=== PATIENT | female | born 1955 | race Caucasian/White ===

== ENCOUNTER 2023-09-17 08:32 | Outpatient (OUT) | payer MEDICARE, SELFPAY ==
--- NOTE | 2023-09-17 08:34 | XR_ITS ---
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 TECHNIQUE: Dual-energy X-ray absorptiometry (DEXA) bone density study performed for the axial skeleton. 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 T score -1.3. WHO classification: Osteopenia Lowest bone mineral density left femoral trochanter measures 0.577 g/sq cm for T score -2.4. WHO classification: osteopenia bordering on osteoporosis XR/XR DEXA axial skeleton IMPRESSION: Osteopenia bordering on osteoporosis. Moderate to high fracture risk Electronically authenticated by: KELTON GRANT Date: 09/17/2023 09:19
--- NOTE | 2023-09-17 08:34 | MM_ITS ---
Patient Name: FRANTZ MCFARLANE MR#: [id number] : 1955 Exam Date: 09/17/2023 Ordering Doctor: DR Josue Tate D.O. RADIOLOGY REPORT PROCEDURE: MM TOMOSYNTHESIS SCREENING BI COMPARISON: MG MAMM SCREEN 3D GOLIDE CAD, 06/14/2021. MG MAMM SCREEN 3D GOLDIE CAD, 07/12/2022. INDICATIONS: Screening Calculator Name NCI Breast Cancer Risk Assessment Tool 5 Year Breast Cancer Risk 2.40% Lifetime Breast Cancer Risk 8.60% Personal Breast Cancer No Personal Ovarian Cancer No Treatments None Family Cancers Grandmother-maternal with kidney,liver cancer at age ~58; Father with prostate cancer at age 75. LOCATION: [facility] BREAST COMPOSITION: Heterogeneously dense,which may obscure small masses. FINDINGS: DIAGNOSTIC CATEGORY 1--NEGATIVE. NO CHANGE FROM COMPARISON ASSESSMENT. Scattered benign-appearing calcifications are present. Scattered benign-appearing lymph nodes are present. RIGHT BREAST: No significant suspicious finding. LEFT BREAST: No significant suspicious finding. Stable micro clip marker upper outer quadrant, mid breast RECOMMENDATIONS: ROUTINE MAMMOGRAM AND CLINICAL EVALUATION IN 12 MONTHS. PLEASE NOTE: A NORMAL MAMMOGRAM DOES NOT EXCLUDE THE POSSIBILITY OF BREAST CANCER. A CLINICALLY SUSPICIOUS PALPABLE LUMP SHOULD BE BIOPSIED. Dictated by: Skinny Jesus MD on 09/17/2023 at 10:11 Approved by: Skinny Jesus MD on 09/17/2023 at 10:13
== END 2023-09-17 08:33 | disposition home or self-care (01) ==
LOC: MAMMO 08:32
PROVIDERS: PCP Internal Medicine; Visit Provider Internal Medicine
DX: Z12.31 Encounter for screening mammogram for malignant neoplasm of breast (principal); M85.88 Other specified disorders of bone density and structure, other site; Z80.42 Family history of malignant neoplasm of prostate; Z80.8 Family history of malignant neoplasm of other organs or systems; M81.0 Age-related osteoporosis without current pathological fracture
CPT/HCPCS: 77063; 77067; 77080

== ENCOUNTER 2024-09-27 08:39 | Outpatient (OUT) | payer MEDICARE, SELFPAY ==
--- NOTE | 2024-09-27 08:43 | MM_ITS ---
Patient Name: FRANTZ MCFARLANE MR#: [id number] : 1955 Exam Date: 09/27/2024 Ordering Doctor: DR Josue Tate D.O. RADIOLOGY REPORT PROCEDURE: MM TOMOSYNTHESIS SCREENING BI COMPARISON: MM TOMOSYNTHESIS SCREENING BI, 09/17/2023. MG MAMM SCREEN 3D GOLDIE CAD, 07/12/2022. MG MAMM SCREEN 3D GOLDIE CAD, 06/14/2021. MG MAMM GOLDIE SCRN W CAD DIG, 07/07/2013. INDICATIONS: Screening Calculator Name NCI Breast Cancer Risk Assessment Tool 5 Year Breast Cancer Risk 2.40% Lifetime Breast Cancer Risk 8.30% Personal Breast Cancer No Personal Ovarian Cancer No Treatments None Family Cancers Grandmother-maternal with kidney,liver cancer at age ~58; Father with prostate cancer at age 75. LOCATION: [facility] BREAST COMPOSITION: The breasts are heterogeneously dense,which may obscure small masses. FINDINGS: DIAGNOSTIC CATEGORY 0--INCOMPLETE: NEED ADDITIONAL IMAGING EVALUATION. RIGHT BREAST: No significant suspicious finding. No significant change has occurred. LEFT BREAST: Posterior upper-outer quadrant 10 x 8 x 8 mm mass with irregular margins. Ultrasound evaluation is recommended. RECOMMENDATIONS: ULTRASOUND: LEFT BREAST PLEASE NOTE: A NORMAL MAMMOGRAM DOES NOT EXCLUDE THE POSSIBILITY OF BREAST CANCER. A CLINICALLY SUSPICIOUS PALPABLE LUMP SHOULD BE BIOPSIED. Dictated by: Pedro Smith M.D. on 09/28/2024 at 15:39 Approved by: Pedro Smith M.D. on 09/28/2024 at 15:44
--- NOTE | 2024-09-27 08:46 | XR_ITS ---
The [address] [address] Patient Name: FRANTZ MCFARLANE MRN: [id number] date: 1955 Sex: F Assigned Patient Location: [facility] Current Patient Location: [facility] Accession/Order Number: [id number] Exam Date: 09/27/2024 09:00 Report Date: 09/29/2024 15:45 At the request of: BRAYAN GRACE Procedure: XR lumbar spine 6V w bending EXAMINATION: XR lumbar spine 6V w bending HISTORY: Low Back Pain, Scoliosis COMPARISON: No relevant comparison available. FINDINGS: BONES: Marked scoliotic curvature of spine. Distal ends of Owens rods can be seen extending cephalad above the level of imaging. No fracture, spondylolisthesis, or change in alignment during flexion and extension.. Multilevel mild to moderate degenerative facet arthropathy. DISC SPACES: Multilevel moderate disc space narrowing. PARASPINOUS: Negative. No paraspinous abnormality is seen. OTHER: Negative. XR/XR lumbar spine 6V w bending IMPRESSION: 1. Scoliotic curvature and multilevel mild-moderate degenerative changes. 2. No appreciable change in alignment. 3. No appreciable acute abnormality. Electronically authenticated by: ANTON BABIN Date: 09/29/2024 15:45
--- OUTSIDE RECORDS SUMMARY | 2024-09-27 08:58 | XMS_ITS | CCD ---
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 Name Role Phone Josue Tate Unavailable Unavailable Unavailable BEBETO, DR SCHMIDT Primary Care Unavailable BEBETO, DR SCHMIDT Consulting Unavailable BEBETO, DR SCHMIDT Attending Unavailable BALL, DR SCHMIDT Admitting Unavailable WEST, DR KELTON Lo Consulting Unavailable BEBETO, DR SCHMIDT Primary Care Unavailable BEBETO, DR SCHMIDT Consulting Unavailable BEBETO, DR SCHMIDT Attending Unavailable BEBETO, DR SCHMIDT Admitting Unavailable BEBETO, DR SCHMIDT Admitting Unavailable BEBETO, DR SCHMIDT Primary Care Unavailable BEBETO, DR SCHMIDT Consulting Unavailable BEBETO, DR SCHMIDT Attending Unavailable BEBETO, DR SCHMIDT Primary Care Unavailable YOANDY, DR STELLA Webb Attending Unavailabl e YOANDY, DR STELLA Webb Admitting Unavailabl e OLAF, DR PEDRO Kapadia Consulting Unavailable YOANDY, DR STELLA Webb Consulting Unavailabl e MOUKARBJIL, DR PICKERING Consulting Unavailable MOUKARBEL, DR PICKERING Attending Unavailable MOUKARBEL, DR PICKERIGN Admitting Unavailable BALL, DR SCHMIDT Primary Care Unavailable MOUKARBEL, DR PICKERING Consulting Unavailable MOUKARBEL, DR PICKERING Attending Unavailable MOUKARBEL, DR PICKERING Admitting Unavailable BEBETO, DR SCHMIDT Primary Care Unavailable BEBETO, DR SCHMIDT Admitting Unavailable BEBETO, DR SCHMIDT Primary Care Unavailable BEBETO, DR SCHMIDT Consulting Unavailable BEBETO, DR SCHMIDT Attending Unavailable ZIEBJESUS, DR PEDRO Kapadia Consulting Unavailable Unavailable Unavailable Yoandy, Dr. Stella Hooper Referring Lindsayva venkata Tate, Dr. Josue Jackson Primary Care Aime Pitt, Dr. Stella Hooper Attending Lindsayva venkata Pitt, Dr. Stella Hooper Attending Jailyn Pitt, Dr. Stella Hopoer Referring Lindsayva venkata Tate, Dr. Josue Jackson Primary Care Aime Pitt, Dr. Stella Hooper Referring Lindsayva venkata Tate, Dr. Josue Jackson Primary Care Aime Pitt, Dr. Stella Hooper Attending Jailyn Pitt, Dr. Stella Hooper Referring Jailyn Pitt, Dr. Stella Hooper Attending Jailyn Tate, Dr. Josue Jackson Primary Care Aime Gao, Ms. Bee Emeryyeni Clifton Attending Aime Gao, Ms. Bee Nicolasa Clifton Referring Aime Tate, Dr. Josue Jackson Primary Care Aime Tate, Josue Unavailable Yoandy, Dr. Stella Hooper Attending Jailyn Tate, Dr. Josue Jackson Primary Care Aime Pitt, Dr. Stella Hooper Attending Jailyn Tate, Dr. Josue Jackson Primary [facility] [place] Aime gonzalez REFERRAL, SELF Attending Unavailable BEBETO, JOSUE Consulting Unavailable BEBETO, DO JOSUE Consulting Unavailable Allergies Allergy Classification Reported Allergen(s) Allergy Type Date of Onset Reaction(s) Facility (4 sources) Acetaminophen / oxyCODONE Drug Allergy [facility] Other (1 source) Acetaminophen Drug Allergy 4 [facility] (1 source) oxyCODONE Drug Allergy [address] [place] [address] Medications Current Medications Medication Drug Class(es) Dates Sig (Normalized) Sig (Original) benzonatate 100 mg oral capsule (4 sources) Non-narcotic Antitussive Start: 04-24-2016 take 1 capsule by mouth three times daily as needed for cough Tessalon Perles 100 MG 1 capsule Orally Three times a day as needed for cough; swallow whole for 7 days Mar, Active cetirizine hydrochloride 10 mg oral tablet (4 sources) Histamine-1 Receptor Antagonist Start: 08-12-2019 take 1 capsule by mouth once daily as needed ZyrTEC Allergy 10MG ZyrTEC Allergy 10MG, 1 (one) Capsule Capsule daily # 30, 08/12/2019, Ref. x2. Active Oral daily for 0 pt takes PRN *Pick strength-form from [facility] for eRX* Jul, Active methylPREDNISolone 4 mg oral tablet (4 sources) Corticosteroid Start: 04-24-2016 Medrol (Parish) 4 MG as directed Orally for daily dose take half with breakfast half with dinner for 6 days Mar, Active Multi For Her (4 sources) Multi For Her Orally daily Active Multivitamin (Daily Multi-Vitamin) tablet (1 source) Start: 05-13-2024 take 1 tablet by mouth once daily Multivitamin (Daily Multi-Vitamin) tablet Active 1 TAB PO Daily May 13, 2024 12:00am Completed/Discontinued Medications Medication Drug Class(es) Dates Sig (Normalized) Sig (Original) azithromycin 250 mg oral tablet (2 sources) Macrolide Antimicrobial Start: 05-09-2021 Azithromycin 250 MG Oral Tablet TAKE 2 TABLETS BY MOUTH TODAY, THEN TAKE 1 TABLET DAILY FOR 4 DAYS Quantity: 6 Refills: 0 Ordered: 12-May-2021 DO Start : 09-May-2021 Complete cephalexin 500 mg oral capsule (2 sources) Cephalosporin Antibacterial Start: 09-17-2021 take 1 capsule by mouth twice daily Cephalexin 500 MG Oral Capsule TAKE 1 CAPSULE BY MOUTH TWICE A DAY FOR 10 DAYS Quantity: 30 Refills: 0 Ordered: 17-Sep-2021 DO Start : 17-Sep-2021 Complete cholecalciferol 0.025 mg oral capsule (2 sources) Vitamin D Vitamin D-3 25 MCG (1000 UT) Oral Capsule TAKE DIRECTED. Quantity: 0 Refills: 0 Ordered: 18-Oct-2022 DO Active dexamethasone 1 mg/ml / neomycin 3.5 mg/ml / polymyxin b [id number] unt/ml ophthalmic suspension (2 sources) Aminoglycoside Antibacterial, Polymyxin-class Antibacterial, Corticosteroid Start: 09-17-2021 take 1 drop(s) into the eye(s) three times daily Neomycin-Polymyxi n-Dexameth [id number] 1 DROP INTO LEFT EYE THREE TIMES A DAY FOR 10 DAYS Quantity: 5 Refills: 0 Ordered: 17-Sep-2021 DO Start : 17-Sep-2021 Complete Eye Multivitamin/Lutein CAPS (2 sources) Eye Multivitamin/Lute in CAPS TAKE DIRECTED. Quantity: 0 Refills: 0 Ordered: 18-Oct-2022 DO Active Multi Vitamin Daily Oral Tablet (1 source) take 1 tablet by mouth once daily Multi Vitamin Daily Oral Tablet TAKE 1 TABLET DAILY. Quantity: 0 Refills: 0 Ordered: 18-Oct-2022 DO Active Multi Vitamin Daily TABS (1 source) Multi Vitamin Daily TABS TAKE 1 TABLET DAILY. Quantity: 0 Refills: 0 Ordered: 18-Oct-2022 DO Active No Reported Medications (6 sources) No Reported Medications Quantity: 0 Refills: 0 Ordered: 29-Nov-2021 DO Active No Reported Medi cations Quantity: 0 Refills: 0 Ordered: 05-Nov-2021 DO Active Problems Active Problems Problem Classification Problem Date Documented Da te Episodic/Chronic Acute bronchitis (4 sources) Acute bronchitis; Translations: [Acute bronchitis due to other specified organisms] Episodic Anxiety disorders (7 sources) Generalized anxiety disorder; Translations: [Generalized anxiety disorder] Chronic Asthma (7 sources) Mild intermittent asthma; Translations: [Mild intermittent asthma, uncomplicated] Chronic Cardiac dysrhythmias (12 sources) Ventricular premature beats; Translations: [Other premature beats] Onset: 11-01-2021 Chronic Essential hypertension (12 sources) Benign essential hypertension; Translations: [Benign essential hypertension] Onset: 03-20-2023 05-11-2024 Chronic Genitourinary symptoms and ill-defined conditions (4 sources) Dysuria; Translations: [Dysuria] Episodic Heart valve disorders (20 sources) Mitral valve regurgitation; Translations: [Mitral valve disorders] Onset: 10-04-2021 Chronic Immunizations and screening for infectious disease (13 sources) Patient encounter status; Translations: [Other specified vaccination] Resolved: 11-29-2021 05-11-2024 Episodic Nonspecific chest pain (9 sources) Chest pain; Translations: [Chest pain, unspecified] Onset: 11-21-2021 Episodic Other acquired deformities (5 sources) Scoliosis deformity of spine; Translations: [Scoliosis, unspecified] 05-11-2024 Chronic Other acquired deformities (1 source) Scoliosis, unspecified; Translations: [Scoliosis [and kyphoscoliosis], idiopathic] 05-13-2024 Chronic Other bone disease and musculoskeletal deformities (4 sources) Idiopathic scoliosis AND/OR kyphoscoliosis; Translations: [Adolescent idiopathic scoliosis, thoracolumbar region] Chronic Other bone disease and musculoskeletal deformities (2 sources) Other specified disorders of bone density and structure, other site; Translations: [OTH D/O BONE DEN STRUCT OTH SITE] Onset: 08-15-2021 Episodic Other bone disease and musculoskeletal deformities (4 sources) Disorder of bone; Translations: [Other specified disorders of bone density and structure, other site] Episodic Other circulatory disease (4 sources) Elevated blood-pressure reading without diagnosis of hypertension; Translations: [Elevated blood-pressure reading, without diagnosis of hypertension] Episodic Other circulatory disease (1 source) Elevated blood-pressure reading, without diagnosis of hypertension Episodic Other injuries and conditions due to external causes (1 source) Choking due to food in larynx; Translations: [Food in larynx causing asphyxiation, initial encounter] 05-13-2024 Episodic Other lower respiratory disease (2 sources) Dyspnea; Translations: [Shortness of breath] Episodic Other screening for suspected conditions (not mental disorders or infectious disease) (20 sources) Echocardiogram abnormal; Translations: [Nonspecific (abnormal) findings on radiological and other examination of other intrathoracic organs] Onset: 06-06-2022 Episodic Other upper respiratory disease (4 sources) Allergic rhinitis; Translations: [Other allergic rhinitis] Chronic Hilda-; endo-; and myocarditis; cardiomyopathy (except that caused by tuberculosis or sexually transmitted disease) (20 sources) Cardiomyopathy; Translations: [Other primary cardiomyopathies] Onset: 07-21-2018 Resolved: 10-12-2020 Chronic Residual codes; unclassified (8 sources) Body mass index 20-24 - normal; Translations: [Body Mass Index between 19-24, adult] Episodic Residual codes; unclassified (1 source) Family history of malignant neoplasm of kidney; Translations: [FAM HX MALIGNANT NEOPLASM KIDNEY] Onset: 07-27-2022 Episodic Residual codes; unclassified (1 source) Family history of malignant neoplasm of prostate; Translations: [FAMILY HX MALIG NEOPLASM PROSTATE] Onset: 07-27-2022 Episodic Residual codes; unclassified (1 source) Family history of malignant neoplasm of other organs or systems; Translations: [FAM HX MALIG NEOPLASM OTH ORGN/SYS] Onset: 07-27-2022 Episodic Residual codes; unclassified (4 sources) Postmenopausal state; Translations: [Asymptomatic menopausal state] Episodic Sprains and strains (4 sources) Other sprain of right hip, subsequent encounter; Translations: [Other sprain of right hip, subsequent encounter] Episodic Thyroid disorders (5 sources) Other specified hypothyroidism; Translations: [Hypothyroidism] Onset: 06-08-2022 Chronic Past or Other Problems Problem Classification Problem Date Documented Da te Episodic/Chronic Residual codes; unclassified (4 sources) Asymptomatic menopausal state; Translations: [ASYMPTOMATIC MENOPAUSAL STATE] Onset: 08-09-2021 Episodic Unclassified (8 sources) Never smoked tobacco; Translations: [Never a smoker] Results Test Name Value Interpretation Reference Range [facility] 07-13-2024 ALT No additional P-5'-P [Catalytic activity/Vol] 13 Int._Unit/L Normal 6-46 [facility] Comment on above: Performed By: #### 2 [id number] #### [facility] [address] [place] [address] Kirt 07-13-2024 AST [Catalytic activity/Vol] 14 Int._Unit/L Normal 5-43 [facility] Comment on above: Performed By: #### 2 [id number] #### [facility] [address] [place] [address] BMPon 07-13-2024 Anion gap [Moles/Vol] 10 mmol/L Normal 6-16 [facility] Comment on above: Performed By: #### 2 [id number] #### [facility] [address] [place] [address] Calcium [Mass/Vol] 9.3 mg/dL Normal 8.9-11.1 [facility] Comment on above: Performed By: #### 2 [id number] #### [facility] [address] [place] [address] Chloride [Moles/Vol] 105 mmol/L Normal 101-111 [facility] Comment on above: Performed By: #### 2 [id number] #### [facility] [address] [place] [address] CO2 [Moles/Vol] 31 mmol/L Normal 21-31 [facility] Comment on above: Performed By: #### 2 [id number] #### [facility] [address] [place] [address] Creatinine [Mass/Vol] 0.6 mg/dL Normal 0.5-1.3 [facility] Comment on above: Performed By: #### 2 [id number] #### [facility] [address] [place] [address] Glucose [Mass/Vol] 79 mg/dL Normal 55-199 [facility] Comment on above: Performed By: #### 2 [id number] #### [facility] [address] [place] [address] Potassium [Moles/Vol] 4.3 mmol/L Normal 3.5-5.3 [facility] Comment on above: Performed By: #### 2 [id number] #### [facility] [address] [place] [address] Sodium [Moles/Vol] 142 mmol/L Normal 135-145 [facility] Comment on above: Performed By: #### 2 [id number] #### [facility] [address] [place] [address] Urea nitrogen [Mass/Vol] 15 mg/dL Normal 5-21 [facility] Comment on above: Performed By: #### 2 [id number] #### [facility] [address] [place] [address] Urea nitrogen/Creatinine [Mass ratio] 25 No Units High 10-20 [facility] Comment on above: Performed By: #### 2 [id number] #### [facility] [address] [place] [address] CBC w/Indiceson 07-13-2024 Erythrocyte distribution width (RBC) [Ratio] 13.9 % Normal 10.9-14.2 [facility] Comment on above: Performed By: #### 2 [id number] #### [facility] [address] [place] [address] Hematocrit (Bld) [Volume fraction] 40.7 % Normal 34.0-46.0 [facility] Comment on above: Performed By: #### 2 [id number] #### [facility] [address] [place] [address] Hemoglobin (Bld) [Mass/Vol] 13.6 g/dL Normal 12.0-16.0 [facility] Comment on above: Performed By: #### 2 [id number] #### [facility] [address] [place] [address] MCH (RBC) [Entitic mass] 29.5 pg Normal 27.0-34.0 [facility] Comment on above: Performed By: #### 2 [id number] #### [facility] [address] [place] [address] MCHC (RBC) [Mass/Vol] 33.4 g/dL Normal 31.4-36.0 [facility] Comment on above: Performed By: #### 2 [id number] #### [facility] [address] [place] [address] MCV (RBC) [Entitic vol] 88.3 fL Normal 80.0-100.0 [facility] Comment on above: Performed By: #### 2 [id number] #### [facility] [address] [place] [address] Platelet 270.0 E9/L Normal 150.0-500.0 [facility] Comment on above: Performed By: #### 2 [id number] #### [facility] [address] [place] [address] Platelet mean volume (Bld) [Entitic vol] 10.0 fL Normal 6.4-10.8 [facility] Comment on above: Performed By: #### 2 [id number] #### [facility] [address] [place] [address] RBC (Bld) [#/Vol] 4.6 E12/L Normal 4.3-5.9 [facility] Comment on above: Performed By: #### 2 [id number] #### [facility] [address] [place] [address] RBC size Nom (Bld) NORMAL Invalid Interpretation Code [facility] Comment on above: Performed By: #### 2 [id number] #### [facility] [address] [place] [address] WBC corrected for nucl RBC Auto (Bld) [#/Vol] 5.4 E9/L Normal 4.0-11.0 [facility] Comment on above: Performed By: #### 2 [id number] #### [facility] [address] [place] [address] Lipid Panelon 07-13-2024 Cholesterol [Mass/Vol] 161 mg/dL Normal 120-200 [facility] Comment on above: Performed By: #### 2 [id number] #### [facility] [address] [place] [address] Cholesterol in HDL [Mass/Vol] 58 mg/dL Invalid Interpretation Code [facility] Comment on above: Result Comment: '>= 60 LOW RISK' '<= 40 HIGH RISK' Performed By: #### 2 [id number] #### [facility] [address] [place] [address] Cholesterol in LDL [Mass/Vol] 77 mg/dL Normal <=129 [facility] Comment on above: Performed By: #### 2 [id number] #### [facility] [address] [place] [address] Cholesterol in VLDL [Mass/Vol] 24 mg/dL Normal 7-40 [facility] Comment on above: Performed By: #### 2 [id number] #### [facility] [address] [place] [address] Triglyceride [Mass/Vol] 119 mg/dL Normal <=149 [facility] Comment on above: Performed By: #### 2 [id number] #### [facility] [address] [place] [address] eGFRon 07-13-2024 eGFR 98 mL/min/1.73 m2 Normal >=59 [facility] Comment on above: Performed By: #### 1 [id number] #### [facility] [address] [place] [address] [facility] MUGA SCAN INJECTIONon [facility] MUGA SCAN INJECTION Patient Name: CANDIDO BOCANEGRA STUDY: MUGA Performing facility: [facility], [address] [place] [address], [address], [place] [address] [facility] Provider: Zelalem Pitt DO, [facility] PCP: Dr. Vishnu TATE Supervising provider: Stew Paz MD, [facility] INDICATION: I42.9: Cardiomyopathy I42.8: Non-ischemic cardiomyopathy I10: Hypertension HISTORY: Gender: F; Age: 67 y/o ; Height: 0 cm; Weight: 0 kg. NICM, HTN Arrhythmias; PVCs COMPARISON: Previous echo testing completed 08/2022 at [place]. EF 40-45% Previous nuclear testing completed 10/2021 at [place]. EF 63% ACCESSION NUMBER(S): [id number]; [id number] ORDERING CLINICIAN: STELLA PITT TECHNIQUE: The patient received an IV injection of 3 ml of stannous pyrophosphate (PYP) using the in-vivo method of labeling red blood cells. After 15 minutes the patient received another IV injection of 24.8 mCi of Technetium 99m pertechnetate. Planar images of the left ventricle were obtained in the TAJIK 45, Lt Lateral and anterior projections. FINDINGS: The right ventricle was normal. The left ventricle was normal in size. Regional wall motion was normal. Global resting LVEF was normal- at 55%. IMPRESSION: Normal resting right ventricular function. Normalresting left ventricular function. Left ventricular ejection fraction is 55%. No previous studies are available for comparison Electronically signed by: STEW PAZ MD Normal [facility] No Panel Informationon 03-20 Normal -[facility] 250 DO Work Phone: Office Visit (Cardiology)on 10-18-2022 Follow-up visit Diagnoses/Problems Assessed Non-ischemic cardiomyopathy (425.4) (I42.8) Hypertension (401.9) (I10) Never a smoker Body mass index (BMI) of 21.0 to 21.9 in adult (V85.1) (Z68.21) Cardiomyopathy (425.4) (I42.9) Shortness of breath (786.05) (R06.02) Orders Cardiomyopathy, Hypertension, Non-ischemic cardiomyopathy NM Muga (Gated Cardiac Blood Pool); Status:Hold For - Scheduling,Retrospec tive Authorization; Requested for:[id number]; Radiologist to Determine Optimal Study : Y What are the patient's signs and symptoms? : HTN, weakness SocHx: Never a smoker Tobacco Use Screening; Status:Complete; Done: 18Oct2022 Patient Instructions Please bring all medicines, vitamins, and herbal supplements with you when you come to the office. Prescriptions will not be filled unless you are compliant with your follow up appointments or have a follow up appointment scheduled as per instruction of your physician. Refills should be requested at the time of your visit. Fall prevention education given Follow up in 6 months Follow up after testing completed muga scan 6 months Chief Complaint CANDIDO BOCANEGRA is being seen for a 8 month follow-up of. 67-year-old female who returns for follow-up and is overall doing well other than episodic shortness of breath. She has had no heart failure admissions denies any edema, blood pressure slightly elevated today likely this is situational due to job stress as well as mild home stress. She was initially seen 1 year ago for abnormal echo and mild left ventricular dysfunction, she underwent stress perfusion imaging in November 13 that was completely normal with normal left ventricular function. We arranged follow-up and echocardiogram for this year, the echo from August 2022 is reviewed as well as September 2021 echo both confirm mild left ventricular dysfunction with ejection fraction of 40 to 45% with left ventricular end-diastolic measurement of 49 mm, and systolic dimension of 43 mm, with no significant valvular pathology, RVSP of 33 mmHg. When comparing current echo to last years echo done in a different institution read by a different story analyst, her left ventricular end-systolic diameter was 3.8 cm and diastolic diameter was same at 4.9 cm. Again representing mild to moderate global hypokinesis We discussed all the above with her and offered initiation of guideline directed medical therapies including carvedilol, losartan, spironolactone and explained in detail the nature of these pharmacologic interventions for what would be considered class I stage B congestive heart failure. Patient is very reticent to start any medications at this juncture as she is so asymptomatic, and is about to retire in the next 90 days with hopeful improvement in her lifestyle. She already exercises on a regular basis and is looking forward to further exercise and aerobic lifestyle. After detailed informed decision-making process, we will hold off on pharmacologic intervention, schedule her to come back for a MUGA scan in 6 months with repeat clinical visit and readdress pharmacologic intervention if necessary. Surgical History Problems History of Complete colonoscopy 1997 History of Spinal surgery Past Medical History Problems History of Encounter for immunization (V03.89) (Z23) Resolved Date: 29 Nov 2021 Current Meds Medication NameInstruction Eye Multivitamin/Lutein [place] DIRECTED. Multi Vitamin Daily Oral TabletTAKE 1 TABLET DAILY. Vitamin D-3 25 MCG (1000 UT) Oral CapsuleTAKE DIRECTED. Allergies Medication No Known Drug Allergies Recorded By: Abbi Lebron; 11/05/2021 2:33:31 PM Social History Problems Consumes 1 to 2 servings of caffeine per day (V49.89) (Z78.9) Never a smoker No illicit drug use Occasional alcohol use Review of Systems Constitutional: not feeling tired. Cardiovascular: no intermittent leg claudication and as noted in HPI. Respiratory: shortness of breath during exertion, but no cough and no shortness of breath. Gastrointestinal: no change in bowel habits and no blood in stools. Integumentary: no skin rashes. Neurological: no seizures and no frequent falls. All other systems have been reviewed and are negative for complaint. Vitals Vital Signs Recorded: [id number] 03:41PM Heart Rate60, L Radial [id number], LUE, Sitting Sogwwbypn81, LUE, Sitting Height5 ft 2 in Vxkhjt224 lb BMI Affscpqtzf67.95 kg/m2 BSA Calculated1.54 Tobacco Useb) No PHQ-2 #1. Over the last 2 weeks have you felt down, depressed or hopeless? (If yes, answer PHQ-9 below)No PHQ-2 #2. Over the last 2 weeks have you felt little interest or pleasure in doing things? (If yes, answer PHQ-9 below)No Falls Screening (Age 18+)b) One or more falls in the last year Physical Exam Constitutional: alert and in no acute distress. Neck: neck is supple, symmetric, trachea midline, no masses and no thyromegaly . Pulmonary: no increased work of breathing or signs of respiratory dis (more content not included)... Normal [facility] Tobacco Screening.on 023 Adult depression screening assessment No [facility] Erly 250 DO Work Phone: Fall risk assessment b) One or more fall s in the last year [facility] Erly 250 DO Work Phone: Tobacco use status CPHS b) No [facility] Erly 250 DO Work Phone: Echocardiogramon 08-29-2022 Echocardiography [facility] [employer] [address] [place] [address], Suite [facility], [place] [address] TRANSTHORACIC ECHOCARDIOGRAM REPORT Patient Name: CANDIDO Pathak Physician: [id number] Stew Paz MD, [facility] Study Date: 08/29/2022 Referring Physician: STELLA PITT MRN/PID: [id number] PCP: Josue Tate Accession/Order#: [id number] Department [facility] Nguyen Barlow Date of : 1955 Fellow: Gender: F Nurse: Admit Date: Motorcycle Mechanic: Jillian Goldman RDCS, RVT Height: 157.48 cm CC Report to: Weight: 53.52 kg Study Type: Echocardiogram BSA: 1.53 m2 Diagnosis/ICD: I34.0-Nonrheumatic mitral (valve) insufficiency Indication: HTN Procedure/CPT: Echo Complete w Full [id number] Study Detail: The following Echo studies were performed: 2D, M-Mode, Doppler and color flow. PHYSICIAN INTERPRETATION: Left Ventricle: Left ventricular systolic function is mildly to moderately decreased, with an estimated ejection fraction of 40-45%. The left ventricular cavity size is normal. Spectral Doppler shows a normal pattern of left ventricular diastolic filling. Severe inferolateral wall hypokinesis. Left Atrium: The left atrium is normal in size. Right Ventricle: The right ventricle is normal in size. There is normal right ventricular global systolic function. Right Atrium: The right atrium is normal in size. Aortic Valve: The aortic valve is trileaflet. There is no evidence of aortic valve regurgitation. The peak instantaneous gradient of the aortic valve is 3.1 mmHg. The mean gradient of the aortic valve is 2.0 mmHg. Mitral Valve: The mitral valve is mildly thickened. There is mild mitral valve regurgitation. Tricuspid Valve: The tricuspid valve is structurally normal. There is trace tricuspid regurgitation. Pulmonic Valve: The pulmonic valve is structurally normal. There is no indication of pulmonic valve regurgitation. Pericardium: There is no pericardial effusion noted. Aorta: The aortic root is normal. Systemic Veins: The inferior vena cava appears to be of normal size. In comparison to the previous echocardiogram(s): When compared to a study from 10/04/2021, there has been no significant interval changes. CONCLUSIONS: 1. Left ventricular systolic function is mildly to moderately decreased with a 40-45% estimated ejection fraction. 2. Severe inferolateral wall hypokinesis. 3. When compared to a study from 10/04/2021, there has been no significant interval changes. QUANTITATIVE DATA SUMMARY: 2D MEASUREMENTS: Normal Ranges: Ao Root d: 2.60 cm (2.0-3.7cm) LAs: 3.80 cm (2.7-4.0cm) RVIDd: 3.00 cm (0.9-3.6cm) IVSd: 0.80 cm (0.6-1.1cm) LVPWd: 0.80 cm (0.6-1.1cm) LVIDd: 4.90 cm (3.9-5.9cm) LVIDs: 4.30 cm LV Mass Index: 85.9 g/m2 LV % FS 12.2 % LV SYSTOLIC FUNCTION BY 2D PLANIMETRY (MOD): Normal Ranges: EF-A4C View: 38.1 % (>=55%) LV DIASTOLIC FUNCTION: Normal Ranges: MV Peak E: 0.57 m/s (0.7-1.2 m/s) MV Peak A: 0.39 m/s (0.42-0.7 m/s) E/A Ratio: 1.48 (1.0-2.2) MV lateral e' 0.07 m/s MV medial e' 0.06 m/s E/e' Ratio: 7.90 (<8.0) MITRAL VALVE: Normal Ranges: MV Vmax: 0.57 m/s (<=1.3m/s) MV peak P.3 mmHg (<5mmHg) MV mean P.0 mmHg (<48mmHg) MITRAL INSUFFICIENCY: Normal Ranges: MR Vmax: 436.00 cm/s dP/dt: 826 mmHg/s (>1200mmHg/sec) AORTIC VALVE: Normal Ranges: AoV Vmax: 0.89 m/s (<=1.7m/s) AoV Peak P.1 mmHg (<20mmHg) AoV Mean P.0 mmHg (1.7-11.5mmHg) LVOT Max Yo: 0.70 m/s (<=1.1m/s) AoV VTI: 19.60 cm (18-25cm) LVOT VTI: 16.00 cm LVOT Diameter: 1.80 cm (1.8-2.4cm) AoV Area, VTI: 2.08 cm2 (2.5-5.5cm2) AoV Area,Vmax: 2.01 cm2 (2.5-4.5cm2) AoV Dimensionless Index: 0.82 TRICUSPID VALVE/RVSP: Normal Ranges: Peak TR Velocity: 2.63 m/s RV Syst Pressure: 30.7 mmHg (< 30mmHg) PULMONIC VALVE: Normal Ranges: PV Max Yo: 0.5 m/s (0.6-0.9m/s) PV Max P.2 mmHg PIEDV: 1.71 m/s PADP: 14.7 mmHg [id number] Stew Paz MD, [facility] Electronically signed on 09/02/2022 at 6:28:57 PM Final Normal [facility] Echocardiography Please click on the link to view the study images Normal [facility] [employer] Work Phone: Falls Screening (Age 18+)on 08-29-2022 Fall risk assessment b) One or more fall s in the last year [facility] [employer] Work Phone: MG MAMM SCREEN 3D GOLDIE CADon 07-12-2022 MG MAMM SCREEN 3D GOLDIE CAD Patient: MELISSA BOCANEGRA Exam Date: 07/12/2022 : 1955 Gender:F Ordering : DR JOSUE TATE D.O. Admission #: [id number] Family : Order #: [id number] CLICK HERE TO VIEW EXAM RADIOLOGY REPORT PROCEDURE: MAMMOGRAM SCREENING 3D BILATERAL CAD COMPARISON: MG MAMM SCREEN 3D GOLDIE CAD, 06/14/2021. MG MAMM SCREEN GOLDIE W CAD, 05/02/2020. INDICATIONS: Screening mammography Calculator Name NCI Breast Cancer Risk Assessment Tool 5 Year Breast Cancer Risk 2.40% Lifetime Breast Cancer Risk 8.90% Personal Breast Cancer No Personal Ovarian Cancer No Treatments None Family Cancers Grandmother-maternal with kidney,liver cancer at age 58; Father with prostate cancer at age 75. LOCATION: [facility] BREAST COMPOSITION: Heterogeneously dense,which may obscure small masses. FINDINGS: DIAGNOSTIC CATEGORY 1--NEGATIVE. NO CHANGE FROM COMPARISON ASSESSMENT. Scattered benign-appearing calcifications are present. Scattered benign-appearing lymph nodes are present. RIGHT BREAST: No significant suspicious finding. LEFT BREAST: No significant suspicious finding. Stable micro clip marker upper quadrant. RECOMMENDATIONS: ROUTINE MAMMOGRAM AND CLINICAL EVALUATION IN 12 MONTHS. PLEASE NOTE: A NORMAL MAMMOGRAM DOES NOT EXCLUDE THE POSSIBILITY OF BREAST CANCER. A CLINICALLY SUSPICIOUS PALPABLE LUMP SHOULD BE BIOPSIED. Dictated by: Kelton Jesus MD on 07/12/2022 at 10:29 Approved by: Kelton Jesus MD on 07/12/2022 at 10:30 Normal [facility] T3, TOTAL (TRIIODOTHYRONINE) on 06-08-2022 T3, TOTAL 97 ng/dL Normal 71-180 [facility] Comment on above: Performed By: #### T 3TOTAL #### [facility] [place] [facility] [address] [place] [address] Dr. Davie Vanessa FREE T4on 06-06-2022 Free T4 [Mass/Vol] 0.93 ng/dL Normal 0.76-1.46 [facility] Comment on above: Performed By: #### F T4 #### [facility] [place] [facility] [address] [place] [address] Dr. Davie Vanessa TSHon 06-06-2022 TSH 3.021 uIU/mL Normal 0.358-3.740 [facility] Comment on above: Performed By: #### T SH ####[facility] [place] [id number] [place] [id number]. Davie Vanessa CBC AUTO DIFFon 05-09-2022 BASO # 0.1 103/ul Normal 0.0-0.1 [facility] Comment on above: Performed By: #### C BC #### [facility] [place] [facility] [address] [place] [address] Dr. Davie Vanessa Basophils/100 WBC (Bld) 0.9 % Normal 0.2-2.0 [facility] Comment on above: Performed By: #### C BC #### [facility] [place] [facility] [address] [place] [address] Dr. Davie Vanessa EO # 0.2 103/ul Normal 0.0-0.7 [facility] Comment on above: Performed By: #### C BC #### [facility] [address] [place] [address] Dr. Davie Vanessa Eosinophils/100 WBC (Bld) 3.1 % Normal 0.9-7.0 [facility] Comment on above: Performed By: #### C BC #### [facility] [place] [facility] [address] [place] [address] Dr. Davie Vanessa Erythrocyte distribution width (RBC) [Ratio] 13.5 % Normal 11.0-15.0 [facility] Comment on above: Performed By: #### C BC #### [facility] [address] [place] [address] Dr. Davie Vanessa Hematocrit (Bld) [Volume fraction] 43.2 % Normal 36.0-48.0 [facility] Comment on above: Performed By: #### C BC #### [facility] [address] [place] [address] Dr. Davie Vanessa Hemoglobin (Bld) [Mass/Vol] 13.7 g/dL Normal 12.0-16.0 [facility] Comment on above: Performed By: #### C BC #### [facility] [place] [facility] [address] [place] [address] Dr. Davie Vanessa IG # 0.01 10e3/ul Normal 0.00-0.03 [facility] Comment on above: Performed By: #### C BC #### [facility] [place] [facility] [address] [place] [address] Dr. Davie Vanessa IG % 0.2 % Normal 0.0-0.5 [facility] Comment on above: Performed By: #### C BC #### [facility] [address] [place] [address] Dr. Davie Vanessa LYMPH # 2.2 103/ul Normal 1.2-3.8 [facility] Comment on above: Performed By: #### C BC #### [facility] [address] [place] [address] Dr. Davie Vanessa Lymphocytes/100 WBC (Bld) 36.9 % Normal 20.5-60.0 [facility] Comment on above: Performed By: #### C BC #### [facility] [address] [place] [address] Dr. Davie Vanessa MANUAL DIFF REQ NO Normal [facility] Comment on above: Performed By: #### C BC #### [facility] [address] [place] [address] Dr. Davie Vanessa MCH (RBC) [Entitic mass] 29.0 pg Normal 26.7-34.0 [facility] Comment on above: Performed By: #### C BC #### [facility] [place] [facility] [address] [place] [address] Dr. Davie Vanessa MCHC (RBC) [Mass/Vol] 31.7 g/dL Normal 29.9-35.2 [facility] Comment on above: Performed By: #### C BC #### [facility] [address] [place] [address] Dr. Davie Vanessa MCV (RBC) [Entitic vol] 91.5 fL Normal 81.0-99.0 [facility] Comment on above: Performed By: #### C BC #### [facility] [address] [place] [address] Dr. Davie Vanessa MONO # 0.7 103/ul Normal 0.3-0.8 [facility] Comment on above: Performed By: #### C BC #### [facility] [address] [place] [address] Dr. Davie Vanessa Monocytes/100 WBC (Bld) 11.1 % Normal 1.7-12.0 [facility] Comment on above: Performed By: #### C BC #### [facility] [address] [place] [address] Dr. Davie Vanessa NEUT # 2.8 103/ul Normal 1.4-6.5 [facility] Comment on above: Performed By: #### C BC #### [facility] [place] [facility] [address] [place] [address] Dr. Davie Vanessa Neutrophils/100 WBC (Bld) 47.8 % Normal 43.0-75.0 [facility] Comment on above: Performed By: #### C BC #### [facility] [place] [facility] [address] [place] [address] Dr. Davie Vanessa Platelet mean volume (Bld) [Entitic vol] 12.2 fL Normal 9.5-13.5 [facility] Comment on above: Performed By: #### C BC #### [facility] [address] [place] [address] Dr. Davie Vanessa PLT 240 103/ul Normal 150-450 [facility] Comment on above: Performed By: #### C BC #### [facility] [address] [place] [address] Dr. Davie Vanessa RBC 4.72 106/ul Normal 4.20-5.40 [facility] Comment on above: Performed By: #### C BC #### [facility] [address] [place] [address] Dr. Davie Vanessa WBC 5.9 103/ul Normal 4.0-11.0 [facility] Comment on above: Performed By: #### C BC #### [facility] [address] [place] [address] Dr. Davie Vanessa GLYCOHEMOGLOBIN A1Con 2021 ADA RECOMMENDATION SEE BELOW Normal [facility] Comment on above: Result Comment: ADA RECOMMENDED LIMIT 4.0 - 6.0 ADA THERAPEUTIC TARGET < 7.0 ACTION SUGGESTED > 7.0 Performed By: #### A 1C #### [facility] [address] [place] [address] Dr. Davie Vanessa Glucose [Mass/Vol] 111 mg/dL Normal [facility] Comment on above: Performed By: #### A 1C #### [facility] [address] [place] [address] Dr. Davie Vanessa HbA1c (Bld) [Mass fraction] 5.5 % Normal 4.5-6.2 [facility] Comment on above: Performed By: #### A 1C #### [facility] [address] [place] [address] Dr. Davie Vanessa LIPID PROFILEon 05-09-2022 CHOL-HDL RATIO NORM SEE BELOW Normal [facility] Comment on above: Result Comment: 3.3 - 4.4 LOW RISK 4.4 - 7.1 AVERAGE RISK 7.1 - 11.0 MODERATE RISK >11.0 HIGH RISK Performed By: #### C MP, LIPID, TSH ####[facility] [id number] [place] [id number]. Davie Vanessa Cholesterol [Mass/Vol] 137 mg/dL Normal <=200 [facility] Comment on above: Performed By: #### C MP, LIPID, TSH ####[facility] [id number] [place] [id number]. Davie Vanessa Cholesterol in HDL [Mass/Vol] 64 mg/dL Critically high 40-60 [facility] Comment on above: Performed By: #### C MP, LIPID, TSH ####[facility] [id number] [place] [id number]. Davie Vanessa Cholesterol in LDL [Mass/Vol] 57.4 mg/dL Normal [facility] Comment on above: Performed By: #### C MP, LIPID, TSH ####[facility] [id number] [place] [address]Dr. Davie Vanessa Cholesterol.total/Ch olesterol in HDL [Mass ratio] 2.1 {ratio} Normal [facility] Comment on above: Performed By: #### C MP, LIPID, TSH ####[facility] [id number] [place] [id number]. Rosauralan Vanessa HDL NORMAL > or = 60 mg/dl - LOW CARDIOVASCULAR RISK <40 mg/dl - HIGH CARDIOVASCULAR RISK Normal [facility] Comment on above: Performed By: #### C MP, LIPID, TSH ####[facility] [id number] [place] [id number]. Rosauralan Vanessa LDL CALC NORMAL SEE BELOW Normal [facility] Comment on above: Result Comment: <100 mg/dl OPTIMAL 100 - 129 mg/dl NEAR OR ABOVE OPTIMAL 130 - 159 mg/dl BORDERLINE HIGH 160 - 189 mg/dl HIGH >190 mg/dl VERY HIGH Performed By: #### C MP, LIPID, TSH ####[facility] [id number] [place] [id number]. Davie Vanessa Triglyceride [Mass/Vol] 78 mg/dL Normal <=150 [facility] Comment on above: Performed By: #### C MP, LIPID, TSH ####[facility] [id number] [place], [place] [address]CbDr. Davie Vanessa VLDL CALC 15.6 mg/dL Normal [facility] Comment on above: Performed By: #### C MP, LIPID, TSH ####[facility] [id number] [place] [id number]. Davie Vanessa PROF 14(COMP METB)on 022 Albumin [Mass/Vol] 3.8 g/dL Normal 3.4-5.0 [facility] Comment on above: Performed By: #### C MP, LIPID, TSH #### [facility] [place] [facility] [address] [place] [address] [address] Davie Vanessa Albumin/Globulin [Mass ratio] 1.2 {ratio} Normal [facility] Comment on above: Performed By: #### C MP, LIPID, TSH #### [facility] [place] [facility] [address] [place] [address] [address] Davie Vanessa ALP [Catalytic activity/Vol] 103 U/L Normal 46-116 [facility] Comment on above: Performed By: #### C MP, LIPID, TSH #### [facility] [place] [facility] [address] [place] [address] [address] Davie Vanessa ALT [Catalytic activity/Vol] 21 U/L Normal 14-59 [facility] Comment on above: Performed By: #### C MP, LIPID, TSH #### [facility] [place] [facility] [address] [place] [address] [address] Davie Vanessa Anion gap [Moles/Vol] 6.9 mmol/L Normal [facility] Comment on above: Performed By: #### C MP, LIPID, TSH #### [facility] [place] [facility] [address] [place] [address] [address] Davie Vanessa AST [Catalytic activity/Vol] 15 U/L Normal 15-37 [facility] Comment on above: Performed By: #### C MP, LIPID, TSH #### [facility] [place] [facility] [address] [place] [address] [address] Davie Vanessa Bilirubin [Mass/Vol] 0.8 mg/dL Normal 0.2-1.0 [facility] Comment on above: Performed By: #### C MP, LIPID, TSH #### [facility] [place] [facility] [address] [place] [address] [address] Davie Vanessa Calcium [Mass/Vol] 8.9 mg/dL Normal 8.5-10.1 [facility] Comment on above: Performed By: #### C MP, LIPID, TSH #### [facility] [address] [place] [address] [address] Davie Vanessa Chloride [Moles/Vol] 106 mmol/L Normal 98-107 [facility] Comment on above: Performed By: #### C MP, LIPID, TSH #### [facility] [place] [facility] [address] [place] [address] [address] Davie Vanessa CO2 [Moles/Vol] 31.2 mmol/L Normal 21.0-32.0 [facility] Comment on above: Performed By: #### C MP, LIPID, TSH #### [facility] [place] [facility] [address] [place] [address] [address] Davie Vanessa Creatinine [Mass/Vol] 0.74 mg/dL Normal 0.55-1.02 [facility] Comment on above: Performed By: #### C MP, LIPID, TSH #### [facility] [place] [facility] [address] [place] [address] Dr. Davie Vanessa EGFR-AF BULGARIAN >60 Normal >=60 [facility] Comment on above: Performed By: #### C MP, LIPID, TSH #### [facility] [place] [facility] [address] [place] [address] [address] Davie Vanessa EGFR-NON AF BULGARIAN >60 Normal >=60 [facility] Comment on above: Performed By: #### C MP, LIPID, TSH #### [facility] [place] [facility] [address] [place] [address] [address] Davie Vanessa Globulin (S) [Mass/Vol] 3.1 g/dL Normal [facility] Comment on above: Performed By: #### C MP, LIPID, TSH #### [facility] [address] [place] [address] Dr. Davie Vanessa Glucose [Mass/Vol] 89 mg/dL Normal 74-106 [facility] Comment on above: Performed By: #### C MP, LIPID, TSH #### [facility] [address] [place] [address] Dr. Davie Vanessa Potassium [Moles/Vol] 4.1 mmol/L Normal 3.5-5.1 [facility] Comment on above: Performed By: #### C MP, LIPID, TSH #### [facility] [address] [place] [address] Dr. Davie Vanessa Protein [Mass/Vol] 6.9 g/dL Normal 6.4-8.2 [facility] Comment on above: Performed By: #### C MP, LIPID, TSH #### [facility] [address] [place] [address] Dr. Davie Vanessa Sodium [Moles/Vol] 140 mmol/L Normal 136-145 [facility] Comment on above: Performed By: #### C MP, LIPID, TSH #### [facility] [address] [place] [address] Dr. Davie Vanessa Urea nitrogen [Mass/Vol] 16.0 mg/dL Normal 7.0-18.0 [facility] Comment on above: Performed By: #### C MP, LIPID, TSH #### [facility] [address] [place] [address] Dr. Davie Vanessa Urea nitrogen/Creatinine [Mass ratio] 21.6 mg/mg Normal [facility] Comment on above: Performed By: #### C MP, LIPID, TSH #### [facility] [address] [place] [address] Dr. Davie Vanessa TSHon 05-09-2022 TSH 5.061 uIU/mL Critically high 0.358-3.740 [facility] Comment on above: Performed By: #### C MP, LIPID, TSH #### [facility] [address] [place] [address] Dr. Davie Vanessa Office Visit (Cardiology)on 01-09-2022 Follow-up visit Diagnoses/Problems Assessed Benign essential hypertension (401.1) (I10) Body mass index (BMI) of 21.0 to 21.9 in adult (V85.1) (Z68.21) Patient Instructions Please bring all medicines, vitamins, and herbal supplements with you when you come to the office. Prescriptions will not be filled unless you are compliant with your follow up appointments or have a follow up appointment scheduled as per instruction of your physician. Refills should be requested at the time of your visit. PLAN: Through informed decision making process incorporating patients unique circumstances, the following treatment plan will be initiated: 1. Prescription drug management of cardiovascular medication for efficacy, adherence to treatment, side effect assessment and polypharmacy. Current treatment clinically warranted and to continue without modifications. 2. Return for follow-up; in the interim, contact the office if new symptoms arise. Dr. Pitt as scheduled Chief Complaint I am ok CANDIDO BOCANEGRA is being seen for a 6 week follow-up of hypertension. Patient was last evaluated in clinic Dr. Pitt November 2021. Changes to medical regimen at that time - no changes, her for BP check. BP at home: better on weekends, sometimes elevated when gets home from work Type of machine: arm Time of BP assessment: t/o the day Has machine been previously calibrated by medical staff? no History of Present Illness The patient presents for follow-up of essential hypertension. The patient states she has been doing well with her blood pressure control since the last visit. She has no comorbid illnesses. Symptoms: denies impaired vision, denies dyspnea, denies chest pain, denies intermittent leg claudication and denies lower extremity edema. Associated symptoms include no headache. Home monitoring: The patient checks her blood pressure regularly. Blood pressure control has been good. Medications: the patient is adherent with her medication regimen. She denies medication side effects. Surgical History Problems History of Complete colonoscopy 1997 History of Spinal surgery Past Medical History Problems History of Encounter for immunization (V03.89) (Z23) Resolved Date: 29 Nov 2021 Current Meds Medication NameInstruction No Reported Medications Allergies Medication No Known Drug Allergies Recorded By: Abbi Lebron; 11/05/2021 2:33:31 PM Social History Problems Consumes 1 to 2 servings of caffeine per day (V49.89) (Z78.9) Never a smoker No illicit drug use Occasional alcohol use Review of Systems Constitutional: not feeling tired. Cardiovascular: no chest pain, no palpitations and no lower extremity edema. Respiratory: no shortness of breath during exertion, no orthopnea and no PND. Vitals Vital Signs Printed in Appendix #1 below. Physical Exam Constitutional: alert and in no acute distress. Neck: neck is supple, symmetric, trachea midline, no masses . Pulmonary: no increased work of breathing or signs of respiratory distress . Cardiovascular: JVP was normal and no edema . Abdomen: abdomen non-tender, no masses . Skin: skin warm and dry, normal skin turgor . Psychiatric oriented to person, place and time and normal mood and affect . Signatures Bee Gao MSN, CYBER INTEL PLANNER-BASIC ACOUSTIC ANALYST, PMHNP-[facility] [place] Please excuse any errors in grammar or translation related to this dictation. Voice recognition software was utilized to prepare this document. Electronically signed by : CONNIE Louis; Jan 14 2022 9:31AM EST (Author) Appendix #1 Vital Signs Patient: CANDIDO BOCANEGRA; : 1955; Recorded: [id number] 04:27PMRecorded: [id number] 04:07PMRecorded: [id number] 04:05PM Meswqtmu934, Fatkllpg521, LUE, Geghmkl681, RUE, Sitting Gdfopsbxx42, Ejaaolfu71, LUE, Ulplsyo57, RUE, Sitting Heart Rate68, L Ntgzgp30, R Radial Height5 ft 2 in5 ft 2 in Cpxubx389 lb 118 lb BMI Pcyzfetkzd55.58 kg/m221.58 kg/m2 BSA Calculated1.531.53 Tobacco Useb) No PHQ-2 #1. Over the last 2 weeks have you felt down, depressed or hopeless? (If yes, answer PHQ-9 below)No PHQ-2 #2. Over the last 2 weeks have you felt little interest or pleasure in doing things? (If yes, answer PHQ-9 below)No Normal [facility] PHQ-2 VITALSon 01-09-2022 Adult depression screening assessment No [facility] 250 DO Work Phone: Tobacco use status [facility] b) No [facility] 250 DO Work Phone: Office Visit (Cardiology)on 11-29-2021 Follow-up visit Diagnoses/Problems Assessed Benign essential hypertension (401.1) (I10) Body mass index (BMI) of 21.0 to 21.9 in adult (V85.1) (Z68.21) Mitral regurgitation (424.0) (I34.0) Never a smoker Orders Mitral regurgitation Echocardiogram; Status:Hold For - Scheduling,Retrospec tive Authorization; Requested for:25Sep2022; SocHx: Never a smoker Tobacco Use Screening; Status:Complete; Done: 29Nov2021 Patient Instructions By signing my name below, I, Claudio Buckley LPN, attest that this documentation has been prepared under the direction and in the presence of Dr. Stella Pitt DO. Please bring all medicines, vitamins, and herbal supplements with you when you come to the office. Prescriptions will not be filled unless you are compliant with your follow up appointments or have a follow up appointment scheduled as per instruction of your physician. Refills should be requested at the time of your visit. Blood Pressure Follow Up In 6 weeks Follow up in [ 8 ] months Chief Complaint CANDDIO BOCANEGRA is being seen for a cardiovascular evaluation . TEST RESULTS. Patient is a 66-year-old female who returns following recent stress perfusion imaging. Details of the stress perfusion exam are reviewed revealing completely normal perfusion scan, normal ejection fraction of 63%. Patient also has several echocardiograms dating back several years with mildly reduced ejection fraction and mitral regurgitation. Most recent echocardiogram from September is also reviewed revealing ejection fraction of 45% with trivial mitral regurgitation. Patient is otherwise asymptomatic, she has variable hypertension likely due to environmental stress with holding down 2 jobs. She states her blood pressure during the weekend is completely normal. She exercises on a regular basis in the form of cardio 3 times weekly and weights/cardio 2-3 times weekly. She has no evidence of heart failure, edema, angina. Recommendations: We will continue monitoring blood pressure, follow-up with another echo in our echo lab in 8 months. We have discussed and reviewed all of her reports. She has no true evidence of mitral valve pathology. The echocardiogram and the stress perfusion exam in regards to ejection fraction are discordant, and I am tending to believe the stress perfusion exam. We will follow-up in 8 months Surgical History Problems History of Complete colonoscopy 1997 History of Spinal surgery Past Medical History Problems History of Encounter for immunization (V03.89) (Z23) Resolved Date: 29 Nov 2021 Current Meds Medication NameInstruction No Reported Medications Allergies Medication No Known Drug Allergies Recorded By: Abbi Lebron; 11/05/2021 2:33:31 PM Social History Problems Consumes 1 to 2 servings of caffeine per day (V49.89) (Z78.9) Never a smoker No illicit drug use Occasional alcohol use Review of Systems Constitutional: not feeling tired. Cardiovascular: no intermittent leg claudication and as noted in HPI. Respiratory: no cough and no shortness of breath. Gastrointestinal: no change in bowel habits and no blood in stools. Integumentary: no skin rashes. Neurological: no seizures and no frequent falls. All other systems have been reviewed and are negative for complaint. Vitals Vital Signs Recorded: [id number] 11:08AMRecorded: 93Mer9701 10:24AM Mabxeweb805, LUE, Oqytthf233, LUE, Sitting Dhodhsmlg27, LUE, Jctvovv37, LUE, Sitting Heart Rate78, L Radial Height5 ft 2 in Eloklr258 lb BMI Loabodqvas69.58 kg/m2 BSA Calculated1.53 Tobacco Useb) No PHQ-2 #1. Over the last 2 weeks have you felt down, depressed or hopeless? (If yes, answer PHQ-9 below)No PHQ-2 #2. Over the last 2 weeks have you felt little interest or pleasure in doing things? (If yes, answer PHQ-9 below)No Fall Screeninga) No falls within the last year Physical Exam Constitutional: alert and in no acute distress. Neck: neck is supple, symmetric, trachea midline, no masses and no thyromegaly . Pulmonary: no increased work of breathing or signs of respiratory distress and lungs clear to auscultation. Cardiovascular: carotid pulses 2+ bilaterally with no bruit , JVP was normal, no thrills , regular rhythm, normal S1 and S2, no murmurs , pedal pulses 2+ bilaterally and no edema . Abdomen: abdomen non-tender, no masses and no hepatomegaly . Skin: skin warm and dry, normal skin turgor . Psychiatric judgment and insight is normal and oriented to person, place and time . Signatures Electronically signed by : Stella Pitt DO; Nov 29 2021 11:37AM EST (Author) Normal [facility] Tobacco Screening.on 022 Adult depression screening assessment No [facility] 250 DO Work Phone: Fall risk assessment a) No falls within the last year -[facility] 250 DO Work Phone: Tobacco use status [facility] b) No -[facility] 250 DO Work Phone: NM STRESS/REST MULTIon 11-15 NM STRESS/REST MULTI Patient: MELISSA BOCANEGRA Exam Date: 11/15/2021 : 1955 Gender:F Ordering : DR STELLA PITT Admission #: [id number] Family : Order #: [id number] CLICK HERE TO VIEW EXAM RADIOLOGY REPORT PROCEDURE: RADIONUCLIDE IMAGING STRESS/REST MULTI COMPARISON: None. INDICATIONS: Chest pain TECHNIQUE: Exam Description: Stress/Rest one day protocol gated SPECT Rest Imagin.8 mCi Tc-99m Cardiolite IV on 11/15/2021 Stress Imaging 30.0 mCi Tc-99m Cardiolite IV on 11/15/2021 Exercise Protocol: Leno Heart Rate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 RECORDS PERTAINING TO PATIENTS WHO ARE OR HAVE BEEN ENROLLED IN A CHEMICAL DEPENDENCY/SUBSTANCEABUSE PROGRAM, SOME INFORMATION MAY BE OMITTED. This clinical summary was aggregated from multiple sources. Caution should be exercised in using it in the provision of clinical care. This summary normalizes information from multiple sources, and as a consequence, information in this document may materially change the coding, format and clinical context of patient data. In addition, data may be omitted in some cases. CLINICAL DECISIONS SHOULD BE BASED ON THE PRIMARY CLINICAL RECORDS. [employer] provides no warranty or guarantee of the accuracy or completeness of information in this document.
== END 2024-09-27 08:40 | disposition home or self-care (01) ==
LOC: MAMMO 08:39
PROVIDERS: PCP Internal Medicine; Visit Provider Internal Medicine
DX: M54.50 Low back pain, unspecified (principal); M41.9 Scoliosis, unspecified; Z80.51 Family history of malignant neoplasm of kidney; Z80.42 Family history of malignant neoplasm of prostate; Z80.8 Family history of malignant neoplasm of other organs or systems; N63.21 Unspecified lump in the left breast, upper outer quadrant; Z12.31 Encounter for screening mammogram for malignant neoplasm of breast
CPT/HCPCS: 72114; 77063; 77067

== ENCOUNTER 2024-10-07 10:02 | Outpatient (OUT) | payer MEDICARE, SELFPAY ==
--- NOTE | 2024-10-07 10:06 | US_ITS ---
Patient Name: FRANTZ MCFARLANE MR#: [id number] : 1955 Exam Date: 10/07/2024 Ordering Doctor: DR Josue Tate D.O. RADIOLOGY REPORT PROCEDURE: US BREAST LT LIMITED COMPARISON: MM TOMOSYNTHESIS SCREENING BI, 09/27/2024. INDICATIONS: Abnormal Mammogram Of Left Breast TECHNIQUE: Breast ultrasound was performed, with evaluation focusing only on specific areas of concern. FINDINGS: DIAGNOSTIC CATEGORY 4--SUSPICIOUS FOR MALIGNANCY. FINDING DOES NOT EXHIBIT CLASSIC FINDINGS OF BREAST CANCER: LEFT BREAST: Within left breast 2 o'clock position 4.1 cm from the nipple is a heterogeneous micro lobular 1.1 x 0.8 x 0.7 cm mass. Color Doppler demonstrates small amount of blood flow at the margin. Ultrasound-guided tissue sampling is recommended. RECOMMENDATIONS: ULTRASOUND-GUIDED CORE BIOPSY: LEFT BREAST PLEASE NOTE: A NORMAL ULTRASOUND EXAMINATION DOES NOT EXCLUDE THE POSSIBILITY OF BREAST CANCER. A CLINICALLY SUSPICIOUS PALPABLE LUMP SHOULD BE BIOPSIED. Dictated by: Pedro Smith M.D. on 10/08/2024 at 11:34 Approved by: Pedro Smith M.D. on 10/08/2024 at 11:36
--- OUTSIDE RECORDS SUMMARY | 2024-10-07 10:06 | XMS_ITS | CCD ---
Author Organization [facility] Care Team Providers Care Ship Captain Name Role Phone Josue Tate Unavailable Unavailable [...] Attending Unavailable MOUKARBEL, DR PICKERING Admitting Unavailable BALL, DR SCHMIDT Primary Care [...] Attending Jailyn Pitt, Dr. Stella Hooper Referring Lindsayva venkata Tate, Dr. Josue Jackson Primary Care Aime Pitt, Dr. Stella Hooper Referring Lindsayva venkata Tate, Dr. Josue Jackson Primary Care Aime Pitt, Dr. Stella Hooper Attending Jailyn Pitt, Dr. Stella Hooper Referring Jailyn Pitt, Dr. Stella Hooper Attending Jailyn Tate, Dr. Josue Jackson Primary Care Aime Gao, Ms. Bee Emeryyeni Clifton Attending Aime Gao, Ms. Bee Nicoalsa Clifton Referring Aime Tate, Dr. Josue Jackson Primary Care Aime Tate, Josue Unavailable Yoandy, Dr. Stella Hooper Attending Jailyn Tate, Dr. Josue Jackson Primary Care Aime Pitt, Dr. Stella Hooper Attending Jailyn Tate, Dr. Josue Jackson Primary [facility] Aime gonzalez REFERRAL, SELF Attending Unavailable BEBETO, JOSUE Consulting Unavailable BEBETO, DO JOSUE Consulting Unavailable Allergies Allergy Classification Reported Allergen(s) Allergy Type Date of Onset Reaction(s) Facility (4 sources) Acetaminophen / oxyCODONE Drug Allergy [facility] Other (1 source) Acetaminophen Drug Allergy 4 [facility] (1 source) oxyCODONE Drug Allergy [address] [place] [address] Medications Current Medications Medication Drug Class(es) Dates [...] 0 pt takes PRN *Pick strength-form from [facility] for eRX* Jul, Active methylPREDNISolone 4 mg [...] / neomycin 3.5 mg/ml / polymyxin b 62329 unt/ml ophthalmic suspension (2 sources) Aminoglycoside Antibacterial, Polymyxin-class Antibacterial, Corticosteroid Start: 09-17-2021 take 1 drop(s) into the eye(s) three times daily Neomycin-Polymyxi n-Dexameth 3.5-43283-3.[address] 1 DROP INTO LEFT [...] Results Test Name Value Interpretation Reference Range [facility] 07-13-2024 ALT No additional P-5'-P [Catalytic activity/Vol] 13 Int._Unit/L Normal 6-46 [facility] Comment on above: Performed By: #### 2 [id number] #### [facility] [address] [place] [address] Kirt 07-13-2024 AST [Catalytic activity/Vol] 14 Int._Unit/L Normal 5-43 [facility] Comment on above: Performed By: #### 2 [id number] #### [facility] [address] [place] [address] BMPon 07-13-2024 Anion gap [Moles/Vol] 10 mmol/L Normal 6-16 [facility] Comment on above: Performed By: #### 2 [id number] #### [facility] [address] [place] [address] Calcium [Mass/Vol] 9.3 mg/dL Normal 8.9-11.1 [facility] Comment on above: Performed By: #### 2 [id number] #### [facility] [address] [place] [address] Chloride [Moles/Vol] 105 mmol/L Normal 101-111 [facility] Comment on above: Performed By: #### 2 [id number] #### [facility] [address] [place] [address] CO2 [Moles/Vol] 31 mmol/L Normal 21-31 [facility] Comment on above: Performed By: #### 2 [id number] #### [facility] [address] [place] [address] Creatinine [Mass/Vol] 0.6 mg/dL Normal 0.5-1.3 [facility] Comment on above: Performed By: #### 2 456889 #### [facility] [address] [place] [address] Glucose [Mass/Vol] 79 mg/dL Normal 55-199 [facility] Comment on above: Performed By: #### 2 521126 #### [facility] [address] [place] [address] Potassium [Moles/Vol] 4.3 mmol/L Normal 3.5-5.3 [facility] Comment on above: Performed By: #### 2 309914 #### [facility] [address] [place] [address] Sodium [Moles/Vol] 142 mmol/L Normal 135-145 [facility] Comment on above: Performed By: #### 2 604982 #### [facility] [address] [place] [address] Urea nitrogen [Mass/Vol] 15 mg/dL Normal 5-21 [facility] Comment on above: Performed By: #### 2 063719 #### [facility] [address] [place] [address] Urea nitrogen/Creatinine [Mass ratio] 25 No Units High 10-20 [facility] Comment on above: Performed By: #### 2 710992 #### [facility] [address] [place] [address] CBC w/Indiceson 07-13-2024 Erythrocyte distribution width (RBC) [Ratio] 13.9 % Normal 10.9-14.2 [facility] Comment on above: Performed By: #### 2 936827 #### [facility] [address] [place] [address] Hematocrit (Bld) [Volume fraction] 40.7 % Normal 34.0-46.0 [facility] Comment on above: Performed By: #### 2 862382 #### [facility] [address] [place] [address] Hemoglobin (Bld) [Mass/Vol] 13.6 g/dL Normal 12.0-16.0 [facility] Comment on above: Performed By: #### 2 854210 #### [facility] [address] [place] [address] MCH (RBC) [Entitic mass] 29.5 pg Normal 27.0-34.0 [facility] Comment on above: Performed By: #### 2 608767 #### [facility] [address] [place] [address] MCHC (RBC) [Mass/Vol] 33.4 g/dL Normal 31.4-36.0 [facility] Comment on above: Performed By: #### 2 078657 #### [facility] [address] [place] [address] MCV (RBC) [Entitic vol] 88.3 fL Normal 80.0-100.0 [facility] Comment on above: Performed By: #### 2 103389 #### [facility] [address] [place] [address] Platelet 270.0 E9/L Normal 150.0-500.0 [facility] Comment on above: Performed By: #### 2 097555 #### [facility] [address] [place] [address] Platelet mean volume (Bld) [Entitic vol] 10.0 fL Normal 6.4-10.8 [facility] Comment on above: Performed By: #### 2 836022 #### [facility] [address] [place] [address] RBC (Bld) [#/Vol] 4.6 E12/L Normal 4.3-5.9 [facility] Comment on above: Performed By: #### 2 125639 #### [facility] [address] [place] [address] RBC size Nom (Bld) NORMAL Invalid Interpretation Code [facility] Comment on above: Performed By: #### 2 810495 #### [facility] [address] [place] [address] WBC corrected for nucl RBC Auto (Bld) [#/Vol] 5.4 E9/L Normal 4.0-11.0 [facility] Comment on above: Performed By: #### 2 682995 #### [facility] [address] [place] [address] Lipid Panelon 07-13-2024 Cholesterol [Mass/Vol] 161 mg/dL Normal 120-200 [facility] Comment on above: Performed By: #### 2 951041 #### [facility] [address] [place] [address] Cholesterol in HDL [Mass/Vol] 58 mg/dL Invalid Interpretation Code [facility] Comment on above: Result Comment: '>= 60 LOW RISK' '<= 40 HIGH RISK' Performed By: #### 2 465873 #### [facility] [address] [place] [address] Cholesterol in LDL [Mass/Vol] 77 mg/dL Normal <=129 [facility] Comment on above: Performed By: #### 2 392759 #### [facility] [address] [place] [address] Cholesterol in VLDL [Mass/Vol] 24 mg/dL Normal 7-40 [facility] Comment on above: Performed By: #### 2 259166 #### [facility] [address] [place] [address] Triglyceride [Mass/Vol] 119 mg/dL Normal <=149 [facility] Comment on above: Performed By: #### 2 151751 #### [facility] [address] [place] [address] eGFRon 07-13-2024 eGFR 98 mL/min/1.73 m2 Normal >=59 [facility] Comment on above: Performed By: #### 1 [id number] #### [facility] [address] [place] [address] [facility] MUGA SCAN INJECTIONon [facility] MUGA SCAN INJECTION Patient Name: CANDIDO BOCANEGRA STUDY: MUGA Performing facility: [facility], [address] [place] [address], [address], [place] [address] [facility] Provider: Zelalem Pitt DO, [facility] PCP: Dr. Vishnu TATE Supervising provider: Stew Paz MD, [facility] INDICATION: I42.9: Cardiomyopathy I42.8: Non-ischemic cardiomyopathy I10: Hypertension HISTORY: Gender: F; Age: 67 y/o ; Height: 0 cm; Weight: 0 kg. NICM, HTN Arrhythmias; PVCs COMPARISON: Previous echo testing completed 08/2022 at [place]. EF 40-45% Previous nuclear testing completed 10/2021 at [place]. EF 63% ACCESSION NUMBER(S): [id number]; [id number] ORDERING CLINICIAN: STELLA PITT TECHNIQUE: The patient received an IV injection of 3 ml of stannous pyrophosphate (PYP) using the in-vivo method of labeling red blood cells. After 15 minutes the patient received another IV injection of 24.8 mCi of Technetium 99m pertechnetate. Planar images of the left ventricle were obtained in the PEDRO 45, Lt Lateral and anterior projections. FINDINGS: The right ventricle was normal. The left ventricle was normal in size. Regional wall motion was normal. Global resting LVEF was normal- at 55%. IMPRESSION: Normal resting right ventricular function. Normalresting left ventricular function. Left ventricular ejection fraction is 55%. No previous studies are available for comparison Electronically signed by: STEW PAZ MD Normal [place] No Panel Informationon 03-20 Normal -[facility] 250 DO Work Phone: Office Visit (Cardiology)on 10-18-2022 Follow-up visit Diagnoses/Problems Assessed Non-ischemic cardiomyopathy (425.4) (I42.8) Hypertension (401.9) (I10) Never a smoker Body mass index (BMI) of 21.0 to 21.9 in adult (V85.1) (Z68.21) Cardiomyopathy (425.4) (I42.9) Shortness of breath (786.05) (R06.02) Orders Cardiomyopathy, Hypertension, Non-ischemic cardiomyopathy NM Muga (Gated Cardiac Blood Pool); Status:Hold For - Scheduling,Retrospec tive Authorization; Requested for:[id number]; Radiologist to Determine Optimal Study : Y [...] a different institution read by a different sales mgr, her left ventricular end-systolic diameter was 3.8 [...] negative for complaint. Vitals Vital Signs Recorded: [id number] 03:41PM Heart Rate60, L Radial Rnmyghjx852, LUE, Sitting Kdmxxmhgp58, LUE, Sitting Height5 ft 2 in Macqrh419 lb BMI Hafvdtnbki35.95 kg/m2 BSA Calculated1.54 Tobacco Useb) No PHQ-2 [...] respiratory dis (more content not included)... Normal to-BBB Tobacco Screening.on 023 Adult depression screening assessment No [facility] [employer] 250 DO Work Phone: Fall risk assessment b) One or more fall s in the last year [facility] [employer] 250 DO Work Phone: Tobacco use status CPHS b) No [facility] [employer] 250 DO Work Phone: Echocardiogramon 08-29-2022 Echocardiography [facility] [address] [place] [address], Suite [facility], [place] [address] TRANSTHORACIC ECHOCARDIOGRAM REPORT Patient Name: CANDIDO Pathak Physician: [id number] Stew Paz MD, [facility] Study Date: 08/29/2022 Referring Physician: STELLA PITT MRN/PID: [id number] PCP: Josue Tate Accession/Order#: [id number] Department Location: [facility] Nguyen Barlow Date of : 1955 Fellow: Gender: F Nurse: Admit Date: Specialty Sales Representative: Jillian Goldman RDCS, RVT Height: 157.48 cm CC Report to: Weight: 53.52 kg Study Type: Echocardiogram BSA: 1.53 m2 Diagnosis/ICD: I34.0-Nonrheumatic mitral (valve) insufficiency Indication: HTN Procedure/CPT: Echo Complete w Full Doppler-[id number] Study Detail: The following Echo studies were [...] mmHg PIEDV: 1.71 m/s PADP: 14.7 mmHg [id number] Stew Paz MD, [facility] Electronically signed on 09/02/2022 at 6:28:57 PM Final Normal [place] Echocardiography Please click on the link to view the study images Normal [facility] [employer] Work Phone: Falls Screening (Age 18+)on 08-29-2022 Fall risk assessment b) One or more fall s in the last year [facility] [employer] Work Phone: MG MAMM SCREEN 3D GOLDIE CADon 07-12-2022 MG MAMM SCREEN 3D GOLDIE CAD Patient: MELISSA BOCANEGRA Exam Date: 07/12/2022 : 1955 Gender:F Ordering : DR JOSUE TATE D.O. Admission #: [id number] Family : Order #: [id number] CLICK HERE TO VIEW EXAM RADIOLOGY REPORT [...] prostate cancer at age 77. LOCATION: [facility] BREAST COMPOSITION: Heterogeneously dense,which may obscure small [...] Jesus MD on 07/12/2022 at 10:30 Normal [facility] T3, TOTAL (TRIIODOTHYRONINE) on 06-08-2022 T3, TOTAL 97 ng/dL Normal 71-180 [facility] Comment on above: Performed By: #### T 3TOTAL #### [facility] [address] [place] [address] Dr. Davie Vanessa FREE T4on 06-06-2022 Free T4 [Mass/Vol] 0.93 ng/dL Normal 0.76-1.46 [facility] Comment on above: Performed By: #### F T4 #### [facility] [address] [place] [address] Dr. Davie Vanessa TSHon 06-06-2022 TSH 3.021 uIU/mL Normal 0.358-3.740 [facility] Comment on above: Performed By: #### T SH ####[facility] [address] [place] [address]Dr. Davie Vanessa CBC AUTO DIFFon 05-09-2022 BASO # 0.1 103/ul Normal 0.0-0.1 [facility] Comment on above: Performed By: #### C BC #### [facility] [address] [place] [address] Dr. Davie Vanessa Basophils/100 WBC (Bld) 0.9 % Normal 0.2-2.0 [facility] Comment on above: Performed By: #### C BC #### [facility] [address] [place] [address] Dr. Davie Vanessa EO # 0.2 103/ul Normal 0.0-0.7 [facility] Comment on above: Performed By: #### C BC #### [facility] [address] [place] [address] Dr. Davie Vanessa Eosinophils/100 WBC (Bld) 3.1 % Normal 0.9-7.0 [facility] Comment on above: Performed By: #### C BC #### [facility] [address] [place] [address] Dr. Davie Vanessa Erythrocyte distribution width (RBC) [Ratio] 13.5 % Normal 11.0-15.0 [facility] Comment on above: Performed By: #### C BC #### [facility] [address] [place] [address] Dr. Davie Vanessa Hematocrit (Bld) [Volume fraction] 43.2 % Normal 36.0-48.0 [facility] Comment on above: Performed By: #### C BC #### [facility] [address] [place] [address] Dr. Davie Vanessa Hemoglobin (Bld) [Mass/Vol] 13.7 g/dL Normal 12.0-16.0 [facility] Comment on above: Performed By: #### C BC #### [facility] [address] [place] [address] Dr. Davie Vanessa IG # 0.01 10e3/ul Normal 0.00-0.03 [facility] Comment on above: Performed By: #### C BC #### [facility] [address] [place] [address] Dr. Davie Vanessa IG % 0.2 % Normal 0.0-0.5 [facility] Comment on above: Performed By: #### C BC #### [facility] [address] [place] [address] Dr. Davie Vanessa LYMPH # 2.2 103/ul Normal 1.2-3.8 [facility] Comment on above: Performed By: #### C BC #### [facility] [address] [place] [address] Dr. Davie Vanessa Lymphocytes/100 WBC (Bld) 36.9 % Normal 20.5-60.0 [facility] Comment on above: Performed By: #### C BC #### [facility] [address] [place] [address] Dr. Davie Vanessa MANUAL DIFF REQ NO Normal [facility] Comment on above: Performed By: #### C BC #### [facility] [address] [place] [address] Dr. Davie Vanessa MCH (RBC) [Entitic mass] 29.0 pg Normal 26.7-34.0 [facility] Comment on above: Performed By: #### C BC #### [facility] [address] [place] [address] Dr. Davie Vansesa MCHC (RBC) [Mass/Vol] 31.7 g/dL Normal 29.9-35.2 [facility] Comment on above: Performed By: #### C BC #### [facility] [address] [place] [address] Dr. Davie Vanessa MCV (RBC) [Entitic vol] 91.5 fL Normal 81.0-99.0 [facility] Comment on above: Performed By: #### C BC #### [facility] [address] [place] [address] Dr. Davie Vanessa MONO # 0.7 103/ul Normal 0.3-0.8 [facility] Comment on above: Performed By: #### C BC #### [facility] [address] [place] [address] Dr. Davie Vanessa Monocytes/100 WBC (Bld) 11.1 % Normal 1.7-12.0 [facility] Comment on above: Performed By: #### C BC #### [facility] [address] [place] [address] Dr. Davie Vanessa NEUT # 2.8 103/ul Normal 1.4-6.5 [facility] Comment on above: Performed By: #### C BC #### [facility] [address] [place] [address] Dr. Davie Vanessa Neutrophils/100 WBC (Bld) 47.8 % Normal 43.0-75.0 [facility] Comment on above: Performed By: #### C BC #### [facility] [address] [place] [address] Dr. Davie Vanessa Platelet mean volume (Bld) [Entitic vol] 12.2 fL Normal 9.5-13.5 [facility] Comment on above: Performed By: #### C BC #### [facility] [address] [place] [address] Dr. Davie Vanessa PLT 240 103/ul Normal 150-450 [facility] Comment on above: Performed By: #### C BC #### [facility] [address] [place] [address] Dr. Davie Vanessa RBC 4.72 106/ul Normal 4.20-5.40 [facility] Comment on above: Performed By: #### C BC #### [facility] [address] [place] [address] Dr. Davie Vanessa WBC 5.9 103/ul Normal 4.0-11.0 [facility] Comment on above: Performed By: #### C BC #### [facility] [address] [place] [address] Dr. Davie Vanessa GLYCOHEMOGLOBIN A1Con 2021 ADA RECOMMENDATION SEE BELOW Normal [facility] Comment on above: Result Comment: ADA RECOMMENDED LIMIT 4.0 - 6.0 ADA THERAPEUTIC TARGET < 7.0 ACTION SUGGESTED > 7.0 Performed By: #### A 1C #### [facility] [address] [place] [address] Dr. Davie Vanessa Glucose [Mass/Vol] 111 mg/dL Normal [facility] Comment on above: Performed By: #### A 1C #### [facility] [address] [place] [address] Dr. Davie Vanessa HbA1c (Bld) [Mass fraction] 5.5 % Normal 4.5-6.2 [facility] Comment on above: Performed By: #### A 1C #### [facility] [address] [place] [address] Dr. Davie Vanessa LIPID PROFILEon 05-09-2022 CHOL-HDL RATIO NORM SEE BELOW Normal [facility] Comment on above: Result Comment: 3.3 - 4.4 LOW RISK 4.4 - 7.1 AVERAGE RISK 7.1 - 11.0 MODERATE RISK >11.0 HIGH RISK Performed By: #### C MP, LIPID, TSH ####[facility] [address] [place] [id number]. Davie Vanessa Cholesterol [Mass/Vol] 137 mg/dL Normal <=200 [facility] Comment on above: Performed By: #### C MP, LIPID, TSH ####[facility] [address] [place] [id number]. Davie Vanessa Cholesterol in HDL [Mass/Vol] 64 mg/dL Critically high 40-60 [facility] Comment on above: Performed By: #### C MP, LIPID, TSH ####[facility] [address] [place] [address]Dr. Davie Vanessa Cholesterol in LDL [Mass/Vol] 57.4 mg/dL Normal [facility] Comment on above: Performed By: #### C MP, LIPID, TSH ####[facility] [address] [place] [address]Dr. Davie Vanessa Cholesterol.total/Ch olesterol in HDL [Mass ratio] 2.1 {ratio} Normal [facility] Comment on above: Performed By: #### C MP, LIPID, TSH ####[facility] [address] [place] [id number]. Rosauralan Vanessa HDL NORMAL > or = 60 mg/dl - LOW CARDIOVASCULAR RISK <40 mg/dl - HIGH CARDIOVASCULAR RISK Normal [facility] Comment on above: Performed By: #### C MP, LIPID, TSH ####[facility] [address] [place] [id number]. Rosauralan Vanessa LDL CALC NORMAL SEE BELOW Normal [facility] Comment on above: Result Comment: <100 mg/dl OPTIMAL 100 - 129 mg/dl NEAR OR ABOVE OPTIMAL 130 - 159 mg/dl BORDERLINE HIGH 160 - 189 mg/dl HIGH >190 mg/dl VERY HIGH Performed By: #### C MP, LIPID, TSH ####[facility] [address] [place] [id number]. Davie Vanessa Triglyceride [Mass/Vol] 78 mg/dL Normal <=150 [facility] Comment on above: Performed By: #### C MP, LIPID, TSH ####[facility] [address] [place], [place] [address]ApDr. Davie Vanessa VLDL CALC 15.6 mg/dL Normal [facility] Comment on above: Performed By: #### C MP, LIPID, TSH ####[facility] [address] [place] [id number]. Davie Vanessa PROF 14(COMP METB)on 022 Albumin [Mass/Vol] 3.8 g/dL Normal 3.4-5.0 [facility] Comment on above: Performed By: #### C MP, LIPID, TSH #### [facility] [address] [place] [address] [address] Davie Vanessa Albumin/Globulin [Mass ratio] 1.2 {ratio} Normal [facility] Comment on above: Performed By: #### C MP, LIPID, TSH #### [facility] [address] [place] [address] [address] Davie Vanessa ALP [Catalytic activity/Vol] 103 U/L Normal 46-116 [facility] Comment on above: Performed By: #### C MP, LIPID, TSH #### [facility] [address] [place] [address] [address] Davie Vanessa ALT [Catalytic activity/Vol] 21 U/L Normal 14-59 [facility] Comment on above: Performed By: #### C MP, LIPID, TSH #### [facility] [address] [place] [address] [address] Davie Vanessa Anion gap [Moles/Vol] 6.9 mmol/L Normal [facility] Comment on above: Performed By: #### C MP, LIPID, TSH #### [facility] [address] [place] [address] [address] Davie aVnessa AST [Catalytic activity/Vol] 15 U/L Normal 15-37 [facility] Comment on above: Performed By: #### C MP, LIPID, TSH #### [facility] [address] [address] [address] Davie Vanessa Bilirubin [Mass/Vol] 0.8 mg/dL Normal 0.2-1.0 [facility] Comment on above: Performed By: #### C MP, LIPID, TSH #### [facility] [address] [address] [address] Davie Vanessa Calcium [Mass/Vol] 8.9 mg/dL Normal 8.5-10.1 [facility] Comment on above: Performed By: #### C MP, LIPID, TSH #### [facility] [address] [address] [address] Davie Vanessa Chloride [Moles/Vol] 106 mmol/L Normal 98-107 [facility] Comment on above: Performed By: #### C MP, LIPID, TSH #### [facility] [address] [address] [address] Davie Vanessa CO2 [Moles/Vol] 31.2 mmol/L Normal 21.0-32.0 [facility] Comment on above: Performed By: #### C MP, LIPID, TSH #### [facility] [address] [address] [address] Davie Vanessa Creatinine [Mass/Vol] 0.74 mg/dL Normal 0.55-1.02 [facility] Comment on above: Performed By: #### C MP, LIPID, TSH #### [facility] [address] [place] [address] Dr. Davie Vanessa EGFR-AF TAIWANESE >60 Normal >=60 [facility] Comment on above: Performed By: #### C MP, LIPID, TSH #### [facility] [address] [address] [address] Davie Vanessa EGFR-NON AF TAIWANESE >60 Normal >=60 [facility] Comment on above: Performed By: #### C MP, LIPID, TSH #### [facility] [address] [address] [address] Davie Vansesa Globulin (S) [Mass/Vol] 3.1 g/dL Normal [facility] Comment on above: Performed By: #### C MP, LIPID, TSH #### [facility] [address] [place] [address] Dr. Davie Vanessa Glucose [Mass/Vol] 89 mg/dL Normal 74-106 [facility] Comment on above: Performed By: #### C MP, LIPID, TSH #### [facility] [address] [place] [address] Dr. Davie Vanessa Potassium [Moles/Vol] 4.1 mmol/L Normal 3.5-5.1 [facility] Comment on above: Performed By: #### C MP, LIPID, TSH #### [facility] [address] [place] [address] Dr. Davie Vanessa Protein [Mass/Vol] 6.9 g/dL Normal 6.4-8.2 [facility] Comment on above: Performed By: #### C MP, LIPID, TSH #### [facility] [address] [place] [address] Dr. Davie Vanessa Sodium [Moles/Vol] 140 mmol/L Normal 136-145 [facility] Comment on above: Performed By: #### C MP, LIPID, TSH #### [facility] [address] [place] [address] Dr. Davie Vanessa Urea nitrogen [Mass/Vol] 16.0 mg/dL Normal 7.0-18.0 [facility] Comment on above: Performed By: #### C MP, LIPID, TSH #### [facility] [address] [place] [address] Dr. Davie Vanessa Urea nitrogen/Creatinine [Mass ratio] 21.6 mg/mg Normal [facility] Comment on above: Performed By: #### C MP, LIPID, TSH #### [facility] [address] [place] [address] Dr. Davie Vanessa TSHon 05-09-2022 TSH 5.061 uIU/mL Critically high 0.358-3.740 [facility] Comment on above: Performed By: #### C MP, LIPID, TSH #### [facility] [address] [place] [address] Dr. Davie Vanessa Office Visit (Cardiology)on 01-09-2022 [...] and affect . Signatures Bee Gao MSN, ELECTRIC DRILL OPERATOR-PERSONAL SECRETARY, PMHNP-[facility] [place] Please excuse any errors in grammar or translation related to this dictation. Voice recognition software was utilized to prepare this document. Electronically signed by : CONNIE Louis; Jan 14 2022 9:31AM EST (Author) Appendix #1 Vital Signs Patient: CANDIDO BOCANEGRA; : 1955; Recorded: [id number] 04:27PMRecorded: [id number] 04:07PMRecorded: [id number] 04:05PM Agirbhhs513, Eygaoyab428, LUE, Ieoqacs354, RUE, Sitting Rqponylgi27, Mtwshqnq39, LUE, Tebfimq36, RUE, Sitting Heart Rate68, L Klfhix60, R Radial Height5 ft 2 in5 ft 2 in Pcbbuw733 lb 118 lb BMI Txfycizywd55.58 kg/m221.58 kg/m2 BSA Calculated1.531.53 Tobacco Useb) No PHQ-2 #1. Over the last 2 weeks have you felt down, depressed or hopeless? (If yes, answer PHQ-9 below)No PHQ-2 #2. Over the last 2 weeks have you felt little interest or pleasure in doing things? (If yes, answer PHQ-9 below)No Normal [facility] PHQ-2 VITALSon 01-09-2022 Adult depression screening assessment No [facility] 250 DO Work Phone: Tobacco use status CPH[facility] b) No [facility] 250 DO Work Phone: Office Visit (Cardiology)on [...] in [ 8 ] months Chief Complaint CANDIDO BOCANEGRA is being [...] negative for complaint. Vitals Vital Signs Recorded: [id number] 11:08AMRecorded: [id number] 10:24AM Kgurajoi930, LUE, Lswqxpa169, LUE, Sitting Jdmnjzfdi50, LUE, Pjxvxhm89, LUE, Sitting Heart Rate78, L Radial Height5 ft 2 in Wzaqcs876 lb BMI Zwifgczszz81.58 kg/m2 BSA Calculated1.53 Tobacco Useb) No PHQ-2 [...] Nov 29 2021 11:37AM EST (Author) Normal to-BBB Tobacco Screening.on 022 Adult depression screening assessment No [facility] 250 DO Work Phone: Fall risk assessment a) No falls within the last year -[facility] 250 DO Work Phone: Tobacco use status [facility] b) No -[facility] 250 DO Work Phone: NM STRESS/REST MULTIon 11-15 NM STRESS/REST MULTI Patient: MELISSA BOCANEGRA Exam Date: 11/15/2021 : 1955 Gender:F Ordering : DR STELLA PITT Admission #: [id number] Family : Order #: [id number] CLICK HERE TO VIEW EXAM RADIOLOGY REPORT [...] M.D. on 11/15/2021 at 15:09 Normal [facility] Office Visit (Cardiology)on 11-05-2021 Follow-up visit Diagnoses/Problems [...] abnormal echocardiogram. She is previously followed by [employer] sales mgr Dr. Kaplan since 2011 with a diagnosis [...] details of which are unknown Her primary sales mgr (who is now moved territory) referred her [...] Allergies Recorded (more content not included)... Normal to-BBB Tobacco Screening.on 022 Adult depression screening assessment No [facility] DO Work Phone: Fall risk assessment c) Not medically indicated -[facility] 250 DO Work Phone: Tobacco use status CP b) No -[facility] 250 DO Work Phone: ECHOCARDIO M/2D COMPLETEon 0 10-04-2021 ECHOCARDIO M/2D COMPLETE Patient: MELISSA BOCANEGRA Exam Date: 10/04/2021 : 1955 Gender:F Ordering : DR LADAN BARRY M.D. Admission #: [id number] Family : DR JOSUE TATE DNia Order #: [id number] CLICK HERE TO VIEW EXAM ECHOCARDIOGRAM REPORT [...] Area(A4C): 19.40 cm2 Left Atrium Systolic Volume(A4C): 67240 mm3 Mitral Valve MV E to A [...] Barry M.D. 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 Physical Exam: PE reveals a female with [...] Tear o (more content not included)... Normal [facility] Vital Signs Date Time Vital Sign Value Performing Clinician Facility 05-13-2024 09:40-0400 Body height 154.31 cm [facility] 05-13-2024 09:40-0400 Body mass index (BMI) [Ratio] 22.1 kg/m2 [facility] 05-13-2024 09:40-0400 Body weight 52.73 kg [facility] 05-13-2024 09:40-0400 Diastolic blood pressure 84 mm[Hg] [facility] 05-13-2024 09:40-0400 Heart rate 74 /min [facility] 05-13-2024 09:40-0400 Respiratory rate 12 /min [facility] 05-13-2024 09:40-0400 Systolic blood pressure 138 mm[Hg] [facility] 03-28-2023 09:30-0400 Body height 157.48 cm [employer] Other [employer] [facility] [employer] Other 03-28-2023 09:30-0400 Body mass index (BMI) [Ratio] 21.36 kg/m2 Josue Ball Other [employer] Other 03-28-2023 09:30-0400 Body weight 52.98 kg Josue Ball Other [employer] Other 03-28-2023 09:30-0400 Diastolic blood pressure 72 mm[Hg] Josue Ball Other [facility] [employer] Other 03-28-2023 09:30-0400 Respiratory rate 12 /min Josue Ball Other [facility] [employer] Other 03-28-2023 09:30-0400 Systolic blood pressure 124 mm[Hg] Josue Ball Other [facility] [employer] Other 10-18-2022 15:41-0500 Body height 157.48 cm Josue E Ball Work Phone: [facility] [employer] 250 DO Work Phone: 10-18-2022 15:41-0500 Body mass index (BMI) [Ratio] 21.95 kg/m2 Josue E Ball Work Phone: [facility] [employer] 250 DO Work Phone: 10-18-2022 15:41-0500 Body surface area Derived from formula 1.54 m2 Josue E Ball Work Phone: [facility] [employer] 250 DO Work Phone: 10-18-2022 15:41-0500 Body weight 54.43 kg Josue E Ball Work Phone: [facility] [employer] 250 DO Work Phone: 10-18-2022 15:41-0500 Diastolic blood pressure 90 mm[Hg] Josue E Ball Work Phone: [facility] [employer] 250 DO Work Phone: 10-18-2022 15:41-0500 Heart rate 60 /min Josue E Ball Work Phone: [facility] [employer] 250 DO Work Phone: 10-18-2022 15:41-0500 Systolic blood pressure 140 mm[Hg] Josue E Ball Work Phone: [facility] 250 DO Work Phone: 08-29-2022 07:45-0500 45 1 Josue Mckenzie Ball Work Phone: [facility] 250 DO Work Phone: Comment on above: [id number] 01-09-2022 16:27-0400 Diastolic blood pressure 62 mm[Hg] Josue Mckenzie Ball Work Phone: [facility] 250 DO Work Phone: 01-09-2022 16:27-0400 Systolic blood pressure 132 mm[Hg] Josue Mckenzie Ball Work Phone: [facility] 250 DO Work Phone: 01-09-2022 16:07-0400 Body height 157.48 cm oJsue Mckenzie Ball Work Phone: [facility] 250 DO Work Phone: 01-09-2022 16:07-0400 Body mass index (BMI) [Ratio] 21.58 kg/m2 Josue Mckenzie Ball Work Phone: [facility] 250 DO Work Phone: 01-09-2022 16:07-0400 Body surface area Derived from formula 1.53 m2 Josue Mckenzie Ball Work Phone: [facility] 250 DO Work Phone: 01-09-2022 16:07-0400 Body weight 53.52 kg Josue Mckenzie Ball Work Phone: [facility] 250 DO Work Phone: 01-09-2022 16:07-0400 Diastolic blood pressure 82 mm[Hg] Josue Mckenzie Ball Work Phone: [facility] 250 DO Work Phone: 01-09-2022 16:07-0400 Heart rate 68 /min Josue Mckenzie Ball Work Phone: [facility] 250 DO Work Phone: 01-09-2022 16:07-0400 Systolic blood pressure 142 mm[Hg] Josue E Ball Work Phone: [facility] 250 DO Work Phone: 01-09-2022 16:05-0400 Body height 157.48 cm Josue Mckenzie Ball Work Phone: [facility] 250 DO Work Phone: 01-09-2022 16:05-0400 Body mass index (BMI) [Ratio] 21.58 kg/m2 Josue Mckenzie Ball Work Phone: [facility] 250 DO Work Phone: 01-09-2022 16:05-0400 Body surface area Derived from formula 1.53 m2 Josue Mckenzie Ball Work Phone: [facility] 250 DO Work Phone: 01-09-2022 16:05-0400 Body weight 53.52 kg Josue Mckenzie Ball Work Phone: [facility] 250 DO Work Phone: 01-09-2022 16:05-0400 Diastolic blood pressure 93 mm[Hg] Josue Mckenzie Ball Work Phone: [facility] 250 DO Work Phone: 01-09-2022 16:05-0400 Heart rate 68 /min Josue Mckenzie Ball Work Phone: [facility] 250 DO Work Phone: 01-09-2022 16:05-0400 Systolic blood pressure 152 mm[Hg] Josue Mckenzie Ball Work Phone: [facility] 250 DO Work Phone: 11-29-2021 11:08-0400 Diastolic blood pressure 88 mm[Hg] Josue Mckenzie Ball Work Phone: [facility] 250 DO Work Phone: 11-29-2021 11:08-0400 Systolic blood pressure 150 mm[Hg] Josue E Ball Work Phone: [facility] 250 DO Work Phone: 11-29-2021 10:24-0400 Body height 157.48 cm Josue Mckenzie Ball Work Phone: [facility] 250 DO Work Phone: 11-29-2021 10:24-0400 Body mass index (BMI) [Ratio] 21.58 kg/m2 Josue Mckenzie Ball Work Phone: [facility] 250 DO Work Phone: 11-29-2021 10:24-0400 Body surface area Derived from formula 1.53 m2 Josue Mckenzie Ball Work Phone: [facility] 250 DO Work Phone: 11-29-2021 10:24-0400 Body weight 53.52 kg Josue Mckenzie Ball Work Phone: [facility] 250 DO Work Phone: 11-29-2021 10:24-0400 Diastolic blood pressure 98 mm[Hg] Josue Mckenzie Ball Work Phone: [facility] 250 DO Work Phone: 11-29-2021 10:24-0400 Heart rate 78 /min Josue Mckenzie Ball Work Phone: [facility] 250 DO Work Phone: 11-29-2021 10:24-0400 Systolic blood pressure 158 mm[Hg] Josue Mckenzie Ball Work Phone: [facility] 250 DO Work Phone: 11-15-2021 15:45-0400 63 1 Josue E Ball Work Phone: [facility] 250 DO Work Phone: Comment on above: [id number] 11-05-2021 14:42-0400 Diastolic blood pressure 80 mm[Hg] Josue E Ball Work Phone: [facility] 250 DO Work Phone: 11-05-2021 14:42-0400 Systolic blood pressure 140 mm[Hg] Josue E Ball Work Phone: [facility] 250 DO Work Phone: 11-05-2021 14:36-0400 Body height 157.48 cm Josue E Ball Work Phone: [facility] 250 DO Work Phone: 11-05-2021 14:36-0400 Body mass index (BMI) [Ratio] 21.58 kg/m2 Josue E Ball Work Phone: [facility] 250 DO Work Phone: 11-05-2021 14:36-0400 Body surface area Derived from formula 1.53 m2 Josue E Ball Work Phone: [facility] 250 DO Work Phone: 11-05-2021 14:36-0400 Body weight 53.52 kg Josue E Ball Work Phone: [facility] 250 DO Work Phone: 11-05-2021 14:36-0400 Diastolic blood pressure 80 mm[Hg] Josue E Ball Work Phone: [facility] 250 DO Work Phone: 11-05-2021 14:36-0400 Heart rate 73 /min Josue E Ball Work Phone: [facility] 250 DO Work Phone: 11-05-2021 [id number] Systolic blood pressure 145 mm[Hg] [facility] Tate [facility] DO Work Phone: Encounters Encounter Date Encounter Type Care Provider Facility Start: 07-13-2024 End: 07-13-2024 ambulatory SELF REFERRAL Facility:[facility] Start: 05-13-2024 End: 05-13-2024 ambulatory [facility] Work Phone: Start: 05-13-2024 End: 05-13-2024 Patient encounter procedure [facility] Work Phone: Start: 09-22-2023 End: 09-22-2023 ambulatory Josue Tate Other [employer] Other Start: 09-22-2023 Telephone encounter Josue RAMSAY G [facility] Start: 09-03-2023 End: 09-03-2023 ambulatory Josue Tate Other [employer] Other Start: 09-03-2023 Telephone encounter Josue RAMSAY G [facility] Start: 07-26-2023 End: 07-26-2023 ambulatory Josue Tate Other [employer] Other Start: 07-26-2023 Telephone encounter Josue Tate FP G [facility] Start: 04-03-2023 Chart Update Josue lim Work Phone: [facility] 250 DO Work Phone: Start: 03-28-2023 End: 03-28-2023 ambulatory Josue Tate Other [employer] Other Start: 03-28-2023 Patient encounter procedure Josue Tate [facility] Start: 03-20-[address] Stella russ [place] Facility:[id number] Start: 10-18-2022 Office outpatient vi sit 25 minutes Josue Tate Work Phone: [facility] 250 DO Work Phone: Start: 10-18-[address] Stella Pitt Facility: Start: 09-03-2022 Chart Update Josue Hilliard raphael Work Phone: [facility] 250 DO Work Phone: Start: 08-29-2022 Patient encounter procedure Josue Tate Work Phone: [facility] [address] [place] Work Phone: Start: 08-29-[address] Stella Pitt Facility:[id number] Start: 07-12-2022 End: 07-13-[address] JOSUE TATE Facility:[facility]1 Start: 06-06-2022 End: 06-07-[address] JOSUE TATE Facility:[facility]1 Start: 05-17-2022 Adult health examination Jabari courtney Tate Other [employer] Other Start: 05-17-2022 Gynecological examination normal Josue Tate Other [employer] Other Start: 05-12-2022 Encounter for genera l adult medical examination without abnormal findings DR JOSUE TATE [facility] Start: 05-09-2022 End: 05-10-[address] JOSUE TATE Facility:[facility]1 Start: 05-09-2022 End: 05-10-2022 Encounter for general adult medical examination without abnormal findings DR JOSUE TATE Facility:[facility]1 Start: 01-09-2022 Office outpatient vi sit 10 minutes Josue Tate Work Phone: [facility] 250 DO Work Phone: Start: 01-09-2022 Patient encounter procedure Josue Tate Work Phone: [facility] 250 DO Work Phone: Start: 01-09-2022 ambulatory Ms. Bee Gao Facility: Start: 11-29-2021 Office outpatient vi sit 25 minutes Josue Tate Work Phone: [facility] 250 DO Work Phone: Start: 11-29-[address] Stella Pitt Facility: Start: 11-15-2021 End: 11-16-[address] JOSUE TATE Facility:[facility]1 Start: 11-05-[address] Stella Pitt Facility: Start: 11-05-2021 Office outpatient ne w 60 minutes Josue Tate Work Phone: [facility] 250 DO Work Phone: Start: 11-01-2021 End: 11-02-[address] LADAN BARRY Facility:[facility]1 Start: 10-30-[address] Stella Pitt Facility: Start: 10-04-2021 End: 10-05-[address] LADAN BARRY Facility:[facility]1 Start: 08-09-2021 End: 08-10-[address] JOSUE TATE Facility:[facility]1 Procedures Date Procedure Procedure Detail [...] Stella Pitt, Status: Pen, Time: 11:30 AM [facility] 250 DO Work Phone: Start: 04-03-2023 FUV, Provider: Stella Pitt, Status: Pen, Time: 11:00 AM FUV, Provider: Stella Pitt, Status: Pen, Time: 11:00 AM [facility] 250 DO Work Phone: Start: 03-20-2023 MUGA, Provider: YEN HHVI NUCLEAR 01,[id number], Status: Pen, Time: 2:00 PM MUGA, Provider: YEN [facility]VI NUCLEAR 01,[id number], Status: Pen, Time: 2:00 PM [facility] 250 DO Work Phone: Start: 10-17-2022 FUV, Provider: Stella Pitt, Status: Pen, Time: 10:40 AM FUV, Provider: Stella Pitt, Status: Pen, Time: 10:40 AM [facility] [place] Work Phone: Start: 10-17-2022 FUV, Provider: Stella Pitt, Status: Pen, Time: 9:10 AM FUV, Provider: Stella Pitt, Status: Pen, Time: 9:10 AM [facility] 250 DO Work Phone: Start: 10-03-2022 ECHO, Provider: YEN HHVI ULTRASOUND 01,[id number], Status: Pen, Time: 7:45 AM ECHO, Provider: YEN [facility]VI ULTRASOUND 01,[id number], Status: Pen, Time: 7:45 AM [facility] 250 DO Work Phone: Start: 08-08-2022 FUV, Provider: Stella Pitt, Status: Pen, Time: 9:10 AM FUV, Provider: Stella Pitt, Status: Pen, Time: 9:10 AM [facility] 250 DO Work Phone: Start: 07-25-2022 ECHO, Provider: YEN HHVI ULTRASOUND 01,[id number], Status: Pen, Time: 7:45 AM ECHO, Provider: YEN HHVI ULTRASOUND 01,[id number], Status: Pen, Time: 7:45 AM [facility] 250 DO Work Phone: Start: 01-09-2022 FUV, Provider: Bee Arellano, Status: Pen, Time: 8:00 AM FUV, Provider: Bee Arellano, Status: Pen, Time: 8:00 AM [facility] 250 DO Work Phone: Start: 11-29-2021 FUV, Provider: Stella Pitt, Status: Pen, Time: 10:10 AM FUV, Provider: Stella Pitt, Status: Tyree, Time: 10:10 AM [facility] 250 DO Work Phone: Barium swallow [facility] Immunizations Immunization Date Immunization Notes Care Provider Fa cility 07-29-2021 Moderna COVID-19 Vac cine 100 MCG/0.5ML Intramuscular Suspension Josue Vincenzo Bebeto Work Phone: [facility] Comment on above: Series: 06-25-2021 influenza, seasonal, injectable Josue E Bebeto Work Phone: [facility] 250 DO Work Phone: Comment on above: Series: 11-03-2020 Rhianna COVID-19 Vac cine 0.5 ML Intramuscular Suspension Josue E Bebeto Work Phone: [facility] 250 DO Work Phone: Comment on above: Series: Payers Date Payer Category Payer Unknown [id number] 1955 Unknown [id number] 1955 Unknown [id number] 1955 Unknown [id number] 1955 Unknown [id number] 1955 Unknown [id number] 1955 Unknown [id number] [id number] 1955 Unknown [id number] [id number] 1955 Unknown [id number] [id number] 1955 Unknown [id number] [id number] 1955 Unknown [id number] [id number] 1955 Unknown [id number] 1955 Unknown [id number] [id number] 1955 Unknown [id number] [id number] 1955 Unknown [id number] Private Health Insurance [id number] Private Health Insurance [id number] Unknown Unknown [employer] [id number] Unknown [place] BC/BS [id number] Social History Date Type Detail Facility Occasional alcohol use Occasional alcohol use -[facility] 250 DO Work Phone: Sex Assigned At Sex Assigned At Bir th [facility] [employer] Other Start: 04-27-2024 [facility] Start: 1955 Sex Assigned At Female F [facility] Evaluation note 07-26-2023 Note Date & Type Note Facility 07-26-2023 Evaluation note Encounter Date Diagnosis Assessment Notes Jul, Colon cancer screening (ICD-10 - Z12.11) [employer] Other Evaluation note 03-28-2023 Note Date & [...] reviewed and amended by provider signed below. [employer] Other Progress note 10-19-2020 Note Date & Type Note Facility 10-19-2020 Note HNO ID: [id number] Author: Chantal Villavicencio Service: ? Author Type: [...] device Pain medications: Ibuprofen and Tylenol Employment: [employer] Additional pertinent history includes: 1) Patient was [...] Known Allergies Medications Current Outpatient Medications: - [id number] ORAL - CALCIUM CARBONATE/VITAMIN D3 (CALCIUM 600 + D ORAL) - [place]-3 Fatty Acids-Vitamin E (FISH OIL) 1,000 mg cap - LUTEIN EXTRACT/ZEAXANTHIN EXT (LUTEIN-ZEAXANTHIN ORAL) - MULTIVITAMIN TAB Review of Systems: Reviewed and charted into [facility]. Physical Exam: PE reveals a female [...] with the following: (more content not included)... [facility] Chief complaint Narrative - Reported Note Date & Type Note Facility Chief complaint Narrative - Reported CANDIDO BOCANEGRA is being seen for a cardiovascular evaluation of an abnormal ECG, chest pain and heart failure.Patient is a 66-year-old female seen in cardiology consultation for second opinion regarding cardiovascular follow-up and abnormal echocardiogram. She is previously followed by [employer] sales mgr Dr. Kaplan since 2011 with a diagnosis [...] repair details of which are unknownHer primary sales mgr (who is now moved territory) referred her [...] otherwise follow-up after imaging with appropriate recommendations -[facility] [employer] DO Work Phone: Chief complaint Narrative - [...] perfusion exam.We will follow-up in 8 months [facility] [employer] DO Work Phone: Evaluation note Note Date & Type Note Facility Evaluation note No Information [facility] [employer] Other Evaluation note Note Date & Type Note Facility Evaluation note Diagnosis Onset Date Asthma acute KILEY (generalized anxiety disorder) acute Hypertension acute Mitral regurgitation acute Scoliosis acute Screening mammogram for breast cancer acute Medicare annual wellness visit, initial noneactive [facility] Work Phone: History general Narrative - [...] TONCILLECTOMY AGE 9 Hospitalization History SEE [employer] Other History of Present illness Narrative Note [...] medication regimen. She denies medication side effects. [employer] DO Work Phone: History of Present illness [...] medication regimen. She denies medication side effects. [employer] DO Work Phone: Summary Purpose Family History [...] a different institution read by a different sales mgr, her left ventricular end- systolic diameter was [...] section and content) DATE CREATED AUTHOR 09/20/2021 [facility] DATE CREATED AUTHOR AUTHOR'S ORGANIZ ATION 07/27/2022 [facility] DATE CREATED AUTHOR AUTHOR'S ORGANIZ ATION 10/19/2022 [employer] DATE CREATED AUTHOR AUTHOR'S ORGANIZ ATION 10/21/2022 [facility] DATE CREATED AUTHOR AUTHOR'S ORGANIZ ATION 03/31/2023 [facility] DATE CREATED AUTHOR AUTHOR'S ORGANIZ ATION 07/15/2024 [facility] DATE CREATED AUTHOR AUTHOR'S ORGANIZ ATION 07/16/2024 [facility] REASON FOR VISIT (unrecogniz ed section [...] BE BASED ON THE PRIMARY CLINICAL RECORDS. [employer] provides no warranty or guarantee of the accuracy or completeness of information in this document.
== END 2024-10-07 10:03 | disposition home or self-care (01) ==
LOC: US 10:02
PROVIDERS: PCP Internal Medicine; Visit Provider Internal Medicine
DX: R92.8 Other abnormal and inconclusive findings on diagnostic imaging of breast (principal)
CPT/HCPCS: 76642

== ENCOUNTER 2025-05-11 14:56 | Outpatient (OUT) | payer MEDICARE, SELFPAY ==
--- NOTE | 2025-05-11 15:06 | XR_ITS ---
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 Mildly prominent cardiomediastinal silhouette. No focal airspace opacity effusion or pneumothorax. XR/XR chest 2V IMPRESSION: NO ACUTE CARDIOPULMONARY ABNORMALITY. Impression dictated by: Teto Smith M.D. 05/11/2025 5:02 PM Dictation Location: [place] [id number] Electronically authenticated by: [id number] Y Date: 05/11/2025 17:02
--- OUTSIDE RECORDS SUMMARY | 2025-05-11 16:18 | XMS_ITS | CCD ---
Author Organization [facility] Care Team Providers Care Corporate Travel Consultant Name Role Phone Lesly Josue Mckenzie Unavailable Unavailable Unavailable LESLY, DR SCHMIDT Primary Care Unavailable LESLY, DR SCHMIDT Consulting Unavailable LESLY, DR SCHMIDT Attending Unavailable BALL, DR SCHMIDT Admitting Unavailable WEST, DR KELTON Lo Consulting Unavailable LESLY, DR SCHMIDT Primary Care Unavailable LESLY, DR SCHMIDT Consulting Unavailable LESLY, DR SCHMIDT Attending Unavailable LESLY, DR SCHMIDT Admitting Unavailable LESLY, DR SCHMIDT Admitting Unavailable LESLY, DR SCHMIDT Primary Care Unavailable LESLY, DR SCHMIDT Consulting Unavailable LESLY, DR SCHMIDT Attending Unavailable BALL, DR SCHMIDT Primary Care Unavailable FERNANDO, DR BALDO Webb Attending Unavailabl e FERNANDO, DR BALOD Webb Admitting Unavailabl e OLAF, DR ANTON Kapadia Consulting Unavailable FERNANDO, DR BALDO Webb Consulting Unavailabl e MOUKARBEL, DR PICKERING Consulting Unavailable MOUKARBEL, DR PICKERING Attending Unavailable MOUKARBEL, DR PICKERING Admitting Unavailable BALL, DR SCHMIDT Primary Care Unavailable MOUKARBEL, DR PICKERING Consulting Unavailable MOUKARBEL, DR PICKERING Attending Unavailable MOUKARBEL, DR PICKERING Admitting Unavailable LESLY, DR SCHMIDT Primary Care Unavailable LESLY, DR SCHMIDT Admitting Unavailable BALL, DR SCHMIDT Primary Care Unavailable BALL, DR SCHMIDT Consulting Unavailable LESLY, DR SCHMIDT Attending Unavailable ZIEBJESUS, DR ANTON Kapadia Consulting Unavailable Unavailable Unavailable Fernando, Dr. Baldo Hooper Referring Lindsayva venkata Chatterjee, Dr. Josue Jackson Primary Care Aime King, Dr. Baldo Hooper Attending Lindsayva venkata King, Dr. Baldo Hooper Attending Lindsayva venkata King, Dr. Baldo Hooper Referring Lindsayva venkata Chatterjee, Dr. Josue Jackson Primary Care Aime King, Dr. Baldo Hooper Referring Lindsayva venkata Chatterjee, Dr. Josue Jackson Primary Care Aime King, Dr. Baldo Hooper Attending Jailyn King, Dr. Baldo Hooper Referring Jailyn King, Dr. Baldo Hooper Attending Jailyn Chatterjee, Dr. Josue Jackson Primary Care Aime Gao, MsCharmaine Clifton Attending Aime Gao, MsCharmaine Clifton Referring Aime Chatterjee, Dr. Josue Jackson Primary Care Josue Pereira Unavailable Fernando, Dr. Baldo Hooper Attending Jailyn Chatterjee, Dr. Josue Jackson Primary Care Aime King, Dr. Baldo Hooper Attending Jailyn Chatterjee, Dr. Josue Jackson [facility] Aime gonzalez REFERRAL, SELF Attending Unavailable JOSUE CHATTERJEE Consulting Unavailable LESLY, DO JOSUE Consulting Unavailable Josue Chatterjee DO Primary Care Provider [phone] Josue Chatterjee DO Attending Provider Kelton Thompson Primary Care Provider Arcadio Acevedo Unavailable [phone] Josue Chatterjee DO Primary Care Provider BALDO KING Attending Unavailable JOSUE CHATTERJEE Primary Care Unavailable ALEXANDER, CARMELLA A Attending Unavailable JOSUE CHATTERJEE Referring Unavailable KELTON THOMPSON Primary Care Unavailable ALEXANDER, CARMELLA A Referring Unavailable KELTON THOMPSON Primary Care Unavailable ANTON BEARD Attending Unavailable ALEXANDER, CARMELLA A Referring Unavailable KELTON THOMPSON Primary Care Unavailable CHAYITO LOUIS Attending Unavailable ALEXANDER, CARMELLA A Referring Unavailable KELTON THOMPSON Primary Care Unavailable SURENDRA HELM Attending Unavailable LOGAN, AVE A Attending Unavailable KELTON THOMPSON Primary Care Unavailable ALEXANDER, CARMELLA A Referring Unavailable KELTON THOMPSON Primary Care Unavailable LOGAN, AVE A Attending Unavailable ALEXANDER, CARMELLA A Referring Unavailable KELTON THOMPSON Primary Care Unavailable ALEXANDER, CARMELLA A Attending Unavailable ALEXANDER, CARMELLA A Admitting Unavailable KELTON THOMPSON Primary Care Unavailable ALEXANDER, CARMELLA A Referring Unavailable KELTON THOMPSON Primary Care Unavailable KELTON THOMPSON Primary Care Unavailable SURENDRA HELM Referring Unavailable SURENDRA HELM Attending Unavailable KELTON THOMPSON Primary Care Unavailable KELTON THOMPSON Primary Care Unavailable ALEXANDER, CARMELLA A Attending Unavailable KELTON THOMPSON Primary Care Unavailable YOVANA HELMCY Referring Unavailable KELTON THOMPSON Primary Care Unavailable KELTON THOMPSON Primary Care Unavailable Josue Chatterjee DO Primary Care Provider Irma Mittal MD Attending Provider Ave Ford MD Referring Provider [phone] Kelton Thompson MD. Attending Provider Josue Chatterjee DO Primary Care Provider Irma Mittal MD Attending Provider [phone] MD Referring Provider Josue Chatterjee Attending Unavailable Lesly, Josue Primary Care Unavailable Lesly, Josue Admitting Unavailable Kyrie, Irma Attending Unavailable Kyrie, Irma Admitting Unavailable Logan, Ave Referring Unavailable Lesly, Josue Primary Care Unavailable Lesly ELDER, Josue Primary Care Provider Josue Chatterjee DO Attending Provider Maciel Rivers DO Primary Care Provider [phone] Allergies Allergy Classification Reported Allergen(s) Allergy Type Date of Onset Reaction(s) Facility (20 sources) Acetaminophen / oxyCODONE Drug Allergy 5 Other: See Comments, Other [facility] (8 sources) Acetaminophen; Translations: [acetaminophen] Drug Allergy 4 [facility] (8 sources) oxyCODONE; Translations: [oxycodone] Drug Allergy 4 [facility] (3 sources) Acetaminophen / oxyCODONE; Translations: [OXYCODONE-ACETAM INOPHEN] Drug Allergy 5 [facility] 3 Repository (7 sources) Chlorhexidine; Translations: [CHLORHEXIDINE] Drug Allergy 5 [facility] Work Phone: Medications Current Medications Medication Drug Class(es) Dates Sig (Normalized) Sig (Original) acetaminophen 325 mg / HYDROcodone bitartrate 5 mg oral tablet (1 source) Opioid Agonist Start: 12-13-2024 End: 12-15-2024 HYDROcodone-acetam inophen (NORCO) 5-325 mg per tablet Indications: Invasive ductal carcinoma of breast, female, left (HCC) Take 1 tablet by mouth every 8 hours as needed for pain for up to 5 doses. 5 tablet 12/13/2024 10:10 AM EDT 12/13/2024 12/15/2024 Active anastrozole 1 mg oral tablet (4 sources) Aromatase Inhibitor Start: 02-17-2025 take 1 tablet by mouth once daily Anastrozole 1 mg tablet Active 0 .ROUTE .COMPLEX 90 February 17, 2025 1:25pm TAKE 1 TABLET BY MOUTH EVERY DAY Complies with drug therapy Start: 01-26-2025 End: 02-17-2025 take 1 tablet by mouth once daily Anastrozole 1 mg tablet Discontinued 1 MG PO Daily January 26, 2025 12:00am February 17, 2025 1:25pm azithromycin 250 mg oral tablet (9 sources) Macrolide Antimicrobial Start: 04-26-2025 Azithromycin 250 mg tablet Active 250 MG PO .COMPLEX 6 April 26, 2025 12:00am 2 tabs on first day followed by 1 tab on days 2-5 Complies with drug therapy Start: 05-14-2024 End: 08-16-2024 Azithromycin 250 mg tablet D iscontinued 250 MG PO As Directed 6 May 14, 2024 12:00am August 16, 2024 3:50pm Start: 05-09-2021 Azithromycin 2 50 MG Oral Tablet TAKE 2 TABLETS BY MOUTH TODAY, THEN TAKE 1 TABLET DAILY FOR 4 DAYS Quantity: 6 Refills: 0 Ordered: 12-May-2021 DO Start : 09-May-2021 Complete B complex-vitamin C-folic acid (Nephro-[facility]) 1-60-300 mg-mg-mcg tablet (1 source) take 1 tablet by mouth once daily at breakfast B complex-vitamin C-folic acid (Nephro-[facility] Rx) 1-60-300 mg-mg-mcg tablet Take 1 tablet by mouth once daily with breakfast. Active benzonatate 100 mg oral capsule (4 sources) Non-narcotic Antitussive Start: 2015 take 1 capsule by mouth three times daily as needed for cough Tessalon Perles 100 MG 1 capsule Orally Three times a day as needed for cough; swallow whole for 7 days Mar, Active Biotin (1 source) BIOTIN ORAL Take by mouth. Active Calcium Carbonate / vitamin D3 (20 sources) take 1 tablet by mouth once daily CALCIUM CARBONATE/VITAMIN D3 (CALCIUM 600 + D ORAL) Take 1 tablet by mouth once daily. Active calcium citrate 250 mg / ergocalciferol 100 mg oral tablet (1 source) Provitamin D2 Compound take 1 tablet by mouth twice daily calcium citrate-vitamin D2 250 mg-2.5 mcg (100 unit) tablet Take 1 tablet by mouth 2 times a day. Active cetirizine hydrochloride 10 mg oral tablet (4 sources) Histamine-1 Receptor Antagonist Start: 2018 take 1 capsule by mouth once daily as needed ZyrTEC Allergy 10MG ZyrTEC Allergy 10MG, 1 (one) Capsule Capsule daily # 30, 08/12/2019, Ref. x2. Active Oral daily for 0 pt takes PRN *Pick strength-form from [employer] for eRX* Jul, Active LUTEIN EXTRACT/ZEAXANTHIN EXT (LUTEIN-ZEAXANTHIN ORAL) (20 sources) take 1 tablet by mouth once daily LUTEIN EXTRACT/ZEAXANTHIN EXT (LUTEIN-ZEAXANTHIN ORAL) Take 1 tablet by mouth once daily. Active magnesium oxide 500 mg oral tablet (1 source) magnesium oxide 500 mg magnesium tablet Take by mouth. Active methylPREDNISolone 4 mg oral tablet (4 sources) Corticosteroid Start: 2015 Medrol (Parish) 4 MG as directed Orally for daily dose take half with breakfast half with dinner for 6 days Mar, Active Multi For Her (4 sources) Multi For Her Or ally daily Active Multivitamin (Daily Multi-Vitamin) tablet (7 sources) Start: 2023 take 1 tablet by mouth once daily Multivitamin (Daily Multi-Vitamin) tablet Active 1 TAB PO Daily May 13, 2024 12:00am Complies with drug therapy Start: 05-13-2024 take 1 tablet by audra th once daily Start: 05-13-2024 take 1 tablet by audra th once daily Multivitamin (Daily Multi-Vitamin) tablet Active 1 TAB PO Daily May 13, 2024 12:00am MULTIVITAMIN TAB (20 sources) Start: 01-29-2010 MULTIVITAMIN T AB Take one(1) tablet daily. 0 01/29/2010 Active multivitamin tablet (1 source) take 1 tablet by mouth once daily multivitamin tablet Take 1 tablet by mouth once daily. Active therapeutic multivitamin-minerals (THERA-M PLUS) 9 mg iron-400 mcg tablet (10 sources) therapeutic multivitamin-minerals (THERA-M PLUS) 9 mg iron-400 mcg tablet Take 1 tablet by mouth once daily. Collagen and biotin is in multivitamin Active Completed/Discontinued Medications Medication Drug Class(es) Dates Sig (Normalized) Sig (Original) cephalexin 500 mg oral capsule (2 sources) [...] / neomycin 3.5 mg/ml / polymyxin b [id number] unt/ml ophthalmic suspension (2 sources) Aminoglycoside Antibacterial, Polymyxin-class Antibacterial, Corticosteroid Start: 09-17-2021 take 1 drop(s) into the eye(s) three times daily Neomycin-Polymyxi n-Dexameth 3.5-83547-[address] 1 DROP INTO LEFT EYE THREE TIMES A DAY FOR 10 DAYS Quantity: 5 Refills: 0 Ordered: 17-Sep-2021 DO Start : 17-Sep-2021 Complete Eye Multivitamin/Lutein CAPS (2 sources) Eye Multivitamin/Lute in CAPS TAKE DIRECTED. Quantity: 0 Refills: 0 Ordered: 18-Oct-2022 DO Active GLUCOSAMINE-CONDROITI [id number] ORAL (13 sources) End: 12-06-2024 GLUCOSAMINE-CONDR OITIN-[id number] ORAL Take 500 mg by mouth. 12/06/2024 Discontinued GLUCOSAMINE-COND ROITIN-[id number] ORAL Take 500 mg by mouth. Active Lidocaine (1 source) Antiarrhythmic, Amide Local Anesthetic Start: 12-07-2024 End: 12-07-2024 X (OR/PROCEDURE) PRN, Starting on Fri12/07/24 at 1041, Until Fri12/07/24 at 1041, Intraprocedure Multi Vitamin Daily Oral Tablet (1 source) take 1 tablet by mouth once daily Multi Vitamin Daily Oral Tablet TAKE 1 TABLET DAILY. Quantity: 0 Refills: 0 Ordered: 18-Oct-2022 DO Active Multi Vitamin Daily TABS (1 source) Multi Vitamin Da italo TABS TAKE 1 TABLET DAILY. Quantity: 0 Refills: 0 Ordered: 18-Oct-2022 DO Active No Reported Medications (6 sources) No Reported Medications Quantity: 0 Refills: 0 Ordered: 29-Nov-2021 DO Active No Reported Medi cations Quantity: 0 Refills: 0 Ordered: 05-Nov-2021 DO Active [place]ii-3 Fatty Acids-Vitamin E (FISH OIL) 1,000 mg cap (13 sources) End: 12-06-2024 take 1 capsule by mouth once daily Pompeii-3 Fatty Acids-Vitamin E (FISH OIL) 1,000 mg cap Take 1 capsule by mouth once daily. 12/06/2024 Discontinued take 1 capsule by mouth once mo ly Pompeii-3 Fatty Acids-Vitamin E (FISH OIL) 1,000 mg cap Take 1 capsule by mouth once daily. Active Problems Active Problems Problem Classification Problem Date Documented Da te Episodic/Chronic Acute bronchitis (4 sources) Acute bronchitis; Translations: [Acute bronchitis due to other specified organisms] Episodic Administrative/social admission (4 sources) Further opinion sought 01-26-2025 Episodic Anxiety disorders (9 sources) Generalized anxiety disorder; Translations: [Generalized anxiety disorder] Chronic Asthma (9 sources) Mild intermittent asthma; Translations: [Mild intermittent asthma, uncomplicated] Chronic Cancer of breast (20 sources) Malignant neoplasm of unspecified site of left female breast; Translations: [Invasive ductal carcinoma of left breast in female] Onset: 11-23-2024 11-03-2024 Chronic Comment on above: FNA: UIQ ERP/PRN/HER 2 - 11/01/2024 FNA: UOQ ERP/PRN/HER 2 - 11/01/2024 Core Needle Bx: left UOQ ERP/PRN/HER2 negative - 11/01/2024,Left breast lumpectomy and sentinal LN - 12/13/24, Cardiac dysrhythmias (12 sources) Ventricular premature beats; Translations: [Other premature beats] Onset: 11-01-2021 Chronic Congestive heart failure; nonhypertensive (14 sources) Chronic systolic heart failure; Translations: [Chronic systolic (congestive) heart failure] Onset: 12-07-2024 12-07-2024 Chronic Essential hypertension (20 sources) Benign essential hypertension; Translations: [Benign essential hypertension] Onset: 03-20-2023 05-11-2024 Chronic Genitourinary symptoms and ill-defined conditions (4 sources) Dysuria; Translations: [Dysuria] Episodic Heart valve disorders (20 sources) Mitral valve regurgitation; Translations: [Mitral valve disorders] Onset: 10-04-2021 Chronic Immunizations and screening for infectious disease (19 sources) Patient encounter status; Translations: [Other specified vaccination] Resolved: 11-29-2021 05-11-2024 Episodic Nonspecific chest pain (9 sources) Chest pain; Translations: [Chest pain, unspecified] Onset: 11-21-2021 Episodic Other acquired deformities (15 sources) Scoliosis deformity of spine; Translations: [Scoliosis, unspecified] 05-11-2024 Chronic Other acquired deformities (6 sources) Scoliosis, unspecified; Translations: [Scoliosis [and kyphoscoliosis], idiopathic] 05-13-2024 Chronic Other aftercare (2 sources) Prevention status; Translations: [rat exterminator (current) use of aromatase inhibitors] 11-26-2024 Episodic Other aftercare (1 source) rat exterminator (current) use of aromatase inhibitors; Translations: [Use of anastrozole] Onset: 12-31-2024 Episodic Other aftercare (6 sources) Long-term current use of drug therapy; Translations: [Encounter for therapeutic drug level monitoring] 01-26-2025 Episodic Other bone disease and musculoskeletal deformities [...] density and structure, other site] Episodic Other bone disease and musculoskeletal deformities (8 sources) Osteopenia; Translations: [Other specified disorders of bone density and structure, unspecified site] 11-26-2024 Episodic Other bone disease and musculoskeletal deformities (1 source) Other specified disorders of bone density and structure, unspecified site; Translations: [Osteopenia, unspecified location] Onset: 12-31-2024 Episodic Other circulatory disease (4 sources) Elevated blood-pressure reading without diagnosis of hypertension; Translations: [Elevated blood-pressure reading, without diagnosis of hypertension] Episodic Other circulatory disease (1 source) Elevated blood-pressure reading, without diagnosis of hypertension Episodic Other ear and sense organ disorders (2 sources) Asymmetrical sensorineural hearing loss; Translations: [Sensorineural hearing loss, bilateral] 05-11-2025 Chronic Other inflammatory condition of skin (20 sources) Rosacea; Translations: [Rosacea, unspecified] Onset: 07-01-2011 07-01-2011 Chronic Other injuries and conditions due to external causes (3 sources) Choking due to food in larynx; Translations: [...] 07-21-2018 Resolved: 10-12-2020 Chronic Residual codes; unclassified (10 sources) Body mass index 20-24 - normal; Translations: [Body Mass Index between 19-24, adult] Onset: 12-09-2024 12-09-2024 Episodic Residual codes; unclassified (1 source) Family [...] ORGN/SYS] Onset: 07-27-2022 Episodic Residual codes; unclassified (5 sources) Asymptomatic menopausal state; Translations: [ASYMPTOMATIC MENOPAUSAL STATE] Onset: 08-09-2021 Episodic Residual codes; unclassified (6 sources) Postmenopausal state; Translations: [Asymptomatic menopausal state] 11-26-2024 Episodic Residual codes; unclassified (1 source) Preoperative state 12-09-2024 Episodic Residual codes; unclassified (2 sources) Never smoked tobacco; Translations: [Other specified health status] Onset: 12-09-2024 12-09-2024 Episodic Residual codes; unclassified (2 sources) Body mass index (BMI) 20.0-20.9, adult; Translations: [Body mass index (BMI) 20.0-20.9, adult] Onset: 12-09-2024 Episodic Residual codes; unclassified (2 sources) Other specified health status; Translations: [Other specified health status] Onset: 12-09-2024 Episodic Residual codes; unclassified (2 sources) Other specified postprocedural states; Translations: [Other postprocedural status] Onset: 12-31-2024 12-31-2024 Episodic Residual codes; unclassified (4 sources) Estrogen receptor positive status [ER+]; Translations: [Malignant neoplasm of left breast in female, estrogen receptor positive, unspecified site of breast (HCC)] Onset: 11-26-2024 Episodic Spondylosis; intervertebral disc disorders; other back problems (9 sources) Low back pain; Translations: [Low back pain] 08-16-2024 Episodic Sprains and strains (4 sources) Other sprain of right hip, subsequent encounter; Translations: [Other sprain of right hip, subsequent encounter] Episodic Thyroid disorders (5 sources) Other specified hypothyroidism; Translations: [Hypothyroidism] Onset: 06-08-2022 Chronic Unclassified (1 source) Invasive ductal carcinoma of breast, female, left (HCC) 11-26-2024 Unclassified (1 source) Er+ CO- carcinoma of breast, left (HCC); Translations: [Er+ CO- carcinoma of breast, left (HCC)] Onset: 12-31-2024 Unclassified (1 source) 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); Translations: [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 The right ear exhibited a severe, rising to moderate sensorineural hearing loss 250-8000 Hz. These results are consistent with patient history. [facility] 01-27-2025 [facility] MELISSA MCFARLANE ([id number]) 1955 F Date Time Provider Department 01/27/[address] [facility] [place] During your visit today, we recorded the following information about you: Clara Epps 01/27/2025 9:03 AM Signed Patient forgot to ask an important question at her office visit; that is, when can she golf? Please advise. Tatiana Keating LPN 01/27/2025 12:26 PM Signed Returned pt call, per PA pt may start slow with golfing as long as she has no pain and feels fell. Pt verbalized understanding and thanked for calling. Tatiana Keating LPN Allergies As of Date: 01/27/2025 Noted Allergy Reaction PERCOCET (OXYCODONE-ACETAMINOPHE N)11/26/2024 14 - Other: See Comments Comments: Patient states that it makes her shakey CHLORHEXIDINE 12/21/2024 2 - Rash Comments: Topical Date Reviewed: 01/25/2025 Reviewed by: Katty Torres MA - Fully Assessed Reason for Visit: Patient Question [6106] Prescriptions as of 01/27/2025 - therapeutic multivitamin-minerals (THERA-M PLUS) 9 mg iron-400 mcg tablet Take 1 tablet by mouth once daily. Collagen and biotin is in multivitamin - CALCIUM CARBONATE/VITAMIN D3 (CALCIUM 600 + D ORAL) Take 1 tablet by mouth once daily. - LUTEIN EXTRACT/ZEAXANTHIN EXT (LUTEIN-ZEAXANTHIN ORAL) Take 1 tablet by mouth once daily. - MULTIVITAMIN TAB Take one(1) tablet daily. Problem List As Of Date 01/27/2025 Noted Resolved Rosacea [L71.9] 07/01/2011 Malignant neoplasm of upper-outer quadrant of l*12/01/2024 Primary hypertension [I10] 12/07/2024 Chronic systolic CHF (congestive heart failure)*12/07/2024 Valvular heart disease [I38] 12/07/2024 Nonischemic cardiomyopathy (HCC) [I42.8] 12/07/2024 Encounter Status:Closed by TATIANA KEATING on 01/27/25 [facility] CNOVon 01-25-2025 CNOV Office Visit ([facility] ) MELISSA MCFARLANE ([id number]) 1955 F Date Time Provider Department 01/25/25 8:45 AM [facility] During your visit today, we recorded the following information about you: Weight Height 52.2 kg 1.524 m Surendra Helm PA-C 01/25/2025 11:43 AM Signed REASON FOR TODAY'S VISIT: Patient presents with: Post Op HISTORY of PRESENT ILLNESS: Melissa Mcfarlane, 69 year old year old female, s/p a /p a LEFT breast zachary mail examiner localized lumpectomy, LEFT sentinel lymph node biopsy performed on 12/13/2024. Final pathology reports LEFT breast 1.0 IDC (margins clear), Grade 2, 0/1 LN, ER+, CO-, HER2- PATHOLOGICAL STAGE LEFT BREAST: p,T1b,N0 She initially presented on 11/26/2024 with a LEFT breast 1.1 cm mass @ 2:00, 4cm FN posterior. Bx (globe clip) shows IDC. LN appear normal ER+CO+HER2- [id number] Genetic testing results were reported as negative on 12/07/2024 HISTORY: Patient was last seen at her post operative appointment on 12/21/2024. At that time, she was healing well and pathology findings were discussed. Patient cancelled her appointment with (Rad Onc) and decided to omit adjuvant radiation follow up consult/treatment. Does not want radiation d/t multiple back xrays as child did followed-up with Dr. Ave Ford (Medical Oncologist) for review of the Oncotype DX RS which was 16. There was no apparent chemotherapy benefit. Discussion was held regarding Endocrine therapy, but patient was reluctant to take the medication d/t her dx of osteopenia, bilateral hip pain and intolerance of heat (hot flashes), but did agreed to think about her options. She has decided to meet with Dr. Anita Mittal (Med Onc) at to discuss adjuvant Endocrine therapy Last bilateral mammogram was in 09/27/2024. She returns today for a one month post op follow up wound check. EXAMINATION: GEN alert and orientated, well nourished, calm Regional Lymph Nodes There is no concerning supraclavicular, infraclavicular or cervical lymphadenopathy. BREASTS: The patient was examined in the upright and supine position. LEFT breast soft, incision in the UOQ is healiong well. No masses, nipple everted, no discharge, no skin changes LEFT axilla no palpable axillary lymphadenopathy ABD soft, non-distended, non-tender, no organomegaly EXT ambulated independently, good ROM of upper extremities, no evidence of lymphedema IMPRESSION: Melissa Mcfarlane, 69 year old year old female, s/p a /p a LEFT breast zachary mail examiner localized lumpectomy, LEFT sentinel lymph node biopsy performed on 12/13/2024. Final pathology reports LEFT breast 1.0 IDC (margins clear), Grade 2, 0/1 LN, ER+, CO-, HER2- PATHOLOGICAL STAGE LEFT BREAST: p,T1b,N0 Genetic testing results were reported as negative on 12/07/2024 One month post op, healing well PLAN: Patient is scheduled for a second opinion with Dr. Anita Mittal (Med Onc) at to discuss adjuvant Endocrine therapy Ms. Mcfarlane will follow-up with Dr. Ave Ford (Medical Oncologist) as scheduled, 04/07/2025. She will call if she decides to follow up with a Radiation Oncologist for discussion of local adjuvant treatment. Ms. Mcfarlane will follow-up with us, as scheduled in 06/24/2025. She has our names and numbers to stay in touch if she has any questions, concerns or problems in the interim. Surendra Helm PA-C cc: Carmella Munoz DO Breast Surgeon Kelton Thompson MD ([facility]) [address] [place] [phone] Referring Provider: SURENDRA HELM [[id number]] Allergies As of Date: 01/25/2025 Noted Allergy Reaction PERCOCET (OXYCODONE-ACETAMINOPHE N)11/26/2024 14 - Other: See Comments Comments: Patient states that it makes her shakey CHLORHEXIDINE 12/21/2024 2 - Rash Comments: Topical Date Reviewed: 01/25/2025 Reviewed by: Katty Torres MA - Fully Assessed Reason for Visit: Post Op [174] Primary Visit Diagnosis:Malignant neoplasm of upper-outer quadrant of left breast in female, estrogen receptor positive (HCC) [C50.412, Z17.0] Prescriptions as of 01/25/2025 - therapeutic multivitamin-minerals (THERA-M PLUS) 9 mg iron-400 mcg tablet Take 1 tablet by mouth once daily. Collagen and biotin is in multivitamin - CALCIUM CARBONATE/VITAMIN D3 (CALCIUM 600 + D ORAL) Take 1 tablet by mouth once daily. - LUTEIN EXTRACT/ZEAXANTHIN EXT (LUTEIN-ZEAXANTHIN ORAL) Take 1 tablet by mouth once daily. - MULTIVITAMIN TAB Take one(1) tablet daily. Problem List As Of Date 01/25/2025 Noted Resolved Rosacea [L71.9] 07/01/2011 Malignant neoplasm of upper-outer quadrant of l*12/01/2024 Primary hypertension [I10] 12/07/2024 Chronic systolic CHF (congestive heart failure)*12/07/2024 Valvular heart disease [I38] 12/07/2024 Nonischemic cardiomyopathy (HCC) [I42.8] 12[facility] (more content not included)... [facility] CNOVSPon 12-31-2024 CNOVSP Visit (SP) Office (HEMML) MELISSA MCFARLANE ([id number]) 1955 F Date Time Provider Department 12/31/24 8:[address] [facility] HEMMAR[facility] During your visit today, we recorded the following information about you: Temperature Pulse Blood pressure Weight 97.8 degrees 71/minute 146/[address] MD 12/31/2024 9:28 AM Signed Date of Service: December 31, 2024 Mrs. Mcfarlane is seen in follow up for stage I left breast cancer. History of Present Illness: Mrs. Mcfarlane underwent sentinel lymph node biopsy () and left lumpectomy on December 13, 2024. 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 She has recovered from her breast surgery. She has decided to omit radiation therapy. Her Oncotype recurrence score is 16. Distant recurrence risk at 5 years with hormone therapy alone is 4%. Group average absolute chemotherapy benefit: No apparent chemotherapy benefit (less than 1%). She brought her bone density test results that were done in [place]. She had it done in August 2023 and it showed osteopenia. Patient takes calcium and vitamin D. She has baseline bilateral hip pain. She has baseline hot flashes. She says that she is intolerant of heat. All other systems were reviewed but otherwise negative. Mrs. Mcfarlane's past medical history, past surgical history, allergies, medications, and family medical history have been reviewed. INTERVAL HISTORY: Mrs. Mcfarlane is a 69 year old postmenopausal female diagnosed with clinical stage I grade 2 invasive ductal carcinoma of the left breast diagnosed via left breast biopsy performed on November 01, 2024 in [place], [place]. Her left breast cancer is estrogen receptor positive (80%), progesterone receptor negative (0 to 1%), and HER2/fausto negative (score 1+). On left breast ultrasound performed November 23, 2024, her left breast cancer measured 1.1 x 0.8 x 0.9 cm. Social History: Mrs. Mcfarlane continues to do her activities of daily living. ECOG Performance Status: 0 - Fully active, able to carry on all pre-disease performance without restriction PHYSICAL EXAM: VS: BP 146/86 Pulse 71 Temp 36.6 ?C (97.8 ?F) (Oral) Wt 52.2 kg (115 lb 1.3 oz) SpO2 99% BMI 21.98 kg/m? General: No acute distress. Eyes: Pupils equal, round, and reactive to light. Extraocular movements intact. No scleral icterus or conjunctival pallor. Mouth: Moist mucous membranes. No erythema or exudate. Neck: Supple. Heart: Regular rate and rhythm. Normal S1, S2. Lungs: Clear to auscultation bilaterally. No wheezes, rhonchi, or crackles. Abdomen: Positive bowel sounds. Soft, nontender, nondistended. Extremities: Warm and dry. No edema. Neurologic: Alert and oriented x 3. No focal deficits. LABORATORY: None. IMAGING: None. SURGICAL PATHOLOGY: Performed on December 13, 2024. SURGICAL PATHOLOGY: [id number] Order: [id number] Collected 12/13/2024 8:18 AM Status: Final result Dx: Invasive ductal carcinoma of breast, ... Test Result Released: Yes (seen) 0 Result Notes Component Resulting Agency FINAL DIAGNOSIS A. Left breast, lumpectomy: - Invasive ductal carcinoma, see synoptic report. - Biopsy clip identified. B. Left breast, superior margin, excision: - The final inked margin is negative for carcinoma. C. Left breast, inferior margin, excision: - The final inked margin is negative for carcinoma. D. Left breast, lateral margin, excision: - The final inked margin is negative for carcinoma. E. Left breast, medial margin, excision: - The final inked margin is negative for carcinoma. F. Left breast, posterior margin, excision: - The final inked margin is negative for carcinoma. G. Left breast, anterior margin, excision: - The final inked margin is negative for carcinoma. H. Left sentinel lymph node, excision: - 1 lymph node, negative for metastatic carcinoma (0/1). JR 12/16/2024 at 1140 EDT Block for additional Biomarkers/Molecular studies CCM A2 Synoptic Report INVASIVE CARCINOMA OF THE BREAST: Resection 8th Edition - Protocol posted: 02/11/2024INVASIVE CARCINOMA OF THE BREAST: RESECTION - All Specimens SPECIMEN Procedure Excision (less than total mastectomy) Specimen Laterality Left TUMOR Histologic Type Invasive carcinoma of no special type (ductal) Histologic Grade (Boby Histologic Score) Glandular (Acinar) / Tubular Differentiation Score 3 Nuclear Pleomorphism Score 3 Mitotic Rate Score 1 Overall Grade Grade 2 (scores of 6 or 7) Tumor Size Greatest dimension of largest invasive focus (Millimeters): 10 mm Ductal Carcinoma In Situ (DCIS) Not identified Lymphatic and / or Vascular Invasion Cannot be determined Treatment Effect in the Breast No known presurgical therapy MARGINS Margin Status for Invasive Carcinoma All margins negative f (more content not included)... [facility] CNOVon 12-21-2024 CNOV Office Visit (GENSF) MCFARLANE,MELISSA Bell ([id number]) 1955 F Date Time Provider Department 12/21/24 9:00 AM SURENDRA HELM GENSF During your visit today, we recorded the following information about you: Surendra Helm PA-C 12/21/2024 10:05 AM Signed BREAST CANCER POST OPERATIVE FOLLOW-UP POSTOPERATIVE VISIT #1 SUBJECTIVE: Melissa Bell Denys is a 69 year old year old female who is s/p a LEFT breast zachary mail examiner localized lumpectomy, LEFT sentinel lymph node biopsy performed by Dr. Munoz (Breast Surgeon) on 12/13/2024. She denies any redness, bruising, swelling or discharge from the incision. She denies any fever or chills. Pain of the surgical site is reported as minimal and intermittent.. Genetic testing results were reported as negative on 12/07/2024 OBJECTIVE: PHYSICAL EXAM: No Complaints. BREAST EXAMINATION: The patient was examined in the upright position. LEFT breast soft, no dominant masses, nipple everted, no discharge, no skin changes. The radial incision in the UOQ is healing well (same incision for SN bx). LEFT axilla no palpable lymphadenopathy, no evidence of lymphedema, and good range of motion. Regional Lymph Nodes: There is no concerning supraclavicular, infraclavicular or cervical lymphadenopathy. SURGICAL PATHOLOGY: FINAL DIAGNOSIS A. Left breast, lumpectomy: - Invasive ductal carcinoma, see synoptic report. - Biopsy clip identified. B. Left breast, superior margin, excision: - The final inked margin is negative for carcinoma. C. Left breast, inferior margin, excision: - The final inked margin is negative for carcinoma. D. Left breast, lateral margin, excision: - The final inked margin is negative for carcinoma. E. Left breast, medial margin, excision: - The final inked margin is negative for carcinoma. F. Left breast, posterior margin, excision: - The final inked margin is negative for carcinoma. G. Left breast, anterior margin, excision: - The final inked margin is negative for carcinoma. H. Left sentinel lymph node, excision: - 1 lymph node, negative for metastatic carcinoma (0/1). JR 12/16/2024 at 1140 EDT Block for additional Biomarkers/Molecular studies CCM A2 Synoptic Report INVASIVE CARCINOMA OF THE BREAST: Resection 8th Edition - Protocol posted: 02/11/2024INVASIVE CARCINOMA OF THE BREAST: RESECTION - All Specimens SPECIMEN Procedure Excision (less than total mastectomy) Specimen Laterality Left TUMOR Histologic Type Invasive carcinoma of no special type (ductal) Histologic Grade (Boby Histologic Score) Glandular (Acinar) / Tubular Differentiation Score 3 Nuclear Pleomorphism Score 3 Mitotic Rate Score 1 Overall Grade Grade 2 (scores of 6 or 7) Tumor Size Greatest dimension of largest invasive focus (Millimeters): 10 mm Ductal Carcinoma In Situ (DCIS) Not identified Lymphatic and / or Vascular Invasion Cannot be determined Treatment Effect in the Breast No known presurgical therapy MARGINS Margin Status for Invasive Carcinoma All margins negative for invasive carcinoma Distance from Invasive Carcinoma to Closest Margin Greater than: 4 mm REGIONAL LYMPH NODES Regional Lymph Node Status All regional lymph nodes negative for tumor Total Number of Lymph Nodes Examined (sentinel and non-sentinel) 1 Number of [place] Nodes Examined 1 pTNM CLASSIFICATION (AJCC 8th Edition) Reporting of pT, pN, and (when applicable) pM categories is based on information available to the pathologist at the time the report is issued. As per the AJCC (Chapter 1, 8th Ed.) it is the managing physician's responsibility to establish the final pathologic stage based upon all pertinent information, including but potentially not limited to this pathology report. pT Category pT1b pN Category pN0 N Suffix (sn) SPECIAL STUDIES Estrogen Receptor (ER) Status Positive (greater than 10% of cells demonstrate nuclear positivity) Percentage of Cells with Nuclear Positivity 80 % Progesterone Receptor (PgR) Status Negative HER2 (by immunohistochemistry) Negative (Score 1+) Testing Performed on . ASSESSMENT: Melissa Mcfarlane, 69 year old year old female, s/p a /p a LEFT breast zachary mail examiner localized lumpectomy, LEFT sentinel lymph node biopsy performed on 12/13/2024. 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 Bx (globe clip) shows IDC. LN appear normal ER+CO+HER2- [id number] Genetic testing results were reported as negative on 12/07/2024 PLAN Pathology report reviewed by (Breast Surgeon) and wi (more content not included)... [facility] ANES POSTPROC EVALon 025 ANES POSTPROC EVAL HNO ID: [id number] Author: BALDO CORREIA DO Service: Anesthesiology Author Type: Anesthesiologist Type: Anesthesia Postprocedure Evaluation Filed: 12/13/2024 14:22 Note Text: POST ANESTHESIA EVALUATION NOTE : 1955 Procedure Summary Date: 12/13/24 Room / Location: [address] Anesthesia Start: 07 Anesthesia Stop: 903 Procedures: MASTECTOMY PARTIAL (Left: Breast) PLACEMENT OF BREAST LOCALIZATION DEVICE(S) PERCUTANEOUS; FIRST LESION, MAMMOGRAPHIC GUIDANCE (Left: Breast) INTRAOPERATIVE ID OF SENTINEL LYMPH NODE(S) INCL'D INJECTION OF NON-RAD DYE WHEN PERFORMED (Left: Axillary) BIOPSY NODE SENTINEL AXILLARY (Left: Axillary) INJECTION PROCEDURE RADIOACTIVE TRACER FOR IDENTIFICATION OF SENTINEL NODE (Left: Axillary) RADIOLOGICAL EXAMINATION SURGICAL SPECIMEN (Left: Breast) Diagnosis: Invasive ductal carcinoma of breast, female, left (HCC) (Invasive ductal carcinoma of breast, female, left (HCC) [C50.912]) Surgeons: Carmella Munoz DO Responsible Provider: Baldo Correia DO Anesthesia Type: general ASA Status: 3 Anesthesia Type: general Airway Type: LMA Last Vitals Vitals Value Taken Time BP 124/60 12/13/24 1020 Temp 36.7 ?C (98.1 ?F) 12/13/24 1000 HR SpO2 70 12/13/24 1020 Resp 15 12/13/24 1015 SpO2 95 % 12/13/24 1020 Vitals shown include unfiled device data. Post Anesthesia Patient Status Patient Evaluation: PACU. PACU/ICU Patient Condition: stable. Anticipated Disposition: phase 2 then home. Neurological Status: aware and responsive. Pulmonary Status: breathing comfortably on room air Airway Control: returned to baseline unsupported. Cardiovascular Status: stable. Pain Management: clinically adequate - multimodal analgesia pain management approach Postoperative Hydration: acceptable. Intraoperative Events: no significant anesthesia events Post Operative Nausea/Vomiting Status: no significant post operative nausea or vomiting Recommendation: continue current plan of care and further care per PACU/ICU/floor team. Anesthesia Observations No Documentation SIGNATURE: Balod Correia DO PATIENT NAME: Melissa Mcfarlane DATE: December 13, 2024 TIME: 2:22 PM CSN: [id number] [facility] ANES PRE-OPon 12-13-2024 ANES PRE-OP HNO ID: [id number] Author: BALDO CORREIA DO Service: Anesthesiology Author Type: Anesthesiologist Type: Anesthesia Preprocedure Evaluation Filed: 12/13/2024 07:26 Note Text: ANESTHESIOLOGY DAY OF SURGERY NOTE : 1955 Procedure Information Date/Time: 12/13/24 0730 Procedures: MASTECTOMY PARTIAL (Left: Breast) PLACEMENT OF BREAST LOCALIZATION DEVICE(S) PERCUTANEOUS; FIRST LESION, MAMMOGRAPHIC GUIDANCE (Left: Breast) INTRAOPERATIVE ID OF SENTINEL LYMPH NODE(S) INCL'D INJECTION OF NON-RAD DYE WHEN PERFORMED (Left: Axillary) BIOPSY NODE SENTINEL AXILLARY (Left: Axillary) INJECTION PROCEDURE RADIOACTIVE TRACER FOR IDENTIFICATION OF SENTINEL NODE (Left: Axillary) RADIOLOGICAL EXAMINATION SURGICAL SPECIMEN (Left: Breast) Location: [address] Surgeons: Carmella Munoz DO Estimated body mass index is 21.73 kg/m? as calculated from the following: Height as of 12/07/24: 154.1 cm (5' 0.67 ). Weight as of 12/07/24: 51.6 kg (113 lb 12.1 oz). Most recent hematocrit and potassium results: Hematocrit 43.9 12/07/2024 Potassium 4.6 12/07/2024 Relevant Problems CARDIO (+) Primary hypertension I - PHYSICAL EVALUATION AIRWAY Patient intubated: No. Tracheostomy tube not present Mallampati: II. TM distance: >3 FB. Neck ROM: full ROM without neurological symptoms. Mouth opening: adequate. Short neck: no. Thick neck: no DENTAL Dental findings: teeth intact. II - ANESTHESIA PLAN ASA Score: 3 Anesthetic Plan: general Airway type: ETT NPO Status: adequate Beta Dylan Monitoring Plan Monitoring plan: standard ASA. Post Procedure Analgesic Plan Postoperative analgesic plan: parenteral or oral opioids, multimodal analgesia and per surgical service. Informed Consent Anesthetic risks, benefits, alternatives, personnel and consent discussed: yes. Patient / Responsible Libertarian agrees to proceed: yes Patient / Surrogate agrees to blood products: Yes DNR status not reviewed with patient and/or family prior to surgery. Significant changes in the patient condition since the History and Physical, not otherwise documented in primary service progress note: no. Potential Anesthesia issues that may suggest increased risk of complications or contraindication to planned procedure: none. Discussed the possibility of lip / dental damage: yes Vitals Value Taken Time BP 183/84 12/13/24 0655 Pulse Resp 16 12/13/24 0655 Temp 36.6 ?C (97.9 ?F) 12/13/24 0655 SpO2 98 % 12/13/24 0655 Facility-Administered Medications as of 12/13/2024 Medication Dose Route Frequency lidocaine (PF) 10 mg/mL (1 %) 1-2 mg injection (XYLOCAINE) 0.1-0.2 mL INTRADERMAL PRN lactated ringers iv infusion 5-30 mL/hr INTRAVENOUS CONTINUOUS NaCl 0.9% iv flush bag 20 mL INTRAVENOUS PRN ceFAZolin 2 g in dextrose (iso-osmotic) 50 mL (ANCEF,KEFZOL) 2 g INTRAVENOUS Pre-Op Once acetaminophen 1,000 mg tab(s) (TYLENOL) 1,000 mg ORAL As Directed [COMPLETED] promethazine 12.5 mg tab(s) (PHENERGAN) 12.5 mg ORAL ONCE lactated ringers iv infusion 5-30 mL/hr INTRAVENOUS CONTINUOUS Outpatient Medications as of 12/13/2024 Medication Sig CALCIUM CARBONATE/VITAMIN D3 (CALCIUM 600 + D ORAL) Take 1 tablet by mouth once daily. LUTEIN EXTRACT/ZEAXANTHIN EXT (LUTEIN-ZEAXANTHIN ORAL) Take 1 tablet by mouth once daily. MULTIVITAMIN TAB Take one(1) tablet daily. I have interviewed and examined the patient. I have reviewed the medical record and/or the pre-anesthesia evaluation, pertinent labs, and test results. This contains updated information obtained within 48 hours of Surgery/Procedure. SIGNATURE: Baldo Correia DO PATIENT NAME: Melissa Mcfarlane DATE: December 13, 2024 TIME: 7:25 AM CSN: [id number] [facility] BRIEF OP NOTon 12-13-2024 BRIEF OP NOT HNO ID: [id number] Author: CARMELLA MUNOZ DO Service: General Surgery Author Type: Physician Type: Brief Op Note Filed: 12/13/2024 08:48 Note Text: BRIEF OPERATIVE / PROCEDURE NOTE LOG ID: [id number] SURGERY/PROCEDURE DATE: 12/13/2024 INCISION/PROCEDURE START TIME: 8:01 AM INCISION CLOSE/PROCEDURE END TIME: SURGEON(S)/PROCEDURALIS T(S) AND WATERSHED ENGINEER(S): Surgeons and Role: * Carmella Munoz DO - Primary * Deirdre Smart MD - Resident - Assisting Physician Crew Member: Surendra Helm PA-C SURGERY/PROCEDURE(S): LEFT breast MASTECTOMY PARTIAL: 10615 (CPT?) PLACEMENT OF BREAST LOCALIZATION DEVICE(S) PERCUTANEOUS; FIRST LESION, MAMMOGRAPHIC GUIDANCE: 52449 (CPT?) INTRAOPERATIVE ID OF SENTINEL LYMPH NODE(S) INCL'D INJECTION OF NON-RAD DYE WHEN PERFORMED: 48987 (CPT?) BIOPSY NODE SENTINEL AXILLARY: 30338 (CPT?) INJECTION PROCEDURE RADIOACTIVE TRACER FOR IDENTIFICATION OF SENTINEL NODE: 41364 (CPT?) RADIOLOGICAL EXAMINATION SURGICAL SPECIMEN: 82018 (CPT?) ANESTHESIA: General FINDINGS: clip and zachary in specimen LEFT SLN x1 ESTIMATED BLOOD LOSS: 5 mls SPECIMENS: ID Type Source Tests Collected by Time Destination A : Tissue Breast, Left, Lumpectomy SURGICAL PATHOLOGY Carmella Munoz, DO 12/13/2024 8:18 AM B : Superior-Ink barrow new margin Tissue Breast, Margin, Left, Excision SURGICAL PATHOLOGY Carmella Munoz A, DO 12/13/2024 8:21 AM C : Inferior-Ink barrow new margin Tissue Breast, Margin, Left, Excision SURGICAL PATHOLOGY Carmella Munoz A, DO 12/13/2024 8:21 AM D : Lateral-Ink barrow new margin Tissue Breast, Margin, Left, Excision SURGICAL PATHOLOGY Carmella Munoz A, DO 12/13/2024 8:21 AM E : Medial-Ink barrow new margin Tissue Breast, Margin, Left, Excision SURGICAL PATHOLOGY AlexanderCarmella zavala A, DO 12/13/2024 8:21 AM F : Posterior-Ink barrow new margin Tissue Breast, Margin, Left, Excision SURGICAL PATHOLOGY AlexanderCarmella zavala A, DO 12/13/2024 8:21 AM G : Anterior-Ink barrow new margin Tissue Breast, Margin, Left, Excision SURGICAL PATHOLOGY Carmella Munoz A, DO 12/13/2024 8:21 AM H : left axillary sentinel node Tissue Lymph Node, Left, [place] SURGICAL PATHOLOGY Carmella Munoz A, DO 12/13/2024 8:32 AM COMPLICATIONS: None CLOSURE TECHNIQUE: Primary PRE-OP/PRE-PROCEDURE DIAGNOSIS: LEFT breast cancer POST-OP/POST-PROCEDURE DIAGNOSIS: Same as Preop Patient was accompanied to the next level of care by a licensed practitioner from the surgical team pending completion of this brief op note (or operative note) SIGNATURE: Carmella Munoz DO PATIENT NAME: Melissa Mcfarlane DATE: December 13, 2024 TIME: 8:47 AM [facility] HEALTH ONCOTYPE DXon 12-13-2024 GENOMIC HEALTH ONCOTYPE DX RESULT [facility] Comment on above: Order Comment: Speci men Type: TISSUE SPECIMENOrdering Facility: [facility] Address: [address] [place] [address] Result Comment: View results in Scanned Documents link when available. Performed By: #### G ENHLTH ####GENOMIC HEALTHCLIA [id number] [place] [address] OPERATIVE NOon 12-13-2024 OPERATIVE NO HNO ID: [id number] Author: CARMELLA MUNOZ DO Service: General Surgery Author Type: Physician Type: Operative Report Filed: 12/22/2024 13:20 Note Text: [facility] - Operative Report [address] [place] [address] [place] DEN[place] MELISSA J : 1955 AGE: 69. SEX: F PATIENT TYPE: OP HOSP SVC: GEN SURG LOCATION: [id number] ATTENDING PHYSICIAN: CARMELLA MUNOZ CSN NUMBER: [id number] DATE OF SURGERY/PROCEDURE: 12/13/2024 INCISION/PROCEDURE START TIME: 8:01 AM INCISION CLOSE/PROCEDURE END TIME: 8:53 AM PREOPERATIVE DIAGNOSIS: Left breast cancer upper outer quadrant. POSTOPERATIVE DIAGNOSIS: Left breast cancer upper outer quadrant. SURGEON: Carmella Munoz D.O. WATERSHED ENGINEER: Deirdre Casiano MD resident SURGERY/PROCEDURE: 1. Left breast ZACHARY mail examiner localized lumpectomy. 2. Left breast specimen radiograph interpretation. 3. Left breast injection of blue dye for lymphatic mapping. 4. Left breast injection of nuclear medicine for lymphatic mapping. 5. Left sentinel lymph node biopsy. ANESTHESIA: General. INDICATIONS: The patient is a 69-year-old female who was found to have a 1.1 cm mass in the upper outer quadrant of her left breast. Clinically, her lymph nodes appeared negative. The options for surgery were discussed with her and she elected for breast conserving surgery. The risks and benefits of surgery were discussed with her and she agreed to proceed. DESCRIPTION OF PROCEDURE: In the preoperative holding area with the surgical team present, a time-out was performed. She was identified by name and date. Site and surgery were confirmed. She was brought to the operating room, placed in supine position on the operating room table. General anesthesia was induced. Her left breast, chest, axilla, and upper extremity were prepped and draped in the usual sterile fashion. Next, I performed lymphatic mapping. In a sterile manner, I injected 2 mL of isosulfan blue in the periareolar area at the 3 o'clock position and then 0.5 microcuries of [employer] nuclear medicine at the 12 o'clock dermal periareolar incision. The breast was massaged for approximately 5 minutes to allow for lymphatic mapping. Surgery began on the left breast 1st. Using the ZACHARY mail examiner localizer as a guide, the area of concern was identified in the upper outer quadrant. A radial incision was made and this was carried down. Using the ZACHARY mail examiner localizer, dissection was continued circumferentially around the ZACHARY mail examiner with care to include a normal rim of tissue around as a margin. Dissection was continued posteriorly to the muscle. The tissue was removed in its entirety and oriented with short stitch superior, long stitch lateral, and painted per pathology protocol. This was then placed in the intraoperative specimen radiograph machine which I viewed, which showed that the bar clip, the ZACHARY mail examiner and the cancer were within the specimen and appeared to be in the middle. Additional circumferential cavity shave margins were taken which included a new superior, inferior, medial, lateral, anterior, and posterior margin. The posterior being a portion of the pectoralis muscle. These were inked with ink barrow new margin and sent to Pathology as separate specimens. The wound was copiously irrigated. Hemostasis was achieved. 30 mL of 0.25% Marcaine was injected for local anesthetic. The implant and capsule was not disturbed. Attention was then turned to the left axilla. Through the same incision, the sentinel lymph node portion of surgery was able to be performed. Laterally the clavipectoral fascia was identified and incised. Using the Neoprobe, an area was identified as hot. Upon dissection there was one hot and blue lymph node identified. Any lymphatics or blood vessels going to or from the lymph nodes were clipped and ligated. The lymph node was removed in its entirety and sent to Pathology for permanent sectioning. There were no other hot, blue, or abnormally palpable lymph nodes identified. The wound was copiously irrigated. Hemostasis was achieved, 30 mL of 0.25% Marcaine was injected for local anesthetic. The clavipectoral fascia was reapproximated with interrupted 2-0 Vicryl. Localizing clips were placed in lumpectomy cavity for anticipated postop radiation. The breast fatty tissue was reapproximated with interrupted 2-0 Vicryl, the dermis was reapproximated with interrupted 3-0 Vicryl and the skin was closed with a running 4-0 Monocryl. Exofin glue was placed on the incision. The patient tolerated the procedure well, was extubated. She was wrapped with fluffs and an Myles wrap and sent to PACU in stable condition. EBL: 5 mL. FLUIDS: See Anesthesia. SPECIMENS: 1. Left breast lumpectomy at 12 o'clock, short stitch superior, long stitch lateral. 2. Left breast new superior margin, ink barrow new margin. 3. Left breast new inferior margin, i (more content not included)... Normal [facility] Pathology biopsy report Say (Tiss)on 12-13-2024 AP DISCLAIMER Normal [facility] Comment on above: Order Comment: Speci men Type: TISSUE SPECIMENOrdering Facility: [facility] Address: [address] [place] [address] Result Comment: Ayana cedillo Developed Test (LDT) Disclaimer: Performance characteristics of immunohistochemical, immunofluorescent, and chromogenic in-situ hybridization tests have been determined by the performing laboratory within [facility] Path[facility] Laboratory Medicine [facility] ([facility], [facility], [facility], [facility], [facility], [facility], or [facility]) in a manner consistent with CLIA requirements. One or more of these tests may not have been cleared or approved by the FDA. RT[facility]M is regulated under CLIA as qualified to perform high-complexity testing. These tests are used for clinical purposes. These should not be regarded as investigational or for research. Positive and negative controls stain appropriately. Performed By: #### 6 6121-5 ####[facility] LABCLIA [id number] [address] LABCLIA [id number] [address] OF [place] [facility] BLOCK FOR ADDITIONAL BIOMARKERS/MOLECULAR STUDIES A2 Normal [facility] Comment on above: Order Comment: Speci men Type: TISSUE SPECIMENOrdering Facility: [facility] Address: [address] [place] [address] Performed By: #### 6 6121-5 ####[facility] LABCLIA [id number] [address] LABIA [id number] [address] [place] CASE REPORT Normal [facility] Comment on above: Order Comment: Speci men Type: TISSUE SPECIMENOrdering Facility: [facility] Address: [address] [place] [address] Result Comment: Surg ica Pathology Report Case: [id number] Authorizing Provider: Carmella Munoz DO Collected: 12/13/2024 08:18 AM Ordering Location: Ambulatory Surgery Received: 12/13/2024 09:07 AM Pathologist: Ray Whitmore MD Specimens: A) - Breast, Left, Lumpectomy B) - Breast, Margin, Left, Excision, Superior-Ink barrow new margin C) - Breast, Margin, Left, Excision, Inferior-Ink barrow new margin D) - Breast, Margin, Left, Excision, Lateral-Ink barrow new margin E) - Breast, Margin, Left, Excision, Medial-Ink barrow new margin F) - Breast, Margin, Left, Excision, Posterior-Ink barrow new margin G) - Breast, Margin, Left, Excision, Anterior-Ink barrow new margin H) - Lymph Node, Left, [place], left axillary sentinel node Performed By: #### 6 6121-5 ####[facility] LABIA [id number] [address] LABIA [id number] [address] [place] CLINICAL HISTORY Normal [facility] Comment on above: Order Comment: Speci men Type: TISSUE SPECIMENOrdering Facility: [facility] Address: [address] [place] [address] Result Comment: Pre- op diagnosis: Invasive ductal carcinoma of breast, female, left (HCC) [C50.912] Green: Inferior Blue: Superior [place]: Medial Yellow: Anterior Black: Posterior Red: Lateral Performed By: #### 6 6121-5 ####[facility] LABCLIA [id number] [address] LABCLIA [id number] [address] FINAL DIAGNOSIS Normal [facility] Comment on above: Order Comment: Speci men Type: TISSUE SPECIMENOrdering Facility: [facility] Address: [address] [place] [address] Result Comment: A. L eft breast, lumpectomy: - Invasive ductal carcinoma, see synoptic report. - Biopsy clip identified. B. Left breast, superior margin, excision: - The final inked margin is negative for carcinoma. C. Left breast, inferior margin, excision: - The final inked margin is negative for carcinoma. D. Left breast, lateral margin, excision: - The final inked margin is negative for carcinoma. E. Left breast, medial margin, excision: - The final inked margin is negative for carcinoma. F. Left breast, posterior margin, excision: - The final inked margin is negative for carcinoma. G. Left breast, anterior margin, excision: - The final inked margin is negative for carcinoma. H. Left sentinel lymph node, excision: - 1 lymph node, negative for metastatic carcinoma (0/1). JR 12/16/2024 at 1140 EDT Performed By: #### 6 6121-5 ####[facility] LABCLIA [id number] [address] [address] [facility] LABCLIA [id number] [address] FINAL PERFORMING LAB Normal [facility] Comment on above: Order Comment: Speci men Type: TISSUE SPECIMENOrdering Facility: [facility] Address: [address] [place] [address] Result Comment: Diag nostic interpretation performed at: [facility], [address] [place] [address], Desk [place] [address] CLIA# [id number] Carpet Cutter: Jordi Sloan MD Performed By: #### 6 6121-5 ####[facility] LABCLIA [id number] [facility] [address] LABCLIA [id number] [address] GROSS DESCRIPTION Normal [facility] Comment on above: Order Comment: Speci men Type: TISSUE SPECIMENOrdering Facility: [facility] Address: [address] [place] [address] Result Comment: Anita rashid, Left, Lumpectomy Received in formalin in a Leti device designated left breast lumpectomy is an oriented lumpectomy specimen that weighs 7 g and measures 3.8 (medial-lateral) x 3.3 (superior-inferior) x 0.8 (anterior posterior) cm. The specimen is oriented per the requisition as short-superior long-lateral. The specimen is imaged to reveal a vision biopsy clip and Zachary mail examiner. The specimen is inked by the surgeon as follows: superior margin-blue, inferior margin-green, medial margin-orange, lateral margin-red, anterior margin-yellow, and posterior margin-black. The specimen is sectioned from lateral to medial into 9 slices. Sectioning reveals a sorto-white firm and ill-defined mass with a vision shaped biopsy clip within the inferior anterior posterior aspect of slices 4-7 measuring 1 (superior-inferior) x 0.9 (lateral medial) x 0.6 (anterior posterior) cm. This lesion is situated 0.1 cm from the posterior margin, 0.4 cm from the inferior margin, 0.3 cm from the anterior margin, 1.9 cm from the superior margin, 1.8 cm from the lateral margin and 1 cm from the medial margin. The surrounding breast tissue is soft adipose tissue with fibrous tissue (5%). The specimen was removed from the patient on December 13 at 814 and placed in formalin at 9:00. Lab Support Tech sections are submitted as follows: A1. Mass with anterior posterior superior inferior margin slice 4. A2. Mass with anterior posterior superior inferior margin slice 5. A3. Mass with anterior posterior superior inferior margin slice 6. A4. Remaining mass with anterior posterior superior inferior margin slice 7. A5. Lateral flanking section with anterior posterior superior inferior margin slice 3. A6. Medial flanking section with anterior posterior superior inferior margin slice 8. A7. Lateral margin perpendicular slice 1. A8. Medial margin perpendicular slice 9. WE December 13, 2024 3:24 PM Gross examination performed at [facility], [address] [place] [address] B. Breast, Margin, Left, Excision Received in formalin designated superior is an oriented sorto-yellow rubbery and lobulated fragment of fibrofatty tissue that weighs 1 g and measures 1.5 x 1 x 0.5 cm. There is blue ink that designates the new margin. The new margin is inked blue and the previous margin is inked black. The specimen is serially sectioned to reveal sorto-yellow rubbery and lobulated cut surfaces. The specimen is entirely submitted in 1 cassettes. WE December 13, 2024 3:31 PM Gross examination performed at [facility], [address] [place] [address] C. Breast, Margin, Left, Excision Received in formalin designated inferior is an oriented sorto-yellow rubbery and lobulated fragment of fibrofatty tissue that weighs 1 g and measures 1.5 x 1 x 0.6 cm. There is green ink that designates the new margin. The new margin is inked green and the previous margin is inked red. The specimen is serially sectioned to reveal sorto-yellow rubbery and lobulated cut surfaces. The specimen is entirely submitted in 1 cassettes. WE December 13, 2024 3:33 PM Gross examination performed at [facility], [address] [place] [address] D. Breast, Margin, Left, Excision Received in formalin designated lateral is an oriented sorto-yellow rubbery and lobulated fragment of fibrofatty tissue that weighs 1 g and measures 1.2 x 0.9 x 0.4 cm. There is red ink that designates the new margin. The new margin is inked red and the previous margin is inked blue. The specimen is serially sectioned to reveal sorto-yellow rubbery and lobulated cut surfaces. The specimen is entirely submitted in 1 cassettes. WE December 13, 2024 3:35 PM Gross examination performed at [facility], [address] [place] [address] E. Breast, Margin, Left, Excision Received in formalin designated medial is an oriented sorto-yellow rubbery and lobulated fragment of fibrofatty tissue that weighs 1 g and measures 1 x 0.6 x 0.4 cm. There is orange ink that designates the new margin. The new margin is inked orange and the previous margin is inked blue. The specimen is serially sectioned to reveal sorto-yellow rubbery and lobulated cut surfaces. The specimen is entirely submitted in 1 cassettes. WE December 13, 2024 3:37 PM Gross examination performed at [facility], [address] [place] [address]., [place] [address] F. Breast, Margin, Left, Excision Received in formalin designated posterior is an oriented sorto-yellow rubbery and lobulated fragment of fibrofatty tissue that weighs less than 1 g and measures 0.9 x 0.3 x 0.2 cm. There is black ink that designates the new margin. The new margin is inked black and the previous margin is inked blue. The specimen is serially sectioned to reveal sorto-yellow rubbery and lobulated cut surfaces. The specimen is entirely submitted in 1 cassettes. WE December 13, 2024 3:40 PM Gross examination performed at [facility], [address] [place] [address] G. Breast, Margin, Left, Excision Received in formalin de (more content not included)... Performed By: #### 6 6121-5 ####[facility] LABCLIA [id number] [address] LABCLIA [id number] [address] SYNOPTIC REPORT Normal [facility] Comment on above: Order Comment: Speci men Type: TISSUE SPECIMENOrdering Facility: [facility] Address: [address] [place] [address] Result Comment: INVA SIVE CARCINOMA OF THE BREAST: Resection INVASIVE CARCINOMA OF THE BREAST: RESECTION - All Specimens 8th Edition - Protocol posted: 02/11/2024 SPECIMEN Procedure: Excision (less than total mastectomy) Specimen Laterality: Left TUMOR Histologic Type: Invasive carcinoma of no special type (ductal) Histologic Grade (Boby Histologic Score): Glandular (Acinar) / Tubular Differentiation: Score 3 Nuclear Pleomorphism: Score 3 Mitotic Rate: Score 1 Overall Grade: Grade 2 (scores of 6 or 7) Tumor Size: Greatest dimension of largest invasive focus (Millimeters): 10 mm Ductal Carcinoma In Situ (DCIS): Not identified Lymphatic and / or Vascular Invasion: Cannot be determined Treatment Effect in the Breast: No known presurgical therapy MARGINS Margin Status for Invasive Carcinoma: All margins negative for invasive carcinoma Distance from Invasive Carcinoma to Closest Margin: Greater than: 4 mm REGIONAL LYMPH NODES Regional Lymph Node Status: : All regional lymph nodes negative for tumor Total Number of Lymph Nodes Examined (sentinel and non-sentinel): 1 Number of [place] Nodes Examined: 1 pTNM CLASSIFICATION (AJCC 8th Edition) Reporting of pT, pN, and (when applicable) pM categories is based on information available to the pathologist at the time the report is issued. As per the AJCC (Chapter 1, 8th Ed.) it is the managing physician's responsibility to establish the final pathologic stage based upon all pertinent information, including but potentially not limited to this pathology report. pT Category: pT1b pN Category: pN0 N Suffix: (sn) SPECIAL STUDIES Estrogen Receptor (ER) Status: Positive (greater than 10% of cells demonstrate nuclear positivity) Percentage of Cells with Nuclear Positivity: 80 % Progesterone Receptor (PgR) Status: Negative HER2 (by immunohistochemistry): Negative (Score 1+) Testing Performed on Performed By: #### 6 6121-5 ####[facility] LABCLIA [id number] [address] LABCLIA [id number] [place] [id number] [place] CNPEvelyn 12-10-2024 CNPN Telephone (WMHLST) DENYSKHALIDAXochitl Bell ([id number]) 1955 F Date Time Provider Department 12/10/24 [facility] During your visit today, we recorded the following information about you: Ayesha Lynn 12/10/2024 9:18 AM Signed Patient called and stated since having the zachary mail examiner placed she has a rash on her breasts and thinks it may be from the solution that was used, patient asked what she can use to get rid of the rash and if will delay her surgery. Please advice Tatiana Keating LPN 12/10/2024 10:56 AM Signed Returned pt call, informed pt per to take over the counter Benadryl and shower. Pt verbalized understanding and thanked me for calling. Tatiana Keating LPN Allergies As of Date: 12/10/2024 Noted Allergy Reaction PERCOCET (OXYCODONE-ACETAMINOPHE N)11/26/2024 14 - Other: See Comments Comments: Patient states that it makes her shakey Date Reviewed: 12/07/2024 Reviewed by: Barbie Francis PA-C - Fully Assessed Reason for Visit: Breast Problem [16] Prescriptions as of 12/10/2024 - therapeutic multivitamin-minerals (THERA-M PLUS) 9 mg iron-400 mcg tablet Take 1 tablet by mouth once daily. Collagen and biotin is in multivitamin - CALCIUM CARBONATE/VITAMIN D3 (CALCIUM 600 + D ORAL) Take 1 tablet by mouth once daily. - LUTEIN EXTRACT/ZEAXANTHIN EXT (LUTEIN-ZEAXANTHIN ORAL) Take 1 tablet by mouth once daily. - MULTIVITAMIN TAB Take one(1) tablet daily. Problem List As Of Date 12/10/2024 Noted Resolved Rosacea [L71.9] 07/01/2011 Malignant neoplasm of upper-outer quadrant of l*12/01/2024 Primary hypertension [I10] 12/07/2024 Chronic systolic CHF (congestive heart failure)*12/07/2024 Valvular heart disease [I38] 12/07/2024 Nonischemic cardiomyopathy (HCC) [I42.8] 12/07/2024 Encounter Status:Closed by TATIANA KEATING on 12/10/24 [facility] Telephone (RAMOS) MELISSA MCFARLANE ([id number]) 1955 F Date Time Provider Department 12/10/24 DIANA AGUILAR During your visit today, we recorded the following information about you: Diana Aguialr LPN 12/10/2024 10:24 AM Signed Left detailed message advising that my provider sent letter requesting Medical clearance and last office visit note from Dr. King. Surgery is Friday. Gave my phone and fax number.Diana Aguilar LPN Allergies As of Date: 12/10/2024 Noted Allergy Reaction PERCOCET (OXYCODONE-ACETAMINOPHE N)11/26/2024 14 - Other: See Comments Comments: Patient states that it makes her shakey Date Reviewed: 12/07/2024 Reviewed by: Barbie Francis PA-C - Fully Assessed Reason for Visit: Medical Clearance [1982] Prescriptions as of 12/10/2024 - therapeutic multivitamin-minerals (THERA-M PLUS) 9 mg iron-400 mcg tablet Take 1 tablet by mouth once daily. Collagen and biotin is in multivitamin - CALCIUM CARBONATE/VITAMIN D3 (CALCIUM 600 + D ORAL) Take 1 tablet by mouth once daily. - LUTEIN EXTRACT/ZEAXANTHIN EXT (LUTEIN-ZEAXANTHIN ORAL) Take 1 tablet by mouth once daily. - MULTIVITAMIN TAB Take one(1) tablet daily. Problem List As Of Date 12/10/2024 Noted Resolved Rosacea [L71.9] 07/01/2011 Malignant neoplasm of upper-outer quadrant of l*12/01/2024 Primary hypertension [I10] 12/07/2024 Chronic systolic CHF (congestive heart failure)*12/07/2024 Valvular heart disease [I38] 12/07/2024 Nonischemic cardiomyopathy (HCC) [I42.8] 12/07/2024 Encounter Status:Closed by DIANA AGUILAR on 12/10/24 Normal [facility] ECG 12 [place] 12-09-2024 Normal sinus rhythm, PAC, nonspecific ST abnormality, borderline ECG [facility] Work Phone: Basophils Auto (Bld) [#/Vol] on 12-07-2024 Basophils (Bld) [#/Vol] Automated basophil count <0.11 Basophils (Bld) [#/Vol] 0.05 10*3/uL <0.11 Basophils/100 WBC Auto (Bld) on 12-07-2024 Basophils/100 WBC (Bld) Automated basophil % Basophils/100 WBC (Bld) 0.7 % Blood manual differential co mment interpretation narrativeon 12-07-2024 Manual differential comment Say (Bld) [Interp] Blood manual differential comment interpretation narrative Manual differential comment Say (Bld) [Interp] Auto CBC W Auto Differential pane l (Bld)on 12-07-2024 Basophils (Bld) [#/Vol] 0.05 10*3/uL [facility] Basophils/100 WBC (Bld) 0.7 % [facility] Differential cell count method Nom (Bld) Auto [facility] Eosinophils (Bld) [#/Vol] 0.07 10*3/uL [facility] Eosinophils/100 WBC (Bld) 1 % [facility] Erythrocyte distribution width (RBC) [Ratio] 13.6 % 11.5 - 15.0 % [facility] Hematocrit (Bld) [Volume fraction] 43.9 % 36.0 - 46.0 % [facility] Hemoglobin (Bld) [Mass/Vol] 13.8 g/dL 11.5 - 15.5 g/dL [facility] Immature granulocytes (Bld) [#/Vol] [facility] Immature granulocytes/100 WBC (Bld) 0.1 % [facility] Lymphocytes (Bld) [#/Vol] 2.06 10*3/uL [facility] Lymphocytes/100 WBC (Bld) 30.1 % [facility] MCH (RBC) [Entitic mass] 28.8 pg 26.0 - 34.0 pg [facility] MCHC (RBC) [Mass/Vol] 31.4 g/dL 30.5 - 36.0 g/dL [facility] MCV (RBC) [Entitic vol] 91.6 fL 80.0 - 100.0 fL [facility] Monocytes (Bld) [#/Vol] 0.5 10*3/uL NINF [facility] Monocytes/100 WBC (Bld) 7.3 % [facility] Neutrophils (Bld) [#/Vol] 4.15 10*3/uL [facility] Neutrophils/100 WBC (Bld) 60.8 % [facility] Nucleated RBC (Bld) [#/Vol] NINF [facility] Nucleated RBC/100 WBC (Bld) [Ratio] 0 % /100 WBC [facility] Platelet mean volume (Bld) [Entitic vol] 12.3 fL 9.0 - 12.7 fL [facility] Platelets (Bld) [#/Vol] 314 10*3/uL [facility] RBC (Bld) [#/Vol] 4.79 10*6/uL 3.90 - 5.2 0 m/uL [facility] WBC (Bld) [#/Vol] 6.84 10*3/uL [facility] Basophils (Bld) [#/Vol] 0.05 10*3/uL Normal <0.11 [facility] Comment on above: Order Comment: Speci men Type: BLOOD SPECIMENOrdering Facility: [facility] Address: [address] [place] [address] Performed By: #### 5 7021-8 ###[facility] LABCLIA [id number] [place] [id number] [place] [facility] Basophils/100 WBC (Bld) 0.7 % Normal [facility] Comment on above: Order Comment: Speci men Type: BLOOD SPECIMENOrdering Facility: [facility] Address: [address] [place] [address] Performed By: #### 5 7021-8 ####[facility] LABCLIA [id number] [place] [address] [place] Differential cell count method Nom (Bld) Auto Normal [facility] Comment on above: Order Comment: Speci men Type: BLOOD SPECIMENOrdering Facility: [facility] Address: [address] [place] [address] Performed By: #### 5 7021-8 ####[facility] LABCLIA [id number] [place] [address] [place] Eosinophils (Bld) [#/Vol] 0.07 10*3/uL Normal <0.46 [facility] Comment on above: Order Comment: Speci men Type: BLOOD SPECIMENOrdering Facility: [facility] Address: [address] [place] [address] Performed By: #### 5 7021-8 ####[facility] LABCLIA [id number] [address] [place] Eosinophils/100 WBC (Bld) 1.0 % Normal [facility] Comment on above: Order Comment: Speci men Type: BLOOD SPECIMENOrdering Facility: [facility] Address: [address] [place] [address] Performed By: #### 5 7021-8 ####[facility] LABCLIA [id number] [address] [place] Erythrocyte distribution width (RBC) [Ratio] 13.6 % Normal 11.5-15.0 [facility] Comment on above: Order Comment: Speci men Type: BLOOD SPECIMENOrdering Facility: [facility] Address: [address] [place] [address] Performed By: #### 5 7021-8 ####[facility] LABCLIA [id number] [address] [place] Hematocrit (Bld) [Volume fraction] 43.9 % Normal 36.0-46.0 [facility] Comment on above: Order Comment: Speci men Type: BLOOD SPECIMENOrdering Facility: [facility] Address: [address] [place] [address] Performed By: #### 5 7021-8 ####[facility] LABCLIA [id number] [place] [id number] [place] Hemoglobin (Bld) [Mass/Vol] 13.8 g/dL Normal 11.5-15.5 [facility] Comment on above: Order Comment: Speci men Type: BLOOD SPECIMENOrdering Facility: [facility] Address: [address] [place] [address] Performed By: #### 5 7021-8 ####[facility] LABCLIA [id number] [place] [address] [place] Immature granulocytes (Bld) [#/Vol] 10*3/uL Normal <0.10 [facility] Comment on above: Order Comment: Speci men Type: BLOOD SPECIMENOrdering Facility: [facility] Address: [address] [place] [address] Performed By: #### 5 7021-8 ####[facility] LABCLIA [id number] [place] [address] [place] Immature granulocytes/100 WBC (Bld) 0.1 % Normal [facility] Comment on above: Order Comment: Speci men Type: BLOOD SPECIMENOrdering Facility: [facility] Address: [address] [place] [address] Performed By: #### 5 7021-8 ####[facility] LABCLIA [id number] [place] [address] [place] Lymphocytes (Bld) [#/Vol] 2.06 10*3/uL Normal 1.00-4.00 [facility] Comment on above: Order Comment: Speci men Type: BLOOD SPECIMENOrdering Facility: [facility] Address: [address] [place] [address] Performed By: #### 5 7021-8 ####[facility] LABCLIA [id number] [address] [place] Lymphocytes/100 WBC (Bld) 30.1 % Normal [facility] Comment on above: Order Comment: Speci men Type: BLOOD SPECIMENOrdering Facility: [facility] Address: [address] [place] [address] Performed By: #### 5 7021-8 ####PARISUDARSHAN [facility] LABCLIA [id number] [address] STATES [facility] MCH (RBC) [Entitic mass] 28.8 pg Normal 26.0-34.0 [facility] Comment on above: Order Comment: Speci men Type: BLOOD SPECIMENOrdering Facility: [facility] Address: [address] [place] [address] Performed By: #### 5 7021-8 ####[facility] LABCLIA [id number] [address] OF [place] MCHC (RBC) [Mass/Vol] 31.4 g/dL Normal 30.5-36.0 [facility] Comment on above: Order Comment: Speci men Type: BLOOD SPECIMENOrdering Facility: [facility] Address: [address] [place] [address] Performed By: #### 5 7021-8 ####SCOOTERROSIBEL [facility] LABCLIA [id number] [address] [place] MCV (RBC) [Entitic vol] 91.6 fL Normal 80.0-100.0 [facility] Comment on above: Order Comment: Speci men Type: BLOOD SPECIMENOrdering Facility: [facility] Address: [address] [place] [address] Performed By: #### 5 7021-8 ####SCOOTERROSIBEL [facility] LABCLIA [id number] [address] [place] Monocytes (Bld) [#/Vol] 0.50 10*3/uL Normal <0.87 [facility] Comment on above: Order Comment: Speci men Type: BLOOD SPECIMENOrdering Facility: [facility] Address: [address] [place] [address] Performed By: #### 5 7021-8 ####ROXY [facility] LABCLIA [id number] [place] [address] [place] Monocytes/100 WBC (Bld) 7.3 % Normal [facility] Comment on above: Order Comment: Speci men Type: BLOOD SPECIMENOrdering Facility: [facility] Address: [address] [place] [address] Performed By: #### 5 7021-8 ####ROXY [facility] LABCLIA [id number] [place] [address] [place] Neutrophils (Bld) [#/Vol] 4.15 10*3/uL Normal 1.45-7.50 [facility] Comment on above: Order Comment: Speci men Type: BLOOD SPECIMENOrdering Facility: [facility] Address: [address] [place] [address] Performed By: #### 5 7021-8 ####ROXY [facility] LABCLIA [id number] [place] [address] [place] Neutrophils/100 WBC (Bld) 60.8 % Normal [facility] Comment on above: Order Comment: Speci men Type: BLOOD SPECIMENOrdering Facility: [facility] Address: [address] [place] [address] Performed By: #### 5 7021-8 ####PARISUDARSHAN [facility] LABCLIA [id number] [place] [address] [place] Nucleated RBC (Bld) [#/Vol] 10*3/uL Normal <0.01 [facility] Comment on above: Order Comment: Speci men Type: BLOOD SPECIMENOrdering Facility: [facility] Address: [address] [place] [address] Performed By: #### 5 7021-8 ####PARISUDARSHAN [facility] LABCLIA [id number] [place] [address] [place] Nucleated RBC/100 WBC (Bld) [Ratio] 0.0 /100 WBC Normal [facility] Comment on above: Order Comment: Speci men Type: BLOOD SPECIMENOrdering Facility: [facility] Address: [address] [place] [address] Performed By: #### 5 7021-8 ####ROXY [facility] LABCLIA [id number] [place] [address] [place] Platelet mean volume (Bld) [Entitic vol] 12.3 fL Normal 9.0-12.7 [facility] Comment on above: Order Comment: Speci men Type: BLOOD SPECIMENOrdering Facility: [facility] Address: [address] [place] [address] Performed By: #### 5 7021-8 ####ROXY [facility] LABCLIA [id number] [place] [address] [place] Platelets (Bld) [#/Vol] 314 10*3/uL Normal 150-400 [facility] Comment on above: Order Comment: Speci men Type: BLOOD SPECIMENOrdering Facility: [facility] Address: [address] [place] [address] Performed By: #### 5 7021-8 ####SCOOTERROSIBEL [facility] LABCLIA [id number] [place] [address] [place] RBC (Bld) [#/Vol] 4.79 10*6/uL Normal 3.90-5.20 [facility] Comment on above: Order Comment: Speci men Type: BLOOD SPECIMENOrdering Facility: [facility] Address: [address] [place] [address] Performed By: #### 5 7021-8 ####PARISUDARSHAN [facility] LABCLIA [id number] [place] [address] [place] WBC (Bld) [#/Vol] 6.84 10*3/uL Normal 3.70-11.00 [facility] Comment on above: Order Comment: Speci men Type: BLOOD SPECIMENOrdering Facility: [facility] Address: [address] [place] [address] Performed By: #### 5 7021-8 ####ROXY [facility] LABCLIA [id number] [place] [id number] [place] CNCOon 12-07-2024 CNCO Letter Text Normal [facility] metabolic 2000 panelon 12-07-2024 Albumin [Mass/Vol] 4.4 g/dL Normal 3.9-4.9 [facility] Comment on above: Order Comment: Speci men Type: BLOOD SPECIMENOrdering Facility: [facility] Address: [address] [place], [place] [address] Performed By: #### 2 4323-8 ####[facility] LABCLIA [id number] [place] [id number] [place] ALP [Catalytic activity/Vol] 95 U/L Normal 34-123 [facility] Comment on above: Order Comment: Speci men Type: BLOOD SPECIMENOrdering Facility: [facility] Address: [address] [place], [place] [address] Performed By: #### 2 4323-8 ####[facility] LABCLIA [id number] [place] [address] [place] ALT [Catalytic activity/Vol] 13 U/L Normal 7-38 [facility] Comment on above: Order Comment: Speci men Type: BLOOD SPECIMENOrdering Facility: [facility] Address: [address] [place], [place] [address] Performed By: #### 2 4323-8 ####[facility] LABCLIA [id number] [address] [address] [place] Anion gap [Moles/Vol] 10 mmol/L Normal 8-15 [facility] Comment on above: Order Comment: Speci men Type: BLOOD SPECIMENOrdering Facility: [facility] Address: [address] [place] [address] Performed By: #### 2 4323-8 ####[facility] LABCLIA [id number] [place] [id number] [place] AST [Catalytic activity/Vol] 19 U/L Normal 13-35 [facility] Comment on above: Order Comment: Speci men Type: BLOOD SPECIMENOrdering Facility: [facility] Address: [address] [place] [address] Performed By: #### 2 4323-8 ####[facility] LABCLIA [id number] [place] [address] [place] Bilirubin [Mass/Vol] 0.5 mg/dL Normal 0.2-1.3 [facility] Comment on above: Order Comment: Speci men Type: BLOOD SPECIMENOrdering Facility: [facility] Address: [address] [place] [address] Performed By: #### 2 4323-8 ####[facility] LABCLIA [id number] [place] [address] [place] Calcium [Mass/Vol] 9.4 mg/dL Normal 8.5-10.2 [facility] Comment on above: Order Comment: Speci men Type: BLOOD SPECIMENOrdering Facility: [facility] Address: [address] [place] [address] Performed By: #### 2 4323-8 ####[facility] LABCLIA [id number] [place] [address] [place] Chloride [Moles/Vol] 106 mmol/L Normal 98-107 [facility] Comment on above: Order Comment: Speci men Type: BLOOD SPECIMENOrdering Facility: [facility] Address: [address] [place] [address] Performed By: #### 2 4323-8 ####[facility] LABCLIA [id number] [place] [id number] [place] CO2 [Moles/Vol] 27 mmol/L Normal 22-30 [facility] Comment on above: Order Comment: Speci men Type: BLOOD SPECIMENOrdering Facility: [facility] Address: [address] [place] [address] Performed By: #### 2 4323-8 ####[facility] [id number] [place] [address] [place] Creatinine [Mass/Vol] 0.59 mg/dL Normal 0.58-0.96 [facility] Comment on above: Order Comment: Speci men Type: BLOOD SPECIMENOrdering Facility: [facility] Address: [address] [place] [address] Performed By: #### 2 4323-8 ####[facility] [id number] [place] [address] [place] Creatinine and Glomerular filtration rate.predicted panel (S/P/Bld) 99 mL/min/1.73m??? Normal >=60 [facility] Comment on above: Order Comment: Speci men Type: BLOOD SPECIMENOrdering Facility: [facility] Address: [address] [place] [address] Result Comment: Calli mated Glomerular Filtration Rate (eGFR) is calculated using the 2020 CKD-EPI creatinine equation. This equation utilizes serum creatinine, sex, and age as parameters. The creatinine assay has traceable calibration to isotope dilution-mass spectrometry. Refer to KDIGO guidelines for clinical interpretation. In patients with unstable renal function, e.g. those with acute kidney injury, the eGFR may not accurately reflect actual GFR. Performed By: #### 2 4323-8 ####[facility] LABIA [id number] [place] [address] [place] Glucose [Mass/Vol] 86 mg/dL Normal 74-99 [facility] Comment on above: Order Comment: Speci men Type: BLOOD SPECIMENOrdering Facility: [facility] Address: [address] [place] [address] Result Comment: The [place] Diabetes Association (ADA) provides guidance for cutoff values for fasting glucose and random glucose. The ADA defines fasting as no caloric intake for at least 8 hours. Fasting plasma glucose results between 100 to 125 mg/dL indicate increased risk for diabetes (prediabetes). Fasting plasma glucose results greater than or equal to 126 mg/dL meet the criteria for diagnosis of diabetes. In the absence of unequivocal hyperglycemia, results should be confirmed by repeat testing. In a patient with classic symptoms of hyperglycemia or hyperglycemic crisis, random plasma glucose results greater than or equal to 200 mg/dL meet the criteria for diagnosis of diabetes. Reference: Standards of Medical Care in Diabetes 2016, [place] [employer] Association. Diabetes Care. 2016.39(Suppl 1). Performed By: #### 2 4323-8 ####[facility] LABCLIA [id number] [place] [address] [place] Potassium [Moles/Vol] 4.6 mmol/L Normal 3.7-5.1 [facility] Comment on above: Order Comment: Speci men Type: BLOOD SPECIMENOrdering Facility: [facility] Address: [address] [place] [address] Performed By: #### 2 4323-8 ####[facility] LABIA [id number] [place] [id number] [place] Protein [Mass/Vol] 7.1 g/dL Normal 6.3-8.0 [facility] Comment on above: Order Comment: Speci men Type: BLOOD SPECIMENOrdering Facility: [facility] Address: [address] [place] [address] Performed By: #### 2 4323-8 ####[facility] LABCLIA [id number] [place] [id number] [place] Sodium [Moles/Vol] 143 mmol/L Normal 136-144 [facility] Comment on above: Order Comment: Speci men Type: BLOOD SPECIMENOrdering Facility: [facility] Address: [address] [place] [address] Performed By: #### 2 4323-8 ####[facility] LABCLIA [id number] [facility] [place] [id number] [place] Urea nitrogen [Mass/Vol] 19 mg/dL Normal 7-21 [facility] Comment on above: Order Comment: Speci men Type: BLOOD SPECIMENOrdering Facility: [facility] Address: [address] [place] [address] Performed By: #### 2 4323-8 ####[facility] LABCLIA [id number] [facility] [place] [address] [place] [facility] ECG COMPLETEon 12-07-2024 Atrial Rate 62 BPM [facility] Calculated P Edson 66 degrees [facility] Calculated R Edson 78 degrees [facility] Calculated T Edson 61 degrees [facility] P-R Interval 120 ms [facility] QRS Duration 98 ms [facility] QT Interval 440 ms [facility] QTC Calculation (Bazett) 446 ms [facility] Ventricular Rate 62 BPM [facility] NORMAL SINUS RHYTHM NORMAL ECG Confirmed by JEREMY HYDE MD ([id number]) on 12/07/2024 6:11:04 [facility] NAME : CHARISSE MCFARLANE PID : [id number] : 1955 Gender : Female Race : ORD : [id number] Procedure Date : Dec 07 2024 11:09:49 Edit Date : Dec 07 2024 18:11:06 Diagnosis: NORMAL SINUS RHYTHM NORMAL ECG Confirmed by JEREMY HYDE MD ([id number]) on 12/07/2024 6:11:04 PM Test Reason : Z01.818 Preoperative examination Location : 135 : [facility] Overread By : JEREMY HYDE MD Edited By : JEREMY HYDE MD Referred By : CANDIDO FRANCIS, Acquired by : [facility] ECG COMPLETE Ventricular Rate : 6 2 BPM Atrial Rate : 62 BPM P-R Interval : 120 ms QRS Duration : 98 ms Q-T Interval : 440 ms QTC Calculation(Bazett) : 446 ms Calculated P Edson : 66 degrees Calculated R Edson : 78 degrees Calculated T Edson : 61 degrees NORMAL SINUS RHYTHM NORMAL ECG Confirmed by JEREMY HYDE MD ([id number]) on 12/07/2024 6:11:04 PM NAME : KHALIDA MCFARLANEH PID : [id number] : 1955 Gender : Female Race : ORD : [id number] Procedure Date : Dec 07 2024 11:09:49 Edit Date : Dec 07 2024 18:11:06 Diagnosis: NORMAL SINUS RHYTHM NORMAL ECG Confirmed by JEREMY HYDE MD ([id number]) on 12/07/2024 6:11:04 PM Test Reason : Z01.818 Preoperative examination Location : 135 : [facility] Overread By : JEREMY HYDE MD Edited By : JEREMY HYDE MD Referred By : CANDIDO FRANCIS, Acquired by : [facility], Normal [facility] Eosinophils/100 WBC Auto (Bl d)on 12-07-2024 Eosinophils/100 WBC (Bld) Automated eosinophil % Eosinophils/100 WBC (Bld) 1.0 % Erythrocyte distribution wid th Auto (RBC) [Ratio]on 12-07-2024 Erythrocyte distribution width (RBC) [Ratio] Erythrocyte distribution width [Ratio] by Automated count 11.5-15.0 Erythrocyte distribution width (RBC) [Ratio] 13.6 % 11.5-15.0 HISTORY PHYSICALon HISTORY PHYSICAL HNO ID: [id number] Author: BARBIE FRANCIS PA-C Service: ? Author Type: Physician Crew Member Type: H&P Filed: 12/07/2024 12:31 Note Text: [facility] HISTORY AND PHYSICAL EXAMINATION SERVICE DATE: 12/07/2024 SERVICE TIME: 11:32 AM PRIMARY CARE PHYSICIAN: Kelton Thompson MD REASON FOR VISIT: Melissa Mcfarlane is a 69 year old female who is scheduled for Left - MASTECTOMY PARTIAL Left - PLACEMENT OF BREAST LOCALIZATION DEVICE(S) PERCUTANEOUS; FIRST LESION, MAMMOGRAPHIC GUIDANCE Left - INTRAOPERATIVE ID OF SENTINEL LYMPH NODE(S) INCL'D INJECTION OF NON-RAD DYE WHEN PERFORMED Left - BIOPSY NODE SENTINEL AXILLARY Left - INJECTION PROCEDURE RADIOACTIVE TRACER FOR IDENTIFICATION OF SENTINEL NODE Left - RADIOLOGICAL EXAMINATION SURGICAL SPECIMEN at the request of for consultation. My final recommendation will be communicated back to the requesting physician by way of shared medical record or letter. Assessment Patient has the following medical conditions which may affect hilda-operative course: Valvular heart disease Assessment: mild MR and TR Primary hypertension Assessment: not currently on medication. BP in office today 158/90 Last 14 BP Last 14 Encounter BP Readings: Date: BP: 12/07/2024 158/90 11/26/2024 156/79 11/02/2013 123/75 Chronic systolic CHF (congestive heart failure) ([facility]) Assessment: 08/29/22 Echo: CONCLUSIONS: 1. Left ventricular systolic function is mildly to moderately decreased with a 40-45% estimated ejection fraction. 2. Severe inferolateral wall hypokinesis. 3. When compared to a study from 10/04/2021, there has been no significant interval changes. 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 Last seen in 2022 I - PHYSICAL EVALUATION AIRWAY Patient intubated: No. Tracheostomy tube not present Mallampati: IV. TM distance: >3 FB. Neck ROM: full ROM without neurological symptoms. Mouth opening: non-adequate. Short neck: no. Additional comments: Small mouth opening. Thick neck: no Microretrognathia/Micro nagthia/Recessed Chin: No DENTAL Dental findings: teeth intact. Additional comments: crowns. II - ANESTHESIA PLAN Anesthetic plan additional comments: *PACC/TCI - anesthesia choice. Beta Dylan Monitoring Plan Post Procedure Analgesic Plan ANESTHESIA FINDINGS: Intubation History: No history of difficult intubation Significant Anesthesia Considerations: none Airway History: No history of difficult airway Altman Activity Status Index: METS: Walk indoors, such as around the house (1.75 METs) Do light work around the house, such as dusting or washing dishes (2.70 METs) Take care of self; that is eating, dressing, bathing, using the toilet (2.75 METs) Walk a block or two on level ground (2.75 METs) Do moderate work around the house, such as vacuuming, sweeping floors, or carrying in groceries (3.50 METs) Do yardwork, such as raking leaves, weeding, or pushing a power mower (4.50 METs) Climb a flight of stairs or walk up a hill (5.50 METs) Do heavy work around the house, such as scrubbing floors, lifting or moving heavy furniture (8.00 METs) DASI Score: 31.45 Patient denies any chest pain or undue shortness of breath with the above physical activity. STOP-Bang Score: Snores loudly Has or is being treated for high blood pressure Patient over 50 years old Denies feeling tired, fatigued, or sleepy during the daytime Has not been observed to stop breathing or choking/gasping during sleep BMI less than or equal to 35 kg/m2 Does not have a large neck Non-male patient STOP-Bang Score: 3 [id number] Score: Age: 65-74 Sex: female CHF history: Yes Hypertension history: Yes Stroke/TIA/thromboembol ism history: No Vascular disease history: No Diabetes history: No [id number] Score: 4 Prepared for surgery: This patient is optimally prepared for surgery pending LABS, EKG, and cardiac optimization. CONSULTS: Scheduled to see Dr. King on 12/[address] King: [phone] The Following Tests/Procedures Have Been Initiated: Orders Placed This Encounter Complete Blood Count and Differential Standing Status: Future Expected Date: 12/07/2024 Expiration Date: 03/08/2025 CMP Standing Status: Future Expected Date: 12/07/2024 Expiration Date: 03/08/2025 therapeutic multivitamin-minerals (THERA-M PLUS) 9 mg iron-400 mcg tablet Sig: Take 1 tablet by mouth once daily. Collagen and biotin is in multivitamin ECG (IN OFFICE) Planned Anesthetic: Per anesthesia choice Subjective CHIEF COMPLAINT: breast cancer HPI: Melissa is a 69 y/o female who was recently diagnosed with invasive ductal carcinoma of the left breast, after undergoing workup for an abnormal mammogram. She denies breast pain, skin changes, nipple retraction or discharge. She is scheduled for surgery on (more content not included)... Normal [facility] Hematocrit Auto (Bld) [Volum e fraction]on 12-07-2024 Hematocrit (Bld) [Volume fraction] Hematocrit [Volume Fraction] of Blood by Automated count 36.0-46.0 Hematocrit (Bld) [Volume fraction] 43.9 % 36.0-46.0 Hemoglobin [Mass/volume] in Bloodon 12-07-2024 Hemoglobin (Bld) [Mass/Vol] Hemoglobin [Mass/volume] in Blood 11.5-15.5 Hemoglobin (Bld) [Mass/Vol] 13.8 g/dL 11.5-15.5 Laboratory - Chemistry and C hemistry - challengeon 12-07-2024 Albumin [Mass/Vol] 4.4 g/dL 3.9-4.9 [facility] ALP [Catalytic activity/Vol] 95 U/L 34-123 ALT [Catalytic activity/Vol] 13 U/L 7-38 AST [Catalytic activity/Vol] 19 U/L 13-35 Bilirubin [Mass/Vol] 0.5 mg/dL 0.2-1.3 [facility] Calcium [Mass/Vol] 9.4 mg/dL 8.5-10.2 [facility] Chloride [Moles/Vol] 106 mmol/L 98-107 [facility] CO2 [Moles/Vol] 27 mmol/L 22-30 Creatinine [Mass/Vol] 0.59 mg/dL 0.58-0.96 [facility] Glucose [Mass/Vol] 86 mg/dL 74-99 [facility] Comment on above: The [place] Diabete s Association (ADA) provides guidance for cutoff values for fasting glucose and random glucose. The ADA defines fasting as no caloric intake for at least 8 hours. Fasting plasma glucose results between 100 to 125 mg/dL indicate increased risk for diabetes (prediabetes).Fasting plasma glucose results greater than or equal to 126 mg/dL meet the criteria for diagnosis of diabetes. In the absence of unequivocal hyperglycemia, results should be confirmed by repeat testing. In a patient with classic symptoms of hyperglycemia or hyperglycemic crisis, random plasma glucose results greater than or equal to 200 mg/dL meet the criteria for diagnosis of diabetes.Reference: Standards of Medical Care in Diabetes 2016, [place] Diabetes [employer]. Diabetes Care. 2016.39(Suppl 1). Potassium [Moles/Vol] 4.6 mmol/L 3.7-5.1 [facility] Sodium [Moles/Vol] 143 mmol/L 136-144 [facility] Urea nitrogen [Mass/Vol] 19 mg/dL 7-21 Laboratory - Hematology and Cell countson 12-07-2024 Eosinophils (Bld) [#/Vol] 0.07 10*3/uL <0.46 Immature granulocytes/100 WBC (Bld) 0.1 % Leukocytes [#/volume] correc dorota for nucleated erythrocytes in Blood by Automated counon 12-07-2024 WBC corrected for nucl RBC Auto (Bld) [#/Vol] Leukocytes [#/volume] corrected for nucleated erythrocytes in Blood by Automated coun 3.70-11.00 WBC corrected for nucl RBC Auto (Bld) [#/Vol] 6.84 k/uL 3.70-11.00 Lymphocytes Auto (Bld) [#/Vo l]on 12-07-2024 Lymphocytes (Bld) [#/Vol] Lymphocytes [#/volume] in Blood by Automated count 1.00-4.00 Lymphocytes (Bld) [#/Vol] 2.06 10*3/uL 1.00-4.00 Lymphocytes/100 WBC Auto (Bl d)on 12-07-2024 Lymphocytes/100 WBC (Bld) Lymphocytes/100 leukocytes in Blood by Automated count Lymphocytes/100 WBC (Bld) 30.1 % [facility] DIAGNOSTIC LTon 12-08-19 25 [facility] DIAGNOSTIC LT * * *Final Report* * * DATE OF EXAM: Dec 07 2024 10:50AM [facility] 0621 - [facility] DIAGNOSTIC LT / PROCEDURE REASON: Invasive ductal carcinoma of breast, female, left (HCC) * * * * Physician Interpretation * * * * RESULT: [facility] [address] [place] [address] #[id number] - [facility] US LOC BREAST LT #[id number] - [facility] DIAGNOSTIC LT HISTORY: 69 year old patient presents for localization of the following: Site 1: Mass and vision biopsy marker located in the left breast in the upper outer quadrant PATIENT CONSENT: A time out was performed immediately prior to procedure start with the radiology team, correctly identifying the patient name, date of , procedure, anatomy (including marking of site and side), patient position, relevant diagnostic and radiology test results, safety precautions, and procedure-specific equipment needs. The procedure, along with the risks (including, but not limited to, infection and bleeding), benefits, and alternatives, was explained to the patient by the performing physician. The patient agreed to undergo the procedure. Medications and allergies were also reviewed. The radiologist and technologist were present throughout the entire procedure. Correlation is made to exams dated: 09/27/2024, 10/07/2024 (ultrasound), 11/23/2024 (mammogram) and 11/23/2024 (ultrasound). Site 1: Mass with associated vision biopsy marker in the left breast in the upper outer quadrant Audible Time Out: 1039 Procedure Start: 1041 Procedure End: 1043 Zachary Freight Dispatcher localization of the mass with associated vision biopsy marker located in the left breast in the upper outer quadrant was performed. This mass with associated vision biopsy marker was described on prior imaging reports. The skin was prepped in the usual manner. Local anesthetic was administered. The localization was approached from the lateral aspect. A localization device was inserted into the targeted area under ultrasound guidance. A sterile dressing was applied to the access site. Reflector placement/activation was verified with Freight Dispatcher Check following the procedure. There were no complications observed. Post-procedure mammogram: Zachary Freight Dispatcher reflector is in appropriate position at the mass and vision biopsy marker. Post-procedure mammogram density: There are scattered areas of fibroglandular density. IMPRESSION: Site 1: Zachary Freight Dispatcher localization of the mass and the vision biopsy marker located in the left breast in the upper outer quadrant was successful. A specimen radiograph is recommended. The specimen radiograph should include the Zachary Freight Dispatcher reflector and the vision biopsy marker. Zachary Freight Dispatcher reflector is in appropriate position at the mass and vision biopsy marker. Reflector placement/activation was verified with Freight Dispatcher Check following the procedure. Interpreting Radiologist: Som Nino M.D. Electronically signed on: 12/07/2024 Bar Tacker Sewing Machine: RICK Transcribe Date/Time: Dec 07 2024 10:24A Dictated by: SOM NINO MD This examination was interpreted and the report reviewed and electronically signed by: SOM NINO MD on Dec 07 2024 11:12AM EST [id number] Normal [facility] US LOC BREAST LTon 12-07 [facility] LOC BREAST LT * * *Final Report* * * DATE OF EXAM: Dec 07 2024 10:53AM W 0599 - [facility] LOC BREAST LT / PROCEDURE REASON: Invasive ductal carcinoma of breast, female, left (HCC) * * * * Physician Interpretation * * * * RESULT: [facility] [address] [place] [address] #[id number] - [facility] US LOC BREAST LT #[id number] - [facility] DIAGNOSTIC LT HISTORY: 69 year old patient presents for localization of the following: Site 1: Mass and vision biopsy marker located in the left breast in the upper outer quadrant PATIENT CONSENT: A time out was performed immediately prior to procedure start with the radiology team, correctly identifying the patient name, date of , procedure, anatomy (including marking of site and side), patient position, relevant diagnostic and radiology test results, safety precautions, and procedure-specific equipment needs. The procedure, along with the risks (including, but not limited to, infection and bleeding), benefits, and alternatives, was explained to the patient by the performing physician. The patient agreed to undergo the procedure. Medications and allergies were also reviewed. The radiologist and technologist were present throughout the entire procedure. Correlation is made to exams dated: 09/27/2024, 10/07/2024 (ultrasound), 11/23/2024 (mammogram) and 11/23/2024 (ultrasound). Site 1: Mass with associated vision biopsy marker in the left breast in the upper outer quadrant Audible Time Out: 1039 Procedure Start: 1041 Procedure End: 1043 Zachary Freight Dispatcher localization of the mass with associated vision biopsy marker located in the left breast in the upper outer quadrant was performed. This mass with associated vision biopsy marker was described on prior imaging reports. The skin was prepped in the usual manner. Local anesthetic was administered. The localization was approached from the lateral aspect. A localization device was inserted into the targeted area under ultrasound guidance. A sterile dressing was applied to the access site. Reflector placement/activation was verified with Freight Dispatcher Check following the procedure. There were no complications observed. Post-procedure mammogram: Zachary Freight Dispatcher reflector is in appropriate position at the mass and vision biopsy marker. Post-procedure mammogram density: There are scattered areas of fibroglandular density. IMPRESSION: Site 1: Zachary Freight Dispatcher localization of the mass and the vision biopsy marker located in the left breast in the upper outer quadrant was successful. A specimen radiograph is recommended. The specimen radiograph should include the Zachary Freight Dispatcher reflector and the vision biopsy marker. Zachary Freight Dispatcher reflector is in appropriate position at the mass and vision biopsy marker. Reflector placement/activation was verified with Freight Dispatcher Check following the procedure. Interpreting Radiologist: Som Nino M.D. Electronically signed on: 12/07/2024 Bar Tacker Sewing Machine: RICK Transcribe Date/Time: Dec 07 2024 10:24A Dictated by: SOM NINO MD This examination was interpreted and the report reviewed and electronically signed by: SOM NINO MD on Dec 07 2024 11:12AM EST [id number] Normal [facility] MCH Auto (RBC) [Entitic mass ]on 12-07-2024 MCH (RBC) [Entitic mass] MCH [Entitic mass] by Automated count 26.0-34.0 MCH (RBC) [Entitic mass] 28.8 pg 26.0-34.0 MCHC Auto (RBC) [Mass/Vol]on 12-07-2024 MCHC (RBC) [Mass/Vol] MCHC [Mass/volume] by Automated count 30.5-36.0 MCHC (RBC) [Mass/Vol] 31.4 g/dL 30.5-36.0 [facility] MCV Auto (RBC) [Entitic vol] on 12-07-2024 MCV (RBC) [Entitic vol] MCV [Entitic volume] by Automated count 80.0-100.0 MCV (RBC) [Entitic vol] 91.6 fL 80.0-100.0 MG Breast - left Diagnostic for implanton 12-07-2024 * * *Final Report* * * DATE OF EXAM: Dec 07 2024 10:50AM [facility] 0621 - [facility] DIAGNOSTIC LT / PROCEDURE REASON: Invasive ductal carcinoma of breast, female, left (HCC) * * * * Physician Interpretation * * * * RESULT: [facility] [address] [place] [address] #[id number] - [facility] US LOC BREAST LT #[id number] - [facility] DIAGNOSTIC LT HISTORY: 69 year old patient presents for localization of the following: Site 1: Mass and vision biopsy marker located in the left breast in the upper outer quadrant PATIENT CONSENT: A time out was performed immediately prior to procedure start with the radiology team, correctly identifying the patient name, date of , procedure, anatomy (including marking of site and side), patient position, relevant diagnostic and radiology test results, safety precautions, and procedure-specific equipment needs. The procedure, along with the risks (including, but not limited to, infection and bleeding), benefits, and alternatives, was explained to the patient by the performing physician. The patient agreed to undergo the procedure. Medications and allergies were also reviewed. The radiologist and technologist were present throughout the entire procedure. Correlation is made to exams dated: 09/27/2024, 10/07/2024 (ultrasound), 11/23/2024 (mammogram) and 11/23/2024 (ultrasound). Site 1: Mass with associated vision biopsy marker in the left breast in the upper outer quadrant Audible Time Out: 1039 Procedure Start: 1041 Procedure End: 1043 Zachary Freight Dispatcher localization of the mass with associated vision biopsy marker located in the left breast in the upper outer quadrant was performed. This mass with associated vision biopsy marker was described on prior imaging reports. The skin was prepped in the usual manner. Local anesthetic was administered. The localization was approached from the lateral aspect. A localization device was inserted into the targeted area under ultrasound guidance. A sterile dressing was applied to the access site. Reflector placement/activation was verified with Freight Dispatcher Check following the procedure. There were no complications observed. Post-procedure mammogram: Zachary Freight Dispatcher reflector is in appropriate position at the mass and vision biopsy marker. Post-procedure mammogram density: There are scattered areas of fibroglandular density. DIVISION OF RADIOLOGY Provider, f [facility] - 12/07/2024 * * *Final Report* * * DATE OF EXAM: Dec 07 2024 10:50AM [facility] 0621 - [facility] DIAGNOSTIC LT / PROCEDURE REASON: Invasive ductal carcinoma of breast, female, left (HCC) * * * * Physician Interpretation * * * * RESULT: [facility] [address] [place] [address] #[id number] - [facility] LOC BREAST LT #[id number] - [facility] DIAGNOSTIC LT HISTORY: 69 year old patient presents for localization of the following: Site 1: Mass and vision biopsy marker located in the left breast in the upper outer quadrant PATIENT CONSENT: A time out was performed immediately prior to procedure start with the radiology team, correctly identifying the patient name, date of , procedure, anatomy (including marking of site and side), patient position, relevant diagnostic and radiology test results, safety precautions, and procedure-specific equipment needs. The procedure, along with the risks (including, but not limited to, infection and bleeding), benefits, and alternatives, was explained to the patient by the performing physician. The patient agreed to undergo the procedure. Medications and allergies were also reviewed. The radiologist and technologist were present throughout the entire procedure. Correlation is made to exams dated: 09/27/2024, 10/07/2024 (ultrasound), 11/23/2024 (mammogram) and 11/23/2024 (ultrasound). Site 1: Mass with associated vision biopsy marker in the left breast in the upper outer quadrant Audible Time Out: 1039 Procedure Start: 1041 Procedure End: 1043 Zachary Freight Dispatcher localization of the mass with associated vision biopsy marker located in the left breast in the upper outer quadrant was performed. This mass with associated vision biopsy marker was described on prior imaging reports. The skin was prepped in the usual manner. Local anesthetic was administered. The localization was approached from the lateral aspect. A localization device was inserted into the targeted area under ultrasound guidance. A sterile dressing was applied to the access site. Reflector placement/activation was verified with Freight Dispatcher Check following the procedure. There were no complications observed. Post-procedure mammogram: Zachary Freight Dispatcher reflector is in appropriate position at the mass and vision biopsy marker. Post-procedure mammogram density: There are scattered areas of fibroglandular density. IMPRESSION IMPRESSION: Site 1: Zachary Freight Dispatcher localization of the mass and the vision biopsy marker located in the left breast in the upper outer quadrant was successful. A specimen radiograph is recommended. The specimen radiograph should include the Zachary Freight Dispatcher reflector and the vision biopsy marker. Zachary Freight Dispatcher reflector is in appropriate position at the mass and vision biopsy marker. Reflector placement/activation was verified with Freight Dispatcher Check following the procedure. Interpreting Radiologist: Som Nino M.D. Electronically signed on: 12/07/2024 Bar Tacker Sewing Machine: RICK Transcribe Date/Time: Dec 07 2024 10:24A Dictated by: SOM NINO MD This examination was interpreted and the report reviewed and electronically signed by: SOM NINO MD on Dec 07 2024 11:12AM EST [facility] Radiology Study observation (narrative) [facility] Monocytes Auto (Bld) [#/Vol] on 12-07-2024 Monocytes (Bld) [#/Vol] Automated blood monocyte count <0.87 Monocytes (Bld) [#/Vol] 0.50 10*3/uL <0.87 Monocytes/100 WBC Auto (Bld) on 12-07-2024 Monocytes/100 WBC (Bld) Automated monocyte % Monocytes/100 WBC (Bld) 7.3 % Neutrophils Auto (Bld) [#/Vo l]on 12-07-2024 Neutrophils (Bld) [#/Vol] Neutrophils [#/volume] in Blood by Automated count 1.45-7.50 Neutrophils (Bld) [#/Vol] 4.15 10*3/uL 1.45-7.50 Neutrophils/100 WBC Auto (Bl d)on 12-07-2024 Neutrophils/100 WBC (Bld) Automated neutrophil % Neutrophils/100 WBC (Bld) 60.8 % No Panel Informationon 12-07 Estimated GFR (CKD-EPI) 99 mL/min/1.73m??? >=60 Comment on above: Estimated Glomerular Filtration Rate (eGFR) is calculated using the 2020 CKD-EPI creatinine equation. This equation utilizes serum creatinine, sex, and age as parameters. The creatinine assay has traceable calibration to isotope dilution-mass spectrometry. Refer to KDIGO guidelines for clinical interpretation. In patients with unstable renal function, e.g. those with acute kidney injury, the eGFR may not accurately reflect actual GFR. Immature Granulocyte # (Auto) <0.03 k/uL <0.10 IMPRESSION: Site 1: Zachary Freight Dispatcher localization of the mass and the vision biopsy marker located in the left breast in the upper outer quadrant was successful. A specimen radiograph is recommended. The specimen radiograph should include the Zachary Freight Dispatcher reflector and the vision biopsy marker. Zachary Freight Dispatcher reflector is in appropriate position at the mass and vision biopsy marker. Reflector placement/activation was verified with Freight Dispatcher Check following the procedure. Interpreting Radiologist: Som Nino M.D. Electronically signed on: 12/07/2024 Bar Tacker Sewing Machine: RICK Transcribe Date/Time: Dec 07 2024 10:24A Dictated by: SOM NINO MD This examination was interpreted and the report reviewed and electronically signed by: SOM NINO MD on Dec 07 2024 11:12AM [facility] DIVISION OF RADIOLOGY No Panel InformationOrdered By: [facility] Provider on 12-07-2024 [facility] Nucleated RBC Auto (Bld) [#/ Vol]on 12-07-2024 Nucleated RBC (Bld) [#/Vol] Nucleated erythrocytes [#/volume] in Blood by Automated count <0.01 Nucleated RBC (Bld) [#/Vol] 10*3/uL <0.01 Nucleated erythrocytes [Pres ence] in Blood by Automated counton 12-07-2024 Nucleated RBC Auto Ql (Bld) Nucleated erythrocytes [Presence] in Blood by Automated count Nucleated RBC Auto Ql (Bld) 0.0 /100{WBC} Platelet mean volume Auto (B ld) [Entitic vol]on 12-07-2024 Platelet mean volume (Bld) [Entitic vol] Platelet mean volume [Entitic volume] in Blood by Automated count 9.0-12.7 Platelet mean volume (Bld) [Entitic vol] 12.3 fL 9.0-12.7 Platelets Auto (Bld) [#/Vol] on 12-07-2024 Platelets (Bld) [#/Vol] Platelets [#/volume] in Blood by Automated count 150-400 Platelets (Bld) [#/Vol] 314 10*3/uL 150-400 Protein [Mass/volume] in Ser um or Plasmaon 12-07-2024 Protein [Mass/Vol] Protein [Mass/volume ] in Serum or Plasma 6.3-8.0 Protein [Mass/Vol] 7.1 g/dL 6.3-8.0 [facility] RBC Auto (Bld) [#/Vol]on RBC (Bld) [#/Vol] Erythrocytes [#/volu me] in Blood by Automated count 3.90-5.20 RBC (Bld) [#/Vol] 4.79 10*6/uL 3.90-5.20 [facility] Serum or plasma anion gap de terminationon 12-07-2024 Anion gap [Moles/Vol] Serum or plasma an ion gap determination 04-08 Anion gap [Moles/Vol] 10 mmol/L 04-08 [facility] US Guidance for localization of Breast - lefton 12-07-2024 * * *Final Report* * * DATE OF EXAM: Dec 07 2024 10:53AM [facility] 0599 - [facility] US LOC BREAST LT / PROCEDURE REASON: Invasive ductal carcinoma of breast, female, left (HCC) * * * * Physician Interpretation * * * * RESULT: [facility] [address] [place] [address] #[id number] - [facility] US LOC BREAST LT #[id number] - [facility] DIAGNOSTIC LT HISTORY: 69 year old patient presents for localization of the following: Site 1: Mass and vision biopsy marker located in the left breast in the upper outer quadrant PATIENT CONSENT: A time out was performed immediately prior to procedure start with the radiology team, correctly identifying the patient name, date of , procedure, anatomy (including marking of site and side), patient position, relevant diagnostic and radiology test results, safety precautions, and procedure-specific equipment needs. The procedure, along with the risks (including, but not limited to, infection and bleeding), benefits, and alternatives, was explained to the patient by the performing physician. The patient agreed to undergo the procedure. Medications and allergies were also reviewed. The radiologist and technologist were present throughout the entire procedure. Correlation is made to exams dated: 09/27/2024, 10/07/2024 (ultrasound), 11/23/2024 (mammogram) and 11/23/2024 (ultrasound). Site 1: Mass with associated vision biopsy marker in the left breast in the upper outer quadrant Audible Time Out: 1039 Procedure Start: 1041 Procedure End: 1043 Zachary Freight Dispatcher localization of the mass with associated vision biopsy marker located in the left breast in the upper outer quadrant was performed. This mass with associated vision biopsy marker was described on prior imaging reports. The skin was prepped in the usual manner. Local anesthetic was administered. The localization was approached from the lateral aspect. A localization device was inserted into the targeted area under ultrasound guidance. A sterile dressing was applied to the access site. Reflector placement/activation was verified with Freight Dispatcher Check following the procedure. There were no complications observed. Post-procedure mammogram: Zachary Freight Dispatcher reflector is in appropriate position at the mass and vision biopsy marker. Post-procedure mammogram density: There are scattered areas of fibroglandular density. DIVISION OF RADIOLOGY Provider, [facility] - 12/07/2024 * * *Final Report* * * DATE OF EXAM: Dec 07 2024 10:53AM [facility] 0599 - [facility] LOC BREAST LT / PROCEDURE REASON: Invasive ductal carcinoma of breast, female, left (HCC) * * * * Physician Interpretation * * * * RESULT: [facility] [address] [place] [address] #[id number] - [facility] US LOC BREAST LT #[id number] - [facility] DIAGNOSTIC LT HISTORY: 69 year old patient presents for localization of the following: Site 1: Mass and vision biopsy marker located in the left breast in the upper outer quadrant PATIENT CONSENT: A time out was performed immediately prior to procedure start with the radiology team, correctly identifying the patient name, date of , procedure, anatomy (including marking of site and side), patient position, relevant diagnostic and radiology test results, safety precautions, and procedure-specific equipment needs. The procedure, along with the risks (including, but not limited to, infection and bleeding), benefits, and alternatives, was explained to the patient by the performing physician. The patient agreed to undergo the procedure. Medications and allergies were also reviewed. The radiologist and technologist were present throughout the entire procedure. Correlation is made to exams dated: 09/27/2024, 10/07/2024 (ultrasound), 11/23/2024 (mammogram) and 11/23/2024 (ultrasound). Site 1: Mass with associated vision biopsy marker in the left breast in the upper outer quadrant Audible Time Out: 1039 Procedure Start: 1041 Procedure End: 1043 Zachary Freight Dispatcher localization of the mass with associated vision biopsy marker located in the left breast in the upper outer quadrant was performed. This mass with associated vision biopsy marker was described on prior imaging reports. The skin was prepped in the usual manner. Local anesthetic was administered. The localization was approached from the lateral aspect. A localization device was inserted into the targeted area under ultrasound guidance. A sterile dressing was applied to the access site. Reflector placement/activation was verified with Freight Dispatcher Check following the procedure. There were no complications observed. Post-procedure mammogram: Zachary Freight Dispatcher reflector is in appropriate position at the mass and vision biopsy marker. Post-procedure mammogram density: There are scattered areas of fibroglandular density. IMPRESSION IMPRESSION: Site 1: Zachary Freight Dispatcher localization of the mass and the vision biopsy marker located in the left breast in the upper outer quadrant was successful. A specimen radiograph is recommended. The specimen radiograph should include the Zachary Freight Dispatcher reflector and the vision biopsy marker. Zachary Freight Dispatcher reflector is in appropriate position at the mass and vision biopsy marker. Reflector placement/activation was verified with Freight Dispatcher Check following the procedure. Interpreting Radiologist: Som Nino M.D. Electronically signed on: 12/07/2024 Bar Tacker Sewing Machine: RICK Transcribe Date/Time: Dec 07 2024 10:24A Dictated by: SOM NINO MD This examination was interpreted and the report reviewed and electronically signed by: SOM NINO MD on Dec 07 2024 11:12AM EST [facility] Radiology Study observation (narrative) [facility] CNOVon 12-06-2024 CNOV Office Visit ([facility] ) MELISSA MCFARLANE ([id number]) 1955 F Date Time Provider Department 12/06/24 12:00 PM [facility] During your visit today, we recorded the following information about you: Carmella Munoz DO 12/06/2024 12:49 PM Signed Breast Surgery Telephone Follow up Note I have communicated my name and active licensure. The patient's identity and physical location were verified at the time of this visit. The patient has been informed of the risks and benefits of -- and alternatives to -- treatment through a remote evaluation and consents to proceed with the discussion remotely. CHUY Mcfarlane is a 69 year old female with a LEFT breast 1.1 cm mass @ 2:00, 4cm FN posterior. Bx (globe clip) shows IDC. LN appear normal ER+CO+HER2- [id number] The phone conversation today is to discuss genetic testing The patient viewed a genetic testing educational video which describes rationale for germline genetic testing, potential results, and possible personal and familial implications. PLAN The patient chose to pursue and provided informed consent for germline testing. Test results will be disclosed by a genetic counselor. Discussed surgery details Total telephone conversation time was 10 minutes with time spent on counseling the patient and coordinating her care. This includes prep time to review her case and imaging as well as discussion with other physicians for this appointment today. Carmella Munoz DO, FACS Breast Surgeon [facility] Allergies As of Date: 12/06/2024 Noted Allergy Reaction PERCOCET (OXYCODONE-ACETAMINOPHE N)11/26/2024 14 - Other: See Comments Comments: Patient states that it makes her shakey Date Reviewed: 11/29/2024 Reviewed by: Tatiana Keating LPN - Fully Assessed Primary Visit Diagnosis:Malignant neoplasm of upper-outer quadrant of left breast in female, estrogen receptor positive (HCC) [C50.412, Z17.0] Order(s):[facility] HEREDITARY DIAGNOSTIC CANCER PANEL [[id number]] Order #: [id number] FUTURE Prescriptions as of 12/06/2024 - CALCIUM CARBONATE/VITAMIN D3 (CALCIUM 600 + D ORAL) Take 1 tablet by mouth once daily. - LUTEIN EXTRACT/ZEAXANTHIN EXT (LUTEIN-ZEAXANTHIN ORAL) Take 1 tablet by mouth once daily. - MULTIVITAMIN TAB Take one(1) tablet daily. Problem List As Of Date 12/06/2024 Noted Resolved Rosacea [L71.9] 07/01/2011 Malignant neoplasm of upper-outer quadrant of l*12/01/2024 Medications Discontinued During This Encounter Prescriptions - GLUCOSAMINE-CONDROITIN- [id number] ORAL (Discontinued) Take 500 mg by mouth. - [place]-3 Fatty Acids-Vitamin E (FISH OIL) 1,000 mg cap (Discontinued) Take 1 capsule by mouth once daily. Encounter Status:Closed by [facility] MELISSA MCFARLANE ([id number]) 1955 F Date Time Provider Department 11/29/[address] [facility] [place] During your visit today, we recorded the following information about you: Tatiana Keating LPN 11/29/2024 8:06 AM Signed LOCALIZATION IMAGE REVIEW (Please do NOT submit until entire workup complete) (if > 3 reflectors to be placed in one breast, please review with radiologist) Melissa Mcfarlane [id number] 1955 WORK- UP COMPLETE? Yes Order Placed Yes Left - Site 1 Location 2:00 4cm fn Clip Shape clip From outside facility Clip Migration No Pathology IDC Preferred Localization zachary * If clip migrated, please review with radiologist This Form Has Been Completed By Tatiana Keating LPN On Behalf Of Lina Rebolledo MD 11/30/2024 12:22 PM Signed I have reviewed and approved the localization plan. Images dated 11/01/2024 and 11/23/2024 are annotated. (Vision clip) Radiologist: Lina Smith MD Allergies As of Date: 11/29/2024 Noted Allergy Reaction PERCOCET (OXYCODONE-ACETAMINOPHE N)11/26/2024 14 - Other: See Comments Comments: Patient states that it makes her shakey Date Reviewed: 11/29/2024 Reviewed by: Tatiana Keating LPN - Fully Assessed Reason for Visit: Breast localization request [Other] Prescriptions as of 11/30/2024 - GLUCOSAMINE-CONDROITIN- [id number] ORAL Take 500 mg by mouth. - CALCIUM CARBONATE/VITAMIN D3 (CALCIUM 600 + D ORAL) Take 1 tablet by mouth once daily. - Pompeii-3 Fatty Acids-Vitamin E (FISH OIL) 1,000 mg cap Take 1 capsule by mouth once daily. - LUTEIN EXTRACT/ZEAXANTHIN EXT (LUTEIN-ZEAXANTHIN ORAL) Take 1 tablet by mouth once daily. - MULTIVITAMIN TAB Take one(1) tablet daily. Problem List As Of Date 11/29/2024 Noted Resolved Rosacea [L71.9] 07/01/2011 Encounter Status:Closed by TATIANA KEATING on 11/30/24 Normal [facility] CNOVon 11-26-2024 CNOV Office Visit (RADTFV ) MELISSA MCFARLANE ([id number]) 1955 F Date Time Provider Department 11/26/24 1:30 PM [facility] RADTFV During your visit today, we recorded the following information about you: Chayito Louis MD 11/26/2024 1:42 PM Signed Radiation Oncology - New Patient/Consult Note PATIENT NAME: Melissa Mcfarlane PATIENT REQUESTING PROVIDER: Carmella Munoz DIAGNOSIS: 69 year old female with invasive ductal carcinoma of the Left breast, UOQ, clinical stage IA, ER-positive, CO-negative, and Her2/fausto not amplified, s/p biopsy. HPI: 69 year old female who presents with above diagnosis, for an opinion regarding the role of radiation therapy in the management of the patient's disease. Final recommendations will be communicated back to the requesting physician by way of the shared medical record, or letter to requesting physician via US mail. The patient reports on screening mammogram she was found to have abnormality located in the Left breast. Mammogram/ultrasound demonstrated: ULTRASOUND FINDINGS: Targeted ultrasound of the left breast was performed. The known malignancy at 2:00 4 cm from the nipple does not appear changed compared to 10/07/2024, and measures 1.1 x 0.8 x 0.9 cm. Benign-appearing lymph nodes are demonstrated in the left axilla. 11/22/24 Left breast mass core biopsy FINAL DIAGNOSIS , [place], [place], [id number], Left breast mass, 2:00, 4 cmfn, needle core biopsy: -Invasive ductal carcinoma, provisional histologic grade 2. - Estrogen receptor is positive, 80%, outside slide reviewed. - Progesterone receptor is negative, outside slide reviewed. - HER2 is negative 1+ per outside report. The patient has been referred to us for consideration of radiotherapy options in the management of her disease. Prior radiation therapy or collagen vascular disease: No Any implanted or external electric devices? No status: Naturally post-menopausal. 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 No acute distress. HEENT: NCAT. Sclera anicteric. Neck: Normal ROM. Chest: No respiratory distress. Breast: bilateral breasts are symmetric, without nipple inversion, skin changes, or dominant masses in either breast Participation of a fellow, resident, medical student, or advanced practice provider student in performing the sensitive examination was discussed with the patient or authorized phlebotomy services representative. The patient or authorized phlebotomy services representative has agreed to proceed with the sensitive examination. ASSESSMENT AND PLAN: 69 year old female with invasive ductal carcinoma of the Left breast, UOQ, clinical stage IA, ER-positive, CO-negative, and Her2/fausto not amplified, s/p biopsy. She is tentatively scheduled for left breast lumpectomy 12/13/24. 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 Also discussed potential participation in BR007 clinical trial. She may be interested in this trial. She understands that oncotype recurrence score need to be less than or equal to 18 to qualify for the trial. Return for f/u around 4 weeks post surgery to review pathology and finalize radiation plans. Signed by: Chayito Louis MD [facility] [place] Radiation Oncology, [facility] [address] [place] [address] Cc: Ave Munoz DO Referring Provider: CARMELLA MUNOZ [[id number]] Allergies As of Date: 11/26/2024 Noted Allergy Reaction PERCOCET (OXYCODONE-ACETAMINOPHE N)11/26/2024 14 - Other: See Comments Comments: Patient states that it makes her shakey Date Reviewed: 11/26/2024 Reviewed by: Tatiana Keating, (more content not included)... Normal [facility] CNOV Office Visit (GENSF) MELISSA MCFARLANE ([id number]) 1955 F Date Time Provider Department 11/26/24 11:30 AM CARMELLA MUNOZ During your visit today, we recorded the following information about you: Weight Height 51.9 kg 1.575 m Carmella Munoz DO 12/01/2024 7:38 PM Signed NEW BREAST CANCER - INITIAL SURGICAL VISIT SERVICE DATE: 11/19/2024 REFERRING PROVIDER: MD Josue Foy ([facility]) [address] [address] Consult requested for an opinion regarding the evaluation and treatment of a new breast issue. My final impression and recommendations will be communicated back to the requesting physician by way of the shared medical record or letter via US mail. SUBJECTIVE: REASON FOR TODAY'S VISIT: Breast Cancer Evaluation HISTORY of PRESENT ILLNESS: Melissa Mcfarlane is a 69 year old White female who presents for an evaluation of a diagnosis of a new LEFT breast cancer. Patient has a prior medical history of HTN, MVR and PVCs. She Prior imaging: The patient underwent a bilateral mammogram on 09/27/2024, A mass was also identified in the upper outer posterior left breast. A left breast ultrasound was performed on 10/07/2024, revealing an ill-defined hypoechoic irregular mass at the 2:00 position, 4.1 cm from the nipple, measuring 1.1 x 0.7 x 0.8 cm. The patient subsequently underwent an ultrasound-guided core needle biopsy on 11/01/2024. Static images from the biopsy demonstrated the placement of a clip at the targeted mass. A postprocedural left mammogram performed on 11/01/2024 confirmed the placement of the biopsy marking clip in the expected location. Diagnosis was made at [facility] () by means of ultrasound-guided core biopsy of Left breast. 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 Outside imaging was reviewed by our Radiologist and additional imaging was performed bilaterally. US of the LEFT breast showed the know cancer, at 2:00, 4 cm FN and benign appearing lymph nodes In the right breast an oval mass was noted in the 6:00 position, 2 cm FN (posterior depth), seen on CC and MLO Tomosynthesis images. US was performed revealing a benign cyst. 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 Social History Tobacco Use Smoking status: Never Smokeless tobacco: Never Substance Use Topics Alcohol use: Yes Comment: social Drug use: No ACTIVE PROBLEM LIST Malignant Neoplasm of Upper-Outer Quadrant of Left Breast in Female, Estrogen Receptor Positive (Hcc) - 12/01/2024 Rosacea - 07/01/2011 FAMILY HISTORY: FAMILY HISTORY Problem Relation Age of Onset Heart Father Hypertension Father Prostate Cancer Father Hodgkin Lymphoma Paternal Uncle Breast cancer: Negative Ovarian cancer:Negative Colon cancer:Negative Thyroid cancer:Negative Pancreatic cancer: Negative 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 LMP: Postmenopausal Age at Menarche: 13 Age at First : Age at Menopause: 55 Credit Counselor History Comments: Sexual Activity: Not Asked; No partner data on record Contraception: No contraception data on record OB History Gravida4 Para2 Term0 Preterm0 AB0 Living2 SAB0 IAB0 Ectopic0 Multiple0 Live Births0 PAST MEDICAL HISTORY: PAST MEDICAL HISTORY Diagnosis Date Breast cancer (HCC) 10/2024 left breast HTN (hypertension) Mitral valve regurgitation PVC (premature ventricular contraction) PAST SURGICAL HISTORY: PAST SURGICAL HISTORY Procedure Laterality Date PAST SURGICAL HISTORY OF 08/25/1970 spinal fusion PAST SURGICAL HISTORY OF as child tANDa BREAST NEEDLE CORE BIOPSY LT Left 10/2024 ALLERGIES Allergen Reactions Percocet [Oxycodone* Other: See Comments Patient states that it makes her shakey CURRENT MEDICATIONS: GLUCOSAMINE-CONDROITIN- [id number] ORAL Take 500 mg by mouth. CALCIUM CARBONATE/VITAMIN D3 (CALCIUM 600 + D ORAL) Take 1 tablet by mouth once daily. Pompeii-3 Fatty Acids-Vitamin E (FISH OIL) 1,000 mg cap Take 1 capsule by mouth once daily. LUTEIN EXTRACT/ZEAXANTHIN EXT (LUTEIN-ZEAXANTHIN ORAL) Take 1 tablet by mouth once daily. MULTIVITAMIN TAB Take one(1) tablet daily. REVIEW OF SYSTEMS: GENERAL: No weight loss, malaise or fevers HEENT: Negative for frequent or significant headaches, No changes in hearing or vision RESPIRATORY: Negative for cough, wheezing, or shortness of breath CARDIOVASCULAR: reports a leaky valve (no intervention or medication indicated). White coat HTN hs. Negative for chest pain, leg swelling, or heart palpitations MUSCULOSKELETAL: Negative for joint pa (more content not included)... Normal [facility] CNOVSPon 11-26-2024 CNOVSP Visit (SP) Office (HEMML) MELISSA MCFARLANE ([id number]) 1955 F Date Time Provider Department 11/26/24 10:[address] [facility] During your visit today, we recorded the following information about you: Temperature Pulse Blood pressure Weight 98 degrees 65/minute 156/[address] MD 11/26/2024 12:11 PM Signed Date of Service: November 26, 2024. Mrs. Mcfarlane was referred to me at the request of Dr. Carmella Munoz for my opinion regarding her breast cancer. My recommendations will be conveyed to Dr. Carmella Munoz by shared medical record or letter via US mail. History of Present Illness: Mrs. Mcfarlane is a 69 year old postmenopausal female diagnosed with clinical stage I grade 2 invasive ductal carcinoma of the left breast diagnosed via left breast biopsy performed on November 01, 2024 in [place], [place]. Her left breast cancer is estrogen receptor positive (80%), progesterone receptor negative (0 to 1%), and HER2/fausto negative (score 1+). On left breast ultrasound performed November 23, 2024, her left breast cancer measured 1.1 x 0.8 x 0.9 cm. Her left breast cancer was discovered via routine annual screening mammogram. She denies any prior history of breast cancer or radiation. She did have a left breast biopsy in the past that was benign. There is no family medical history of breast or ovarian cancer. She began menstrual at age 13. She became menopausal at age 55. She has 2 children. She was 30 when she had her first child. She denies any hormone replacement therapy. She took oral contraceptive pills for less than 5 years in her 30s for heavy menstrual cycles. She drinks approximately 2 alcoholic drinks per month. Her appetite and energy level are very good. She denies any nausea, vomiting, or weight loss. She denies any fevers or night sweats. She denies any headaches, dizziness, or vision changes. She denies any bleeding or bruising problems. She denies any difficulty swallowing or breathing. She denies any GI or symptoms. She denies any arthritis. She does not take any prescription medications. She had a bone density test in 2022 that showed osteopenia. She takes vitamin D and calcium. All other systems were reviewed but otherwise negative. HISTORIES: FAMILY HISTORY Problem Relation Age of Onset Heart Father Hypertension Father Prostate Cancer Father There is no family medical history of breast or ovarian cancer. Her mother is 90 years old. Her father at age 84. He had Alzheimer's dementia. Also had a history of prostate cancer. PAST MEDICAL HISTORY Diagnosis Date HTN (hypertension) Mitral valve regurgitation PVC (premature ventricular contraction) Osteopenia Scoliosis PAST SURGICAL HISTORY Procedure Laterality Date PAST SURGICAL HISTORY OF 1971 spinal fusion PAST SURGICAL HISTORY OF as child tANDa Spinal fusion at age 15 [place] teeth Tonsillectomy Colonoscopy Social History Tobacco Use Smoking status: Never Smokeless tobacco: Never Substance Use Topics Alcohol use: Yes Comment: social Drug use: No Mrs. Mcfarlane is . She lives in [place], [place], [place] of [place]. She has 2 children. She just recently retired. 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 She drinks approximately 2 alcoholic drinks per month. She is able do all her activities of daily living. She can manage stairs. She drives. She works out regularly. She walks daily. ECOG Performance Status: 0 - Fully active, able to carry on all pre-disease performance without restriction Allergies: ALLERGIES No Known Allergies Medications: Current Outpatient Medications Medication Sig GLUCOSAMINE-CONDROITIN- [id number] ORAL Take 500 mg by mouth. CALCIUM CARBONATE/VITAMIN D3 (CALCIUM 600 + D ORAL) Take 1 tablet by mouth once daily. Pompeii-3 Fatty Acids-Vitamin E (FISH OIL) 1,000 mg cap Take 1 capsule by mouth once daily. LUTEIN EXTRACT/ZEAXANTHIN EXT (LUTEIN-ZEAXANTHIN ORAL) Take 1 tablet by mouth once daily. MULTIVITAMIN TAB Take one(1) tablet daily. No current facility-administered medications for this visit. PHYSICAL EXAM: VS: BP 156/79 Pulse 65 Temp 36.7 ?C (98 ?F) (Oral) Wt 52.4 kg (115 lb 8.3 oz) SpO2 100% BMI 21.13 kg/m? General: No acute distress. Eyes: Pupils equal, round, and reactive to light. Extraocular movements intact. No scleral icterus or conjunctival pallor. Mouth: Moist mucous membranes. No erythema or exudate. Neck: Supple. No cervical or supraclavicular lymphadenopathy. Heart: Regular rate and rhythm. Normal S1, S2. Lungs: Clear to auscultation bilaterally. No wheezes, rhonchi, or crackles. Back: Positive scoliosis. Breast exam: Right breast: No palpable masses, nipple drainage, or axillar lymphadenopathy. Left breast: Status post biopsy. Positive palpable mass at (more content not included)... [facility] DBT Breast - right diagnosti c for implanton 11-23-2024 IMPRESSION: There is no mammographic or sonographic evidence of malignancy in the RIGHT breast. Continued surgical/oncologic management is recommended for known malignancy in the opposite breast. BI-RADS Category 2: Benign RISK: Due to the reported patient's history, the patient's estimated lifetime risk of developing breast cancer cannot be assessed at this time. We encourage all patients to talk with their providers about their risk assessment, further recommendations for managing breast health, and appropriate supplemental screening options if the patient has dense breast tissue. Interpreting Radiologist: Salima Mckeon M.D. Electronically signed on: 11/23/2024 Bar Tacker Sewing Machine: RICK Transcribe Date/Time: Nov 23 2024 10:11A Dictated by: SALIMA MCKEON MD This examination was interpreted and the report reviewed and electronically signed by: SALIMA MCKEON MD on Nov 23 2024 2:40PM [facility] RADIOLOG[facility] * * *Final Report* * * DATE OF EXAM: Nov 23 2024 10:52AM [facility] 0629 - [facility] ARJUN Trujillo VICK RT / PROCEDURE REASON: multiple diagnoses * * * * Physician Interpretation * * * * RESULT: [facility] BREAST [facility] [address] [place] [address] #[id number] - [facility] ARJUN Trujillo VICK RT #[id number] - [facility] BREAST LTD RT HISTORY: 69 year-old patient seen for diagnostic evaluation of the right breast per outside imaging review. She has newly diagnosed malignancy in the LEFT breast. COMPARISON STUDIES: The present examination has been compared to prior imaging studies dated 07/12/2022, 09/17/2023, 09/27/2024 and 11/23/2024 (ultrasound). MAMMOGRAM TECHNIQUE: The study was acquired using full field digital technology and interpreted from soft copy. Digital Breast Tomosynthesis (DBT) images were obtained and used to assist in the interpretation of this examination. MAMMOGRAM FINDINGS: There are scattered areas of fibroglandular density. There is a focal asymmetry in the right breast at 6 o'clock. No suspicious masses, calcifications or other abnormalities are seen in the right breast. ULTRASOUND TECHNIQUE: Targeted ultrasound of the indicated area was performed. Young scale images were saved. ULTRASOUND FINDINGS: Targeted ultrasound of the right breast was performed. At 6:00 2 cm from the nipple, there is a benign oval/septated cyst which corresponds with mammography and measures 1.0 x 0.5 x 0.6 cm. There are no suspicious findings in the imaged area. [facility] Provider, [facility] - 11/23/2024 * * *Final Report* * * DATE OF EXAM: Nov 23 2024 10:52AM [facility] 0629 - [facility] ARJUN HICKMAN RT / PROCEDURE REASON: multiple diagnoses * * * * Physician Interpretation * * * * RESULT: [facility] [address] [place] [address] #[id number] - [facility] ARJUN HICKMAN RT #[id number] - [facility] BREAST [facility] RT HISTORY: 69 year-old patient seen for diagnostic evaluation of the right breast per outside imaging review. She has newly diagnosed malignancy in the LEFT breast. COMPARISON STUDIES: The present examination has been compared to prior imaging studies dated 07/12/2022, 09/17/2023, 09/27/2024 and 11/23/2024 (ultrasound). MAMMOGRAM TECHNIQUE: The study was acquired using full field digital technology and interpreted from soft copy. Digital Breast Tomosynthesis (DBT) images were obtained and used to assist in the interpretation of this examination. MAMMOGRAM FINDINGS: There are scattered areas of fibroglandular density. There is a focal asymmetry in the right breast at 6 o'clock. No suspicious masses, calcifications or other abnormalities are seen in the right breast. ULTRASOUND TECHNIQUE: Targeted ultrasound of the indicated area was performed. Young scale images were saved. ULTRASOUND FINDINGS: Targeted ultrasound of the right breast was performed. At 6:00 2 cm from the nipple, there is a benign oval/septated cyst which corresponds with mammography and measures 1.0 x 0.5 x 0.6 cm. There are no suspicious findings in the imaged area. IMPRESSION IMPRESSION: There is no mammographic or sonographic evidence of malignancy in the RIGHT breast. Continued surgical/oncologic management is recommended for known malignancy in the opposite breast. BI-RADS Category 2: Benign RISK: Due to the reported patient's history, the patient's estimated lifetime risk of developing breast cancer cannot be assessed at this time. We encourage all patients to talk with their providers about their risk assessment, further recommendations for managing breast health, and appropriate supplemental screening options if the patient has dense breast tissue. Interpreting Radiologist: Salima Mckeon M.D. Electronically signed on: 11/23/2024 Bar Tacker Sewing Machine: RICK Transcribe Date/Time: Nov 23 2024 10:11A Dictated by: SALIMA MCKEON MD This examination was interpreted and the report reviewed and electronically signed by: SALIMA MCKEON MD on Nov 23 2024 2:40PM EST [facility] Radiology Study observation (narrative) [facility] DIAG W VICK RTon 025 [facility] DIAG W VICK RT * * *Final Report* * * DATE OF EXAM: Nov 23 2024 10:52AM [facility] 0629 - [facility] DIAG W VICK RT / PROCEDURE REASON: multiple diagnoses * * * * Physician Interpretation * * * * RESULT: [facility] BREAST [facility] [address] [place] [address] #[id number] - [facility] DIAG W VICK RT #[id number] - [facility] US BREAST LTD RT HISTORY: 69 year-old patient seen for diagnostic evaluation of the right breast per outside imaging review. She has newly diagnosed malignancy in the LEFT breast. COMPARISON STUDIES: The present examination has been compared to prior imaging studies dated 07/12/2022, 09/17/2023, 09/27/2024 and 11/23/2024 (ultrasound). MAMMOGRAM TECHNIQUE: The study was acquired using full field digital technology and interpreted from soft copy. Digital Breast Tomosynthesis (DBT) images were obtained and used to assist in the interpretation of this examination. MAMMOGRAM FINDINGS: There are scattered areas of fibroglandular density. There is a focal asymmetry in the right breast at 6 o'clock. No suspicious masses, calcifications or other abnormalities are seen in the right breast. ULTRASOUND TECHNIQUE: Targeted ultrasound of the indicated area was performed. Young scale images were saved. ULTRASOUND FINDINGS: Targeted ultrasound of the right breast was performed. At 6:00 2 cm from the nipple, there is a benign oval/septated cyst which corresponds with mammography and measures 1.0 x 0.5 x 0.6 cm. There are no suspicious findings in the imaged area. IMPRESSION: There is no mammographic or sonographic evidence of malignancy in the RIGHT breast. Continued surgical/oncologic management is recommended for known malignancy in the opposite breast. BI-RADS Category 2: Benign RISK: Due to the reported patient's history, the patient's estimated lifetime risk of developing breast cancer cannot be assessed at this time. We encourage all patients to talk with their providers about their risk assessment, further recommendations for managing breast health, and appropriate supplemental screening options if the patient has dense breast tissue. Interpreting Radiologist: Salima Mckeon M.D. Electronically signed on: 11/23/2024 Bar Tacker Sewing Machine: RICK Olivarirubin Date/Time: Nov 23 2024 10:11A Dictated by: SALIMA MCKEON MD This examination was interpreted and the report reviewed and electronically signed by: SALIMA MCKEON MD on Nov 23 2024 2:40PM EST [id number] Normal [facility] US BREAST LTD LTon 11-23 [facility] US BREAST LTD LT * * *Final Report* * * DATE OF EXAM: Nov 23 2024 11:23AM [facility] 0593 - [facility] US BREAST LTD LT / PROCEDURE REASON: Malignant neoplasm of right female breast, unspecified estrogen receptor status, * * * * Physician Interpretation * * * * [facility] [address] [place] [address] #[id number] - [facility] [employer] BREAST LTD LT HISTORY: 69 year-old patient seen for diagnostic evaluation of the finding(s) described on prior mammogram in both breasts. The patient has the following personal history of breast cancer: breast cancer in the left breast. COMPARISON STUDIES: The present examination has been compared to prior imaging studies dated 09/27/2024 and 10/07/2024 (ultrasound). ULTRASOUND TECHNIQUE: Targeted ultrasound of the indicated area was performed. Young scale images were saved. ULTRASOUND FINDINGS: Targeted ultrasound of the left breast was performed. The known malignancy at 2:00 4 cm from the nipple does not appear changed compared to 10/07/2024, and measures 1.1 x 0.8 x 0.9 cm. Benign-appearing lymph nodes are demonstrated in the left axilla. IMPRESSION: Known malignancy in the left breast at 2:00 4 cm from the nipple. Continued surgical/oncologic management is recommended. BI-RADS Category 6: Known Biopsy-Proven Malignancy RISK: Due to the reported patient's history, the patient's estimated lifetime risk of developing breast cancer cannot be assessed at this time. We encourage all patients to talk with their providers about their risk assessment, further recommendations for managing breast health, and appropriate supplemental screening options if the patient has dense breast tissue. Interpreting Radiologist: Salima Mckeon M.D. Electronically signed on: 11/23/2024 Bar Tacker Sewing Machine: RICK Olivarirubin Date/Time: Nov 23 2024 11:12A Dictated by : SALIMA MCKEON MD This examination was interpreted and the report reviewed and electronically signed by: SALIMA MCKEON MD on Nov 23 2024 3:23PM EST [id number] Normal [facility] US BREAST LTD RTon 11-23 [facility] US BREAST LTD RT * * *Final Report* * * DATE OF EXAM: Nov 23 2024 11:23AM [facility] 0594 [facility] US BREAST LTD RT / PROCEDURE REASON: Malignant neoplasm of right female breast, unspecified estrogen receptor status, * * * * Physician Interpretation * * * * [facility] [address] [place] [address] #[id number] - [facility] ARJUN W VICK RT #[id number] - [facility] BREAST LTD RT HISTORY: 69 year-old patient seen for diagnostic evaluation of the right breast per outside imaging review. She has newly diagnosed malignancy in the LEFT breast. COMPARISON STUDIES: The present examination has been compared to prior imaging studies dated 07/12/2022, 09/17/2023, 09/27/2024 and 11/23/2024 (ultrasound). MAMMOGRAM TECHNIQUE: The study was acquired using full field digital technology and interpreted from soft copy. Digital Breast Tomosynthesis (DBT) images were obtained and used to assist in the interpretation of this examination. MAMMOGRAM FINDINGS: There are scattered areas of fibroglandular density. There is a focal asymmetry in the right breast at 6 o'clock. No suspicious masses, calcifications or other abnormalities are seen in the right breast. ULTRASOUND TECHNIQUE: Targeted ultrasound of the indicated area was performed. Young scale images were saved. ULTRASOUND FINDINGS: Targeted ultrasound of the right breast was performed. At 6:00 2 cm from the nipple, there is a benign oval/septated cyst which corresponds with mammography and measures 1.0 x 0.5 x 0.6 cm. There are no suspicious findings in the imaged area. IMPRESSION: There is no mammographic or sonographic evidence of malignancy in the RIGHT breast. Continued surgical/oncologic management is recommended for known malignancy in the opposite breast. BI-RADS Category 2: Benign RISK: Due to the reported patient's history, the patient's estimated lifetime risk of developing breast cancer cannot be assessed at this time. We encourage all patients to talk with their providers about their risk assessment, further recommendations for managing breast health, and appropriate supplemental screening options if the patient has dense breast tissue. Interpreting Radiologist: Salima Mckeon M.D. Electronically signed on: 11/23/2024 Bar Tacker Sewing Machine: RICK Transcribe Date/Time: Nov 23 2024 11:12A Dictated by : SALIMA MCKEON MD This examination was interpreted and the report reviewed and electronically signed by: SALIMA MCKEON MD on Nov 23 2024 2:40PM EST [id number] Normal [facility] No Panel InformationOrdered By: [facility] Provider on 11-23-2024 [facility] No Panel Informationon 11-23 Radiology Study observation (narrative) [facility] US Breast - left limitedon 0 11-23-2024 IMPRESSION: Known malignancy in the left breast at 2:00 4 cm from the nipple. Continued surgical/oncologic management is recommended. BI-RADS Category 6: Known Biopsy-Proven Malignancy RISK: Due to the reported patient's history, the patient's estimated lifetime risk of developing breast cancer cannot be assessed at this time. We encourage all patients to talk with their providers about their risk assessment, further recommendations for managing breast health, and appropriate supplemental screening options if the patient has dense breast tissue. Interpreting Radiologist: Salima Mckeon M.D. Electronically signed on: 11/23/2024 Bar Tacker Sewing Machine: RICK Transcribe Date/Time: Nov 23 2024 11:12A Dictated by : SALIMA MCKEON MD This examination was interpreted and the report reviewed and electronically signed by: SALIMA MCKEON MD on Nov 23 2024 3:23PM EST [facility] * * *Final Report* * * DATE OF EXAM: Nov 23 2024 11:23AM [facility] 0593 - [employer] LT / PROCEDURE REASON: Malignant neoplasm of right female breast, unspecified estrogen receptor status, * * * * Physician Interpretation * * * * [facility] [address] [place] [address] #[phone] - [employer] LT HISTORY: 69 year-old patient seen for diagnostic evaluation of the finding(s) described on prior mammogram in both breasts. The patient has the following personal history of breast cancer: breast cancer in the left breast. COMPARISON STUDIES: The present examination has been compared to prior imaging studies dated 09/27/2024 and 10/07/2024 (ultrasound). ULTRASOUND TECHNIQUE: Targeted ultrasound of the indicated area was performed. Young scale images were saved. ULTRASOUND FINDINGS: Targeted ultrasound of the left breast was performed. The known malignancy at 2:00 4 cm from the nipple does not appear changed compared to 10/07/2024, and measures 1.1 x 0.8 x 0.9 cm. Benign-appearing lymph nodes are demonstrated in the left axilla. [facility], [facility]24 * * *Final Report* * * DATE OF EXAM: Nov 23 2024 11:23AM [facility] 0593 - [facility] [employer] BREAST LTD LT / PROCEDURE REASON: Malignant neoplasm of right female breast, unspecified estrogen receptor status, * * * * Physician Interpretation * * * * [facility] [address] [place] [address] #[id number] - [facility] US BREAST LTD LT HISTORY: 69 year-old patient seen for diagnostic evaluation of the finding(s) described on prior mammogram in both breasts. The patient has the following personal history of breast cancer: breast cancer in the left breast. COMPARISON STUDIES: The present examination has been compared to prior imaging studies dated 09/27/2024 and 10/07/2024 (ultrasound). ULTRASOUND TECHNIQUE: Targeted ultrasound of the indicated area was performed. Young scale images were saved. ULTRASOUND FINDINGS: Targeted ultrasound of the left breast was performed. The known malignancy at 2:00 4 cm from the nipple does not appear changed compared to 10/07/2024, and measures 1.1 x 0.8 x 0.9 cm. Benign-appearing lymph nodes are demonstrated in the left axilla. IMPRESSION IMPRESSION: Known malignancy in the left breast at 2:00 4 cm from the nipple. Continued surgical/oncologic management is recommended. BI-RADS Category 6: Known Biopsy-Proven Malignancy RISK: Due to the reported patient's history, the patient's estimated lifetime risk of developing breast cancer cannot be assessed at this time. We encourage all patients to talk with their providers about their risk assessment, further recommendations for managing breast health, and appropriate supplemental screening options if the patient has dense breast tissue. Interpreting Radiologist: Salima Mckeon M.D. Electronically signed on: 11/23/2024 Bar Tacker Sewing Machine: RICK Transcribe Date/Time: Nov 23 2024 11:12A Dictated by : SALIMA MCKEON MD This examination was interpreted and the report reviewed and electronically signed by: SALIMA MCKEON MD on Nov 23 2024 3:23PM [facility] US Breast - right limitedon 11-23-2024 IMPRESSION: There is no mammographic or sonographic evidence of malignancy in the RIGHT breast. Continued surgical/oncologic management is recommended for known malignancy in the opposite breast. BI-RADS Category 2: Benign RISK: Due to the reported patient's history, the patient's estimated lifetime risk of developing breast cancer cannot be assessed at this time. We encourage all patients to talk with their providers about their risk assessment, further recommendations for managing breast health, and appropriate supplemental screening options if the patient has dense breast tissue. Interpreting Radiologist: Salima Mckeon M.D. Electronically signed on: 11/23/2024 Bar Tacker Sewing Machine: RICK Transcribe Date/Time: Nov 23 2024 11:12A Dictated by : SALIMA MCKEON MD This examination was interpreted and the report reviewed and electronically signed by: SALIMA MCKEON MD on Nov 23 2024 2:40PM [facility] * * *Final Report* * * DATE OF EXAM: Nov 23 2024 11:23AM [facility] 0594 - [facility] [employer] BREAST [employer] RT / PROCEDURE REASON: Malignant neoplasm of right female breast, unspecified estrogen receptor status, * * * * Physician Interpretation * * * * [facility] [address] [place] [address] #[id number] - [facility] DIAG W VICK RT #[id number] - [facility] [employer] BREAST [employer] RT HISTORY: 69 year-old patient seen for diagnostic evaluation of the right breast per outside imaging review. She has newly diagnosed malignancy in the LEFT breast. COMPARISON STUDIES: The present examination has been compared to prior imaging studies dated 07/12/2022, 09/17/2023, 09/27/2024 and 11/23/2024 (ultrasound). MAMMOGRAM TECHNIQUE: The study was acquired using full field digital technology and interpreted from soft copy. Digital Breast Tomosynthesis (DBT) images were obtained and used to assist in the interpretation of this examination. MAMMOGRAM FINDINGS: There are scattered areas of fibroglandular density. There is a focal asymmetry in the right breast at 6 o'clock. No suspicious masses, calcifications or other abnormalities are seen in the right breast. ULTRASOUND TECHNIQUE: Targeted ultrasound of the indicated area was performed. Young scale images were saved. ULTRASOUND FINDINGS: Targeted ultrasound of the right breast was performed. At 6:00 2 cm from the nipple, there is a benign oval/septated cyst which corresponds with mammography and measures 1.0 x 0.5 x 0.6 cm. There are no suspicious findings in the imaged area. [facility] Provider, Analy Uribe cynthia Toledo - 11/23/2024 * * *Final Report* * * DATE OF EXAM: Nov 23 2024 11:23AM U 0594 - [facility] [employer] BREAST [employer] RT / PROCEDURE REASON: Malignant neoplasm of right female breast, unspecified estrogen receptor status, * * * * Physician Interpretation * * * * [facility] [address] [place] [address] #[id number] - [facility] ARJUN Trujillo VICK RT #[id number] - [facility] [employer] RT HISTORY: 69 year-old patient seen for diagnostic evaluation of the right breast per outside imaging review. She has newly diagnosed malignancy in the LEFT breast. COMPARISON STUDIES: The present examination has been compared to prior imaging studies dated 07/12/2022, 09/17/2023, 09/27/2024 and 11/23/2024 (ultrasound). MAMMOGRAM TECHNIQUE: The study was acquired using full field digital technology and interpreted from soft copy. Digital Breast Tomosynthesis (DBT) images were obtained and used to assist in the interpretation of this examination. MAMMOGRAM FINDINGS: There are scattered areas of fibroglandular density. There is a focal asymmetry in the right breast at 6 o'clock. No suspicious masses, calcifications or other abnormalities are seen in the right breast. ULTRASOUND TECHNIQUE: Targeted ultrasound of the indicated area was performed. Young scale images were saved. ULTRASOUND FINDINGS: Targeted ultrasound of the right breast was performed. At 6:00 2 cm from the nipple, there is a benign oval/septated cyst which corresponds with mammography and measures 1.0 x 0.5 x 0.6 cm. There are no suspicious findings in the imaged area. IMPRESSION IMPRESSION: There is no mammographic or sonographic evidence of malignancy in the RIGHT breast. Continued surgical/oncologic management is recommended for known malignancy in the opposite breast. BI-RADS Category 2: Benign RISK: Due to the reported patient's history, the patient's estimated lifetime risk of developing breast cancer cannot be assessed at this time. We encourage all patients to talk with their providers about their risk assessment, further recommendations for managing breast health, and appropriate supplemental screening options if the patient has dense breast tissue. Interpreting Radiologist: Salima Mckeon M.D. Electronically signed on: 11/23/2024 Bar Tacker Sewing Machine: RICK Transcribe Date/Time: Nov 23 2024 11:12A Dictated by : SALIMA MCKEON MD This examination was interpreted and the report reviewed and electronically signed by: SALIMA MCKEON MD on Nov 23 2024 2:40PM EST [facility] OUTSIDE SURG PATH SLIDE REVI EWon 11-22-2024 AP DISCLAIMER [facility] Comment on above: Order Comment: Speci men Type: FORMALIN-FIXED PARAFFIN-EMBEDDED TISSUE SPECIMENOrdering Facility: AP Outside Review Address: , , Result Comment: Ayana cedillo Developed Test (LDT) Disclaimer: Performance characteristics of immunohistochemical, immunofluorescent, and chromogenic in-situ hybridization tests have been determined by the performing laboratory within [facility]'s [facility] Pathology and Laboratory Medicine Department ([facility], [facility], [facility], [facility], [facility], [facility], or [facility]) in a manner consistent with CLIA requirements. One or more of these tests may not have been cleared or approved by the FDA. RT-PLM is regulated under CLIA as qualified to perform high-complexity testing. These tests are used for clinical purposes. These should not be regarded as investigational or for research. Positive and negative controls stain appropriately. Performed By: #### L [id number] ####[facility] LABCLIA [id number] [address] [place] CASE REPORT [facility] Comment on above: Order Comment: Speci men Type: FORMALIN-FIXED PARAFFIN-EMBEDDED TISSUE SPECIMENOrdering Facility: AP Outside Review Address: , , Result Comment: [facility] Pathology Report Case: [id number] Authorizing Provider: Carmella Munoz DO Collected: 11/22/2024 11:26 AM Ordering Location: [facility] Main Received: 11/22/2024 11:25 AM [facility] Laboratory Pathologist: Ray Whitmore MD Specimen: Slide(s), 10 SLIDES ([id number]) Performed By: #### L [id number] ####[facility] LABCLIA [id number] [address] FINAL DIAGNOSIS [facility] Comment on above: Order Comment: Nora de la torre Type: FORMALIN-FIXED PARAFFIN-EMBEDDED TISSUE SPECIMENOrdering Facility: AP Outside Review Address: , , Result Comment: [facility], [place], [place], [id number], Left breast mass, 2:00, 4 cmfn, needle core biopsy: -Invasive ductal carcinoma, provisional histologic grade 2. - Estrogen receptor is positive, 80%, outside slide reviewed. - Progesterone receptor is negative, outside slide reviewed. - HER2 is negative 1+ per outside report. JR 11/24/2024 at 1541 EDT Performed By: #### L [id number] ####[facility] LABCLIA [id number] [address] FINAL PERFORMING LAB Normal [facility] Comment on above: Order Comment: Nora de la torre Type: FORMALIN-FIXED PARAFFIN-EMBEDDED TISSUE SPECIMENOrdering Facility: AP Outside Review Address: , , Result Comment: Diag nostic interpretation performed at: [facility], [facility], [place] [address] CLIA# [id number] Carpet Cutter: Jordi Sloan MD Performed By: #### L [id number] ####[facility] LABCLIA [id number] [address] CNPEvelyn 11-17-2024 CNPN Telephone ([facility]) MELISSA MCFARLANE ([id number]) 1955 F Date Time Provider Department 11/17/24 TATIANA KEATING [facility] During your visit today, we recorded the following information about you: Tatiana Keating LPN 11/17/2024 9:47 AM Signed Called and spoke to pt regarding her upcoming appointment with on 11/26. Informed pt of additional appointments she may or may not need. She verbalized understanding. Pt stated she is leaning towards lumpectomy. Imaging received and what (MMG/US/MRI - radiology reviewed yet? In epic Pathology slides sent / reviewed? Have been requested. Consults: Breast psych not a this time. Med onc yes requested for 11/26 Rad onc yes requested for 11/26 Plastics yes for 11/26 Pt thanked me for calling. She has my contact number if any other questions should arise before her appointment. 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 - CALCIUM CARBONATE/VITAMIN D3 (CALCIUM 600 + D ORAL) Take 1 tablet by mouth once daily. - Pompeii-3 Fatty Acids-Vitamin E (FISH OIL) 1,000 mg cap Take 1 capsule by mouth once daily. - LUTEIN EXTRACT/ZEAXANTHIN EXT (LUTEIN-ZEAXANTHIN ORAL) Take 1 tablet by mouth once daily. - MULTIVITAMIN TAB Take one(1) tablet daily. Problem List As Of Date 11/17/2024 Noted Resolved Rosacea [L71.9] 07/01/2011 Encounter Status:Closed by TATIANA KEATING on 11/17/24 [facility] Mammography reportOrdered By : Teto Smith on 11-04-2024 Diagnostic imaging study [facility] [address] [place], [place] [id number] Mammography Report Signed with [place] Patient: Berkley Mcfarlane MR#: [id number] : 1955 Acct:[id number] Age/Sex: 69 / F Adm Date: 5 Loc: [facility] Room: Type: [facility] Attending Dr: Josue Chatterjee DO Ordering Provider: Josue Chatterjee DO Date of Service: 11/01/24 Procedure(s): MM post biopsy LT w/CAD; US biopsy LT 1st lesion guid Accession Number(s): ([id number]) US/US biopsy LT 1st lesion guid: N63.20 ([id number]) MM/MM post biopsy LT w/CAD: POST US GUIDED LT BREAST BX -MARKER PLACEMENT Copies to: Josue Chatterjee DO~ ADDENDUM 1 Pathology demonstrated invasive ductal carcinoma. This concordant with the imaging findings. Recommend surgical consultation. Impression dictated by: Teto Smith M.D.11/04/2024 8:46 AM Dictation Location: [place] [address] Addendum Dictated By: Teto Smith MD Addendum Signed By: 11/04/24845 Addendum Cosigned By: DD/ TD/TT: 11/04/24 ULTRASOUND GUIDED VACUUM-ASSISTED HOLOGIC ATEC SYSTEM CORE BIOPSIES OF THE LEFT BREAST: CLINICAL DATA: Left breast mass PROCEDURE: The risks, benefits and alternatives to an ultrasound guided vacuum-assisted Hologic ATEC system core biopsy procedure were discussed with the patient and written informed consent was obtained. Ultrasonographic survey of the 2:00 of the left breast was performed by medical technologist prn . The patient's overlying skin was anesthetized with 1% lidocaine. The deeper softtissues up to and around the mass were anesthetized with lidocaine mixed with epinephrine. Following this, multiple core biopsies of the left breast mass wereperformed using a 12-gauge burrp! vacuum-assisted core biopsy needle under ultrasound guidance. Multiple core biopsy specimens were obtained. A metallic post biopsy marker was then placed. Post procedure mammograms were performed. The patient tolerated the procedure well without immediate postprocedural complication. POSTPROCEDURE MAMMOGRAMS: Craniocaudal and true lateral views of the left breastwere performed using low dose digital technique. The postbiopsy marker is seen just anterior to the biopsy site. MM/MM post biopsy LT w/CAD IMPRESSION: STATUS POST ULTRASOUND GUIDED VACUUM-ASSISTED CORE BIOPSIES OF THE LEFT BREAST. RESULT CODE: NL Impression dictated by: Teto Smith M.D.11/01/2024 2:46 PM Dictation Location: DWS01 Dictated By: Teto Smith MD 11/01/241443 Signed By: 11/01/241445 Work Phone: Pathology study report docum entOrdered By: Jean-Pierre Vanessa on 11-03-2024 Pathology study Other Phone: Home 11-01-2024 L --- Specimen: [id number] Received: 11/01/24 Status: DAVEAtul Antonietta Num: [id number] Spec Type: Surgical Subm Dr: Teto Smith MD Tissues: A BREAST CORE NO CALCS (LEFT BREAST 2 O'CLOCK 4CM FR) Procedures: HE/Lynn, Gross/Micro L4, E CADHERIN, ER, p63, CO Age/ Patient Sex Location Account Attending Physician Berkley Mcfarlane 69/F [place] [id number] Josue Chatterjee DO SPEC NUM: [id number] RECD: 11/01/24 STATUS: DOMINIQUE MADRID NUM: [id number] OSITO: 11/01/[address] [facility] DR: Teto Smith MD ENTERED: 11/01/[address]: DO VISH Forbes TYPE: Surgical DEPT: S ORDERED: HE/6, Gross/Micro L4, E CADHERIN, ER, p63, CO ORDERED: HE/6, Gross/Micro L4, E CADHERIN, ER, p63, CO Supplemental Report Addendum 2 Entered: 11/26/24 Supplemental for findings of consultation report from [facility]: -Invasive ductal carcinoma, provisional histologic grade 2 -Estrogen receptor is positive, 80%, outside slide reviewed -Progesterone receptor is negative, outside slide reviewed -HER2 is negative per outside report Addendum Signed (signature on file) Jean-Pierre Vanessa MD 11/26/24 0801 Addendum 1 Entered: 11/08/24 Supplemental for findings of HER2 by immunohistochemistry from [facility]: -Negative -Score 1+ Specimen: [id number] Received: 11/01/24 Status: DOMINIQUE Shipleyodessa Num: [id number] Spec Type: Surgical Subm Dr: Teto Smith MD Tissues: A BREAST CORE NO CALCS (LEFT BREAST 2 O'CLOCK 4CM FR) Procedures: HE/6, Gross/Micro L4, E CADHERIN, ER, p63, CO Patient: Berkley Mcfarlane [id number] (Continued) Specimen: [id number] Received: 11/01/24 (Continued) Supplemental Report (Continued) Signed (signature on file) Jean-Pierre Vanessa MD 11/03/242000 Specimen: [id number] Received: 11/01/24 Status: DOMINIQUE [place] Num: [id number] Spec Type: Surgical Subm Dr: Teto Smith MD Tissues: A BREAST CORE NO CALCS (LEFT BREAST 2 O'CLOCK 4CM FR) Procedures: HE/6, Gross/Micro L4, E CADHERIN, ER, p63, CO Patient: DenysBerkley [id number] (Continued) Specimen: [id number] Received: 11/01/24 (Continued) Supplemental Report (Continued) Addendum Signed (signature on file) Jean-Pierre Vanessa MD 11/08/24 1653 Pathological Diagnosis Left breast mass at 2:00, 4 cm from nipple, core needle biopsies: -Invasive ductal carcinoma, at least 0.5 cm -Grade 2 tumor, with tubular differentiation (3), nuclear pleomorphism (1-2), and mitotic rate (1), total score 5-6/9 -Microcalcifications: Not Identified -Lymph?vascular invasions: Not identified -DCIS: Not identified -LCIS: Not identified -Breast biomarkers: -ER positive, 80%, 2+ -CO negative, 0-1%, 0-1+ -HER2 (pending) Note: -P63 and E-cadherin IHC are also performed, supporting the above interpretation -Immuno controls are appropriate -Minor cribriform features, and minor degeneration in central area of mass per histomorphology Clinical Information Left breast mass 2:00, 4 cm from nipple Gross Description Part A is received in formalin labeled with the patients name, date of , and L breast are 7 pale gutierrez to yellow sorto, delicate needle core biopsy segments, 1.1-2.7 cm in length with detached fragments of fibrofatty tissue admixed with hemorrhagic material, 2 x 1 x 0.3 cm in aggregate. The cores are entirely submitted in Cassette A1?A2 with the fragmented fibrofatty tissue and clot entirely submitted in Cassette A3. Fixation time: Specimen: [id number] Received: 11/01/24 Status: DOMINIQUE [place] Num: [id number] Spec Type: Surgical Subm Dr: Teto Smith MD Tissues: A BREAST CORE NO CALCS (LEFT BREAST 2 O'CLOCK 4CM FR) (more content not included)... Normal [facility] US biopsy LT 1st lesion guid on 11-01-2024 biopsy LT 1st lesion [facility] [address] [place] [address] Mammography Report Signed with [place] Patient: Berkley Mcfarlane MR#: [id number] : 1955 Acct:[id number] Age/Sex: 69 / F Adm Date: 11/01/24 Loc: [facility] Room: Type: [facility] Attending Dr: Josue Chatterjee DO Ordering Provider: Josue Chatterjee DO Date of Service: 11/01/24 Procedure(s): MM post biopsy LT w/CAD; US biopsy LT 1st lesion guid Accession Number(s): ([id number]) US/US biopsy LT 1st lesion guid: N63.20 ([id number]) MM/MM post biopsy LT w/CAD: POST US GUIDED LT BREAST BX -MARKER PLACEMENT Copies to: Josue Chatterjee DO ADDENDUM 1 Pathology demonstrated invasive ductal carcinoma. This concordant with the imaging findings. Recommend surgical consultation. Impression dictated by: Teto Smith M.D.11/04/2024 8:46 AM Dictation Location: [place] [address] Addendum Dictated By: Teto Smith MD Addendum Signed By: 11/04/24845 Addendum Cosigned By: DD/ TD/TT: 11/04/24 ULTRASOUND GUIDED VACUUM-ASSISTED HOLOGIC ATEC SYSTEM CORE BIOPSIES OF THE LEFT BREAST: CLINICAL DATA: Left breast mass PROCEDURE: The risks, benefits and alternatives to an ultrasound guided vacuum-assisted Hologic ATEC system core biopsy procedure were discussed with the patient and written informed consent was obtained. Ultrasonographic survey of the 2:00 of the left breast was performed by medical technologist prn . The patient's overlying skin was anesthetized with 1% lidocaine. The deeper soft tissues up to and around the mass were anesthetized with lidocaine mixed with epinephrine. Following this, multiple core biopsies of the left breast mass were performed using a 12-gauge [employer] vacuum-assisted core biopsy needle under ultrasound guidance. Multiple core biopsy specimens were obtained. A metallic post biopsy marker was then placed. Post procedure mammograms were performed. The patient tolerated the procedure well without immediate postprocedural complication. POSTPROCEDURE MAMMOGRAMS: Craniocaudal and true lateral views of the left breast were performed using low dose digital technique. The postbiopsy marker is seen just anterior to the biopsy site. MM/MM post biopsy LT w/CAD IMPRESSION: STATUS POST ULTRASOUND GUIDED VACUUM-ASSISTED CORE BIOPSIES OF THE LEFT BREAST. RESULT CODE: NL Impression dictated by: Teto Smith M.D.11/01/2024 2:46 PM Dictation Location: [facility] Dictated By: Teto Smith MD 11/01/24 1444 Signed By: 11/01/24 1446 Normal [facility] Laxmi 07-13-2024 ALT No additional P-5'-P [Catalytic activity/Vol] 13 Int._Unit/L Normal 6-46 [facility] Comment on above: Performed By: #### 2 [id number] #### [facility] [address] [place] [address] Kirt 07-13-2024 AST [Catalytic activity/Vol] 14 Int._Unit/L Normal 5-43 [facility] Comment on above: Performed By: #### 2 135185 #### [facility] [address] [place] [address] BMPon 07-13-2024 Anion gap [Moles/Vol] 10 mmol/L Normal 6-16 [facility] Comment on above: Performed By: #### 2 298954 #### [facility] [address] [place] [address] Calcium [Mass/Vol] 9.3 mg/dL Normal 8.9-11.1 [facility] Comment on above: Performed By: #### 2 064479 #### [facility] [address] [place] [address] Chloride [Moles/Vol] 105 mmol/L Normal 101-111 [facility] [place] [facility] Comment on above: Performed By: #### 2 968267 #### [facility] [address] [place] [address] CO2 [Moles/Vol] 31 mmol/L Normal 21-31 [facility] Comment on above: Performed By: #### 2 519515 #### [facility] [address] [place] [address] Creatinine [Mass/Vol] 0.6 mg/dL Normal 0.5-1.3 [facility] Comment on above: Performed By: #### 2 727576 #### [facility] [address] [place] [address] Glucose [Mass/Vol] 79 mg/dL Normal 55-199 [facility] Comment on above: Performed By: #### 2 150602 #### [facility] [address] [place] [address] Potassium [Moles/Vol] 4.3 mmol/L Normal 3.5-5.3 [facility] Comment on above: Performed By: #### 2 293447 #### [facility] [address] [place] [address] Sodium [Moles/Vol] 142 mmol/L Normal 135-145 [facility] Comment on above: Performed By: #### 2 697836 #### [facility] [address] [place] [address] Urea nitrogen [Mass/Vol] 15 mg/dL Normal 5-21 [facility] Comment on above: Performed By: #### 2 957916 #### [facility] [address] [place] [address] Urea nitrogen/Creatinine [Mass ratio] 25 No Units High 10-20 [facility] Comment on above: Performed By: #### 2 752961 #### [facility] [address] [place] [address] CBC w/Indiceson 07-13-2024 Erythrocyte distribution width (RBC) [Ratio] 13.9 % Normal 10.9-14.2 [facility] Comment on above: Performed By: #### 2 778814 #### [facility] [address] [place] [address] Hematocrit (Bld) [Volume fraction] 40.7 % Normal 34.0-46.0 [facility] Comment on above: Performed By: #### 2 379159 #### [facility] [address] [place] [address] Hemoglobin (Bld) [Mass/Vol] 13.6 g/dL Normal 12.0-16.0 [facility] Comment on above: Performed By: #### 2 081057 #### [facility] [address] [place] [address] MCH (RBC) [Entitic mass] 29.5 pg Normal 27.0-34.0 [facility] Comment on above: Performed By: #### 2 941727 #### [facility] [address] [place] [address] MCHC (RBC) [Mass/Vol] 33.4 g/dL Normal 31.4-36.0 [facility] Comment on above: Performed By: #### 2 970773 #### [facility] [address] [place] [address] MCV (RBC) [Entitic vol] 88.3 fL Normal 80.0-100.0 [facility] Comment on above: Performed By: #### 2 610972 #### [facility] [address] [place] [address] Platelet 270.0 E9/L Normal 150.0-500.0 [facility] Comment on above: Performed By: #### 2 671291 #### [facility] [address] [place] [address] Platelet mean volume (Bld) [Entitic vol] 10.0 fL Normal 6.4-10.8 [facility] Comment on above: Performed By: #### 2 588680 #### [facility] [address] [place] [address] RBC (Bld) [#/Vol] 4.6 E12/L Normal 4.3-5.9 [facility] Comment on above: Performed By: #### 2 350220 #### [facility] [address] [place] [address] RBC size Nom (Bld) NORMAL Invalid Interpretation Code [facility] Comment on above: Performed By: #### 2 764807 #### [facility] [address] [place] [address] WBC corrected for nucl RBC Auto (Bld) [#/Vol] 5.4 E9/L Normal 4.0-11.0 [facility] Comment on above: Performed By: #### 2 518478 #### [facility] [address] [place] [address] Lipid Panelon 07-13-2024 Cholesterol [Mass/Vol] 161 mg/dL Normal 120-200 [facility] Comment on above: Performed By: #### 2 499502 #### [facility] [address] [place] [address] Cholesterol in HDL [Mass/Vol] 58 mg/dL Invalid Interpretation Code [facility] Comment on above: Result Comment: '>= 60 LOW RISK' '<= 40 HIGH RISK' Performed By: #### 2 951227 #### [facility] [address] [place] [address] Cholesterol in LDL [Mass/Vol] 77 mg/dL Normal <=129 [facility] Comment on above: Performed By: #### 2 009941 #### [facility] [address] [place] [address] Cholesterol in VLDL [Mass/Vol] 24 mg/dL Normal 7-40 [facility] Comment on above: Performed By: #### 2 078182 #### [facility] [address] [place] [address] Triglyceride [Mass/Vol] 119 mg/dL Normal <=149 [facility] Comment on above: Performed By: #### 2 210118 #### [facility] [address] [place] [address] eGFRon 07-13-2024 eGFR 98 mL/min/1.73 m2 Normal >=59 [facility] Comment on above: Performed By: #### 1 [id number] #### [facility] [address] [place] [address] [facility] MUGA SCAN INJECTIONon [facility] MUGA SCAN INJECTION Patient Name: CANDIDO MCFARLANE STUDY: MUGA Performing facility: [facility], [address] [place] [address], [address], [place] [address] [facility] Provider: Zelalem King DO, FACC PCP: Dr. Vishnu CHATTERJEE Supervising provider: Hina Frye MD, FACC INDICATION: I42.9: Cardiomyopathy I42.8: Non-ischemic cardiomyopathy I10: Hypertension HISTORY: Gender: F; Age: 67 y/o ; Height: 0 cm; Weight: 0 kg. NICM, HTN Arrhythmias; PVCs COMPARISON: Previous echo testing completed 08/2022 at [facility]. EF 40-45% Previous nuclear testing completed 10/2021 at [facility]. EF 63% ACCESSION NUMBER(S): [id number]; [id number] ORDERING CLINICIAN: BALDO KING TECHNIQUE: The patient received an IV injection of 3 ml of stannous pyrophosphate (PYP) using the in-vivo method of labeling red blood cells. After 15 minutes the patient received another IV injection of 24.8 mCi of Technetium 99m pertechnetate. Planar images of the left ventricle were obtained in the OCCITAN 45, Lt Lateral and anterior projections. FINDINGS: The right ventricle was normal. The left ventricle was normal in size. Regional wall motion was normal. Global resting LVEF was normal- at 55%. IMPRESSION: Normal resting right ventricular function. Normalresting left ventricular function. Left ventricular ejection fraction is 55%. No previous studies are available for comparison Electronically signed by: HINA FRYE MD Normal [facility] ([place], [place]) No Panel Informationon 03-20 Normal -[facility] [place] 250 DO Work Phone: Office Visit (Cardiology)on 10-18-2022 Follow-up visit Diagnoses/Problems Assessed Non-ischemic cardiomyopathy (425.4) (I42.8) Hypertension (401.9) (I10) Never a smoker Body mass index (BMI) of 21.0 to 21.9 in adult (V85.1) (Z68.21) Cardiomyopathy (425.4) (I42.9) Shortness of breath (786.05) (R06.02) Orders Cardiomyopathy, Hypertension, Non-ischemic cardiomyopathy NM Muga (Gated Cardiac Blood Pool); Status:Hold For - Scheduling,Retrospectiv e Authorization; Requested for:[id number]; Radiologist to Determine Optimal Study : Y [...] muga scan 6 months Chief Complaint CANDIDO MCFARLANE is being seen for a 8 month [...] a different institution read by a different pharmacology associate, her left ventricular end-systolic diameter was 3.8 [...] negative for complaint. Vitals Vital Signs Recorded: [id number] 03:41PM Heart Rate60, L Radial Aolwhfwz253, LUE, Sitting Azetbcxpy25, LUE, Sitting Height5 ft 2 in Sjquiq139 lb BMI Umbwytasmq80.95 kg/m2 BSA Calculated1.54 Tobacco Useb) No PHQ-2 [...] respiratory dis (more content not included)... Normal [facility] Tobacco Screening.on 023 Adult depression screening assessment No [facility] [employer] 250 DO Work Phone: Fall risk assessment b) One or more fall s in the last year [facility] [employer] 250 DO Work Phone: Tobacco use status CPHS b) No [facility] [employer] [place] 250 DO Work Phone: Echocardiogramon 08-29-2022 Echocardiography [facility] [address] [place] [address], [address] [facility], [place] [address] TRANSTHORACIC ECHOCARDIOGRAM REPORT Patient Name: CANDIDO Pathak Physician: [id number] Hina Frye MD, [facility] Study Date: 08/29/2022 Referring Physician: BALDO KING MRN/PID: [id number] PCP: Josue Chatterjee Accession/Order#: [id number] Department Location: [facility] Stephanie Date of : 1955 Fellow: Gender: F Nurse: Admit Date: Remote [employer] Developer: Jillian Goldman RDCS, RVT Height: 157.48 cm CC Report to: Weight: 53.52 kg Study Type: Echocardiogram BSA: 1.53 m2 Diagnosis/ICD: I34.0-Nonrheumatic mitral (valve) insufficiency Indication: HTN Procedure/CPT: Echo Complete w Full Doppler-[id number] Study Detail: The following Echo studies were [...] AoV Mean P.0 mmHg (1.7-11.5mmHg) LVOT Max Bettye: 0.70 m/s (<=1.1m/s) AoV VTI: 19.60 cm (18-25cm) LVOT VTI: 16.00 cm LVOT Diameter: 1.80 cm (1.8-2.4cm) AoV Area, VTI: 2.08 cm2 (2.5-5.5cm2) AoV Area,Vmax: 2.01 cm2 (2.5-4.5cm2) AoV Dimensionless Index: 0.82 TRICUSPID VALVE/RVSP: Normal Ranges: Peak TR Velocity: 2.63 m/s RV Syst Pressure: 30.7 mmHg (< 30mmHg) PULMONIC VALVE: Normal Ranges: PV Max Bettye: 0.5 m/s (0.6-0.9m/s) PV Max P.2 mmHg PIEDV: 1.71 m/s PADP: 14.7 mmHg [id number] Hina Frye MD, [facility] Electronically signed on 09/02/2022 at 6:28:[address] [facility] ([place], [place]) Echocardiography Please click on the link to view the study images Normal [facility] [employer] [email or web address] Work Phone: Falls Screening (Age 18+)on 08-29-2022 Fall risk assessment b) One or more fall s in the last year [facility] [email or web address] Work Phone: MG MAMM SCREEN 3D GOLDIE CADon 07-12-2022 MG MAMM SCREEN 3D GOLDIE CAD Patient: MELISSA MCFARLANE Exam Date: 07/12/2022 : 1955 Gender:F Ordering : DR JOSUE CHATTREJEE D.O. Admission #: [id number] Family : Order #: [id number] CLICK HERE TO VIEW EXAM RADIOLOGY REPORT [...] prostate cancer at age 77. LOCATION: [facility] BREAST COMPOSITION: Heterogeneously dense,which may obscure [...] Jesus MD on 07/12/2022 at 10:30 Normal [facility] T3, TOTAL (TRIIODOTHYRONINE) on 06-08-2022 T3, TOTAL 97 ng/dL Normal 71-180 [facility] Comment on above: Performed By: #### T 3TOTAL #### [facility] [address] [place] [address] Dr. Davie Vanessa FREE T4on 06-06-2022 Free T4 [Mass/Vol] 0.93 ng/dL Normal 0.76-1.46 [facility] Comment on above: Performed By: #### F T4 #### [facility] [address] [place] [address] Dr. Davie Vanessa TSHon 06-06-2022 TSH 3.021 uIU/mL Normal 0.358-3.740 [facility] Comment on above: Performed By: #### T SH ####[facility] [address] [place] [address]Dr. Davie Vanessa CBC AUTO DIFFon 05-09-2022 BASO # 0.1 103/ul Normal 0.0-0.1 [facility] Comment on above: Performed By: #### C BC #### [facility] [address] [place] [address] Dr. Davie Vanessa Basophils/100 WBC (Bld) 0.9 % Normal 0.2-2.0 [facility] Comment on above: Performed By: #### C BC #### [facility] [address] [place] [address] Dr. Davie Vanessa EO # 0.2 103/ul Normal 0.0-0.7 [facility] Comment on above: Performed By: #### C BC #### [facility] [address] [place] [address] Dr. Davie Vanessa Eosinophils/100 WBC (Bld) 3.1 % Normal 0.9-7.0 [facility] Comment on above: Performed By: #### C BC #### [facility] [address] [place] [address] Dr. Davie Vanessa Erythrocyte distribution width (RBC) [Ratio] 13.5 % Normal 11.0-15.0 [facility] Comment on above: Performed By: #### C BC #### [facility] [address] [place] [address] Dr. Davie Vanessa Hematocrit (Bld) [Volume fraction] 43.2 % Normal 36.0-48.0 [facility] Comment on above: Performed By: #### C BC #### [facility] [address] [place] [address] Dr. Davie Vanessa Hemoglobin (Bld) [Mass/Vol] 13.7 g/dL Normal 12.0-16.0 [facility] Comment on above: Performed By: #### C BC #### [facility] [address] [place] [address] Dr. Davie Vanessa IG # 0.01 10e3/ul Normal 0.00-0.03 [facility] Comment on above: Performed By: #### C BC #### [facility] [address] [place] [address] Dr. Davie Vanessa IG % 0.2 % Normal 0.0-0.5 [facility] Comment on above: Performed By: #### C BC #### [facility] [address] [place] [address] Dr. Davie Vanessa LYMPH # 2.2 103/ul Normal 1.2-3.8 [facility] Comment on above: Performed By: #### C BC #### [facility] [address] [place] [address] Dr. Davie Vanessa Lymphocytes/100 WBC (Bld) 36.9 % Normal 20.5-60.0 [facility] Comment on above: Performed By: #### C BC #### [facility] [address] [place] [address] Dr. Davie Vanessa MANUAL DIFF REQ NO Normal [facility] Comment on above: Performed By: #### C BC #### [facility] [address] [place] [address] Dr. Davie Vanessa MCH (RBC) [Entitic mass] 29.0 pg Normal 26.7-34.0 [facility] Comment on above: Performed By: #### C BC #### [facility] [address] [place] [address] Dr. Davie Vanessa MCHC (RBC) [Mass/Vol] 31.7 g/dL Normal 29.9-35.2 [facility] Comment on above: Performed By: #### C BC #### [facility] [address] [place] [address] Dr. Davie Vanessa MCV (RBC) [Entitic vol] 91.5 fL Normal 81.0-99.0 [facility] Comment on above: Performed By: #### C BC #### [facility] [address] [place] [address] Dr. Davie Vanessa MONO # 0.7 103/ul Normal 0.3-0.8 [facility] Comment on above: Performed By: #### C BC #### [facility] [address] [place] [address] Dr. Davie Vanessa Monocytes/100 WBC (Bld) 11.1 % Normal 1.7-12.0 [facility] Comment on above: Performed By: #### C BC #### [facility] [address] [place] [address] Dr. Davie Vanessa NEUT # 2.8 103/ul Normal 1.4-6.5 [facility] Comment on above: Performed By: #### C BC #### [facility] [address] [place] [address] Dr. Davie Vaenssa Neutrophils/100 WBC (Bld) 47.8 % Normal 43.0-75.0 [facility] Comment on above: Performed By: #### C BC #### [facility] [address] [place] [address] Dr. Davie Vanessa Platelet mean volume (Bld) [Entitic vol] 12.2 fL Normal 9.5-13.5 [facility] Comment on above: Performed By: #### C BC #### [facility] [address] [place] [address] Dr. Davie Vanessa PLT 240 103/ul Normal 150-450 [facility] Comment on above: Performed By: #### C BC #### [facility] [address] [place] [address] Dr. Davei Vanessa RBC 4.72 106/ul Normal 4.20-5.40 [facility] Comment on above: Performed By: #### C BC #### [facility] [address] [place] [address] Dr. Davie Vanessa WBC 5.9 103/ul Normal 4.0-11.0 [facility] Comment on above: Performed By: #### C BC #### [facility] [address] [place] [address] Dr. Davie Vanessa GLYCOHEMOGLOBIN A1Con 2021 ADA RECOMMENDATION SEE BELOW Normal [facility] Comment on above: Result Comment: ADA RECOMMENDED LIMIT 4.0 - 6.0 ADA THERAPEUTIC TARGET < 7.0 ACTION SUGGESTED > 7.0 Performed By: #### A 1C #### [facility] [address] [place] [address] Dr. Davie Vanessa Glucose [Mass/Vol] 111 mg/dL Normal [facility] Comment on above: Performed By: #### A 1C #### [facility] [address] [place] [address] Dr. Davie Vanessa HbA1c (Bld) [Mass fraction] 5.5 % Normal 4.5-6.2 [facility] Comment on above: Performed By: #### A 1C #### [facility] [address] [place] [address] Dr. Davie Vanessa LIPID PROFILEon 05-09-2022 CHOL-HDL RATIO NORM SEE BELOW Normal [facility] Comment on above: Result Comment: 3.3 - 4.4 LOW RISK 4.4 - 7.1 AVERAGE RISK 7.1 - 11.0 MODERATE RISK >11.0 HIGH RISK Performed By: #### C MP, LIPID, TSH ####[facility] [address] [place] [id number]. Davie Vanessa Cholesterol [Mass/Vol] 137 mg/dL Normal <=200 [facility] Comment on above: Performed By: #### C MP, LIPID, TSH ####[facility] [address] [place] [address]Dr. Davie Vanessa Cholesterol in HDL [Mass/Vol] 64 mg/dL Critically high 40-60 [facility] Comment on above: Performed By: #### C MP, LIPID, TSH ####[facility] [address] [place] [address]Dr. Davie Vanessa Cholesterol in LDL [Mass/Vol] 57.4 mg/dL Normal [facility] Comment on above: Performed By: #### C MP, LIPID, TSH ####[facility] [address] [place] [address]Dr. Davie Vanessa Cholesterol.total/Cho lesterol in HDL [Mass ratio] 2.1 {ratio} Normal [facility] Comment on above: Performed By: #### C MP, LIPID, TSH ####[facility] [address] [place] [id number]. Davie Vanessa HDL NORMAL > or = 60 mg/dl - LO W CARDIOVASCULAR RISK <40 mg/dl - HIGH CARDIOVASCULAR RISK Normal [facility] Comment on above: Performed By: #### C MP, LIPID, TSH ####[facility] [address] [place] [id number]. Davie Vanessa LDL CALC NORMAL SEE BELOW Normal [facility] Comment on above: Result Comment: <100 mg/dl OPTIMAL 100 - 129 mg/dl NEAR OR ABOVE OPTIMAL 130 - 159 mg/dl BORDERLINE HIGH 160 - 189 mg/dl HIGH >190 mg/dl VERY HIGH Performed By: #### C MP, LIPID, TSH ####[facility] [address] [place] [id number]. Davie Vanessa Triglyceride [Mass/Vol] 78 mg/dL Normal <=150 [facility] Comment on above: Performed By: #### C MP, LIPID, TSH ####[facility] [address] [place], [place] [address]IlDr. Davie Vanessa VLDL CALC 15.6 mg/dL Normal [facility] Comment on above: Performed By: #### C MP, LIPID, TSH ####[facility] [address] [place], [place] [address]TfDr. Davie Vanessa PROF 14(COMP METB)on 022 Albumin [Mass/Vol] 3.8 g/dL Normal 3.4-5.0 [facility] Comment on above: Performed By: #### C MP, LIPID, TSH #### [facility] [address] [place] [address] [address] Davie Vanessa Albumin/Globulin [Mass ratio] 1.2 {ratio} Normal [facility] Comment on above: Performed By: #### C MP, LIPID, TSH #### [facility] [address] [place] [address] [address] Davie Vanessa ALP [Catalytic activity/Vol] 103 U/L Normal 46-116 [facility] Comment on above: Performed By: #### C MP, LIPID, TSH #### [facility] [address] [place] [address] [address] Davie Vanessa ALT [Catalytic activity/Vol] 21 U/L Normal 14-59 [facility] Comment on above: Performed By: #### C MP, LIPID, TSH #### [facility] [address] [place] [address] [address] Davie Vanessa Anion gap [Moles/Vol] 6.9 mmol/L Normal [facility] Comment on above: Performed By: #### C MP, LIPID, TSH #### [facility] [address] [place] [address] [address] Davie Vanessa AST [Catalytic activity/Vol] 15 U/L Normal 15-37 [facility] Comment on above: Performed By: #### C MP, LIPID, TSH #### [facility] [address] [place] [address] [address] Davie Vanessa Bilirubin [Mass/Vol] 0.8 mg/dL Normal 0.2-1.0 [facility] Comment on above: Performed By: #### C MP, LIPID, TSH #### [facility] [address] [address] [address] Davie Vanessa Calcium [Mass/Vol] 8.9 mg/dL Normal 8.5-10.1 [facility] Comment on above: Performed By: #### C MP, LIPID, TSH #### [facility] [address] [place] [address] Dr. Davie Vanessa Chloride [Moles/Vol] 106 mmol/L Normal 98-107 [facility] Comment on above: Performed By: #### C MP, LIPID, TSH #### [facility] [address] [place] [address] Dr. Davie Vanessa CO2 [Moles/Vol] 31.2 mmol/L Normal 21.0-32.0 [facility] Comment on above: Performed By: #### C MP, LIPID, TSH #### [facility] [address] [place] [address] Dr. Davie Vanessa Creatinine [Mass/Vol] 0.74 mg/dL Normal 0.55-1.02 [facility] Comment on above: Performed By: #### C MP, LIPID, TSH #### [facility] [address] [place] [address] Dr. Davie Vanessa EGFR-AF GREENLANDIC >60 Normal >=60 [facility] Comment on above: Performed By: #### C MP, LIPID, TSH #### [facility] [address] [place] [address] Dr. Davie Vanessa EGFR-NON AF GREENLANDIC >60 Normal >=60 [facility] Comment on above: Performed By: #### C MP, LIPID, TSH #### [facility] [address] [place] [address] Dr. Davie Vanessa Globulin (S) [Mass/Vol] 3.1 g/dL Normal [facility] Comment on above: Performed By: #### C MP, LIPID, TSH #### [facility] [address] [place] [address] Dr. Davie Vanessa Glucose [Mass/Vol] 89 mg/dL Normal 74-106 [facility] Comment on above: Performed By: #### C MP, LIPID, TSH #### [facility] [address] [place] [address] Dr. Davie Vanessa Potassium [Moles/Vol] 4.1 mmol/L Normal 3.5-5.1 [facility] Comment on above: Performed By: #### C MP, LIPID, TSH #### [facility] [address] [place] [address] Dr. Davie Vanessa Protein [Mass/Vol] 6.9 g/dL Normal 6.4-8.2 [facility] Comment on above: Performed By: #### C MP, LIPID, TSH #### [facility] [address] [place] [address] Dr. Davie Vanessa Sodium [Moles/Vol] 140 mmol/L Normal 136-145 [facility] Comment on above: Performed By: #### C MP, LIPID, TSH #### [facility] [address] [place] [address] Dr. Davie Vanessa Urea nitrogen [Mass/Vol] 16.0 mg/dL Normal 7.0-18.0 [facility] Comment on above: Performed By: #### C MP, LIPID, TSH #### [facility] [address] [place] [address] Dr. Davie Vanessa Urea nitrogen/Creatinine [Mass ratio] 21.6 mg/mg Normal [facility] Comment on above: Performed By: #### C MP, LIPID, TSH #### [facility] [address] [place] [address] Dr. Davie Vanessa TSHon 05-09-2022 TSH 5.061 uIU/mL Critically high 0.358-3.740 [facility] Comment on above: Performed By: #### C MP, LIPID, TSH #### [facility] [address] [place] [address] Dr. Davie Vanessa Office Visit (Cardiology)on 01-09-2022 [...] the office if new symptoms arise. Dr. King as scheduled Chief Complaint I am ok CANDIDO MCFARLANE is being seen for a 6 week follow-up of hypertension. Patient was last evaluated in clinic Dr. King November 2021. Changes to medical regimen at [...] and affect . Signatures Bee Gao MSN, [employer]GGLE [employer]ESS FOLDER AND FEEDER-SALES OPERATIONS SPECIALIST, PMHNP-BC [facility] Please excuse any errors in grammar or translation related to this dictation. Voice recognition software was utilized to prepare this document. Electronically signed by : CONNIE Louis; Jan 14 2022 9:31AM EST (Author) Appendix #1 Vital Signs Patient: CANDIDO MCFARLANE; : 1955; Recorded: [id number] 04:27PMRecorded: [id number] 04:07PMRecorded: [id number] 04:05PM Qrzjgorv796, Pzdnxxfs609, LUE, Zuqcpah302, RUE, Sitting Zqbhhfzlu07, Fhkyoodz99, LUE, Ubxfyfx87, RUE, Sitting Heart Rate68, L Bukqjw11, R Radial Height5 ft 2 in5 ft 2 in Ivhann475 lb 118 lb BMI Gmheysbvly49.58 kg/m221.58 kg/m2 BSA Calculated1.531.53 Tobacco Useb) No PHQ-2 #1. Over the last 2 weeks have you felt down, depressed or hopeless? (If yes, answer PHQ-9 below)No PHQ-2 #2. Over the last 2 weeks have you felt little interest or pleasure in doing things? (If yes, answer PHQ-9 below)No Normal [facility] PHQ-2 VITALSon 01-09-2022 Adult depression screening assessment No [facility] [place] [facility] Work Phone: Tobacco use status CPHS b) No [facility] [place] [facility] Work Phone: Office Visit (Cardiology)on 11-29-2021 Follow-up visit Diagnoses/Problems Assessed Benign essential hypertension (401.1) (I10) Body mass index (BMI) of 21.0 to 21.9 in adult (V85.1) (Z68.21) Mitral regurgitation (424.0) (I34.0) Never a smoker Orders Mitral regurgitation Echocardiogram; Status:Hold For - Scheduling,Retrospectiv e Authorization; Requested for:25Sep2022; SocHx: Never a smoker Tobacco Use Screening; Status:Complete; Done: 29Nov2021 Patient Instructions By signing my name below, I, Padmini Urias LPN,Marissaibe, attest that this documentation has been prepared under the direction and in the presence of Dr. Baldo King, . Please bring all medicines, vitamins, and herbal [...] [ 8 ] months Chief Complaint CANDIDO MCFARLANE is being seen for a cardiovascular evaluation [...] negative for complaint. Vitals Vital Signs Recorded: [id number] 11:08AMRecorded: [id number] 10:24AM Adkfuiln823, LUE, Jfumfbd443, LUE, Sitting Mwjqvcavm76, LUE, Yssrhch30, LUE, Sitting Heart Rate78, L Radial Height5 ft 2 in Iehprg939 lb BMI Eosbehlfqs83.58 kg/m2 BSA Calculated1.53 Tobacco Useb) No PHQ-2 [...] time . Signatures Electronically signed by : Baldo King DO; Nov 29 2021 11:37AM EST (Author) Normal NOBOT Tobacco Screening.on 022 Adult depression screening assessment No [facility] [place] [facility] DO Work Phone: Fall risk assessment a) No falls within the last year [facility] [place] DO Work Phone: Tobacco use status CP b) No -[facility] [place] [facility] DO Work Phone: NM STRESS/REST MULTIon 11-15 NM STRESS/REST MULTI Patient: MELISSA MCFARLANE Exam Date: 11/15/2021 : 1955 Gender:F Ordering : DR BALDO KING Admission #: [id number] Family : Order #: [id number] CLICK HERE TO VIEW EXAM RADIOLOGY REPORT [...] was normal per attending physician Dr. Thom Chatterjee . For more details please see separate cardiac stress test report. FINDINGS: QUALITY OF STUDY: Excellent. PERFUSION DEFECT: None. LOCATION: SIZE: N/A. SEVERITY: N/A. TYPE: N/A. WALL MOTION: Normal. LV SIZE: Normal. 65 mL. TID / TCD: None; 0.96 LVEF: Normal. Calculated EF 63%. SUMMARY: Myocardial perfusion imaging study is NORMAL. CONCLUSION: 1. Normal nuclear medicine myocardial perfusion scan. Dictated by: Anton Babin M.D. on 11/15/2021 at 15:08 Approved by: Anton Babin M.D. on 11/15/2021 at 15:09 Normal [facility] Office Visit (Cardiology)on 11-05-2021 Follow-up visit [...] Stress/Rest Nuclear Med Order; Status:Hold For - Scheduling,Retrospectiv e Authorization; Requested for:05Nov2021; Radiologist to Determine Optimal Study : Y What are the patient's signs and symptoms? : Chest Pain PVC (premature ventricular contraction) IO EKG Electrocardiogram- 12 Lead; Status:Complete; Done: 05Nov2021 SocHx: Never a smoker Tobacco Use Screening; Status:Complete; Done: 05Nov2021 Patient Instructions By signing my name below, I, Elena Jacobson LPN, Scribe, attest that this documentation has been prepared under the direction and in the presence of Dr. Baldo King DO. All medical record entries made by the Marissaibe were at my direction and personally dictated [...] Follow-up after testing completed Chief Complaint CANDIDO MCFARLANE is being seen for a cardiovascular evaluation of an abnormal ECG, chest pain and heart failure. Patient is a 66-year-old female seen in cardiology consultation for second opinion regarding cardiovascular follow-up and abnormal echocardiogram. She is previously followed by [facility] pharmacology associate Dr. Kaplan since 2011 with a diagnosis [...] details of which are unknown Her primary pharmacology associate (who is now moved territory) referred her [...] Allergies Recorded (more content not included)... Normal NOBOT Tobacco Screening.on 022 Adult depression screening assessment No -[facility] [place] [facility] DO Work Phone: Fall risk assessment c) Not medically indicated -[facility] [place] [facility] DO Work Phone: Tobacco use status CP b) No -[facility] [place] [facility] DO Work Phone: ECHOCARDIO M/2D COMPLETEon 0 10-04-2021 ECHOCARDIO M/2D COMPLETE Patient: MELISSA MCFARLANE Exam Date: 10/04/2021 : 1955 Gender:F Ordering : DR LADAN CURRAN M.D. Admission #: [id number] Family : DR JOSUE CHATTERJEE D.O. Order #: [id number] CLICK HERE TO VIEW EXAM ECHOCARDIOGRAM REPORT [...] Area(A4C): 19.40 cm2 Left Atrium Systolic Volume(A4C): 56615 mm3 Mitral Valve MV E to A Ratio: 1.40 Mitral Valve A-Wave Peak Velocity: 41.00 cm/s Mitral Valve E-Wave Peak Velocity: 56.30 cm/s Deceleration Time: 182 ms Right Ventricle Aorta AO Root Diam: 3.20 cm Aortic Valve AoV Area (Peak Bettye): 2.49 cm2 Peak Velocity(Antegrade Flow): 101.00 cm/s Peak Gradient(Antegrade Flow): 4 mm[Hg] Tricuspid Valve Peak Velocity (Regurgitant Flow): 224.00 cm/s Pulmonic Valve Peak Velocity: 68.40 cm/s Peak Gradient: 2 mm[Hg] Right Atrium Dictated by: Ladan Curran M.D. on 10/04/2021 at 12:35 Approved by: Ladan Curran M.D. on 10/04/2021 at 12:45 Normal [facility] XR DEXA BONE DENSITYon 08-09 XR DEXA [...] - Moderate Fracture Risk Electronically authenticated by: ANTON BABIN Date: 2021-08-09 08:21 Normal [facility] Vital Signs Date Time Vital Sign Value Performing Clinician Facility 04-26-2025 13:35-0400 Body height 154.94 cm Josue Ball DO Work Phone: 04-26-2025 13:35-0400 Body mass index (BMI) [Ratio] 21.4 kg/m2 Josue Ball DO Work Phone: 04-26-2025 13:35-0400 Body weight 51.31 kg Josue Ball DO Work Phone: 04-26-2025 13:35-0400 Diastolic blood pressure 83 mm[Hg] Josue Ball DO Work Phone: 04-26-2025 13:35-0400 Heart rate 84 /min Josue Ball DO Work Phone: 04-26-2025 13:35-0400 Respiratory rate 12 /min Josue Ball DO Work Phone: 04-26-2025 13:35-0400 Systolic blood pressure 150 mm[Hg] Josue Ball DO Work Phone: 02-23-2025 09:06-0400 Body height 154.94 cm Josue Ball DO Work Phone: 02-23-2025 09:06-0400 Body mass index (BMI) [Ratio] 21.5 kg/m2 Josue Ball DO Work Phone: 02-23-2025 09:06-0400 Body temperature 97.7 [degF] Josue Ball DO Work Phone: 02-23-2025 09:06-0400 Body weight 51.7 kg Josue Ball DO Work Phone: 02-23-2025 09:06-0400 Heart rate 69 /min Josue Ball DO Work Phone: 02-23-2025 09:06-0400 Respiratory rate 16 /min Josue Ball DO Work Phone: 02-23-2025 09:06-0400 SaO2% (BldA) [Mass fraction] 99 % Josue Ball DO Work Phone: 01-26-2025 08:35-0400 Body height 185.42 cm Josue Ball DO Work Phone: 01-26-2025 08:35-0400 Body mass index (BMI) [Ratio] 15 kg/m2 Josue Ball DO Work Phone: 01-26-2025 08:35-0400 Body temperature 97.5 [degF] Josue Ball DO Work Phone: 01-26-2025 08:35-0400 Body weight 51.7 kg Josue Ball DO Work Phone: 01-26-2025 08:35-0400 Diastolic blood pressure 83 mm[Hg] Josue Ball DO Work Phone: 01-26-2025 08:35-0400 Heart rate 64 /min Josue Ball DO Work Phone: 01-26-2025 08:35-0400 Respiratory rate 16 /min Josue Ball DO Work Phone: 01-26-2025 08:35-0400 SaO2% (BldA) [Mass fraction] 100 % Josue Ball DO Work Phone: 01-26-2025 08:35-0400 Systolic blood pressure 144 mm[Hg] Josue Ball DO Work Phone: 01-25-2025 08:44-0400 Body height 152.4 cm Surendra Heml PA-C Work Phone: [facility] 01-25-2025 08:44-0400 Body mass index (BMI) [Ratio] 22.46 kg/m2 Surendra CHRISTOPHER-C Work Phone: [facility] 01-25-2025 08:44-0400 Body weight 52.16 kg Surendra CHRISTOPHER-Cholo Work Phone: [facility] 12-31-2024 08:39-0400 Body mass index (BMI) [Ratio] 21.98 kg/m2 Ave Ford MD Work Phone: [facility] 12-31-2024 08:39-0400 Body temperature 97.81 [degF] Ave Ford MD Work Phone: [facility] 12-31-2024 08:39-0400 Body weight 52.[address] MD Work Phone: [facility] 12-31-2024 08:39-0400 Diastolic blood pressure 86 mm[Hg] Ave Ford MD Work Phone: [facility] 12-31-2024 08:39-0400 Heart rate 71 /min Ave Ford MD Work Phone: [facility] 12-31-2024 08:39-0400 SaO2% (BldA) [Mass fraction] 99 % Ave Ford MD Work Phone: [facility] 12-31-2024 08:39-0400 Systolic blood pressure 146 mm[Hg] Ave Ford MD Work Phone: [facility] 12-09-2024 10:32-0400 Body height 160 cm Baldo King DO Work Phone: [facility] 12-09-2024 10:32-0400 Body mass index (BMI) [Ratio] 20.37 kg/m2 Baldo King DO Work Phone: [facility] 12-09-2024 10:32-0400 Body weight 52.16 kg Baldo King DO Work Phone: [facility] 12-09-2024 10:32-0400 Diastolic blood pressure 88 mm[Hg] Baldo King DO Work Phone: [facility] 12-09-2024 10:32-0400 Heart rate 68 /min Baldo King DO Work Phone: [facility] 12-09-2024 10:32-0400 Systolic blood pressure 126 mm[Hg] Baldo King DO Work Phone: [facility] 12-07-2024 11:17-0400 Body height 154.1 cm [facility] Velva Work Phone: [facility] 12-07-2024 11:17-0400 Body mass index (BMI) [Ratio] 21.73 kg/m2 [facility] Work Phone: [facility] 12-07-2024 11:17-0400 Body weight 51.6 kg [facility] Work Phone: [facility] 12-07-2024 11:17-0400 Diastolic blood pressure 90 mm[Hg] [facility] Work Phone: [facility] 12-07-2024 11:17-0400 Heart rate 63 /min [facility] Work Phone: [facility] 12-07-2024 11:17-0400 Respiratory rate 16 /min [facility] Work Phone: [facility] 12-07-2024 11:17-0400 SaO2% (BldA) [Mass fraction] 99 % [facility] Work Phone: [facility] 12-07-2024 11:17-0400 Systolic blood pressure 158 mm[Hg] [facility] Work Phone: [facility] 11-26-2024 11:27-0400 Body height 157.5 cm Carmella Munoz DO Work Phone: [facility] 11-26-2024 11:27-0400 Body mass index (BMI) [Ratio] 20.93 kg/m2 Carmella Munoz DO Work Phone: [facility] 11-26-2024 11:27-0400 Body weight 51.9 kg Carmella Munoz DO Work Phone: [facility] 11-26-2024 10:18-0400 Body mass index (BMI) [Ratio] 21.13 kg/m2 Ave Ford MD Work Phone: [facility] 11-26-2024 10:18-0400 Body temperature 98.01 [degF] Ave Ford MD Work Phone: [facility] 11-26-2024 10:18-0400 Body weight 52.[address] Ford MD Work Phone: [facility] 11-26-2024 10:18-0400 Diastolic blood pressure 79 mm[Hg] Ave Ford MD Work Phone: [facility] 11-26-2024 10:18-0400 Heart rate 65 /min Ave Ford MD Work Phone: [facility] 11-26-2024 10:18-0400 SaO2% (BldA) [Mass fraction] 100 % Ave Ford MD Work Phone: [facility] 11-26-2024 10:18-0400 Systolic blood pressure 156 mm[Hg] Ave Ford MD Work Phone: [facility] 11-05-2024 09:05-0400 Body height 154.31 cm Josue Ball DO Work Phone: 11-05-2024 09:05-0400 Body mass index (BMI) [Ratio] 21.7 kg/m2 Josue Ball DO Work Phone: 11-05-2024 09:05-0400 Body weight 51.87 kg Josue Ball DO Work Phone: 11-05-2024 09:05-0400 Diastolic blood pressure 88 mm[Hg] Josue Ball DO Work Phone: 11-05-2024 09:05-0400 Heart rate 73 /min Josue Ball DO Work Phone: 11-05-2024 09:05-0400 Respiratory rate 12 /min Josue Ball DO Work Phone: 11-05-2024 09:05-0400 Systolic blood pressure 125 mm[Hg] Josue Ball DO Work Phone: 11-01-2024 13:05-0400 Body temperature 98.2 [degF] Josue Ball DO Work Phone: 11-01-2024 13:05-0400 Diastolic blood pressure 84 mm[Hg] Josue Ball DO Work Phone: 11-01-2024 13:05-0400 Heart rate 74 /min Josue Ball DO Work Phone: 11-01-2024 13:05-0400 Respiratory rate 18 /min Josue Ball DO Work Phone: 11-01-2024 13:05-0400 SaO2% (BldA) [Mass fraction] 98 % Josue Ball DO Work Phone: 11-01-2024 13:05-0400 Systolic blood pressure 144 mm[Hg] Josue Ball DO Work Phone: 08-16-2024 14:54-0500 Body height 154.31 cm Josue Ball DO Work Phone: 08-16-2024 14:54-0500 Body mass index (BMI) [Ratio] 22.4 kg/m2 Josue Ball DO Work Phone: 08-16-2024 14:54-0500 Body weight 53.24 kg Josue Ball DO Work Phone: 08-16-2024 14:54-0500 Diastolic blood pressure 82 mm[Hg] Josue Ball DO Work Phone: 08-16-2024 14:54-0500 Heart rate 54 /min Josue Ball DO Work Phone: 08-16-2024 14:54-0500 Respiratory rate 12 /min Josue Ball DO Work Phone: 08-16-2024 14:54-0500 Systolic blood pressure 155 mm[Hg] Josue Ball DO Work Phone: 05-13-2024 09:40-0400 Body height 154.31 cm [facility] 05-13-2024 09:40-0400 Body mass index (BMI) [Ratio] 22.1 kg/m2 05-13-2024 09:40-0400 Body weight 52.73 kg [facility] 05-13-2024 09:40-0400 Diastolic blood pressure 84 mm[Hg] 05-13-2024 09:40-0400 Heart rate 74 /min [facility] 05-13-2024 09:40-0400 Respiratory rate 12 /min [facility] 05-13-2024 09:40-0400 Systolic blood pressure 138 mm[Hg] 03-28-2023 09:30-0400 Body height 157.48 cm Josue Ball Other [facility] [employer] Other 03-28-2023 09:30-0400 Body mass index (BMI) [Ratio] 21.36 kg/m2 Josue Ball Other [employer] [facility] [employer] Other 03-28-2023 09:30-0400 Body weight 52.98 kg Josue Ball Other [facility] [employer] Other 03-28-2023 09:30-0400 Diastolic blood pressure 72 mm[Hg] Josue Ball Other [facility] [employer] Other 03-28-2023 09:30-0400 Respiratory rate 12 /min Josue Ball Other [facility] [employer] Other 03-28-2023 09:30-0400 Systolic blood pressure 124 mm[Hg] Josue Ball Other [facility] [employer] Other 10-18-2022 15:41-0500 Body height 157.48 cm Josue E Ball Work Phone: [facility] 250 DO Work Phone: 10-18-2022 15:41-0500 Body mass index (BMI) [Ratio] 21.95 kg/m2 Josue E Ball Work Phone: [facility] 250 DO Work Phone: 10-18-2022 15:41-0500 Body surface area Derived from formula 1.54 m2 Josue E Ball Work Phone: [facility] 250 DO Work Phone: 10-18-2022 15:41-0500 Body weight 54.43 kg Josue E Ball Work Phone: [facility] 250 DO Work Phone: 10-18-2022 15:41-0500 Diastolic blood pressure 90 mm[Hg] Josue E Ball Work Phone: [facility] 250 DO Work Phone: 10-18-2022 15:41-0500 Heart rate 60 /min Josue E Ball Work Phone: [facility] 250 DO Work Phone: 10-18-2022 15:41-0500 Systolic blood pressure 140 mm[Hg] Josue E Ball Work Phone: [facility] 250 DO Work Phone: 08-29-2022 07:45-0500 45 1 Josue Mckenzie Ball Work Phone: [facility] 250 DO Work Phone: Comment on above: [id number] 01-09-2022 16:27-0400 Diastolic blood pressure 62 mm[Hg] Josue E Ball Work Phone: [facility] 250 DO Work Phone: 01-09-2022 16:27-0400 Systolic blood pressure 132 mm[Hg] Josue E Ball Work Phone: [facility] 250 DO Work Phone: 01-09-2022 16:07-0400 Body height 157.48 cm Josue E Ball Work Phone: [facility] 250 DO Work Phone: 01-09-2022 16:07-0400 Body mass index (BMI) [Ratio] 21.58 kg/m2 Joseu E Ball Work Phone: [facility] 250 DO Work Phone: 01-09-2022 16:07-0400 Body surface area Derived from formula 1.53 m2 Josue E Ball Work Phone: [facility] 250 DO Work Phone: 01-09-2022 16:07-0400 Body weight 53.52 kg Josue E Ball Work Phone: [facility] 250 DO Work Phone: 01-09-2022 16:07-0400 Diastolic blood pressure 82 mm[Hg] Josue E Ball Work Phone: [facility] 250 DO Work Phone: 01-09-2022 16:07-0400 Heart rate 68 /min Josue E Ball Work Phone: [facility] 250 DO Work Phone: 01-09-2022 16:07-0400 Systolic blood pressure 142 mm[Hg] Josue E Ball Work Phone: [facility] 250 DO Work Phone: 01-09-2022 16:05-0400 Body height 157.48 cm Josue E Ball Work Phone: [facility] 250 DO Work Phone: 01-09-2022 16:05-0400 Body mass index (BMI) [Ratio] 21.58 kg/m2 Josue E Ball Work Phone: [facility] 250 DO Work Phone: 01-09-2022 16:05-0400 Body surface area Derived from formula 1.53 m2 Josue E Ball Work Phone: [facility] 250 DO Work Phone: 01-09-2022 16:05-0400 Body weight 53.52 kg Josue E Ball Work Phone: [facility] 250 DO Work Phone: 01-09-2022 16:05-0400 Diastolic blood pressure 93 mm[Hg] Josue E Ball Work Phone: [facility] 250 DO Work Phone: 01-09-2022 16:05-0400 Heart rate 68 /min Josue E Ball Work Phone: [facility] 250 DO Work Phone: 01-09-2022 16:05-0400 Systolic blood pressure 152 mm[Hg] Josue E Ball Work Phone: [facility] 250 DO Work Phone: 11-29-2021 11:08-0400 Diastolic blood pressure 88 mm[Hg] Josue E Ball Work Phone: [facility] 250 DO Work Phone: 11-29-2021 11:08-0400 Systolic blood pressure 150 mm[Hg] Josue E Ball Work Phone: [facility] 250 DO Work Phone: 11-29-2021 10:24-0400 Body height 157.48 cm Josue E Ball Work Phone: [facility] 250 DO Work Phone: 11-29-2021 10:24-0400 Body mass index (BMI) [Ratio] 21.58 kg/m2 Josue E Ball Work Phone: [facility] 250 DO Work Phone: 11-29-2021 10:24-0400 Body surface area Derived from formula 1.53 m2 Josue E Ball Work Phone: [facility] 250 DO Work Phone: 11-29-2021 10:24-0400 Body weight 53.52 kg Josue E Ball Work Phone: [facility] 250 DO Work Phone: 11-29-2021 10:24-0400 Diastolic blood pressure 98 mm[Hg] Josue E Ball Work Phone: [facility] 250 DO Work Phone: 11-29-2021 10:24-0400 Heart rate 78 /min Josue E Ball Work Phone: [facility] 250 DO Work Phone: 11-29-2021 10:24-0400 Systolic blood pressure 158 mm[Hg] Josue E Ball Work Phone: [facility] 250 DO Work Phone: 11-15-2021 15:45-0400 63 1 Josue E Ball Work Phone: [facility] 250 DO Work Phone: Comment on above: [id number] 11-05-2021 14:42-0400 Diastolic blood pressure 80 mm[Hg] Josue E Ball Work Phone: [facility] 250 DO Work Phone: 11-05-2021 14:42-0400 Systolic blood pressure 140 mm[Hg] Josue E Ball Work Phone: [facility] 250 DO Work Phone: 11-05-2021 14:36-0400 Body height 157.48 cm Josue E Ball Work Phone: [facility] 250 DO Work Phone: 11-05-2021 14:36-0400 Body mass index (BMI) [Ratio] 21.58 kg/m2 Josue E Ball Work Phone: [facility] 250 DO Work Phone: 11-05-2021 14:36-0400 Body surface area Derived from formula 1.53 m2 Josue E Ball Work Phone: [facility] 250 DO Work Phone: 11-05-2021 14:36-0400 Body weight 53.52 kg Josue E Ball Work Phone: [facility] 250 DO Work Phone: 11-05-2021 14:36-0400 Diastolic blood pressure 80 mm[Hg] Josue E Ball Work Phone: [facility] 250 DO Work Phone: 11-05-2021 14:36-0400 Heart rate 73 /min Josue E Ball Work Phone: [facility] 250 DO Work Phone: 11-05-2021 14:36-0400 Systolic blood pressure 145 mm[Hg] Josue E Ball Work Phone: [facility] DO Work Phone: Encounters Encounter Date Encounter Type Care Provider Facility Start: 05-11-2025 End: 05-11-2025 Bamboo flowsheet Radha Blount AUD Work Phone: [facility] Start: 05-11-2025 End: 05-11-2025 Bamboo flowsheet Radha Blount AUD Work Phone: [facility] Start: 05-11-2025 End: 05-11-2025 Patient encounter procedure Radha Blount AUD Work Phone: [facility] Comment on above: SNHL (sensory-neural hearing loss), asymmetrical (Primary Dx) Start: 04-26-2025 End: 04-26-2025 ambulatory Josue Chatterjee DO Work Phone: [facility] Work Phone: Start: 04-26-2025 End: 04-26-2025 Patient encounter procedure Josue Chatterjee DO -[facility] Work Phone: Start: 02-23-2025 Registered Recurring Irma Meza [facility] Acute Work Phone: Start: 02-23-2025 End: 02-23-2025 ambulatory Josue Chatterjee DO Work Phone: [facility] Work Phone: Start: 02-23-2025 End: 02-23-2025 Patient encounter procedure Irma Meza MD [facility] Ambulatory Work Phone: Start: 01-27-2025 End: 01-27-2025 Telephone encounter Surendra Helm PA-C Work Phone: [facility] Comment on above: Patient Question Start: 01-26-2025 Registered Recurring Josue Chatterjee DO Work Phone: [email or web address] Acute Work Phone: Start: 01-26-2025 End: 01-26-2025 ambulatory Josue Chatterjee DO Work Phone: [facility] Work Phone: Start: 01-26-2025 End: 01-26-2025 Patient encounter procedure Josue Chatterjee DO [facility] Phone[facility] Work Phone: Start: 01-25-2025 End: 01-25-2025 Patient encounter procedure Surendra Helm PA-C Work Phone: [facility] Comment on above: Malignant neoplasm o f upper-outer quadrant of left breast in female, estrogen receptor positive (HCC) (Primary Dx) Start: 01-25-2025 End: 01-25-2025 ambulatory SURENDRA HELM Facility:[facility] Start: 01-03-2025 End: 01-03-[address] Ford MD Work Phone: Hematology/Oncology Comment on above: Malignant neoplasm o f left breast in female, estrogen receptor positive, unspecified site of breast (HCC) (Primary Dx); Er+ CO- carcinoma of breast, left (HCC); 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) Start: 12-31-2024 End: 12-31-[address] Ford MD Work Phone: Hematology/Oncology Start: 12-31-2024 End: 12-31-[address] Ford MD Work Phone: Hematology/Oncology Comment on above: Status post left albino ast lumpectomy (Primary Dx); Malignant neoplasm of left breast in female, estrogen receptor positive, unspecified site of breast (HCC); Er+ CO- carcinoma of breast, left (HCC); 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); Postmenopausal; Osteopenia, unspecified location; Use of anastrozole Start: 12-21-2024 End: 12-21-2024 Patient encounter procedure Surendra Helm PA-C Work Phone: General Surgery Comment on above: Invasive ductal carc inoma of breast, female, left (HCC) (Primary Dx) Start: 12-21-2024 End: 12-21-2024 ambulatory CARMELLA Woodrow MUNOZ Facility:[facility] Start: 12-14-2024 End: 12-14-2024 Follow-up encounter Lina Pierre MS Work Phone: [facility] Start: 12-13-2024 End: 12-13-2024 Subsequent hospital visit by physician Leandro Mcclain [facility] Work Phone: Nuclear Medicine Comment on above: Invasive ductal carc inoma of breast, female, left (HCC) [C50.912] Start: 12-13-2024 End: 12-13-2024 ambulatory CARMELLALO MUNOZ Facility:[facility] Start: 12-10-2024 End: 12-10-2024 Telephone encounter Diana Aguilar LPN Pre Anesthesia Comment on above: Medical Clearance Breast Problem Start: 12-09-2024 Encounter for preprocedural cardiovascular examination [facility] Start: 12-09-2024 End: 12-09-2024 Office consultation new/estab patient 60 min Baldo King DO Work Phone: [facility] Comment on above: Malignant neoplasm o f female breast, unspecified estrogen receptor status, unspecified laterality, unspecified site of breast; Encounter for pre-operative cardiovascular clearance; BMI 20.0-20.9, adult; Never smoked tobacco Start: 12-09-2024 End: 12-09-2024 Preoperative state Baldo Jon Fernando DO Work Phone: [facility] Work Phone: Start: 12-09-2024 End: 12-09-2024 ambulatory [facility] Start: 12-09-2024 End: 12-09-2024 Encounter for preprocedural cardiovascular examination [facility] Start: 12-07-2024 Non-patient / Non-visit Anne-Marie in Lesly DO Work Phone: [facility] Work Phone: Start: 12-07-2024 Encounter for other preprocedural examination CARMELLA MUNOZ [facility] Start: 12-07-2024 End: 12-07-2024 Admission to establishment [facility] Work Phone: Pre Anesthesia Start: 12-07-2024 End: 12-07-2024 ambulatory CARMELLA MUNOZ Facility:[facility] Start: 12-07-2024 End: 12-07-2024 Anesthesia consultation [facility] Work Phone: Pre Anesthesia Comment on above: Preoperative examina tion (Primary Dx); Primary hypertension; Chronic systolic CHF (congestive heart failure) (HCC); Valvular heart disease; Nonischemic cardiomyopathy (HCC) Start: 12-07-2024 End: 12-07-2024 Preprocedural examination done [facility] Work Phone: [facility] Start: 12-07-2024 End: 12-07-2024 ambulatory SURENDRA HELM Facility:[facility] Start: 12-07-2024 End: 12-07-2024 Subsequent hospital visit by physician Procedure Mammo [facility] Mammography Start: 12-06-2024 End: 12-07-2024 ambulatory CARMELLA MUNOZ Facility:[facility] Start: 12-06-2024 End: 12-06-2024 Patient encounter procedure Carmella Munoz DO Work Phone: [facility] Comment on above: Malignant neoplasm o f upper-outer quadrant of left breast in female, estrogen receptor positive (HCC) (Primary Dx) Start: 11-29-2024 End: 11-29-2024 Admission to same day surgery center Tatiana Keating LPN Work Phone: [facility] Comment on above: surgery information Start: 11-29-2024 End: 11-29-2024 E-mail encounter from caregiver Tatiana Keating LPN Work Phone: [facility] Start: 11-29-2024 End: 11-30-2024 Telephone encounter Tatiana Keating LPN Work Phone: [facility] Comment on above: Breast localization request Start: 11-29-2024 End: 11-29-2024 ambulatory Tatiana Keating LPN Work Phone: [facility] Comment on above: Patient Education (L EFT breast zachary mail examiner localized lumpectomy, LEFT sentinel lymph node biopsy) Start: 11-26-2024 End: 11-26-2024 Office consultation new/estab patient 80 min Carmella Munoz DO Work Phone: General Surgery Comment on above: Malignant neoplasm o f upper-outer quadrant of left breast in female, estrogen receptor positive (HCC) (Primary Dx) Start: 11-26-2024 End: 11-26-[address] Ford MD Work Phone: Hematology/Oncology Comment on above: Malignant neoplasm o f upper-outer quadrant of left breast in female, estrogen receptor positive (HCC) (Primary Dx) Start: 11-26-2024 End: 11-26-[address] Ford MD Work Phone: Hematology/Oncology Comment on above: Malignant neoplasm o f left breast in female, estrogen receptor positive, unspecified site of breast (HCC) (Primary Dx); Er+ CO- carcinoma of breast, left (HCC); 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); Postmenopausal; Osteopenia, unspecified location; Use of anastrozole Start: 11-23-2024 ambulatory CARMELLA MUNOZ [facility] Start: 11-23-2024 End: 11-23-2024 Subsequent hospital visit by physician Diagnostic Mammo 1 [facility] Work Phone: Mammography Comment on above: Malignant neoplasm o f right female breast, unspecified estrogen receptor status, unspecified site of breast (HCC) [C50.911] Start: 11-17-2024 End: 11-17-2024 Telephone encounter Tatiana Keating LPN Work Phone: [facility] Comment on above: [employer] 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 Malignant neoplasm o f right female breast, unspecified estrogen receptor status, unspecified site of breast (HCC) (Primary Dx); Malignant neoplasm of upper-outer quadrant of right female breast, unspecified estrogen receptor status (HCC) Start: 11-15-2024 End: 11-15-2024 Orders Only Tatiana Keating CAGE SHIFT MANAGER Work Phone: [facility] Comment on above: Malignant neoplasm o f female breast, unspecified estrogen receptor status, unspecified laterality, unspecified site of breast (HCC) (Primary Dx) Start: 11-05-2024 End: 11-05-2024 ambulatory Josue Ball DO Work Phone: [facility] Work Phone: Start: 11-05-2024 End: 11-05-2024 Patient encounter procedure Josue Ball DO Work Phone: [facility] Work Phone: Start: 11-01-2024 End: 11-01-2024 Admission to same day surgery center Josue Ball DO Work Phone: [facility] Start: 11-01-2024 End: 11-01-2024 ambulatory Josue Ball DO Work Phone: [facility] Work Phone: Start: 08-16-2024 End: 08-16-2024 Patient encounter procedure Josue Ball DO Work Phone: [facility] Work Phone: Start: 08-13-2024 Non-patient / Non-visit Benjgerardo in Ball DO Work Phone: [facility] Work Phone: Start: 07-13-2024 End: 07-13-2024 ambulatory SELF REFERRAL Facility[facility] Start: 05-13-2024 End: 05-13-2024 ambulatory [facility] Work Phone: Start: 05-13-2024 End: 05-13-2024 Patient encounter procedure [facility] Work Phone: Start: 09-22-2023 End: 09-22-2023 ambulatory Josue Chatterjee Other [employer] Other Start: 09-22-2023 Telephone encounter Josue Chatterjee [facility] Start: 09-03-2023 End: 09-03-2023 ambulatory Josue Chatterjee Other [employer] Other Start: 09-03-2023 Telephone encounter Josue Chatterjee [facility] Start: 07-26-2023 End: 07-26-2023 ambulatory Josue Chatterjee Other [employer] Other Start: 07-26-2023 Telephone encounter Josue [facility] Start: 04-03-2023 Chart Update Josue lim Work Phone: [facility] 250 DO Work Phone: Start: 03-28-2023 End: 03-28-2023 ambulatory Josue Chatterjee Other [facility] [employer] Other Start: 03-28-2023 Patient encounter procedure Josue Chatterjee [facility] Start: 03-20-[address] Baldo King Facility:[id number] Start: 10-18-2022 Office outpatient vi sit 25 minutes Josue Jonah Lesly Work Phone: [facility] DO Work Phone: Start: 10-18-[address] Baldo King Facility:[id number] Start: 09-03-2022 Chart Update Josue lim Work Phone: [facility] 250 DO Work Phone: Start: 08-29-2022 Patient encounter procedure Josue Mckenzie Lesly Work Phone: [facility] [place] Work Phone: Start: 08-29-[address] Baldo King Facility:[id number] Start: 07-12-2022 End: 07-13-[address] JOSUE CHATTERJEE Facility:[facility]1 Start: 06-06-2022 End: 06-07-[address] JOSUE CAHTTERJEE Facility:[facility]1 Start: 05-17-2022 Adult health examination Jabari Chatterjee Other [facility] [employer] Other Start: 05-17-2022 Gynecological examination normal Josue Chatterjee Other [facility] [employer] Other Start: 05-12-2022 Encounter for genera l adult medical examination without abnormal findings DR JOSUE CHATTERJEE [facility] Start: 05-09-2022 End: 05-10-[address] JOSUE CHATTERJEE Facility:H1 Start: 05-09-2022 End: 05-10-2022 Encounter for general adult medical examination without abnormal findings DR JOSUE CHATTERJEE Facility:H1 Start: 01-09-2022 Office outpatient vi sit 10 minutes Josue Chatterjee Work Phone: [facility] 250 DO Work Phone: Start: 01-09-2022 Patient encounter procedure Josue Chatterjee Work Phone: [facility] DO Work Phone: Start: 01-09-2022 ambulatory Ms. Bee Gao Facility: Start: 11-29-2021 Office outpatient vi sit 25 minutes Josue Mckenzie Ball Work Phone: [facility] 250 DO Work Phone: Start: 11-29-[address] Baldo King Facility: Start: 11-15-2021 End: 11-16-[address] JOSUE CHATTERJEE Facility:H1 Start: 11-05-[address] Baldo King Facility: Start: 11-05-2021 Office outpatient ne w 60 minutes Josue E Ball Work Phone: [facility] 250 DO Work Phone: Start: 11-01-2021 End: 11-02-[address] LADAN CURRAN Facility:[facility]1 Start: 10-30-[address] Baldo King Facility: Start: 10-04-2021 End: 10-05-[address] LADAN CURRAN Facility:[facility]1 Start: 08-09-2021 End: 08-10-[address] JOSUE CHATTERJEE Facility:H1 Procedures Date Procedure Procedure Detail Performing Clinician Start: 05-11-2025 AUDITORY FUNCTION TESTS Radha Blount AUD Work Phone: Start: 12-09-2024 Ecg routine ecg w/le ast 12 lds w/i&r Baldo Webb Fernando DO Work Phone: Start: 12-07-2024 Ecg routine ecg w/le ast 12 lds i&r only Barbie Francis PA-C Work Phone: Start: 12-07-2024 Perq breast loc yahir ce placemt 1st lesio us imag Surendra CHRISTOPHER-C Work Phone: Start: 12-07-2024 End: 12-07-2024 Diagnostic mammography computer-aided detcj uni Surendra Helm PA-C Work Phone: Start: 11-23-2024 Us breast uni real t chadwick with image limited Carmella A Alexander DO Work Phone: Start: 11-23-2024 Digital breast tomos ynthesis unilateral Carmella A Alexander DO Work Phone: Start: 11-01-2024 Mammography of left breast Josue Chatterjee DO Work Phone: Start: 11-01-2024 Ultrasonography guid ed biopsy of left breast Josue Chatterjee DO Work Phone: Start: 08-29-2022 Echocardiography Lindaam néstor Chatterjee Work Phone: Start: 08-08-2018 End: 10-12-2020 Screening for malignant neoplasm of colon Josue Chatterjee Other Depression screening Jass Chatterjee Other Operative procedure on spinal structure Josue Chatterjee Work Phone: Total colonoscopy Josue Chatterjee Work Phone: Comment on above: 1997; Plan of Treatment Date Care Activity Detail Author Start: 2032 RSV Vaccine (1 - 1-dose 75+ series) RSV Vaccine (1 - 1-dose 75+ series) [facility] Start: 12-08-2027 Diabetes Screening Diabetes Screening [facility] Start: 08-20-2026 Screening for malignant neoplasm of colon [facility] Start: 12-07-2025 Screening for malignant neoplasm of breast Mammogram [facility] Start: 06-24-2025 End: 06-24-2025 Patient encounter procedure 06/24/2025 10:00 AM EDT Office Visit General Surgery [address] [place] [address] Surendra Helm PA-C [address] [place] [address] 6 mnth post op General Surgery Comment on above: 6 mnth post op Start: 05-11-2025 End: 05-11-2025 Patient encounter procedure 05/11/2025 9:00 AM EDT Office Visit [facility] [address] [place] [id number] Radha Blount, AUD [address] [place] [address] Arrived [facility] Comment on above: Arrived Start: 04-25-2025 Influenza vaccination [facility] Start: 04-07-2025 End: 04-07-2025 ambulatory 04/07/2025 11:20 AM EDT Visit (SP) Office Hematology/Oncology [address] [facility] [place] [address] [place] [address] [place] [address] 3 MO OV Hematology/Oncology Comment on above: 3 MO OV Start: 01-25-2025 End: 01-25-2025 Patient encounter procedure 01/25/2025 8:45 AM EDT Office Visit [address] [address] Surendra Helm PA-C [address] [place] [address] one month seroma/wound check. [facility] Comment on above: one month seroma/wound check. Start: 01-10-2025 End: 01-10-2025 Patient encounter procedure 01/10/2025 10:00 AM EDT Office Visit Radiation Oncology [address] [place] [address] [place] [address] [place] [address] FUP post op Radiation Oncology Comment on above: FUP post op Start: 12-31-2024 End: 12-31-2024 ambulatory 12/31/2024 8:40 AM EDT Visit (SP) Office Hematology/Oncology [address] [place] [address] [place] [address] [place] [address] POST OP VISIT Hematology/Oncology Comment on above: POST OP VISIT Start: 12-21-2024 End: 12-21-2024 Patient encounter procedure 12/21/2024 9:00 AM EDT Office Visit General Surgery [address] [place] [address] Surendra Helm PA-C [address] [place] [address] POST OP General Surgery Comment on above: POST OP Start: 12-17-2024 End: 12-17-2024 Patient encounter procedure 12/17/2024 9:00 AM EDT Office Visit General Surgery [address] [place] [address] Surendra Helm PA-C [address] [place] [address] POST OP General Surgery Comment on above: POST OP Start: 12-13-2024 End: 12-13-2024 Admission to same day surgery center Ambulatory Surgery Comment on above: MASTECTOMY PARTIAL Start: 12-13-2024 End: 12-13-2024 Anesthesia consultation 12/13/2024 7:30 AM EDT Anesthesia Event Ambulatory Surgery [address] [place] [address] [place] [address] [place] [id number] Ambulatory Surgery Start: 12-13-2024 End: 12-13-2024 Bx/exc lymph node open deep axillary node BIOPSY NODE SENTINEL AXILLARY Invasive ductal carcinoma of breast, female, left (HCC) 12/13/2024 7:30 AM EDT [facility] Start: 12-13-2024 End: 12-13-2024 Inj radioactive tracer for id of sentinel node INJECTION PROCEDURE RADIOACTIVE TRACER FOR IDENTIFICATION OF SENTINEL NODE Invasive ductal carcinoma of breast, female, left (HCC) 12/13/2024 7:30 AM EDT [facility] Start: 12-13-2024 End: 12-13-2024 Intraop sentinel lymph node id w/dye injection INTRAOPERATIVE ID OF SENTINEL LYMPH NODE(S) INCL'D INJECTION OF NON-RAD DYE WHEN PERFORMED Invasive ductal carcinoma of breast, female, left (HCC) 12/13/2024 7:30 AM EDT [facility] Start: 12-13-2024 End: 12-13-2024 Mastectomy partial MASTECTOMY PARTIAL Invasive ductal carcinoma of breast, female, left (HCC) 12/13/2024 7:30 AM EDT [facility] Start: 12-13-2024 End: 12-13-2024 Perq device placement breast loc 1st les w/gdnce PLACEMENT OF BREAST LOCALIZATION DEVICE(S) PERCUTANEOUS; FIRST LESION, MAMMOGRAPHIC GUIDANCE Invasive ductal carcinoma of breast, female, left (HCC) 12/13/2024 7:30 AM EDT [facility] Start: 12-13-2024 End: 12-13-2024 Radiological examination surgical specimen RADIOLOGICAL EXAMINATION SURGICAL SPECIMEN Invasive ductal carcinoma of breast, female, left (HCC) 12/13/2024 7:30 AM EDT [facility] Start: 12-13-2024 Subsequent hospital visit by physician 12/13/2024 7:30 AM EDT Hospital Encounter Ambulatory Surgery [address] [place] [id number] [place] [address] [place] [address] Invasive ductal carcinoma of breast, female, left (HCC) [C50.912] Ambulatory Surgery Comment on above: Invasive ductal carcinoma of breast, fem shaila, left (HCC) [C50.912] Start: 12-07-2024 End: 03-08-2025 Comprehensive metabolic 2000 panel - Serum or Plasma [facility] Work Phone: Comment on above: Expected: 12/07/2024, Expires: Start: 12-07-2024 End: 12-07-2024 Anesthesia consultation 12/07/2024 11:30 AM EDT PAT Pre Anesthesia [address] [place] [address] Velva, Pacc [address] [place] [address] IN PERSON PACC PER MD Pre Anesthesia Comment on above: IN PERSON PACC PER MD Start: 12-07-2024 End: 12-07-2024 Patient encounter procedure 12/07/2024 10:30 AM EDT Appointment Mammography [address] [place] [address] [facility] Comment on above: ZACHARY Start: 12-06-2024 End: 03-07-2025 [facility] INVITAE HEREDITARY DIAGNOSTIC CANCER PANEL [facility] HEREDITARY DIAGNOSTIC CANCER PANEL Lab Routine Malignant neoplasm of upper-outer quadrant of left breast in female, estrogen receptor positive (HCC) Expected: 12/06/2024, Expires: 03/07/2025 [facility] Work Phone: Comment on above: Expected: 12/06/2024, Expires: Start: 11-26-2024 End: 11-26-2024 Patient encounter procedure Radiation Oncology Comment on above: *MULTI* Alexander Consult Recon per Lidia zhang Start: 11-26-2024 End: 11-26-2024 Patient encounter procedure 11/26/2024 11:30 AM EDT Office Visit General Surgery [address] [place] [address] [place] [address] [place] [address] new cancer referred from pcp josue chatterjee [facility] General Surgery Comment on above: new cancer referred from pcp josue gonzalez [facility] Start: 11-26-2024 End: 11-26-2024 ambulatory 11/26/2024 10:00 AM EDT Visit (SP) Office Hematology/Oncology [address] [facility] [place] [address] [place] [address] [place] [address] NEW MULTI DISC-BREAST CA--date due to appt coord-pt confirmed Hematology/Oncology Comment on above: NEW MULTI DISC-BREAST CA--date due to appt coord-pt confirmed Start: 11-23-2024 End: 11-23-2024 Patient encounter procedure 11/23/2024 10:00 AM EDT Appointment Mammography [address] [facility] [place] [address] Mamm Diagnostic Rt Mammography Comment on above: Mamm Diagnostic Rt Start: 11-05-2024 Patient referral [facility] Work Phone: Start: 08-25-2024 Advance Directive Discussion Advance Directive Discussion [facility] Start: 04-25-2024 Covid-19 Vaccine ( season) Covid-19 Vaccine ( season) [facility] Start: 04-25-2024 COVID-19 Vaccine ( season) COVID-19 Vaccine () [facility] Start: 04-25-2024 Influenza vaccination Influenza Vaccine (#1) [facility] Start: 08-29-2023 Echocardiography Echocardiogram [facility] Start: 05-08-2023 FUV, Provider: Baldo King, Status: Pen, Time: 11:30 AM FUV, Provider: Baldo King, Status: Pen, Time: 11:30 AM -[facility] DO Work Phone: Start: 04-03-2023 FUV, Provider: Baldo King, Status: Pen, Time: 11:00 AM FUV, Provider: Baldo King, Status: Pen, Time: 11:00 AM [facility] DO Work Phone: Start: 03-20-2023 MUGA, Provider: STEPHANIE [facility] NUCLEAR 01,[id number], Status: Pen, Time: 2:00 PM MUGA, Provider: STEPHANIE [facility]VI NUCLEAR 01,[id number], Status: Pen, Time: 2:00 PM -[facility] 250 DO Work Phone: Start: 10-17-2022 FUV, Provider: Baldo King, Status: Pen, Time: 10:40 AM FUV, Provider: Baldo King, Status: Pen, Time: 10:40 AM -[facility] [place] Work Phone: Start: 10-17-2022 FUV, Provider: Baldo King, Status: Pen, Time: 9:10 AM FUV, Provider: Baldo King, Status: Pen, Time: 9:10 AM [facility] 250 DO Work Phone: Start: 10-03-2022 ECHO, Provider: STEPHANIE HHVI ULTRASOUND 01,[id number], Status: Pen, Time: 7:45 AM ECHO, Provider: STEPHANIE HHVI ULTRASOUND 01,[id number], Status: Pen, Time: 7:45 AM [facility] 250 DO Work Phone: Start: 08-08-2022 FUV, Provider: Baldo King, Status: Pen, Time: 9:10 AM FUV, Provider: Baldo King, Status: Pen, Time: 9:10 AM [facility] DO Work Phone: Start: 07-25-2022 ECHO, Provider: STEPHANIE VALENZUELAI ULTRASOUND 01,[id number], Status: Pen, Time: 7:45 AM ECHO, Provider: STEPHANIE HHVI ULTRASOUND 01,[id number], Status: Pen, Time: 7:45 AM -[facility] DO Work Phone: Start: 2022 Screening for osteoporosis Bone Density Screening [facility] Start: 01-09-2022 FUV, Provider: Bee Arellano, Status: Pen, Time: 8:00 AM FUV, Provider: Bee Arellano, Status: Pen, Time: 8:00 AM -[facility] DO Work Phone: Start: 11-29-2021 FUV, Provider: Baldo King, Status: Pen, Time: 10:10 AM FUV, Provider: Baldo King, Status: Pen, Time: 10:10 AM -[facility] DO Work Phone: Start: 05-02-2021 Screening for malignant neoplasm of breast Mammogram Screening [facility] Start: 2017 RSV High Risk: (Elderly (60+) or Population) (1 - Risk 60-74 years 1-dose series) RSV High Risk: (Elderly (60+) or Population) (1 - Risk 60-74 years 1-dose series) [facility] Start: 2017 RSV Vaccine (1 - Risk 60-74 years 1-dose series) RSV Vaccine (1 - Risk 60-74 years 1-dose series) [facility] Start: 2007 Pneumococcal Vaccine: 50+ (1 of 1 - PCV) Pneumococcal Vaccine: 50+ (1 of 1 - PCV) [facility] Start: 2007 Pneumococcal Vaccine: 65+ Years (1 of 1 - PCV) Pneumococcal Vaccine: 65+ Years (1 of 1 - PCV) [facility] Start: 2007 Shingrix Vaccine (1 of 2) Shingrix Vaccine (1 of 2) [facility] Start: 2007 Zoster Vaccines (1 of 2) Zoster Vaccines (1 of 2) [facility] Start: 2002 Diabetes Screening Diabetes Screening [facility] Start: 2002 Lipid panel Lipid Screening [facility] Start: 2002 Screening for malignant neoplasm of colon [facility] Start: 1979 DTaP/Tdap/Td Vaccines (1 - Tdap) DTaP/Tdap/Td Vaccines (1 - Tdap) [facility] Start: 1976 Pneumococcal vaccination Pneumococcal Vaccine (1 of 2 - PCV) [facility] Start: 1976 Pneumococcal Vaccine: 50+ (1 of 2 - PCV) Pneumococcal Vaccine: 50+ (1 of 2 - PCV) [facility] Start: 1976 Urine microalbumin profile DTaP,Tdap,Td Vaccine (1 - Tdap) [facility] Start: 1975 Annual PCP Team Chronic Disease Visit Annual PCP Team Chronic Disease Visit [facility] Start: 1975 Anxiety Screening Anxiety Screening [facility] Start: 1975 BP Controlled (<130/80) BP Controlled (<130/80) [facility] Start: 1975 Depression Screening Depression Screening [facility] Start: 1975 Diabetes mellitus screening Diabetes Screening [facility] Start: 1975 Hepatitis C screening Hepatitis C Screening [facility] Start: 1957 Annual wellness visit Welcome to Medicare Visit [facility] Start: 1957 Creatinine measurement Creatinine Level [facility] Start: 1957 Lipid panel Lipid Panel [facility] Start: 1957 Medicare Annual Wellness (AWV) Medicare Annual Wellness (AWV) [facility] Start: 1957 Potassium measurement Potassium Level [facility] Start: 1957 Screening for malignant neoplasm of colon [facility] Start: 1957 Screening for osteoporosis Bone Density Scan [facility] Barium swallow [facility] Bx/exc lymph node op en deep axillary node BX/REMV,LYMPH NODE,DEEP AXILL Procedures Routine Invasive ductal carcinoma of breast, female, left (HCC) Ordered: 11/26/2024 [facility] Comment on above: Ordered: 11/26/2024 DXA Skeletal system. axial Views for bone density Exc breast les preop plmt rad marker open 1 les EXCIS BREAST LES W XRAY MARKER Procedures Routine Invasive ductal carcinoma of breast, female, left (HCC) Ordered: 11/26/2024 [facility] Comment on above: Ordered: 11/26/2024 H&P for surgery H&P FOR SURGERY Procedures Routine Invasive ductal carcinoma of breast, female, left (HCC) Ordered: 11/26/2024 [facility] Comment on above: Ordered: 11/26/2024 Inj radioactive trac er for id of sentinel node IDENTIFY SENTINEL NODE Procedures Routine Invasive ductal carcinoma of breast, female, left ([facility]) Ordered: 11/26/2024 [facility] Comment on above: Ordered: 11/26/2024 Mastectomy partial MASTECTOMY, P ARTIAL Procedures Routine Invasive ductal carcinoma of breast, female, left ([facility]) Ordered: 11/26/2024 [facility] Comment on above: Ordered: 11/26/2024 End: 12-17-2025 MG Breast - right Diagnostic for implant MIRI DIAGNOSTIC RIGHT Radiology Routine Malignant neoplasm of right female breast, unspecified estrogen receptor status, unspecified site of breast ([facility]) Malignant neoplasm of upper-outer quadrant of right female breast, unspecified estrogen receptor status ([facility]) 1 Occurrences starting 11/17/2024 until 12/17/2025 [facility] [place] Work Phone: Comment on above: 1 Occurrences starting 11/17/2024 until 12/17/2025 End: 12-26-2025 MG Guidance for needle localization of Breast - left MIRI NDL LOC W MIRI GD LEFT Radiology Routine Invasive ductal carcinoma of breast, female, left ([facility]) 1 Occurrences starting 11/26/2024 until 12/26/2025 [facility] Comment on above: 1 Occurrences starting 11/26/2024 until 12/26/2025 End: 12-26-2025 NM Lymph node Views NM INJ SENTINEL NODE BREAST LEFT Radiology Routine Invasive ductal carcinoma of breast, female, left ([facility]) 1 Occurrences starting 11/26/2024 until 12/26/2025 [facility] Work Phone: Comment on above: 1 Occurrences starting 11/26/2024 until 12/26/2025 NM Lymph node Views NM INJ SENTI GLORIA NODE BREAST LEFT Radiology Routine Invasive ductal carcinoma of breast, female, left ([facility]) 12/13/2024 7:43 AM EDT [facility] Work Phone: OUTSIDE SURG PATH SL JOYCELYN REVIEW OUTSIDE SURG PATH SLIDE REVIEW Lab Routine Ordered: 11/15/2024 [facility] Work Phone: Comment on above: Ordered: 11/15/2024 Patient Education Low back pain in adults [facility] Work Phone: Patient referral [facility] Work Phone: PT education noc individ PT EDUC ATION NOC INDIVID Procedures Routine Invasive ductal carcinoma of breast, female, left (HCC) Ordered: 11/26/2024 [facility] Comment on above: Ordered: 11/26/2024 End: 12-17-2025 US Breast - left limited US BREAST LTD LEFT Radiology Routine Malignant neoplasm of right female breast, unspecified estrogen receptor status, unspecified site of breast (HCC) 1 Occurrences starting 11/17/2024 until 12/17/2025 [facility] Comment on above: 1 Occurrences starting 11/17/2024 until 12/17/2025 End: 12-17-2025 US Breast - right limited US BREAST LTD RIGHT Radiology Routine Malignant neoplasm of right female breast, unspecified estrogen receptor status, unspecified site of breast (HCC) 1 Occurrences starting 11/17/2024 until 12/17/2025 [facility] Comment on above: 1 Occurrences starting 11/17/2024 until 12/17/2025 XR Lumbar spine Views [facility] Immunizations Immunization Date Immunization Notes Care Provider Charu rocha 07-29-2021 Moderna COVID-19 Vaccine 100 MCG/0.5ML Intramuscular Suspension Josue Chatterjee Work Phone: Comment on above: Series: 06-25-2021 influenza, seasonal, injectable Josue Chatterjee Work Phone: [facility] 250 DO Work Phone: Comment on above: Series: 06-25-2021 influenza virus vaccine, unspecified formulation Baldo Knig DO Work Phone: [facility] Work Phone: 11-03-2020 Rhianna COVID-19 Vaccine 0.5 ML Intramuscular Suspension Josue E Ball Work Phone: -[facility] 250 DO Work Phone: Comment on above: Series: Payers Date Payer Category Payer Medicare MEDICARE [id number] 2024 Self-pay 2024 Medicare (Managed Care) 1.2. [id number] 2024 Private Health Insurance [id number] 2020 Private Health Insurance MMO SUP ER[employer] PPO [id number] 2019 Unknown [id number] 1957 Unknown [id number] [id number]. 593 1957 Unknown [id number] 2.16.840.1.695618.3.579.2. 593 1957 Unknown [id number] 2.16.840.1.220018.3.579.2. 593 1957 Unknown [id number] 2.16.840.1.669812.3.579.2. 593 1957 Unknown [id number] 2.16.840.1.567200.3.579.2. 593 1957 Unknown [id number] 2.16.840.1.175936.3.579.2. 593 1957 Unknown [id number] 2.16.840.1.307431.3.579.2. 593 1957 Unknown [id number] 2.16.840.1.874239.3.579.2. 356 1957 Unknown [id number] 2.16840.1.214568.3.579.2. 356 1957 Unknown [id number] 2.16840.1.135498.3.579.2. 356 1957 Unknown [id number] 2.16.840.1.050956.3.579.2. 356 1957 Unknown [id number] 2.16.840.1.965320.3.579.2. 356 1957 Unknown [id number] 2.16840.1.491276.3.579.2. 106 1957 Unknown [id number] 2.16840.1.443650.3.579.2. 1067 1957 Unknown [id number] 2.16840.1.119642.3.579.2. 1244 Private Health Insurance [id number] Unknown Unknown MMO [employer] [id number] Unknown [place] [employer]/[place] [id number] Unknown [id number] [id number]. 531 Unknown [id number] [id number]. 531 Social History Date Type Detail Facility Start: 04-10-2022 End: 11-26-2024 Occasional alcohol use Occasional alcohol use [facility] Start: 04-10-2022 End: 11-26-2024 Sex Assigned At [facility] Start: 04-27-2024 End: 01-26-2025 Tobacco smoking status NHIS Never smoked tobacco (finding) Start: 1955 Sex Assigned At Female F [facility] Start: 11-04-2024 End: 01-26-2025 Sex Female (finding) Start: 10-19-2020 End: 11-26-2024 Tobacco use and exposure Smokeless tobacco non-user [facility] Start: 04-10-2022 End: 12-13-2024 Alcoholic beverage intake Current drinker of alcohol (finding) [facility] National Score (1-10 0), lower number is lower risk Not on file [facility] Start: 11-02-2013 Alcohol Comment social [facility] Start: 1955 Sex assigned at Not on file C [facility] Start: 12-09-2024 Alcoholic beverage intake Ex-drinker (finding) [facility] Work Phone: Start: 11-29-2024 End: 12-09-2024 Exposure to SARS-CoV-2 (event) Not sure [facility] Tobacco smoking stat us NHIS Tobacco smoking consumption unknown [facility] Medical Equipment Procedure Code Equipment Code Equipment Origin al Text Equipment Identifier Dates Breast Us Loc Reflector [id number] Start: 12-07-2024 Comment on above: Description: Reflect or Functional Status Date Assessment Result Facility 11-02-2013 Are you deaf, or do you have serious difficulty hearing Yes 11/02/2013 9:09 AM Yissel Uribe LPN Yes [facility] 11-02-2013 Are you blind, or do you have serious difficulty seeing, even when wearing glasses Yes 11/02/2013 9:09 AM Yissel Uribe LPN Yes [facility] 11-02-2013 Do you have serious difficulty walking or climbing stairs No 11/02/2013 9:09 AM Yissel Uribe LPN No [facility] 11-02-2013 Do you have difficul ty dressing or bathing No 11/02/2013 9:09 AM EDYissel Rankin LPN No [facility] 11-02-2013 Because of a physica l, mental, or emotional condition, do you have difficulty doing errands alone such as visiting a physician's office or shopping No 11/02/2013 9:09 AM Yissel Uribe LPN No [facility] Mental Status Date Assessment Result Facility 11-02-2013 Because of a physica l, mental, or emotional condition, do you have serious difficulty concentrating, remembering, or making decisions No 11/02/2013 9:09 AM Yissel Uribe LPN No [facility] Clinical Notes 03-28-2023 to 05-11-2025 Radha Jon Blount, AUD - 05/11/2025 9:00 AM EDTTelephone Encounter - Tatiana Keating LPN - 01/27/2025 12:25 PM EDTTelephone Encounter - Tatiana Keating LPN - 01/27/2025 12:25 PM EDT Note Date & Type Note Facility 05-11-2025 History of Presen t illness Narrative History: Patient was referred for an audiological evaluation. She would like an updated baseline audiogram. Patient reported a history of a sudden hearing loss in the right ear in 2010. Pt saw Dr. Nassar in the past. She has a history of recreational noise exposure (concerts) and wanted to check her hearing levels. Pt denies symptoms of tinnitus, ear pain or vertigo. Otoscopic Exam: Revealed ear canals were clear from excessive cerumen, bilaterally. Pure Tone Audiometry Audio indicated normal hearing 250-4000 Hz, sloping to a mild to moderate hearing loss 6034-1914 Hz in the left ear. The right ear exhibited a severe, rising to moderate sensorineural hearing loss 250-8000 Hz. These results are consistent with patient history. Speech Audiometry Right SRT = 70 dB and word discrimination score at 100 dBHL masked= 0/10 Pt reported speech sounded squeeky Left SRT = 15 dB and word discrimination score at 50 dBHL = 100% Tympanometry Normal tympanograms, bilaterally, indicating normal middle ear function Impressions: Discussed results with the patient and reviewed audiogram. She is a candidate for BiCROS hearing aids if she is interested. Pt encouraged to continue to monitor hearing with routine hearing evaluations. documented in this encounter [facility] 01-27-2025 Telephone encount er Note Returned pt call, per PA pt may start slow with golfing as long as she has no pain and feels fell. Pt verbalized understanding and thanked for calling. Tatiana Keating LPN [facility] 01-27-2025 Miscellaneous Notes Formattin g of this note might be different from the original. Returned pt call, per PA pt may start slow with golfing as long as she has no pain and feels fell. Pt verbalized understanding and thanked for calling. Tatiana Keating LPN Patient forgot to ask an important question at her office visit; that is, when can she golf? Please advise. documented in this encounter [facility] 01-27-2025 Telephone encount er Note Patient forgot to ask an important question at her office visit; that is, when can she golf? Please advise. [facility] 01-26-2025 Evaluation note Diagnosis Onset Date Resolution Carcinoma of upper-outer quadrant of left breast in female, estrogen recept acute January 26, 2025 8 :30am Encounter for monitoring aromatase inhibitor therapy acute January 26, 2025 8:30am Osteopenia acute January 26, 2025 8:30am Scoliosis acute January 26, 2025 8:30am Patient requests second opinion noneactive January 26, 2025 8 :30am Carcinoma of upper-outer quadrant of left breast in female, estrogen recept acute February 23, 2025 9 :01am Encounter for monitoring aromatase inhibitor therapy acute February 23, 2025 9:01am Osteopenia acute February 23, 2025 9:01am Scoliosis acute February 23, 2025 9:01am Patient requests second opinion noneactive February 23, 2025 9 :01am [facility] Work Phone: 1(142) 539-762006-04-2025 Evaluation note* Diagnosis Onset Date Resolution Status Admit Date Carcinoma of upper-outer quadrant of left breast in female, estrogen recept acute January 8:30am Encounter for monitoring aromatase inhibitor therapy acute January 26, 2025 8:30am Osteopenia acute January 26, 2025 8:30am Scoliosis acute January 26, 2025 8:30am Patient requests second opinion noneactive January 26, 2025 8 :30am Carcinoma of upper-outer quadrant of left breast in female, estrogen recept acute February 9:01am Encounter for monitoring aromatase inhibitor therapy acute February 23, 2025 9:01am Osteopenia acute February 23, 2025 9:01am Scoliosis acute February 23, 2025 9:01am [facility] Work Phone: 1(608) 220-668706-03-2025 History of Present illness Narrative* Surendra Helm PA-C - 01/25/2025 8:45 AM EDT REASON FOR TODAY'S VISIT: Patient presents with: Post Op HISTORY of PRESENT ILLNESS: Melissa Mcfarlane, 69 year old year old female, s/p a /p a LEFT breast zachary mail examiner localized lumpectomy, LEFT sentinel lymph node biopsy performed on 12/13/2024. Final pathology reports LEFT breast 1.0 IDC (margins clear), Grade 2, 0/1 LN, ER+, CO-, HER2- PATHOLOGICAL STAGE LEFT BREAST: p,T1b,N0 She initially presented on 11/26/2024 with a LEFT breast 1.1 cm mass @ 2:00, 4cm FN posterior. Bx (globe clip) shows IDC. LN appear normal ER+CO+HER2- [id number] Genetic testing results were reported as negative on 12/07/2024 HISTORY: Patient was last seen at her post operative appointment on 12/21/2024. At that time, she was healing well and pathology findings were discussed. Patient cancelled her appointment with (Rad Onc) and decided to omit adjuvant radiation follow up consult/treatment. Does not want radiation d/t multiple back xrays as child did followed-up with Dr. Ave Ford (Medical Oncologist) for review of the Oncotype DXRS which was 16. There was no apparent chemotherapy benefit. Discussion was held regarding Endocrine therapy, but patient was reluctant to take the medication d/t her dx of osteopenia, bilateral hip pain and intolerance of heat (hot flashes), but did agreed to think about her options. She has decided to meet with Dr. Anita Mittal (Med Onc) at to discuss adjuvant Endocrine therapy Last bilateral mammogram was in 09/27/2024. She returns today for a one month post op follow up wound check. EXAMINATION: GEN alert and orientated, well nourished, calm Regional Lymph Nodes There is no concerning supraclavicular, infraclavicular or cervical lymphadenopathy. BREASTS: The patient was examined in the upright and supine position. LEFT breast soft, incision in the UOQ is healiong well. No masses, nipple everted, no discharge, noskin changes LEFT axilla no palpable axillary lymphadenopathy ABD soft, non-distended, non-tender, no organomegaly EXT ambulated independently, good ROM of upper extremities, no evidence of lymphedema IMPRESSION: Melissa Mcfarlane, 69 year old year old female, s/p a /p a LEFT breast zachary mail examiner localized lumpectomy, LEFT sentinel lymph node biopsy performed on 12/13/2024. Final pathology reports LEFT breast 1.0 IDC (margins clear), Grade 2, 0/1 LN, ER+, CO-, HER2- PATHOLOGICAL STAGE LEFT BREAST: p,T1b,N0 Genetic testing results were reported as negative on 12/07/2024 One month post op, healing well PLAN: Patient is scheduled for a second opinion with Dr. Anita Mittal (Med Onc) at to discuss adjuvant Endocrine therapy Ms. Mcfarlane will follow-up with Dr. Ave Ford (Medical Oncologist) as scheduled, 04/07/2025. She will call if she decides to follow up with a Radiation Oncologist for discussion of local adjuvant treatment. Ms. Mcfarlane will follow-up with us, as scheduled in 06/24/2025. She has our names and numbers to stay in touch if she has any questions, concerns or problems in the interim. Surendra Helm PA-C cc: Carmella Munoz DO Breast Surgeon Kelton Thompson MD ([facility]) [address] [place] [phone] documented in [facility]25 NoteHNO ID: [id number] Author: SURENDRA HELM PA-C Service: ? Author Type: Physician Crew Member Type: Progress Notes Filed: 01/25/2025 11:43 Note Text: REASON FOR TODAY'S VISIT: Patient presents with: Post Op HISTORY of PRESENT ILLNESS: Melissa Mcfarlane, 69 year old year old female, s/p a /p a LEFT breast zachary mail examiner localized lumpectomy, LEFT sentinel lymph node biopsy performed on 12/13/2024. Final pathology reports LEFT breast 1.0 IDC (margins clear), Grade 2, 0/1 LN, ER+, CO-, HER2- PATHOLOGICAL STAGE LEFT BREAST: p,T1b,N0 She initially presented on 11/26/2024 with a LEFT breast 1.1 cm mass @ 2:00, 4cm FN posterior. Bx (globe clip) shows IDC. LN appear normal ER+CO+HER2- [id number] Genetic testing results were reported as negative on 12/07/2024 HISTORY: Patient was last seen at her post operative appointment on 12/21/2024. At that time, she was healing well and pathology findings were discussed. Patient cancelled her appointment with (Rad Onc) and decided to omit adjuvant radiation follow up consult/treatment. Does not want radiation d/t multiple back xrays as child did followed-up with Dr. Ave Ford (Medical Oncologist) for review of the Oncotype DX RS which was 16. There was no apparent chemotherapy benefit. Discussion was held regarding Endocrine therapy, but patient was reluctant to take the medication d/t her dx of osteopenia, bilateral hip pain and intolerance of heat (hot flashes), but did agreed to think about her options. She has decided to meet with Dr. Anita Mittal (Med Onc) at to discuss adjuvant Endocrine therapy Last bilateral mammogram was in 09/27/2024. She returns today for a one month post op follow up wound check. EXAMINATION: GEN alert and orientated, well nourished, calm Regional Lymph Nodes There is no concerning supraclavicular, infraclavicular or cervical lymphadenopathy. BREASTS: The patient was examined in the upright and supine position. LEFT breast soft, incision in the UOQ is healiong well. No masses, nipple everted, no discharge, no skin changes LEFT axilla no palpable axillary lymphadenopathy ABD soft, non-distended, non-tender, no organomegaly EXT ambulated independently, good ROM of upper extremities, no evidence of lymphedema IMPRESSION: Melissa Mcfarlane, 69 year old year old female, s/p a /p a LEFT breast zachary mail examiner localized lumpectomy, LEFT sentinel lymph node biopsy performed on 12/13/2024. Final pathology reports LEFT breast 1.0 IDC (margins clear), Grade 2, 0/1 LN, ER+, CO-, HER2- PATHOLOGICAL STAGE LEFT BREAST: p,T1b,N0 Genetic testing results were reported as negative on 12/07/2024 One month post op, healing well PLAN: Patient is scheduled for a second opinion with Dr. Anita Mittal (Med Onc) at to discuss adjuvant Endocrine therapy Ms. Mcfarlane will follow-up with Dr. Ave Ford (Medical Oncologist) as scheduled, 04/07/2025. She will call if she decides to follow up with a Radiation Oncologist for discussion of local adjuvant treatment. Ms. Mcfarlane will follow-up with us, as scheduled in 06/24/2025. She has our names and numbers to stay in touch if she has any questions, concerns or problems in the interim. Surendra Helm PA-C cc: Carmella Munoz, Breast Surgeon Kelton Thompson MD (Dr) [address] [place] [phone] [facility] Inst[facility]* Patient Instructions* Margareth Sheikh RN - 12/31/2024 9:08 AM EDT Please contact us if you want to start the anastrozole. documented in this [facility]05-09-2025 NoteHNO ID: [id number] Author: AVE FORD MD Service: ? Author Type: Physician Type: Progress Notes Filed: 12/31/2024 09:28 Note Text: Date of Service: December 31, 2024 Mrs. Mcfarlane is seen in follow up for stage I left breast cancer. History of Present Illness: Mrs. Mcfarlane underwent sentinel lymph node biopsy () and left lumpectomy on December 13, 2024. 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 She has recovered from her breast surgery. She has decided to omit radiation therapy. Her Oncotype recurrence score is 16. Distant recurrence risk at 5 years with hormone therapy alone is 4%. Group average absolute chemotherapy benefit: No apparent chemotherapy benefit (less than 1%). She brought her bone density test results that were done in [place]. She had it done in August 2023 and it showed osteopenia. Patient takes calcium and vitamin D. She has baseline bilateral hip pain. She has baseline hot flashes. She says that she is intolerant of heat. All other systems were reviewed but otherwise negative. Mrs. Mcfarlane's past medical history, past surgical history, allergies, medications, and family medical history have been reviewed. INTERVAL HISTORY: Mrs. Mcfarlane is a 69 year old postmenopausal female diagnosed with clinical stage I grade 2 invasive ductal carcinoma of the left breast diagnosed via left breast biopsy performed on November 01, 2024 in [place], [place]. Her left breast cancer is estrogen receptor positive (80%), progesterone receptor negative (0 to 1%), and HER2/fausto negative (score 1+). On left breast ultrasound performed November 23, 2024, her left breast cancer measured 1.1 x 0.8 x 0.9 cm. Social History: Mrs. Mcfarlane continues to do her activities of daily living. ECOG Performance Status: 0 - Fully active, able to carry on all pre-disease performance without restriction PHYSICAL EXAM: VS: BP 146/86 Pulse 71 Temp 36.6 ?C (97.8 ?F) (Oral) Wt 52.2 kg (115 lb 1.3 oz) SpO2 99% BMI 21.98 kg/m? General: No acute distress. Eyes: Pupils equal, round, and reactive to light. Extraocular movements intact. No scleral icterus or conjunctival pallor. Mouth: Moist mucous membranes. No erythema or exudate. Neck: Supple. Heart: Regular rate and rhythm. Normal S1, S2. Lungs: Clear to auscultation bilaterally. No wheezes, rhonchi, or crackles. Abdomen: Positive bowel sounds. Soft, nontender, nondistended. Extremities: Warm and dry. No edema. Neurologic: Alert and oriented x 3. No focal deficits. LABORATORY: None. IMAGING: None. SURGICAL PATHOLOGY: Performed on December 13, 2024. SURGICAL PATHOLOGY: [id number] Order: [id number] Collected 12/13/2024 8:18 AM Status: Final result Dx: Invasive ductal carcinoma of breast, ... Test Result Released: Yes (seen) 0 Result Notes Component Resulting Agency FINAL DIAGNOSIS A. Left breast, lumpectomy: - Invasive ductal carcinoma, see synoptic report. - Biopsy clip identified. B. Left breast, superior margin, excision: - The final inked margin is negative for carcinoma. C. Left breast, inferior margin, excision: - The final inked margin is negative for carcinoma. D. Left breast, lateral margin, excision: - The final inked margin is negative for carcinoma. E. Left breast, medial margin, excision: - The final inked margin is negative for carcinoma. F. Left breast, posterior margin, excision: - The final inked margin is negative for carcinoma. G. Left breast, anterior margin, excision: - The final inked margin is negative for carcinoma. H. Left sentinel lymph node, excision: - 1 lymph node, negative for metastatic carcinoma (0/1). JR 12/16/2024 at 1140 EDT Block for additional Biomarkers/Molecular studies CCM A2 Synoptic Report INVASIVE CARCINOMA OF THE BREAST: Resection 8th Edition - Protocol posted: 02/11/2024INVASIVE CARCINOMA OF THE BREAST: RESECTION - All Specimens SPECIMEN Procedure Excision (less than total mastectomy) Specimen Laterality Left TUMOR Histologic Type Invasive carcinoma of no special type (ductal) Histologic Grade (Boby Histologic Score) Glandular (Acinar) / Tubular Differentiation Score 3 Nuclear Pleomorphism Score 3 Mitotic Rate Score 1 Overall Grade Grade 2 (scores of 6 or 7) Tumor Size Greatest dimension of largest invasive focus (Millimeters): 10 mm Ductal Carcinoma In Situ (DCIS) Not identified Lymphatic and / or Vascular Invasion Cannot be determined Treatment Effect in the Breast No known presurgical therapy MARGINS Margin Status for Invasive Carcinoma All margins negative for invasive carcinoma Distance from Invasive Carcinoma to Closest Margin Greater than: 4 mm REGIONAL LYMPH NODES Regional Lymph Node Status All regional lymph nodes negative for tumor Total Number of Lymph Nodes Examined (sentinel and non-sentinel) 1 Number of Sentine (more content not included)...[id number] History of Present illness Narrative* Ave Ford MD - 12/31/2024 8:11 AM EDT Date of Service: December 31, 2024 Mrs. Mcfarlane is seen in follow up for stage I left breast cancer. History of Present Illness: Mrs. Mcfarlane underwent sentinel lymph node biopsy (0/) and left lumpectomy on December 13, 2024. 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 She has recovered from her breast surgery. She has decided to omit radiation therapy. Her Oncotype recurrence score is 16. Distant recurrence risk at 5 years with hormone therapy alone is 4%. Group average absolute chemotherapy benefit: No apparent chemotherapy benefit (less than 1%). She brought her bone density test results that were done in [place]. She had it done in August 2023 and it showed osteopenia. Patient takes calcium and vitamin D. She has baseline bilateral hip pain. She has baseline hot flashes. She says that she is intolerant of heat. All other systems were reviewed but otherwise negative. Mrs. Mcfarlane's past medical history, past surgical history, allergies, medications, and family medical history have been reviewed. INTERVAL HISTORY: Mrs. Mcfarlane is a 69 year old postmenopausal female diagnosed with clinical stageI grade 2 invasive ductal carcinoma of the left breast diagnosed via left breast biopsy performed on November 01, 2024 in [place], [place]. Her left breast cancer is estrogen receptor positive (80%), progesterone receptor negative (0 to 1%), and HER2/fausto negative (score 1+). On left breast ultrasound performed November 23, 2024, her left breast cancer measured 1.1 x 0.8 x 0.9 cm. Social History: Mrs. Mcfarlane continues to do her activities of daily living. ECOG Performance Status: 0 - Fully active, able to carry on all pre-disease performance without restriction PHYSICAL EXAM: VS: BP 146/86 Pulse 71 Temp 36.6 C (97.8 F) (Oral) Wt 52.2 kg (115 lb 1.3 oz) SpO2 99% BMI 21.98 kg/m General: No acute distress. Eyes: Pupils equal, round, and reactive to light. Extraocular movements intact. No scleral icterus or conjunctival pallor. Mouth: Moist mucous membranes. No erythema or exudate. Neck: Supple. Heart: Regular rate and rhythm. Normal S1, S2. Lungs: Clear to auscultation bilaterally. No wheezes, rhonchi, or crackles. Abdomen: Positive bowel sounds. Soft, nontender, nondistended. Extremities: Warm and dry. No edema. Neurologic: Alert and oriented x 3. No focal deficits. LABORATORY: None. IMAGING: None. SURGICAL PATHOLOGY: Performed on December 13, 2024. SURGICAL PATHOLOGY: [id number] Order: [id number] Collected 12/13/2024 8:18 AM Status: Final result Dx: Invasive ductal carcinoma of breast, ... Test Result Released: Yes (seen) 0 Result Notes Component Resulting Agency FINAL DIAGNOSIS A. Left breast, lumpectomy: - Invasive ductal carcinoma, see synoptic report. - Biopsy clip identified. B. Left breast, superior margin, excision: - The final inked margin is negative for carcinoma. C. Left breast, inferior margin, excision: - The final inked margin is negative for carcinoma. D. Left breast, lateral margin, excision: - The final inked margin is negative for carcinoma. E. Left breast, medial margin, excision: - The final inked margin is negative for carcinoma. F. Left breast, posterior margin, excision: - The final inked margin is negative for carcinoma. G. Left breast, anterior margin, excision: - The final inked margin is negative for carcinoma. H. Left sentinel lymph node, excision: - 1 lymph node, negative for metastatic carcinoma (0/1). JR 12/16/2024 at 1140 EDT Block for additional Biomarkers/Molecular studies CCM A2 Synoptic Report INVASIVE CARCINOMA OF THE BREAST: Resection 8th Edition - Protocol posted: 02/11/2024INVASIVE CARCINOMA OF THE BREAST: RESECTION - All Specimens SPECIMEN Procedure Excision (less than total mastectomy) Specimen Laterality Left TUMOR Histologic Type Invasive carcinoma of no special type (ductal) Histologic Grade (Boby Histologic Score) Glandular (Acinar) / Tubular Differentiation Score 3 Nuclear Pleomorphism Score 3 Mitotic Rate Score 1 Overall Grade Grade 2 (scores of 6 or 7) Tumor Size Greatest dimension of largest invasive focus (Millimeters): 10 mm Ductal Carcinoma In Situ (DCIS) Not identified Lymphatic and / or Vascular Invasion Cannot be determined Treatment Effect in the Breast No known presurgical therapy MARGINS Margin Status for Invasive Carcinoma All margins negative for invasive carcinoma Distance from Invasive Carcinoma to Closest Margin Greater than: 4 mm REGIONAL LYMPH NODES Regional Lymph Node Status All regional lymph nodes negative for tumor Total Number of Lymph Nodes Examined (sentinel and non-sentinel) 1 Number of [place] Nodes Examined 1 pTNM CLASSIFICATION (AJCC 8th Edition) Reporting of pT, pN, and (when applicable) pM categories is based on information available to the pathologist at the time the report is issued. As per the AJCC (Chapter 1, 8th Ed.) it is the managingphysician's responsibility to establish the final pathologic stage based upon all pertinent information, including but potentially not limited to this pathology report. pT Category pT1b pN Category pN0 N Suffix (sn) SPECIAL STUDIES Estrogen Receptor (ER) Status Positive (greater than 10% of cells demonstrate nuclear positivity) Percentage of Cells with Nuclear Positivity 80 % Progesterone Receptor (PgR) Status Negative HER2 (by immunohistochemistry) Negative (Score 1+) Testing Performed on Assessment: Mrs. Mcfarlane is a 69 year old postmenopausal female diagnosed with clinical stage I (cT1, cN0) grade 2 invasive ductal carcinoma of the left breast diagnosed via biopsy on November 01, 2024.Her left breast cancer is estrogen receptor positive (80%), progesterone receptor negative (0 to 1%), and HER2/fausto negative (score 1+). On left breast ultrasound, her left breast cancer measured 1.1 x 0.8 x 0.9 cm. On December 13, 2024, she underwent sentinel lymph node biopsy () and left lumpectomy. 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 I had a discussion with the patient regarding her diagnosis, natural history, prognosis, and treatment options. Her Oncotype recurrence score is 16. Distant recurrence risk at 5 years with hormone therapy alone is 4%. Group average absolute chemotherapy benefit: No apparent chemotherapy benefit (less than 1%).She would not likely benefit from adjuvant chemotherapy. Patient has decided to omit adjuvant radiation therapy. -Since she is estrogen receptor positive, she is a candidate for extended adjuvant endocrine therapy with anastrozole 1 mg p.o. daily x 5 years. The risk, benefits, adverse effects, and alternatives were discussed with the patient. This would begin after completing adjuvant radiation therapy. She has osteopenia and takes calcium and vitamin D. Patient is VERY reluctant to take endocrine therapy. She does not want adjuvant radiation therapy or extended adjuvant endocrine therapy. I explained that she is at increased risk for recurrence. I suggested that she take some time and think about it and get back to us. Plan: 1. Estrogen receptor positive breast cancer. Patient will get in touch with us on Friday, January 03, 2025 to let us know if she is willing to try anastrozole therapy. -She does not want to start it before January 24, 2025. -Follow-up with me in 2 months (March 2025) to assess tolerability of anastrozole. 2. Postmenopausal. Osteopenia. Patient declined seeing rheumatology. -Continue to follow with PCP. -Recommend calcium from diet. -Recommend daily vitamin D. -Recommend weightbearing exercises and strength training. -Repeat bone density test due August 2025. 3. Status post left lumpectomy. Patient has decided to omit radiation therapy. -Patient has a follow-up appointment with Surendra Helm on January 25, 2025 and June 24, 2025. Mrs. Mcfarlane understands to call the office sooner if needed. Ave Ford MD CC: MD Dr. Carmella Foy Dr., Dr. Lito Surendra Abdelrahman Impression: (Some elements copied from my previous note have been updated where appropriate, and all reflect current medical decision making from today, 12/31/2024) documented in this encounterWilson Health04-29-2025 History of Present illness Narrative* Surendra Helm PA-C - 12/21/2024 9:00 AM EDT BREAST CANCER POST OPERATIVE FOLLOW-UP POSTOPERATIVE VISIT #1 SUBJECTIVE: Melissa Mcfarlane is a 69 year old year old female who is s/p a LEFT breast zachary mail examiner localized lumpectomy, LEFT sentinel lymph node biopsy performed by Dr. Munoz (Breast Surgeon) on 12/13/2024. She denies any redness, bruising, swelling or discharge from the incision. She denies any fever or chills. Pain of the surgical site is reported as minimal and intermittent.. Genetic testing results were reported as negative on 12/07/2024 OBJECTIVE: PHYSICAL EXAM: No Complaints. BREAST EXAMINATION: The patient was examined in the upright position. LEFT breast soft, no dominant masses, nipple everted, no discharge, no skin changes. The radial incision in the UOQ is healing well (same incision for SN bx). LEFT axilla no palpable lymphadenopathy, no evidence of lymphedema, and good range of motion. Regional Lymph Nodes: There is no concerning supraclavicular, infraclavicular or cervical lymphadenopathy. SURGICAL PATHOLOGY: FINAL DIAGNOSIS A. Left breast, lumpectomy: - Invasive ductal carcinoma, see synoptic report. - Biopsy clip identified. B. Left breast, superior margin, excision: - The final inked margin is negative for carcinoma. C. Left breast, inferior margin, excision: - The final inked margin is negative for carcinoma. D. Left breast, lateral margin, excision: - The final inked margin is negative for carcinoma. E. Left breast, medial margin, excision: - The final inked margin is negative for carcinoma. F. Left breast, posterior margin, excision: - The final inked margin is negative for carcinoma. G. Left breast, anterior margin, excision: - The final inked margin is negative for carcinoma. H. Left sentinel lymph node, excision: - 1 lymph node, negative for metastatic carcinoma (0/1). JR 12/16/2024 at 1140 EDT Block for additional Biomarkers/Molecular studies CCM A2 Synoptic Report INVASIVE CARCINOMA OF THE BREAST: Resection 8th Edition - Protocol posted: 02/11/2024INVASIVE CARCINOMA OF THE BREAST: RESECTION - All Specimens SPECIMEN Procedure Excision (less than total mastectomy) Specimen Laterality Left TUMOR Histologic Type Invasive carcinoma of no special type (ductal) Histologic Grade ([place] Histologic Score) Glandular (Acinar) / Tubular Differentiation Score 3 Nuclear Pleomorphism Score 3 Mitotic Rate Score 1 Overall Grade Grade 2 (scores of 6 or 7) Tumor Size Greatest dimension of largest invasive focus (Millimeters): 10 mm Ductal Carcinoma In Situ (DCIS) Not identified Lymphatic and / or Vascular Invasion Cannot be determined Treatment Effect in the Breast No known presurgical therapy MARGINS Margin Status for Invasive Carcinoma All margins negative for invasive carcinoma Distance from Invasive Carcinoma to Closest Margin Greater than: 4 mm REGIONAL LYMPH NODES Regional Lymph Node Status All regional lymph nodes negative for tumor Total Number of Lymph Nodes Examined (sentinel and non-sentinel) 1 Number of [place] Nodes Examined 1 pTNM CLASSIFICATION (AJCC 8th Edition) Reporting of pT, pN, and (when applicable) pM categories is based on information available to the pathologist at the time the report is issued. As per the AJCC (Chapter 1, 8th Ed.) it is the managingphysician's responsibility to establish the final pathologic stage based upon all pertinent information, including but potentially not limited to this pathology report. pT Category pT1b pN Category pN0 N Suffix (sn) SPECIAL STUDIES Estrogen Receptor (ER) Status Positive (greater than 10% of cells demonstrate nuclear positivity) Percentage of Cells with Nuclear Positivity 80 % Progesterone Receptor (PgR) Status Negative HER2 (by immunohistochemistry) Negative (Score 1+) Testing Performed on . ASSESSMENT: Melissa Mcfarlane, 69 year old year old female, s/p a /p a LEFT breast zachary mail examiner localized lumpectomy, LEFT sentinel lymph node biopsy performed on 12/13/2024. 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 Bx (globe clip) shows IDC. LN appear normal ER+CO+HER2- [id number] Genetic testing results were reported as negative on 12/07/2024 PLAN Pathology report reviewed by (Breast Surgeon) and with the patient. All questions were answered and she had no further concerns. Instructions for wound management, the signs and symptoms of infection, and seroma development werereviewed with the patient. will follow-up with Dr. Ave Ford (Medical Oncologist) for review of the Oncotype DX recurrent score and to discuss adjuvant local therapy, on 12/21/2024 She will follow-up with Dr. Louis (Radiation Oncologist) as scheduled on 01/10/2025, to discuss adjuvant local therapy. Patient is moving well and will schedule a Breast Rehab consult with an occupational therapist for lymphedema prevention strategies and education on range of motion management at the next visit, if needed. Ms Mcfarlane will follow-up with us for a one month seroma/wound check. She has our names and numbers to stay in touch if she has any questions, concerns or problems in the interim. Surendra Helm PA-C documented in this encounterWilson Health04-29-2025 NoteHNO ID: [id number] Author: SURENDRA HELM PA-C Service: ? Author Type: Physician Crew Member Type: Progress Notes Filed: 12/21/2024 10:05 Note Text: BREAST CANCER POST OPERATIVE FOLLOW-UP POSTOPERATIVE VISIT #1 SUBJECTIVE: Melissa Mcfarlane is a 69 year old year old female who is s/p a LEFT breast zachary mail examiner localized lumpectomy, LEFT sentinel lymph node biopsy performed by Dr. Munoz (Breast Surgeon) on 12/13/2024. She denies any redness, bruising, swelling or discharge from the incision. She denies any fever or chills. Pain of the surgical site is reported as minimal and intermittent.. Genetic testing results were reported as negative on 12/07/2024 OBJECTIVE: PHYSICAL EXAM: No Complaints. BREAST EXAMINATION: The patient was examined in the upright position. LEFT breast soft, no dominant masses, nipple everted, no discharge, no skin changes. The radial incision in the UOQ is healing well (same incision for SN bx). LEFT axilla no palpable lymphadenopathy, no evidence of lymphedema, and good range of motion. Regional Lymph Nodes: There is no concerning supraclavicular, infraclavicular or cervical lymphadenopathy. SURGICAL PATHOLOGY: FINAL DIAGNOSIS A. Left breast, lumpectomy: - Invasive ductal carcinoma, see synoptic report. - Biopsy clip identified. B. Left breast, superior margin, excision: - The final inked margin is negative for carcinoma. C. Left breast, inferior margin, excision: - The final inked margin is negative for carcinoma. D. Left breast, lateral margin, excision: - The final inked margin is negative for carcinoma. E. Left breast, medial margin, excision: - The final inked margin is negative for carcinoma. F. Left breast, posterior margin, excision: - The final inked margin is negative for carcinoma. G. Left breast, anterior margin, excision: - The final inked margin is negative for carcinoma. H. Left sentinel lymph node, excision: - 1 lymph node, negative for metastatic carcinoma (0/1). JR 12/16/2024 at 1140 EDT Block for additional Biomarkers/Molecular studies CCM A2 Synoptic Report INVASIVE CARCINOMA OF THE BREAST: Resection 8th Edition - Protocol posted: 02/11/2024INVASIVE CARCINOMA OF THE BREAST: RESECTION - All Specimens SPECIMEN Procedure Excision (less than total mastectomy) Specimen Laterality Left TUMOR Histologic Type Invasive carcinoma of no special type (ductal) Histologic Grade ([place] Histologic Score) Glandular (Acinar) / Tubular Differentiation Score 3 Nuclear Pleomorphism Score 3 Mitotic Rate Score 1 Overall Grade Grade 2 (scores of 6 or 7) Tumor Size Greatest dimension of largest invasive focus (Millimeters): 10 mm Ductal Carcinoma In Situ (DCIS) Not identified Lymphatic and / or Vascular Invasion Cannot be determined Treatment Effect in the Breast No known presurgical therapy MARGINS Margin Status for Invasive Carcinoma All margins negative for invasive carcinoma Distance from Invasive Carcinoma to Closest Margin Greater than: 4 mm REGIONAL LYMPH NODES Regional Lymph Node Status All regional lymph nodes negative for tumor Total Number of Lymph Nodes Examined (sentinel and non-sentinel) 1 Number of [place] Nodes Examined 1 pTNM CLASSIFICATION (AJCC 8th Edition) Reporting of pT, pN, and (when applicable) pM categories is based on information available to the pathologist at the time the report is issued. As per the AJCC (Chapter 1, 8th Ed.) it is the managing physician's responsibility to establish the final pathologic stage based upon all pertinent information, including but potentially not limited to this pathology report. pT Category pT1b pN Category pN0 N Suffix (sn) SPECIAL STUDIES Estrogen Receptor (ER) Status Positive (greater than 10% of cells demonstrate nuclear positivity) Percentage of Cells with Nuclear Positivity 80 % Progesterone Receptor (PgR) Status Negative HER2 (by immunohistochemistry) Negative (Score 1+) Testing Performed on . ASSESSMENT: Melissa Mcfarlane, 69 year old year old female, s/p a /p a LEFT breast zachary mail examiner localized lumpectomy, LEFT sentinel lymph node biopsy performed on 12/13/2024. 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 Bx (globe clip) shows IDC. LN appear normal ER+CO+HER2- [id number] Genetic testing results were reported as negative on 12/07/2024 PLAN Pathology report reviewed by (Breast Surgeon) and with the patient. All questions were answered and she had no further concerns. Instructions for wound management, the signs and symptoms of infection, and seroma development wer (more content not included)...[facility] [id number] Progress note* Result Encounter Note - Lina Pierre, MS - 12/14/2024 9:44 AM EDT Genetic test results Melissa Mcfarlane's Multi-Cancer panel through [employer] was negative for a pathogenic variant. Please see Linksy message for further discussion. Lina Pierre MS Licensed, Certified Genetic Counselor [facility] Work Phone: [phone] Miscellaneous Notes* Result Encounter Note - Lina Pierre MS - 12/14/2024 9:44 AM EDT Genetic test results Melissa Mcfarlane's Multi-Cancer panel through [employer] was negative for a pathogenic variant. Please see Linksy message for further discussion. Lina iPerre MS Licensed, Certified Genetic Counselor documented in this encounterWilson Health04-21-2025 NoteHNO ID: [id number] Author: LUPE MOLINA APRN.CONTROL INSPECTOR Service: Anesthesiology Author Type: Nurse Termite Control Technician Type: Anesthesia Procedure Notes Filed: 12/13/2024 07:51 Note Text: ANESTHESIOLOGY PROCEDURE NOTE Airway General Information Procedure Start Time/Medication Administration: 12/13/2024 7:36 AM Procedure End Time: 12/13/2024 7:36 AM Patient location during procedure: OR Patient identity confirmed: wil turner, care steam hand and patient Staffing Anesthesiologist: Baldo Correia DO CONTROL INSPECTOR: Lupe Molina APRN.CONTROL INSPECTOR Performed by: CONTROL INSPECTOR Indications and Patient Condition Indications for airway management: anesthesia Preoxygenated: yes anesthesia circuit Patient position: sniffing Method: asleep Difficult Mask: No Final Airway Details Final airway type: supraglottic airway Number of attempts at approach: 1 Final Supraglottic Airway: i-gel Size 3 Seal Adequate: yes Airway not difficult SIGNATURE: Lupe Molina APRN.CONTROL INSPECTOR PATIENT NAME: Melissa Mcfarlane DATE: December 13, 2024 TIME: 7:51 AM CSN: [id number] Hospital04-21-2025 History of Present illness Narrative* Tatiana Wick RT(R) - 12/13/2024 7:30 AM EDT Radiology Service Progress Note PATIENT NAME: Melissa Mcfarlane DATE OF SERVICE: December 13, 2024 TIME: 7:33 AM PATIENT IDENTITY VERIFICATION COMPLETED USING TWO (2) IDENTIFIERS: Name and Date of confirmedwith surgeon verbally. 540uCi 99mTcLymphoseek handed off to Dr Munoz to inject in OR RADIOLOGY DEPARTMENT: Nuclear Medicine SIGNED BY: RT Angelo(R) December 13, 2024 7:33 AM documented in this encounterWilson Health04-21-2025 NoteHNO ID: [id number] Author: TATIANA WICK RT(Steffi) Service: Nuclear Medicine Author Type: Technologist Type: Progress Notes Filed: 12/13/2024 07:34 Note Text: Radiology Service Progress Note PATIENT NAME: Melissa Mcfarlane DATE OF SERVICE: December 13, 2024 TIME: 7:33 AM PATIENT IDENTITY VERIFICATION COMPLETED USING TWO (2) IDENTIFIERS: Name and Date of confirmed with surgeon verbally. 540uCi 99mTcLymphoseek handed off to Dr Munoz to inject in OR RADIOLOGY DEPARTMENT: Nuclear Medicine SIGNED BY: RT Angelo(R) December 13, 2024 7:33 [facility]04-18-2025 Telephone encounter Note* Telephone Encounter - Tatiana Keating LPN - 12/10/2024 10:53 AM EDT Returned pt call, informed pt per to take over the counter Benadryl and shower. Pt verbalized understanding and thanked me for calling. Tatiana Keating LPN [facility]04-18-2025 Miscellaneous Notes* Telephone Encounter - Tatiana Keating LPN - 12/10/2024 10:53 AM EDT Returned pt call, informed pt per to take over the counter Benadryl and shower. Pt verbalized understanding and thanked me for calling. Tatiana Keating LPN * Telephone Encounter - Ayesha Lynn - 12/10/2024 9:16 AM EDT Patient called and stated since having the zachary mail examiner placed she has a rash on her breasts and thinks it may be from the solution that was used, patient asked what she can use to get rid of the rash and if will delay her surgery. Please advice [facility] Telephone encounter Note * Telephone Encounter - Diana Aguilar LPN - 12/10/2024 10:06 AM EDT Left detailed message advising that my provider sent letter requesting Medical clearance and last office visit note from Dr. King. Surgery is Friday. Gave my phone and fax number.Diana Aguilar LPN [facility]04-18-2025 Miscellaneous Notes* Telephone Encounter - Diana Aguilar LPN - 12/10/2024 10:06 AM EDT Left detailed message advising that my provider sent letter requesting Medical clearance and last office visit note from Dr. King. Surgery is Friday. Gave my phone and fax number.Diana Aguilar LPN documented in this encounterWilson [facility]04-18-2025 Telephone encounter Note * Telephone Encounter - Ayesah Lynn - 12/10/2024 9:16 AM EDT Patient called and stated since having the zachary mail examiner placed she has a rash on her breasts and thinks it may be from the solution that was used, patient asked what she can use to get rid of the rash and if will delay her surgery. Please advice [facility]04-17-2025 History of Present illness Narrative* Baldo King, - 12/09/2024 9:50 AM EDT Chief Complaint Patient presents with Pre-op Clearance Patient here for preoperative clearance for left mastectomy; scheduled with Dr. Carmella Munoz with [facility] on 12.13.24. Patient denies cardiac c/o at this time. Subjective Candido Mcfarlane is a 69 y.o. female returns for preoperative clearance at the request of [facility]. Patient is doing well from a cardiovascular standpoint, denies any cardiovascular events or symptomatology. She denies shortness of breath or angina or hospitalizations. She has developed low-grade estrogen receptor positive breast cancer and is about to undergo lumpectomy with Dr. Munoz. She has a history of mild left ventricular dysfunction that was historically asymptomatic, ejectionfraction by echo 40 to 45% dating back to 2022. She refused guideline directed medical therapies asshe was feeling so well and exercising on a regular basis at that time employed in a somewhat high stress job. We therefore treated her conservatively and followed up with a MUGA scan last year that was normal with ejection fraction of 55%. She is on no cardiovascular medications, there has been noheart failure events, her functional class is I. And she has no risk factors. Today's ECG is normal sinus rhythm with PACs but is otherwise normal Recommendations: She presents to anesthesia and oncologic surgery is low risk for major adverse cardiac events. Will be happy to see here in the future for any cardiovascular issues or initiation of therapy if she is to undergo chemotherapy or radiation. HPI Review of Systems All other systems reviewed and are negative. EKG done in office today Vitals: 12/09/24 1032 BP: 126/88 BP Location: Right arm Patient Position: Sitting Pulse: 68 Weight: 52.2 kg (115 lb) Height: 1.6 m (5' 3 ) Objective Physical Exam Constitutional: Appearance: Normal appearance. HENT: Nose: Nose normal. Neck: Vascular: No carotid bruit. Cardiovascular: Rate and Rhythm: Normal rate. Pulses: Normal pulses. Heart sounds: Normal heart sounds. Pulmonary: Effort: Pulmonary effort is normal. Abdominal: General: Bowel sounds are normal. Palpations: Abdomen is soft. Musculoskeletal: General: Normal range of motion. Cervical back: Normal range of motion. Right lower leg: No edema. Left lower leg: No edema. Skin: General: Skin is warm and dry. Neurological: General: No focal deficit present. Mental Status: She is alert. Psychiatric: Mood and Affect: Mood normal. Behavior: Behavior normal. Thought Content: Thought content normal. Judgment: Judgment normal. Allergies Percocet [oxycodone-acetaminophen] Current Medications Current Outpatient Medications Medication Instructions B complex-vitamin C-folic acid (Nephro-Loreto Rx) 1-60-300 mg-mg-mcg tablet 1 tablet, Daily with breakfast BIOTIN ORAL Take by mouth. calcium citrate-vitamin D2 250 mg-2.5 mcg (100 unit) tablet 1 tablet, 2 times daily magnesium oxide 500 mg magnesium tablet Take by mouth. multivitamin tablet 1 tablet, Daily Assessment/Plan 1. Malignant neoplasm of female breast, unspecified estrogen receptor status, unspecified laterality, unspecified site of breast 2. Encounter for pre-operative cardiovascular clearance 3. BMI 20.0-20.9, adult 4. Never smoked tobacco Scribe Attestation By signing my name below, I, Barbie Garrison RN , Scribe attest that this documentation has been prepared under the direction and in the presence of Roma King DO. Provider Attestation - Scribe documentation All medical record entries made by the Scribe were at my direction and personally dictated by me. Ihave reviewed the chart and agree that the record accurately reflects my personal performance of the history, physical exam, discussion and plan. [facility] Work Phone: [phone] 445-636804-17-2025 Instructions* Patient Instructions* Barbie Sauer RN - 12/09/2024 9:50 AM EDT Please bring all medicines, vitamins, and herbal supplements with you when you come to the office. Prescriptions will not be filled unless you are compliant with your follow up appointments or have a follow up appointment scheduled as per instruction of your physician. Refills should be requested at the time of your visit. Patient is cleared for surgery Follow up ordered as needed only documented in this [facility] Work Phone: [phone]) 761-712904-15-2025 Instructions* Patient Instructions* Barbie Francis PA-C - 12/07/2024 11:42 AM EDT Images from the original note were not included. [facility] PATIENT PREOPERATIVE INSTRUCTIONS [facility]: [phone] --[id number] [place] [address]. Please read below carefully for your personalized instructions. Arrival Time for Surgery: - The Surgery Center or hospital where you are having surgery will call the afternoon before surgery (or Friday for Friday surgery) with a scheduled arrival time. - If you have not heard by 4 pm, please contact the surgery center above. Please be aware that emergency situations arise, which may delay or change your surgical time. If this happens, we will notify you as soon as possible and regret any inconvenience. Dietary Restrictions: - No solid food after midnight. - You may have 12 ounces of clear liquids (water, clear juices such as apple juice or gatorade, carbonated beverages, clear tea, black coffee, jello) until 2 hours before scheduled arrival at facility. - no milk/creamer or other additives like honey - no pulp juices Medications: None If you are currently using a [id number] injectable or oral medication for diabetes or weight loss such as Dulaglutide (Trulicity), Exenatide (Byetta, Bydureon), Liraglutide (Victoza, Saxenda), Semaglutide (Ozempic, Wegovy, Rybelsus), or Tirzepatide (Mounjaro), the medicine should be stopped at least 7 days before surgery. These medicines can cause food to remain in your stomach for a very longtime and increase the risks from surgery and anesthesia. Not stopping the medication for a long enough time may result in your surgery being rescheduled. If you start any new medications after today's visit, please contact the surgeon's office. Blood Thinning Medications: - Stop NSAIDS (Ibuprofen, Advil, Aleve, Motrin, Celebrex, Mobic, etc.) 7 days before surgery, as directed by your surgeon. - Stop ALL herbal and dietary supplements 7 days before surgery. - You may take Tylenol (Acetaminophen) or any of your pain medications that do not contain aspirin or NSAIDS as needed. Important Reminders: - Candy, mints, and tobacco products are NOT permitted the morning of surgery. - Hearing aids, dentures and glasses may be worn the morning of surgery. - NO jewelry, body piercings, makeup, hairpins or contacts are to be worn the day of surgery. If you develop symptoms such as a fever, cold, or flu, or have other changes to your health within TWO DAYS of scheduled surgery or the morning of surgery, please contact the surgery center above. Personal Belongings: -Please have photo ID and insurance cards. -If you do not have a copy of advance directives on file with us, please bring a copy with you on the day of surgery. - Leave ALL valuables and money at home or with family members. For Outpatient Procedures: - YOU MUST HAVE A RESPONSIBLE LOAN REVIEWER TAKE YOU HOME. A PIPELINE INSPECTOR OR SALES ADVISOR CANNOT BE MADE A RESPONSIBLE LOAN REVIEWER. - We recommend that a responsible person stays with you overnight to take care of you. - You cannot stay in a hotel alone after outpatient surgery. You will not be permitted to have yoursurgery, if you do not have someone to take care of you. Please be aware that emergency situations arise, which may delay or change your surgical time. If this happens, we will notify you as soon as possible and regret any inconvenience. If you already have an Advance Directive, please fax a copy to [phone] or email to for it to be added to your chart. If you do not have an Advance Directive, you can find the appropriate form and more information at [email or web address]. We recommend that youcomplete the Advance Directive form found on the website and bring it with you the day of your surgery. It can be witnessed and scanned into your chart that day. Barbie Francis PA-C documented in this encounterWilson [facility]04-15-2025 History and physical note * Barbie Francis PA-C - 12/07/2024 11:32 AM EDT Images from the original note were not included. [facility] HISTORY AND PHYSICAL EXAMINATION SERVICE DATE: 12/07/2024 SERVICE TIME: 11:32 AM PRIMARY CARE PHYSICIAN: Kelton Thompson MD REASON FOR VISIT: Melissa Mcfarlane is a 69 year old female who is scheduled for Left - MASTECTOMY PARTIAL Left - PLACEMENT OF BREAST LOCALIZATION DEVICE(S) PERCUTANEOUS; FIRST LESION, MAMMOGRAPHIC GUIDANCE Left - INTRAOPERATIVE ID OF SENTINEL LYMPH NODE(S) INCL'D INJECTION OF NON-RAD DYE WHEN PERFORMED Left - BIOPSY NODE SENTINEL AXILLARY Left - INJECTION PROCEDURE RADIOACTIVE TRACER FOR IDENTIFICATION OF SENTINEL NODE Left - RADIOLOGICAL EXAMINATION SURGICAL SPECIMEN at the request of for consultation. My final recommendation will be communicated back to the requesting physician by way of shared medical recordor letter. Assessment Patient has the following medical conditions which may affect hilda-operative course: Valvular heartdisease Assessment: mild MR and TR Primary hypertension Assessment: not currently on medication. BP in office today 158/90 Last 14 BP Last 14 Encounter BP Readings: Date: BP: 12/07/2024 158/90 11/26/2024 156/79 11/02/2013 123/75 Chronic systolic CHF (congestive heart failure) (HCC) Assessment: 08/29/22 Echo: CONCLUSIONS: 1. Left ventricular systolic function is mildly to moderately decreased with a 40-45% estimated ejection fraction. 2. Severe inferolateral wall hypokinesis. 3. When compared to a study from 10/04/2021, there has been no significant interval changes. 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 Last seen in 2022 I - PHYSICAL EVALUATION AIRWAY Patient intubated: No. Tracheostomy tube not present Mallampati: IV. TM distance: >3 FB. Neck ROM: full ROM without neurological symptoms. Mouth opening: non-adequate. Short neck: no. Additional comments: Small mouth opening. Thick neck: no Microretrognathia/Micronagthia/Recessed Chin: No DENTAL Dental findings: teeth intact. Additional comments: crowns. II - ANESTHESIA PLAN Anesthetic plan additional comments: *PACC/TCI - anesthesia choice. Beta Dylan Monitoring Plan Post Procedure Analgesic Plan ANESTHESIA FINDINGS: Intubation History: No history of difficult intubation Significant Anesthesia Considerations: none Airway History: No history of difficult airway Altman Activity Status Index: METS: Walk indoors, such as around the house (1.75 METs) Do light work around the house, such as dusting or washing dishes (2.70 METs) Take care of self; that is eating, dressing, bathing, using the toilet (2.75 METs) Walk a block or two on level ground (2.75 METs) Do moderate work around the house, such as vacuuming, sweeping floors, or carrying in groceries (3.50 METs) Do yardwork, such as raking leaves, weeding, or pushing a power mower (4.50 METs) Climb a flight of stairs or walk up a hill (5.50 METs) Do heavy work around the house, such as scrubbing floors, lifting or moving heavy furniture (8.00 METs) DASI Score: 31.45 Patient denies any chest pain or undue shortness of breath with the above physical activity. STOP-Bang Score: Snores loudly Has or is being treated for high blood pressure Patient over 50 years old Denies feeling tired, fatigued, or sleepy during the daytime Has not been observed to stop breathing or choking/gasping during sleep BMI less than or equal to 35 kg/m^2 Does not have a large neck Non-male patient STOP-Bang Score: 3 [id number] Score: Age: 65-74 Sex: female CHF history: Yes Hypertension history: Yes Stroke/TIA/thromboembolism history: No Vascular disease history: No Diabetes history: No [id number] Score: 4 Prepared for surgery: This patient is optimally prepared for surgery pending LABS, EKG, and cardiac optimization. CONSULTS: Scheduled to see Dr. King on 12/[address] King: [phone] The Following Tests/Procedures Have Been Initiated: Orders Placed This Encounter Complete Blood Count and Differential Standing Status: Future Expected Date: 12/07/2024 Expiration Date: 03/08/2025 CMP Standing Status: Future Expected Date: 12/07/2024 Expiration Date: 03/08/2025 therapeutic multivitamin-minerals (THERA-M PLUS) 9 mg iron-400 mcg tablet Sig: Take 1 tablet by mouth once daily. Collagen and biotin is in multivitamin ECG (IN OFFICE) Planned Anesthetic: Per anesthesia choice Subjective CHIEF COMPLAINT: breast cancer HPI: Melissa is a 69 y/o female who was recently diagnosed with invasive ductal carcinoma of the left breast, after undergoing workup for an abnormal mammogram. She denies breast pain, skin changes, nipple retraction or discharge. She is scheduled for surgery on 12/13. REVIEW OF SYSTEMS: PAIN ASSESSMENT: General: No weight loss, malaise or fevers. Neuro: Negative for headaches, seizures, tremor or stroke Respiratory: Negative for cough, wheezing or shortness of breath. Negative for hemoptysis. Negativefor sleep apnea. Cardiovascular: Negative for chest pain, orthopnea, PND, dizziness, lightheadedness or syncope. Negative for palpitations or arrhythmia. Negative for h/o DVT/PE. Negative for LE edema +chronic systolic heart failure, NICM, mild MR and TR, HTN 03/20/23 NM cardiac MUGA Normal resting right ventricular function. Normalresting left ventricular function. Left ventricular ejection fraction is 55%. No previous studies are available for comparison 08/29/22 Echo: CONCLUSIONS: 1. Left ventricular systolic function is mildly to moderately decreased with a 40-45% estimated ejection fraction. 2. Severe inferolateral wall hypokinesis. 3. When compared to a study from 10/04/2021, there has been no significant interval changes. GI: Negative for blood in the stool, black stools or change in bowel habits +occ epigastric pain : No history of UTI in past 6 weeks. No history of renal failure. Not currently on or requiring dialysis. 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 : N/A, No LMP recorded. Patient is postmenopausal. Endocrine: Negative for polyuria, polydipsia, heat or cold intolerance. Negative for goiter Hematology: No history of bleeding or clotting disorder. Pt is not taking anti- coagulation or platelet medications. No history of hematological symptoms or problems. Oncology: see HPI Psych: Anxiety, Depression Marijuana use: No Musculoskeletal: Negative for joint pain or swelling, back pain or muscle pain. Skin: Negative for lesions, rash and itching. Implanted Devices: No The patient has the following: ACTIVE PROBLEM LIST Rosacea Malignant Neoplasm of Upper-Outer Quadrant of Left Breast in Female, Estrogen Receptor Positive (Hcc) Primary Hypertension Chronic Systolic Chf (Congestive Heart Failure) (Hcc) Valvular Heart Disease Nonischemic Cardiomyopathy (Hcc) Covid Immunization Dates Current Care Gaps Covid-19 Vaccine ( season) Never done No completion, postpone, frequency change, or communication history exists for this topic. PAST MEDICAL HISTORY Diagnosis Date Breast cancer (HCC) 10/2024 left breast HTN (hypertension) Mitral valve regurgitation PVC (premature ventricular contraction) Scoliosis PAST SURGICAL HISTORY Procedure Laterality Date PAST SURGICAL HISTORY OF 08/25/1970 spinal fusion PAST SURGICAL HISTORY OF as child t&a US BREAST NEEDLE CORE BIOPSY LT Left 10/2024 FAMILY HISTORY Problem Relation Age of Onset Heart Father Hypertension Father Prostate Cancer Father Hodgkin Lymphoma Paternal Uncle Social History Tobacco Use Smoking status: Never Smokeless tobacco: Never Vaping Use Vaping status: Never Used Substance Use Topics Alcohol use: Yes Comment: social Drug use: No Prior to Admission medications as of 12/07/24 1142 Medication Sig Last Dose Taking therapeutic multivitamin-minerals (THERA-M PLUS) 9 mg iron-400 mcg tablet Take 1 tablet by mouth once daily. Collagen and biotin is in multivitamin Yes CALCIUM CARBONATE/VITAMIN D3 (CALCIUM 600 + D ORAL) Take 1 tablet by mouth once daily. Yes LUTEIN EXTRACT/ZEAXANTHIN EXT (LUTEIN-ZEAXANTHIN ORAL) Take 1 tablet by mouth once daily. Yes MULTIVITAMIN TAB Take one(1) tablet daily. Yes No medication comments found. ALLERGIES Allergen Reactions Percocet [Oxycodone* Other: See Comments Patient states that it makes her shakey Objective PHYSICAL EXAM: VITALS: BP 158/90 Pulse 63 Resp 16 Ht 5' .669 (1.54m) Wt 113 lb 12.1 oz (51.6kg) SpO2 99% BMI 21.73 kg/(m^2). General: Alert and oriented Skin: Normal color, no rash, no lesions. HEENT: EOM, pupils equal, round and reactive. Cardiovascular: Normal S1 & S2, no rubs, murmurs or gallops. No JVD. Pulse regular. Lungs: Normal breath sounds, no wheezes or crackles. Abdomen: Soft, non-tender, no rigidity. Extremities: No deformity, no edema or tenderness, no joint swelling or clubbing. Neurological: Normal cognition and motor skills. Pulses: Carotid and radial pulses normal +2. Diagnostic tests reviewed for today's visit: Lab Value Units Date High Low HB No results within date range. HCT No results within date range. WBC No results within date range. PLT No results within date range. NA No results within date range. K No results within date range. GLUC No results within date range. BUN No results within date range. CREAT No results within date range. PTSEC No results within date range. INR No results within date range. APTT No results within date range. ALT No results within date range. AST No results within date range. TBILI No results within date range. TSH No results within date range. Lab Value Units Date High Low HCGQT No results within date range. UHCG No results within date range. HCG, BODY* No results within date range. Lab Value Units Date High Low ABORHD No results within date range. ABSCREEN No results within date range. No results found for: HBA1C PENDING Instructions Given to Patient: Instructions located in the after visit summary. Patient given verbal and written preop instructions and voices comprehension and compliance. SIGNATURE: Barbie Francis PA-C PATIENT NAME: Melissa Mcfarlane DATE: 12/07/2024 TIME: 12:08 PM [facility]04-15-2025 History and physical note* Barbie Francis PA-C - 12/07/2024 11:32 AM EDT Images from the original note were not included. [facility] HISTORY AND PHYSICAL EXAMINATION SERVICE DATE: 12/07/2024 SERVICE TIME: 11:32 AM PRIMARY CARE PHYSICIAN: Kelton Thopmson MD REASON FOR VISIT: Melissa Mcfarlane is a 69 year old female who is scheduled for Left - MASTECTOMY PARTIAL Left - PLACEMENT OF BREAST LOCALIZATION DEVICE(S) PERCUTANEOUS; FIRST LESION, MAMMOGRAPHIC GUIDANCE Left - INTRAOPERATIVE ID OF SENTINEL LYMPH NODE(S) INCL'D INJECTION OF NON-RAD DYE WHEN PERFORMED Left - BIOPSY NODE SENTINEL AXILLARY Left - INJECTION PROCEDURE RADIOACTIVE TRACER FOR IDENTIFICATION OF SENTINEL NODE Left - RADIOLOGICAL EXAMINATION SURGICAL SPECIMEN at the request of for consultation. My final recommendation will be communicated back to the requesting physician by way of shared medical recordor letter. Assessment Patient has the following medical conditions which may affect hilda-operative course: Valvular heartdisease Assessment: mild MR and TR Primary hypertension Assessment: not currently on medication. BP in office today 158/90 Last 14 BP Last 14 Encounter BP Readings: Date: BP: 12/07/2024 158/90 11/26/2024 156/79 11/02/2013 123/75 Chronic systolic CHF (congestive heart failure) (HCC) Assessment: 08/29/22 Echo: CONCLUSIONS: 1. Left ventricular systolic function is mildly to moderately decreased with a 40-45% estimated ejection fraction. 2. Severe inferolateral wall hypokinesis. 3. When compared to a study from 10/04/2021, there has been no significant interval changes. 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 Last seen in 2022 I - PHYSICAL EVALUATION AIRWAY Patient intubated: No. Tracheostomy tube not present Mallampati: IV. TM distance: >3 FB. Neck ROM: full ROM without neurological symptoms. Mouth opening: non-adequate. Short neck: no. Additional comments: Small mouth opening. Thick neck: no Microretrognathia/Micronagthia/Recessed Chin: No DENTAL Dental findings: teeth intact. Additional comments: crowns. II - ANESTHESIA PLAN Anesthetic plan additional comments: *PACC/TCI - anesthesia choice. Beta Dylan Monitoring Plan Post Procedure Analgesic Plan ANESTHESIA FINDINGS: Intubation History: No history of difficult intubation Significant Anesthesia Considerations: none Airway History: No history of difficult airway Altman Activity Status Index: METS: Walk indoors, such as around the house (1.75 METs) Do light work around the house, such as dusting or washing dishes (2.70 METs) Take care of self; that is eating, dressing, bathing, using the toilet (2.75 METs) Walk a block or two on level ground (2.75 METs) Do moderate work around the house, such as vacuuming, sweeping floors, or carrying in groceries (3.50 METs) Do yardwork, such as raking leaves, weeding, or pushing a power mower (4.50 METs) Climb a flight of stairs or walk up a hill (5.50 METs) Do heavy work around the house, such as scrubbing floors, lifting or moving heavy furniture (8.00 METs) DASI Score: 31.45 Patient denies any chest pain or undue shortness of breath with the above physical activity. STOP-Bang Score: Snores loudly Has or is being treated for high blood pressure Patient over 50 years old Denies feeling tired, fatigued, or sleepy during the daytime Has not been observed to stop breathing or choking/gasping during sleep BMI less than or equal to 35 kg/m^2 Does not have a large neck Non-male patient STOP-Bang Score: 3 [id number] Score: Age: 65-74 Sex: female CHF history: Yes Hypertension history: Yes Stroke/TIA/thromboembolism history: No Vascular disease history: No Diabetes history: No [id number] Score: 4 Prepared for surgery: This patient is optimally prepared for surgery pending LABS, EKG, and cardiac optimization. CONSULTS: Scheduled to see Dr. King on 12/[address] King: [phone] The Following Tests/Procedures Have Been Initiated: Orders Placed This Encounter Complete Blood Count and Differential Standing Status: Future Expected Date: 12/07/2024 Expiration Date: 03/08/2025 CMP Standing Status: Future Expected Date: 12/07/2024 Expiration Date: 03/08/2025 therapeutic multivitamin-minerals (THERA-M PLUS) 9 mg iron-400 mcg tablet Sig: Take 1 tablet by mouth once daily. Collagen and biotin is in multivitamin ECG (IN OFFICE) Planned Anesthetic: Per anesthesia choice Subjective CHIEF COMPLAINT: breast cancer HPI: Melissa is a 69 y/o female who was recently diagnosed with invasive ductal carcinoma of the left breast, after undergoing workup for an abnormal mammogram. She denies breast pain, skin changes, nipple retraction or discharge. She is scheduled for surgery on 12/13. REVIEW OF SYSTEMS: PAIN ASSESSMENT: General: No weight loss, malaise or fevers. Neuro: Negative for headaches, seizures, tremor or stroke Respiratory: Negative for cough, wheezing or shortness of breath. Negative for hemoptysis. Negativefor sleep apnea. Cardiovascular: Negative for chest pain, orthopnea, PND, dizziness, lightheadedness or syncope. Negative for palpitations or arrhythmia. Negative for h/o DVT/PE. Negative for LE edema +chronic systolic heart failure, NICM, mild MR and TR, HTN 03/20/23 NM cardiac MUGA Normal resting right ventricular function. Normalresting left ventricular function. Left ventricular ejection fraction is 55%. No previous studies are available for comparison 08/29/22 Echo: CONCLUSIONS: 1. Left ventricular systolic function is mildly to moderately decreased with a 40-45% estimated ejection fraction. 2. Severe inferolateral wall hypokinesis. 3. When compared to a study from 10/04/2021, there has been no significant interval changes. GI: Negative for blood in the stool, black stools or change in bowel habits +occ epigastric pain : No history of UTI in past 6 weeks. No history of renal failure. Not currently on or requiring dialysis. 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 : N/A, No LMP recorded. Patient is postmenopausal. Endocrine: Negative for polyuria, polydipsia, heat or cold intolerance. Negative for goiter Hematology: No history of bleeding or clotting disorder. Pt is not taking anti- coagulation or platelet medications. No history of hematological symptoms or problems. Oncology: see HPI Psych: Anxiety, Depression Marijuana use: No Musculoskeletal: Negative for joint pain or swelling, back pain or muscle pain. Skin: Negative for lesions, rash and itching. Implanted Devices: No The patient has the following: ACTIVE PROBLEM LIST Rosacea Malignant Neoplasm of Upper-Outer Quadrant of Left Breast in Female, Estrogen Receptor Positive (Hcc) Primary Hypertension Chronic Systolic Chf (Congestive Heart Failure) (Hcc) Valvular Heart Disease Nonischemic Cardiomyopathy (Hcc) Covid Immunization Dates Current Care Gaps Covid-19 Vaccine (2023- season) Never done No completion, postpone, frequency change, or communication history exists for this topic. PAST MEDICAL HISTORY Diagnosis Date Breast cancer (HCC) 10/2024 left breast HTN (hypertension) Mitral valve regurgitation PVC (premature ventricular contraction) Scoliosis PAST SURGICAL HISTORY Procedure Laterality Date PAST SURGICAL HISTORY OF 08/25/1970 spinal fusion PAST SURGICAL HISTORY OF as child t&a US BREAST NEEDLE CORE BIOPSY LT Left 10/2024 FAMILY HISTORY Problem Relation Age of Onset Heart Father Hypertension Father Prostate Cancer Father Hodgkin Lymphoma Paternal Uncle Social History Tobacco Use Smoking status: Never Smokeless tobacco: Never Vaping Use Vaping status: Never Used Substance Use Topics Alcohol use: Yes Comment: social Drug use: No Prior to Admission medications as of 12/07/24 1142 Medication Sig Last Dose Taking therapeutic multivitamin-minerals (THERA-M PLUS) 9 mg iron-400 mcg tablet Take 1 tablet by mouth once daily. Collagen and biotin is in multivitamin Yes CALCIUM CARBONATE/VITAMIN D3 (CALCIUM 600 + D ORAL) Take 1 tablet by mouth once daily. Yes LUTEIN EXTRACT/ZEAXANTHIN EXT (LUTEIN-ZEAXANTHIN ORAL) Take 1 tablet by mouth once daily. Yes MULTIVITAMIN TAB Take one(1) tablet daily. Yes No medication comments found. ALLERGIES Allergen Reactions Percocet [Oxycodone* Other: See Comments Patient states that it makes her shakey Objective PHYSICAL EXAM: VITALS: BP 158/90 Pulse 63 Resp 16 Ht 5' .669 (1.54m) Wt 113 lb 12.1 oz (51.6kg) SpO2 99% BMI 21.73 kg/(m^2). General: Alert and oriented Skin: Normal color, no rash, no lesions. HEENT: EOM, pupils equal, round and reactive. Cardiovascular: Normal S1 & S2, no rubs, murmurs or gallops. No JVD. Pulse regular. Lungs: Normal breath sounds, no wheezes or crackles. Abdomen: Soft, non-tender, no rigidity. Extremities: No deformity, no edema or tenderness, no joint swelling or clubbing. Neurological: Normal cognition and motor skills. Pulses: Carotid and radial pulses normal +2. Diagnostic tests reviewed for today's visit: Lab Value Units Date High Low HB No results within date range. HCT No results within date range. WBC No results within date range. PLT No results within date range. NA No results within date range. K No results within date range. GLUC No results within date range. BUN No results within date range. CREAT No results within date range. PTSEC No results within date range. INR No results within date range. APTT No results within date range. ALT No results within date range. AST No results within date range. TBILI No results within date range. TSH No results within date range. Lab Value Units Date High Low HCGQT No results within date range. UHCG No results within date range. HCG, BODY* No results within date range. Lab Value Units Date High Low ABORHD No results within date range. ABSCREEN No results within date range. No results found for: HBA1C PENDING Instructions Given to Patient: Instructions located in the after visit summary. Patient given verbal and written preop instructions and voices comprehension and compliance. SIGNATURE: Barbie Francis PA-C PATIENT NAME: Melissa Mcfarlane DATE: 12/07/2024 TIME: 12:08 PM documented in this encounterWilson Health04-15-2025 Instructions* Patient Education - Zulma Roberts RT(R) - 12/07/2024 10:57 AM EDT Post procedure verbal instructions were given to patient. [facility]04-15-2025 NoteHNO ID: [id number] Author: ZULMA ROBERTS RT (R) Service: Radiology Author Type: Concrete Technician Type: Patient Education Filed: 12/07/2024 10:57 Note Text: Post procedure verbal instructions were given to patient.[facility]04-15-2025 Miscellaneous Notes* Patient Education - Zulma Roberts RT(R) - 12/07/2024 10:57 AM EDT Post procedure verbal instructions were given to patient. documented in this encounterWilson Health04-14-2025 NoteHNO ID: [id number] Author: CARMELLA MUNOZ DO Service: ? Author Type: Physician Type: Progress Notes Filed: 12/06/2024 12:49 Note Text: Breast Surgery Telephone Follow up Note I have communicated my name and active licensure. The patient's identity and physical location were verified at the time of this visit. The patient has been informed of the risks and benefits of -- and alternatives to -- treatment through a remote evaluation and consents to proceed with the discussion remotely. HPI Melissa Mcfarlane is a 69 year old female with a LEFT breast 1.1 cm mass @ 2:00, 4cm FN posterior. Bx (globe clip) shows IDC. LN appear normal ER+CO+HER2- [id number] The phone conversation today is to discuss genetic testing The patient viewed a genetic testing educational video which describes rationale for germline genetic testing, potential results, and possible personal and familial implications. PLAN The patient chose to pursue and provided informed consent for germline testing. Test results will be disclosed by a genetic counselor. Discussed surgery details Total telephone conversation time was 10 minutes with time spent on counseling the patient and coordinating her care. This includes prep time to review her case and imaging as well as discussion with other physicians for this appointment today. Carmella Munoz DO, [facility] Breast Surgeon [facility]04-14-2025 History of Present illness Narrative* Carmella Munoz DO - 12/06/2024 12:43 PM EDT Breast Surgery Telephone Follow up Note I have communicated my name and active licensure. The patient's identity and physical location wereverified at the time of this visit. The patient has been informed of the risks and benefits of -- and alternatives to -- treatment through a remote evaluation and consents to proceed with the discussion remotely. HPI Melissa Mcfarlane is a 69 year old female with a LEFT breast 1.1 cm mass @ 2:00, 4cm FN posterior. Bx (globe clip) shows IDC. LN appear normal ER+CO+HER2- [id number] The phone conversation today is to discuss genetic testing The patient viewed a genetic testing educational video which describes rationale for germline genetic testing, potential results, and possible personal and familial implications. PLAN The patient chose to pursue and provided informed consent for germline testing. Test results will be disclosed by a genetic counselor. Discussed surgery details Total telephone conversation time was 10 minutes with time spent on counseling the patient and coordinating her care. This includes prep time to review her case and imaging as well as discussion withother physicians for this appointment today. Carmella Munoz DO, FACS Breast Surgeon [facility] documented in this encounterWilson Health04-08-2025 Telephone encounter Note * Telephone Encounter - Lina Smith MD - 11/30/2024 12:19 PM EDT I have reviewed and approved the localization plan. Images dated 11/01/2024 and US 11/23/2024 are annotated. (Vision clip) Radiologist: Lina Smith MD [facility] Work Phone: [phone] 176-251604-08-2025 Miscellaneous Notes* Telephone Encounter - Lina Smith MD - 11/30/2024 12:19 PM EDT I have reviewed and approved the localization plan. Images dated 11/01/2024 and US 11/23/2024 are annotated. (Vision clip) Radiologist: Lina Smith MD * Telephone Encounter - Tatiana Keating LPN - 11/29/2024 8:04 AM EDT LOCALIZATION IMAGE REVIEW (Please do NOT submit until entire workup complete) (if > 3 reflectors to be placed in one breast, please review with radiologist) Melissa Mcfarlane [id number] 1955 WORK- UP COMPLETE? Yes Order Placed Yes Left - Site 1 Location 2:00 4cm fn Clip Shape clip From outside facility Clip Migration No Pathology IDC Preferred Localization zachary * If clip migrated, please review with radiologist This Form Has Been Completed By Tatiana Keating LPN On Behalf Of Dr. Munoz documented in this encounterWilson Health04-07-2025 NoteHNO ID: [id number] Author: TATIANA KEATING LPN Service: ? Author Type: LICENSED NURSE Type: Progress Notes Filed: 11/29/2024 09:47 Note Text: AMBULATORY PATIENT EDUCATION NOTE TOPIC: LEFT breast zachary mail examiner localized lumpectomy, LEFT sentinel lymph node biopsy READINESS TO LEARN COGNITIVE ABILITY: Alert and oriented MOTIVATION TO LEARN: Interested FAMILY SUPPORT: Low - Inconsistent family involvement INSTRUCTION PROVIDED TO: Patient PATIENT LEARNS BEST BY: Multiple Methods FACTORS AFFECTING LEARNING: None PHYSICAL LIMITATIONS AFFECTING LEARNING: None LEARNING RESPONSE DIAGNOSIS: C50.912 METHOD OF INSTRUCTION: Individual instruction Written instruction/Handouts Verbal instruction PATIENT / FAMILY RESPONSE: Verbalizes understanding of: INFECTION MANAGEMENT-Signs and symptoms of an infection and importance of contacting the physician MEDICATION PRESCRIBED-Accurate knowledge of prescribed medication prior to discharge MEDICATION ROUTE-Correct route for administration of the prescribed medication MEDICATION SIDE EFFECTS-Side effects associated with the medication that warrant a call to the physician PAIN MANAGEMENT-Effective strategies to manage pain in addition to pain medication PHYSICAL RESTRICTIONS-Physical restrictions and recommendations after discharge from the hospital POST-OPERATIVE INSTRUCTIONS-Correct actions to take to reduce postoperative complications PRE-OPERATIVE INSTRUCTIONS-Correct action to take to follow pre-operative instructions PATIENT SAFETY PRINCIPLES SYMPTOM MANAGEMENT-Correct actions to take to manage symptoms associated with his/her disease/illness VTE prevention measures WORSENING CONDITION-Signs and symptoms of a worsening condition that warrant a call to the physician WOUND CARE-Correct procedure to perform wound care FOLLOW-UP PLAN: Patient instructed to call with any further issues SUPPLEMENTAL MATERIAL: Your Surgical Guide for [facility] REFERRAL (RECOMMENDATION): None Electronically Signed By: Tatiana Keating LPN In Department: [facility] Time spent on patient education: 20 minutes.[facility]04-07-2025 History of Present illness Narrative* Tatiana Keating LPN - 11/29/2024 9:41 AM EDT AMBULATORY PATIENT EDUCATION NOTE TOPIC: LEFT breast zachary mail examiner localized lumpectomy, LEFT sentinel lymph node biopsy READINESS TO LEARN COGNITIVE ABILITY: Alert and oriented MOTIVATION TO LEARN: Interested FAMILY SUPPORT: Low - Inconsistent family involvement INSTRUCTION PROVIDED TO: Patient PATIENT LEARNS BEST BY: Multiple Methods FACTORS AFFECTING LEARNING: None PHYSICAL LIMITATIONS AFFECTING LEARNING: None LEARNING RESPONSE DIAGNOSIS: C50.912 METHOD OF INSTRUCTION: Individual instruction Written instruction/Handouts Verbal instruction PATIENT / FAMILY RESPONSE: Verbalizes understanding of: INFECTION MANAGEMENT- Signs and symptoms of an infection and importance of contacting the physician MEDICATION PRESCRIBED-Accurate knowledge of prescribed medication prior to discharge MEDICATION ROUTE-Correct route for administration of the prescribed medication MEDICATION SIDE EFFECTS-Side effects associated with the medication that warrant a call to the physician PAIN MANAGEMENT-Effective strategies to manage pain in addition to pain medication PHYSICAL RESTRICTIONS-Physical restrictions and recommendations after discharge from the hospital POST-OPERATIVE INSTRUCTIONS-Correct actions to take to reduce postoperative complications PRE-OPERATIVE INSTRUCTIONS-Correct action to take to follow pre-operative instructions PATIENT SAFETY PRINCIPLES SYMPTOM MANAGEMENT-Correct actions to take to manage symptoms associated with his/her disease/illness VTE prevention measures WORSENING CONDITION-Signs and symptoms of a worsening condition that warrant a call to the physician WOUND CARE-Correct procedure to perform wound care FOLLOW-UP PLAN: Patient instructed to call with any further issues SUPPLEMENTAL MATERIAL: Your Surgical Guide for [facility] REFERRAL (RECOMMENDATION): None Electronically Signed By: Tatiana Keating LPN In Department: [facility] Time spent on patient education: 20 minutes. documented in this encounterWilson Health04-07-2025 Telephone encounter Note * Telephone Encounter - Tatiana Keating LPN - 11/29/2024 8:04 AM EDT LOCALIZATION IMAGE REVIEW (Please do NOT submit until entire workup complete) (if > 3 reflectors to be placed in one breast, please review with radiologist) Melissa Mcfarlane [id number] 1955 WORK- UP COMPLETE? Yes Order Placed Yes Left - Site 1 Location 2:00 4cm fn Clip Shape clip From outside facility Clip Migration No Pathology IDC Preferred Localization zachary * If clip migrated, please review with radiologist This Form Has Been Completed By Tatiana Keating LPN On Behalf Of Dr. Munoz [facility]04-07-2025 [facility]Education [facility] MELISSA MCFARLANE ([id number]) 1955 F Date Time Provider Department 11/29/24 [facility] Reason for Visit: Patient Education [91] Cmt: LEFT breast zachary mail examiner localized lumpectomy, LEFT sentinel lymph node biopsy Primary Visit Diagnosis:Invasive ductal carcinoma of breast, female, left (HCC) [C50.912] During your visit today, we recorded the following information about you: Allergies As of Date: 11/29/2024 Noted Allergy Reaction PERCOCET (OXYCODONE-ACETAMINOPHEN)11/26/2024 14 - Other: See Comments Comments: Patient states that it makes her shakey Date Reviewed: 11/29/2024 Reviewed by: Tatiana Keating LPN - Fully Assessed Prescriptions as of 11/29/2024 - [id number] ORAL Take 500 mg by mouth. - CALCIUM CARBONATE/VITAMIN D3 (CALCIUM 600 + D ORAL) Take 1 tablet by mouth once daily. - [place]-3 Fatty Acids-Vitamin E (FISH OIL) 1,000 mg cap Take 1 capsule by mouth once daily. - LUTEIN EXTRACT/ZEAXANTHIN EXT (LUTEIN-ZEAXANTHIN ORAL) Take 1 tablet by mouth once daily. - MULTIVITAMIN TAB Take one(1) tablet daily. Encounter Status:Closed by TATIANA KEATING on 11/29/24[facility]04-04-2025 History of Present illness Narrative* Chayito Luois MD - 11/26/2024 1:30 PM EDT Radiation Oncology - New Patient/Consult Note PATIENT NAME: Melissa Mcfarlane PATIENT REQUESTING PROVIDER: Carmella Munoz DIAGNOSIS: 69 year old female with invasive ductal carcinoma of the Left breast, UOQ, clinical stage IA, ER-positive, CO-negative, and Her2/fausto not amplified, s/p biopsy. HPI: 69 year old female who presents with above diagnosis, for an opinion regarding the role of radiation therapy in the management of the patient's disease. Final recommendations will be communicated back to the requesting physician by way of the shared medical record, or letter to requesting physician via [place] mail. The patient reports on screening mammogram she was found to have abnormality located in the Left breast. Mammogram/ultrasound demonstrated: ULTRASOUND FINDINGS: Targeted ultrasound of the left breast was performed. The known malignancy at 2:00 4 cm from the nipple does not appear changed compared to 10/07/2024, and measures 1.1 x 0.8 x 0.9 cm. Benign-appearing lymph nodes are demonstrated in the left axilla. 11/22/24 Left breast mass core biopsy FINAL DIAGNOSIS , [place], [place], [id number], Left breast mass, 2:00, 4 cmfn, needle core biopsy: -Invasive ductal carcinoma, provisional histologic grade 2. - Estrogen receptor is positive, 80%, outside slide reviewed. - Progesterone receptor is negative, outside slide reviewed. - HER2 is negative 1+ per outside report. The patient has been referred to us for consideration of radiotherapy options in the management of her disease. Prior radiation therapy or collagen vascular disease: No Any implanted or external electric devices? No status: Naturally post-menopausal. 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 No acute distress. HEENT: NCAT. Sclera anicteric. Neck: Normal ROM. Chest: No respiratory distress. Breast: bilateral breasts are symmetric, without nipple inversion, skin changes, or dominant massesin either breast Participation of a fellow, resident, medical student, or advanced practice provider student in performing the sensitive examination was discussed with the patient or authorized phlebotomy services representative. The patient or authorized phlebotomy services representative has agreed to proceed with the sensitive examination. ASSESSMENT AND PLAN: 69 year old female with invasive ductal carcinoma of the Left breast, UOQ, clinical stage IA, ER-positive, CO-negative, and Her2/fausto not amplified, s/p biopsy. She is tentatively scheduled for left breast lumpectomy 12/13/24. Discussed role and rationale for adjuvant radiation post surgery and reviewed potential acute and assisted side effects of radiation to the breast. Also discussed potential participation in BR007 clinical trial. She may be interested in this trial. She understands that oncotype recurrence score need to be less than or equal to 18 to qualify for the trial. Return for f/u around 4 weeks post surgery to review pathology and finalize radiation plans. Signed by: Chayito Louis MD [facility] [place] Radiation Oncology, [facility] [address] [place] [address] Cc: Ave Munoz DO documented in this encounterWilson Health04-04-2025 NoteHNO ID: [id number] Author: CHAYITO LOUIS MD Service: ? Author Type: Physician Type: Progress Notes Filed: 11/26/2024 13:42 Note Text: Radiation Oncology - New Patient/Consult Note PATIENT NAME: Melissa Mcfarlane PATIENT REQUESTING PROVIDER: Carmella Munoz DIAGNOSIS: 69 year old female with invasive ductal carcinoma of the Left breast, UOQ, clinical stage IA, ER-positive, CO-negative, and Her2/fausto not amplified, s/p biopsy. HPI: 69 year old female who presents with above diagnosis, for an opinion regarding the role of radiation therapy in the management of the patient's disease. Final recommendations will be communicated back to the requesting physician by way of the shared medical record, or letter to requesting physician via [place] mail. The patient reports on screening mammogram she was found to have abnormality located in the Left breast. Mammogram/ultrasound demonstrated: ULTRASOUND FINDINGS: Targeted ultrasound of the left breast was performed. The known malignancy at 2:00 4 cm from the nipple does not appear changed compared to 10/07/2024, and measures 1.1 x 0.8 x 0.9 cm. Benign-appearing lymph nodes are demonstrated in the left axilla. 11/22/24 Left breast mass core biopsy FINAL DIAGNOSIS , [place], [place], [id number], Left breast mass, 2:00, 4 cmfn, needle core biopsy: -Invasive ductal carcinoma, provisional histologic grade 2. - Estrogen receptor is positive, 80%, outside slide reviewed. - Progesterone receptor is negative, outside slide reviewed. - HER2 is negative 1+ per outside report. The patient has been referred to us for consideration of radiotherapy options in the management of her disease. Prior radiation therapy or collagen vascular disease: No Any implanted or external electric devices? No status: Naturally post-menopausal. 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 No acute distress. HEENT: NCAT. Sclera anicteric. Neck: Normal ROM. Chest: No respiratory distress. Breast: bilateral breasts are symmetric, without nipple inversion, skin changes, or dominant masses in either breast Participation of a fellow, resident, medical student, or advanced practice provider student in performing the sensitive examination was discussed with the patient or authorized phlebotomy services representative. The patient or authorized phlebotomy services representative has agreed to proceed with the sensitive examination. ASSESSMENT AND PLAN: 69 year old female with invasive ductal carcinoma of the Left breast, UOQ, clinical stage IA, ER-positive, CO-negative, and Her2/fausto not amplified, s/p biopsy. She is tentatively scheduled for left breast lumpectomy 12/13/24. 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 Also discussed potential participation in BR007 clinical trial. She may be interested in this trial. She understands that oncotype recurrence score need to be less than or equal to 18 to qualify for the trial. Return for f/u around 4 weeks post surgery to review pathology and finalize radiation plans. Signed by: Chayito Louis MD [facility] [place] Radiation Oncology, [facility] [address] [place] [address] Cc: Ave Ford MD [facility]04-04-2025 NoteHNO ID: [id number] Author: TATIANA KEATING LPN Service: ? Author Type: LICENSED NURSE Type: Progress Notes Filed: 12/01/2024 19:38 Note Text: Patient was referred by: Dr.Benjamin Chatterjee [facility] Did patient bring outside records to appt today? : Films: Sent in by other facility Pathology: Sent in by other facility Reports: Sent in by other facility Last mammogram on: 09/27/2024 bilateral Results: see report Patient current bra size: 32/34A Coping: It is normal to feel some distress when you have cancer. On a scale of 0-10 please indicate the number that best describes your level of distress on the average over the past week. 01/01 Referred to social work: No Is the patient active on Lettuc[employer] Yes Electronically Signed By: Tatiana Keating LPN In Department: GENERAL SURGERY REVIEW OF PATIENT HISTORY: OB History Gravida4 Para2 Term0 Preterm0 AB0 Living2 SAB0 IAB0 Ectopic0 Multiple0 Live Births0 FAMILY HISTORY Problem Relation Age of Onset Heart Father Hypertension Father Prostate Cancer Father Hodgkin Lymphoma Paternal Uncle PAST MEDICAL HISTORY Diagnosis Date Breast cancer (HCC) 10/2024 left breast HTN (hypertension) Mitral valve regurgitation PVC (premature ventricular contraction) PAST SURGICAL HISTORY Procedure Laterality Date PAST SURGICAL HISTORY OF 08/25/1970 spinal fusion PAST SURGICAL HISTORY OF as child tANDa US BREAST NEEDLE CORE BIOPSY LT Left 10/2024 Social History Tobacco Use Smoking status: Never Smokeless tobacco: Never Substance Use Topics Alcohol use: Yes Comment: social Drug use: [facility]04-04-2025 History of Present illness Narrative* Tatiana Keating LPN - 11/26/2024 11:30 AM EDT Patient was referred by: Dr.Benjamin Chatterjee [facility] Did patient bring outside records to [facility] today? : Films: Sent in by other facility Pathology: Sent in by other facility Reports: Sent in by other facility Last mammogram on: 09/27/2024 bilateral Results: see report Patient current bra size: 32/34A Coping: It is normal to feel some distress when you have cancer. On a scale of 0-10 please indicatethe number that best describes your level of distress on the average over the past week. 01/01 Referred to social work: No Is the patient active on [employer] Yes Electronically Signed By: Tatiana Keating LPN In Department: GENERAL SURGERY REVIEW OF PATIENT HISTORY: OB History Gravida4 Para2 Term0 Preterm0 AB0 Living2 SAB0 IAB0 Ectopic0 Multiple0 Live Births0 FAMILY HISTORY Problem Relation Age of Onset Heart Father Hypertension Father Prostate Cancer Father Hodgkin Lymphoma Paternal Uncle PAST MEDICAL HISTORY Diagnosis Date Breast cancer (HCC) 10/2024 left breast HTN (hypertension) Mitral valve regurgitation PVC (premature ventricular contraction) PAST SURGICAL HISTORY Procedure Laterality Date PAST SURGICAL HISTORY OF 08/25/1970 spinal fusion PAST SURGICAL HISTORY OF as child t&a US BREAST NEEDLE CORE BIOPSY LT Left 10/2024 Social History Tobacco Use Smoking status: Never Smokeless tobacco: Never Substance Use Topics Alcohol use: Yes Comment: social Drug use: No * Carmella Munoz - 11/26/2024 11:30 AM EDT NEW BREAST CANCER - INITIAL SURGICAL VISIT SERVICE DATE: 11/19/2024 REFERRING PROVIDER: MD Josue Foy ([facility]) [address] [facility] [id number] Consult requested for an opinion regarding the evaluation and treatment of a new breast issue. My final impression and recommendations will be communicated back to the requesting physician by way of the shared medical record or letter via US mail. SUBJECTIVE: REASON FOR TODAY'S VISIT: Breast Cancer Evaluation HISTORY of PRESENT ILLNESS: Melissa Mcfarlane is a 69 year old White female who presents for an evaluation of a diagnosis of a new LEFT breast cancer. Patient has a prior medical history of HTN, MVR and PVCs. She Prior imaging: The patient underwent a bilateral mammogram on 09/27/2024, A mass was also identified in the upper outer posterior left breast. A left breast ultrasound was performed on 10/07/2024, revealing an ill-defined hypoechoic irregular mass at the 2:00 position, 4.1 cm from the nipple, measuring 1.1 x 0.7 x 0.8 cm. The patient subsequently underwent an ultrasound-guided core needle biopsy on 11/01/2024. Static images from the biopsy demonstrated the placement of a clip at the targeted mass. A postprocedural left mammogram performed on 11/01/2024 confirmed the placement of the biopsy marking clip in the expected location. Diagnosis was made at [facility] () by means of ultrasound-guided core biopsy of Left breast. The pathology report showed Infiltrating Ductal Carcinoma Grade 2, ER positive,CO negative, HER2 non-amplified. Outside imaging was reviewed by our Radiologist and additional imaging was performed bilaterally. US of the LEFT breast showed the know cancer, at 2:00, 4 cm FN and benign appearing lymph nodes In the right breast an oval mass was noted in the 6:00 position, 2 cm FN (posterior depth), seen onCC and MLO Tomosynthesis images. US was performed revealing a benign cyst. 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 Social History Tobacco Use Smoking status: Never Smokeless tobacco: Never Substance Use Topics Alcohol use: Yes Comment: social Drug use: No ACTIVE PROBLEM LIST Malignant Neoplasm of Upper-Outer Quadrant of Left Breast in Female, Estrogen Receptor Positive (Hcc) - 12/01/2024 Rosacea - 07/01/2011 FAMILY HISTORY: FAMILY HISTORY Problem Relation Age of Onset Heart Father Hypertension Father Prostate Cancer Father Hodgkin Lymphoma Paternal Uncle Breast cancer: Negative Ovarian cancer:Negative Colon cancer:Negative Thyroid cancer:Negative Pancreatic cancer: Negative 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 LMP: Postmenopausal Age at Menarche: 13 Age at First : Age at Menopause: 55 Credit Counselor History Comments: Sexual Activity: Not Asked; No partner data on record Contraception: No contraception data on record OB History Gravida4 Para2 Term0 Preterm0 AB0 Living2 SAB0 IAB0 Ectopic0 Multiple0 Live Births0 PAST MEDICAL HISTORY: PAST MEDICAL HISTORY Diagnosis Date Breast cancer (HCC) 10/2024 left breast HTN (hypertension) Mitral valve regurgitation PVC (premature ventricular contraction) PAST SURGICAL HISTORY: PAST SURGICAL HISTORY Procedure Laterality Date PAST SURGICAL HISTORY OF 08/25/1970 spinal fusion PAST SURGICAL HISTORY OF as child t&a US BREAST NEEDLE CORE BIOPSY LT Left 10/2024 ALLERGIES Allergen Reactions Percocet [Oxycodone* Other: See Comments Patient states that it makes her shakey CURRENT MEDICATIONS: [id number] ORAL Take 500 mg by mouth. CALCIUM CARBONATE/VITAMIN D3 (CALCIUM 600 + D ORAL) Take 1 tablet by mouth once daily. [place]-3 Fatty Acids-Vitamin E (FISH OIL) 1,000 mg cap Take 1 capsule by mouth once daily. LUTEIN EXTRACT/ZEAXANTHIN EXT (LUTEIN-ZEAXANTHIN ORAL) Take 1 tablet by mouth once daily. MULTIVITAMIN TAB Take one(1) tablet daily. REVIEW OF SYSTEMS: GENERAL: No weight loss, malaise or fevers HEENT: Negative for frequent or significant headaches, No changes in hearing or vision RESPIRATORY: Negative for cough, wheezing, or shortness of breath CARDIOVASCULAR: reports a leaky valve (no intervention or medication indicated). White coat HTN hs. Negative for chest pain, leg swelling, or heart palpitations MUSCULOSKELETAL: Negative for joint pain or swelling, back pain or muscle pain, no upper extremity swelling or lymphedema ABD: no abdominal pain INTEGUMENTARY: Denies Scleroderma or Lupus. Denies chronic skin conditions. BREASTS:She denies new palpable breast masses, skin changes, nipple discharge, nipple retraction, breast pain or masses in her axilla. All other reviewed and negative other than HPI. Surendra Helm PA-C OBJECTIVE: PHYSICAL EXAM: 20.93 kg/m2 GENERAL:well-nourished, healthy, alert and oriented x 3, calm SKIN:warm, dry, skin color, texture, turgor normal HEAD/EYES:normocephalic, atraumatic, and anicteric NECK: supple, symmetrical, no thyromegaly RESPIRATORY: Respirations regular & non-labored ABDOMEN: soft, nondistended. No hepatomegaly., No masses MUSCULOSKELETAL: No observed limitations in range of motion of upper extremities. Patient ambulatesindependently BREASTS: The Patient was examined in the upright and supine positions. Breasts are symmetric. The patient was examined in the upright and supine position. RIGHT breast soft, no dominant masses, nipple everted, no discharge, no skin changes RIGHT axilla no palpable axillary lymphadenopathy LEFT breast soft, no dominant masses, nipple everted, no discharge, no skin changes LEFT axilla no palpable axillary lymphadenopathy Regional Lymph Nodes: There is no concerning supraclavicular, infraclavicular or cervical lymphadenopathy. IMAGING TO DATE: 11/23/24 MAMMOGRAM FINDINGS: There are scattered areas of fibroglandular density. There is a focal asymmetry in the right breast at 6 o'clock. No suspicious masses, calcifications or other abnormalities are seen in the right breast. ULTRASOUND TECHNIQUE: Targeted ultrasound of the indicated area was performed. Young scale images were saved. ULTRASOUND FINDINGS RIGHT: Targeted ultrasound of the right breast was performed. At 6:00 2 cm from the nipple, there is a benign oval/septated cyst which corresponds with mammography and measures 1.0 x 0.5 x 0.6 cm. There are no suspicious findings in the imaged area. IMPRESSION: There is no mammographic or sonographic evidence of malignancy in the RIGHT breast. Continued surgical/oncologic management is recommended for known malignancy in the opposite breast. BI-RADS Category 2: Benign ULTRASOUND FINDINGS LEFT: Targeted ultrasound of the left breast was performed. The known malignancy at 2:00 4 cm from the nipple does not appear changed compared to 10/07/2024, and measures 1.1 x 0.8 x 0.9 cm. Benign-appearing lymph nodes are demonstrated in the left axilla. Overread Date: 11/16/2024 1:55 PM BILATERAL MAMMOGRAM 09/27/2024: Parenchyma is scattered. Comparisons 09/17/2023, 07/12/2022 FINDINGS: Oval masses within the 6:00 position of the right breast, posterior depth (CC Tomosynthesis image 19, MLO Tomosynthesis image 23). There is a mass in the upper outer posterior left breast (CC Tomosynthesis image 30, MLO Tomosynthesis image 17). LEFT BREAST ULTRASOUND 10/07/2024: Sonographic images submitted for review labeled left breast 2:00, 4.1 cm the nipple demonstrate an ill-defined hypoechoic shadowing irregular mass measured as 1.1 x 0.7 x 0.8 cm. ULTRASOUND-GUIDED CORE NEEDLE BIOPSY 11/01/2024: The suspicious mass labeled left breast 2:00, 4 cm from the nipple was remeasured as 1.0 x 0.7 x 1 cm. The left axilla was imaged with no discrete left axillary lymph nodes identified on my review of static images. Static images from core needle biopsy demonstrate targeting of the suspicious mass labeled 2:00, 4 cm from nipple with reported placement of a clip. POSTPROCEDURAL LEFT MAMMOGRAM 11/01/2024: 2-D images of the left breast in the CC and MLO views demonstrate biopsy marking clip in the expected location. Per outside report, pathology from core needle biopsy left breast 2:00, 4 cm from the nipple of invasive ductal carcinoma. PATHOLOGY RESULTS: FINAL DIAGNOSIS , [place], [place], [id number], Left breast mass, 2:00, 4 cmfn, needle core biopsy: -Invasive ductal carcinoma, provisional histologic grade 2. - Estrogen receptor is positive, 80%, outside slide reviewed. - Progesterone receptor is negative, outside slide reviewed. - HER2 is negative 1+ per outside report. DATE OF EXAM: Nov 23 2024 10:52AM [facility] 0629 - MIRI ARJUN HICKMAN RT / HISTORY: 69 year-old patient seen for diagnostic evaluation of the right breast per outside imaging review. She has newly diagnosed malignancy in the LEFT breast. COMPARISON STUDIES: The present examination has been compared to prior imaging studies dated 07/12/2022, 09/17/2023, 09/27/2024 and 11/23/2024 (ultrasound). MAMMOGRAM TECHNIQUE: The study was acquired using full field digital technology and interpreted from soft copy. Digital Breast Tomosynthesis (DBT) images were obtained and used to assist in the interpretation of this examination. MAMMOGRAM FINDINGS: There are scattered areas of fibroglandular density. There is a focal asymmetry in the right breast at 6 o'clock. No suspicious masses, calcifications or other abnormalities are seen in the right breast. ULTRASOUND TECHNIQUE: Targeted ultrasound of the indicated area was performed. Young scale images were saved. ULTRASOUND FINDINGS: Targeted ultrasound of the right breast was performed. At 6:00 2 cm from the nipple, there is a benign oval/septated cyst which corresponds with mammography and measures 1.0 x 0.5 x 0.6 cm. There are no suspicious findings in the imaged area. IMPRESSION: There is no mammographic or sonographic evidence of malignancy in the RIGHT breast. Continued surgical/oncologic management is recommended for known malignancy in the opposite breast. BI-RADS Category 2: Benign RISK: Due to the reported patient's history, the patient's estimated lifetime risk of developing breast cancer cannot be assessed at this time. We encourage all patients to talk with their providers about their risk assessment, further recommendations for managing breast health, and appropriate supplemental screening options if the patient has dense breast tissue. Interpreting Radiologist: Salima Mckeon M.D. 11/26/2024 SOZO Review Extremity measured Left Arm Pacemaker/ Defibrillator/ Possible No Dominant Side Right Bilateral/ Unilateral Measurement Unilateral Patient Position Standing LDEX Result Green LDEX Score 4.3 Provider notified Yes Another SOZO Measurement needed No GENETIC TESTING: Discussed Assessment ASSESSMENT: Melissa Mcfarlane is a 69 year old female with a LEFT breast 1.1 cm mass @ 2:00, 4cm FN posterior. Bx (globe clip) shows IDC. LN appear normal ER+CO+HER2- [id number] PLAN: DIAGNOSIS: (C50.412, Z17.0) Malignant neoplasm of upper-outer quadrant of left breast in female, estrogen receptor positive (HCC) (primary encounter diagnosis) I have examined Ms. Mcfarlane and reviewed the physical findings, imaging and pathology reports with her. A discussion was held with the patient regarding the local-regional, as well as systemic treatment of her Breast Cancer. We discussed role of breast conservation surgery or mastectomy, indications and risks of sentinel lymph node biopsy, possibility of axillary lymph node dissection, breast reconstruction, and role of systemic and radiation therapy. Ms. Mcfarlane is interested in breast conservation ADDITIONAL IMAGING None at this time MULTIDISCIPLINARY CARE REFERRAL(S) for breast cancer treatment planning considerations: Medical oncology consultation and Radiation oncology consultation We discussed medical oncology and indications for neoadjuvant versus adjuvant systemic therapy. Sheis scheduled to see Dr. Ford We discussed radiation oncology and indications for radiation. She is scheduled to see Dr. Louis BREAST SURGERY Option 1: Lumpectomy/Partial mastectomy We discussed options for removing her breast cancer via a lumpectomy, which would require adjuvant radiation. We discussed placement of a zachary mail examiner clip localized placed prior to surgery in radiology to help me identify where in the breast the cancer is during surgery. We discussed surgical pathology margins, shave margins and possible need for additional surgery if the margins are not clear. We discussedmobilization of the surrounding breast tissue to close the acquired surgical defect. Option 1: Mastectomy with or without reconstruction We discussed removing the entire breast. We discussed the details of the mastectomy operation. Specifically we discussed the options for mastectomy and the difference between skin sparing and nipple sparing mastectomies and where the surgical scars are usually placed. We discussed options for reconstruction (implant/tissue livestock inspector vs. Autologous TALIB free flap procedure). We discussed loss of sensation to the breast We discussed plastic/reconstructive surgery. LYMPH NODES We discussed management of her axilla. [place] lymph node biopsy is recommended. We discussed this portion of the procedure is is an excision a of a few lymph nodes. We discussed that I will perform a mapping procedure in the operating room when she is under anesthesia. I will inject blue dye and nuclear medicine mapping agents into her breast which will travel to the lymph nodes and identify, if cancer were to spread, which lymph node/nodes cancer would travel to, and these are the lymph nodes I will remove to send to pathology for evaluation. We discussed the risks of this procedure entail possible swelling, infection or a 5% risk of upper extremity lymphedema. The benefits are that the lymph nodes status helps to determine if canc has spread outside of the breast and if we need to recommend additional treatments. The patient had a baseline L-Dex SOZO measurement which I reviewed today, as noted above in the health record. We reviewed that bioimpedance spectroscopy helps identify the early onset of lymphedema in an arm or leg before patients experience noticeable swelling. Research has shown that patients with early detection of lymphedema using L-Dex combined with breast rehab intervention do not progressto chronic lymphedema. Whenever possible, patients are tested for baseline L-Dex score before cancer treatment begins and then are reassessed during regular follow-up visits using the SOZO device. Ifthe patient's L-Dex score increases above normal levels, that is a sign that lymphedema is developin g and a referral is made to physical therapy for further evaluation and early compression treatment. Lymphedema assessment with the SOZO L-Dex score is recommended to be done at baseline prior to surgery and at follow-up survivorship visits to screen for lymphedema per NCCN guidelines of breast canc er survivorship. We discussed surgical times, expectations, activity limitations and recovery times for all operations. NEXT STEPS The risks of surgery were discussed with her including bleeding, hematoma, infection, skin necrosis, sensory paresthesias and upper extremity lymphedema, and possible need for additional surgery. Sheacknowledges these risks and agrees to proceed. Consent was signed for: LEFT breast zachary mail examiner localized lumpectomy, LEFT sentinel lymph node biopsy A tentative surgical date for 12/13/24 was given at [facility] Future Appointments Date Time Provider Department Center 12/07/2024 10:30 AM PROCEDURE MAMMO [facility] STRO RAMAST [facility] 12/07/2024 11:30 AM Marilu Rogers PANEST [facility] 12/13/2024 7:30 AM INJECTION NM [facility] STRO RNMSTR [facility] 12/17/2024 9:00 AM Surendra Helm PA-C [facility]SF [facility] 12/31/2024 8:[address] Ford MD HEMML None 01/10/2025 10:00 AM Chayito Louis MD [facility] All questions were answered and the patient had no further concerns at this time. Melissa Mcfarlanewas given our contact information if she has any further questions or concerns. Carmella Munoz DO, FACS Breast Surgeon [facility] cc: MD Josue Foy ([facility]) [address] [phone] documented in this encounterWilson Health04-04-2025 NoteHNO ID: [id number] Author: CARMELLA MUNOZ DO Service: ? Author Type: Physician Type: Progress Notes Filed: 12/01/2024 19:38 Note Text: NEW BREAST CANCER - INITIAL SURGICAL VISIT SERVICE DATE: 11/19/2024 REFERRING PROVIDER: MD Josue Foy ([facility]) [address] [id number] Consult requested for an opinion regarding the evaluation and treatment of a new breast issue. My final impression and recommendations will be communicated back to the requesting physician by way of the shared medical record or letter via US mail. SUBJECTIVE: REASON FOR TODAY'S VISIT: Breast Cancer Evaluation HISTORY of PRESENT ILLNESS: Melissa Mcfarlane is a 69 year old White female who presents for an evaluation of a diagnosis of a new LEFT breast cancer. Patient has a prior medical history of HTN, MVR and PVCs. She Prior imaging: The patient underwent a bilateral mammogram on 09/27/2024, A mass was also identified in the upper outer posterior left breast. A left breast ultrasound was performed on 10/07/2024, revealing an ill-defined hypoechoic irregular mass at the 2:00 position, 4.1 cm from the nipple, measuring 1.1 x 0.7 x 0.8 cm. The patient subsequently underwent an ultrasound-guided core needle biopsy on 11/01/2024. Static images from the biopsy demonstrated the placement of a clip at the targeted mass. A postprocedural left mammogram performed on 11/01/2024 confirmed the placement of the biopsy marking clip in the expected location. Diagnosis was made at [facility] () by means of ultrasound-guided core biopsy of Left breast. 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 Outside imaging was reviewed by our Radiologist and additional imaging was performed bilaterally. US of the LEFT breast showed the know cancer, at 2:00, 4 cm FN and benign appearing lymph nodes In the right breast an oval mass was noted in the 6:00 position, 2 cm FN (posterior depth), seen on CC and MLO Tomosynthesis images. US was performed revealing a benign cyst. 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 Social History Tobacco Use Smoking status: Never Smokeless tobacco: Never Substance Use Topics Alcohol use: Yes Comment: social Drug use: No ACTIVE PROBLEM LIST Malignant Neoplasm of Upper-Outer Quadrant of Left Breast in Female, Estrogen Receptor Positive (Hcc) - 12/01/2024 Rosacea - 07/01/2011 FAMILY HISTORY: FAMILY HISTORY Problem Relation Age of Onset Heart Father Hypertension Father Prostate Cancer Father Hodgkin Lymphoma Paternal Uncle Breast cancer: Negative Ovarian cancer:Negative Colon cancer:Negative Thyroid cancer:Negative Pancreatic cancer: Negative 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 LMP: Postmenopausal Age at Menarche: 13 Age at First : Age at Menopause: 55 Credit Counselor History Comments: Sexual Activity: Not Asked; No partner data on record Contraception: No contraception data on record OB History Gravida4 Para2 Term0 Preterm0 AB0 Living2 SAB0 IAB0 Ectopic0 Multiple0 Live Births0 PAST MEDICAL HISTORY: PAST MEDICAL HISTORY Diagnosis Date Breast cancer (HCC) 10/2024 left breast HTN (hypertension) Mitral valve regurgitation PVC (premature ventricular contraction) PAST SURGICAL HISTORY: PAST SURGICAL HISTORY Procedure Laterality Date PAST SURGICAL HISTORY OF 08/25/1970 spinal fusion PAST SURGICAL HISTORY OF as child tANDa US BREAST NEEDLE CORE BIOPSY LT Left 10/2024 ALLERGIES Allergen Reactions Percocet [Oxycodone* Other: See Comments Patient states that it makes her shakey CURRENT MEDICATIONS: [id number] ORAL Take 500 mg by mouth. CALCIUM CARBONATE/VITAMIN D3 (CALCIUM 600 + D ORAL) Take 1 tablet by mouth once daily. [place]ii-3 Fatty Acids-Vitamin E (FISH OIL) 1,000 mg cap Take 1 capsule by mouth once daily. LUTEIN EXTRACT/ZEAXANTHIN EXT (LUTEIN-ZEAXANTHIN ORAL) Take 1 tablet by mouth once daily. MULTIVITAMIN TAB Take one(1) tablet daily. REVIEW OF SYSTEMS: GENERAL: No weight loss, malaise or fevers HEENT: Negative for frequent or significant headaches, No changes in hearing or vision RESPIRATORY: Negative for cough, wheezing, or shortness of breath CARDIOVASCULAR: reports a leaky valve (no intervention or medication indicated). White coat HTN hs. Negative for chest pain, leg swelling, or heart palpitations MUSCULOSKELETAL: Negative for joint pain or swelling, back pain or muscle pain, no upper extremity swelling or lymphedema ABD: no abdominal pain INTEGUMENTARY: Denies Scleroderma or Lupus. Denies chronic skin conditions. BREASTS:She denies new palpable breast lucy (more content not included)... [id number] NoteHNO ID: [id number] Author: AVE FORD MD Service: ? Author Type: Physician Type: Progress Notes Filed: 11/26/2024 12:11 Note Text: Date of Service: November 26, 2024. Mrs. Mcfarlane was referred to me at the request of Dr. Carmella Munoz for my opinion regarding her breast cancer. My recommendations will be conveyed to Dr. Carmella Munoz by shared medical record or letter via US mail. History of Present Illness: Mrs. Mcfarlane is a 69 year old postmenopausal female diagnosed with clinical stage I grade 2 invasive ductal carcinoma of the left breast diagnosed via left breast biopsy performed on November 01, 2024 in [place], [place]. Her left breast cancer is estrogen receptor positive (80%), progesterone receptor negative (0 to 1%), and HER2/fausto negative (score 1+). On left breast ultrasound performed November 23, 2024, her left breast cancer measured 1.1 x 0.8 x 0.9 cm. Her left breast cancer was discovered via routine annual screening mammogram. She denies any prior history of breast cancer or radiation. She did have a left breast biopsy in the past that was benign. There is no family medical history of breast or ovarian cancer. She began menstrual at age 13. She became menopausal at age 55. She has 2 children. She was 30 when she had her first child. She denies any hormone replacement therapy. She took oral contraceptive pills for less than 5 years in her 30s for heavy menstrual cycles. She drinks approximately 2 alcoholic drinks per month. Her appetite and energy level are very good. She denies any nausea, vomiting, or weight loss. She denies any fevers or night sweats. She denies any headaches, dizziness, or vision changes. She denies any bleeding or bruising problems. She denies any difficulty swallowing or breathing. She denies any GI or symptoms. She denies any arthritis. She does not take any prescription medications. She had a bone density test in 2022 that showed osteopenia. She takes vitamin D and calcium. All other systems were reviewed but otherwise negative. HISTORIES: FAMILY HISTORY Problem Relation Age of Onset Heart Father Hypertension Father Prostate Cancer Father There is no family medical history of breast or ovarian cancer. Her mother is 90 years old. Her father at age 84. He had Alzheimer's dementia. Also had a history of prostate cancer. PAST MEDICAL HISTORY Diagnosis Date HTN (hypertension) Mitral valve regurgitation PVC (premature ventricular contraction) Osteopenia Scoliosis PAST SURGICAL HISTORY Procedure Laterality Date PAST SURGICAL HISTORY OF 1971 spinal fusion PAST SURGICAL HISTORY OF as child tANDa Spinal fusion at age 15 [place] teeth Tonsillectomy Colonoscopy Social History Tobacco Use Smoking status: Never Smokeless tobacco: Never Substance Use Topics Alcohol use: Yes Comment: social Drug use: No Mrs. Mcfarlane is . She lives in [place], [place], [place] of [place]. She has 2 children. She just recently retired. 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 She drinks approximately 2 alcoholic drinks per month. She is able do all her activities of daily living. She can manage stairs. She drives. She works out regularly. She walks daily. ECOG Performance Status: 0 - Fully active, able to carry on all pre-disease performance without restriction Allergies: ALLERGIES No Known Allergies Medications: Current Outpatient Medications Medication Sig [id number] ORAL Take 500 mg by mouth. CALCIUM CARBONATE/VITAMIN D3 (CALCIUM 600 + D ORAL) Take 1 tablet by mouth once daily. Pompeii-3 Fatty Acids-Vitamin E (FISH OIL) 1,000 mg cap Take 1 capsule by mouth once daily. LUTEIN EXTRACT/ZEAXANTHIN EXT (LUTEIN-ZEAXANTHIN ORAL) Take 1 tablet by mouth once daily. MULTIVITAMIN TAB Take one(1) tablet daily. No current facility-administered medications for this visit. PHYSICAL EXAM: VS: BP 156/79 Pulse 65 Temp 36.7 ?C (98 ?F) (Oral) Wt 52.4 kg (115 lb 8.3 oz) SpO2 100% BMI 21.13 kg/m? General: No acute distress. Eyes: Pupils equal, round, and reactive to light. Extraocular movements intact. No scleral icterus or conjunctival pallor. Mouth: Moist mucous membranes. No erythema or exudate. Neck: Supple. No cervical or supraclavicular lymphadenopathy. Heart: Regular rate and rhythm. Normal S1, S2. Lungs: Clear to auscultation bilaterally. No wheezes, rhonchi, or crackles. Back: Positive scoliosis. Breast exam: Right breast: No palpable masses, nipple drainage, or axillar lymphadenopathy. Left breast: Status post biopsy. Positive palpable mass at the 2 o'clock position. No nipple drainage or axillar lymphadenopathy. Abdomen: Positive bowel sounds. Soft, nontender, nondistended. No palpable masses or hepatosplenomegaly. Extremities: Warm and dry. No edema. Neurologic: Alert and oriented x 3. No focal deficits. (more content not included)...[id number] History of Present illness Narrative* Ave Ford MD - 11/26/2024 9:45 AM EDT Images from the original note were not included. Date of Service: November 26, 2024. Mrs. Mcfarlane was referred to me at the request of Dr. Carmella Munoz for my opinion regarding her breast cancer. My recommendations will be conveyed to Dr. Carmella Munoz by shared medical record or letter via [place] mail. History of Present Illness: Mrs. Mcfarlane is a 69 year old postmenopausal female diagnosed with clinical stage I grade 2 invasive ductal carcinoma of the left breast diagnosed via left breast biopsy performed on November 01, 2024 in [place], [place]. Her left breast cancer is estrogen receptor positive (80%), progesterone receptor negative (0 to 1%), and HER2/fausto negative (score 1+). On left breast ultrasound performed November 23, 2024, her left breast cancer measured 1.1 x 0.8 x 0.9 cm. Her left breast cancer was discovered via routine annual screening mammogram. She denies any prior history of breast cancer or radiation. She did have a left breast biopsy in the past that was benign. There is no family medical history of breast or ovarian cancer. She began menstrual at age 13. Shebecame menopausal at age 55. She has 2 children. She was 30 when she had her first child. She denies any hormone replacement therapy. She took oral contraceptive pills for less than 5 years in her 30s for heavy menstrual cycles. She drinks approximately 2 alcoholic drinks per month. Her appetite and energy level are very good. She denies any nausea, vomiting, or weight loss. She denies any fevers or night sweats. She denies any headaches, dizziness, or vision changes. She denies any bleeding or bruising problems. She denies any difficulty swallowing or breathing. She denies any GI or symptoms. She denies any arthritis. She does not take any prescription medications. She had a bone density test in 2022 that showed osteopenia. She takes vitamin D and calcium. All other systems were reviewed but otherwise negative. HISTORIES: FAMILY HISTORY Problem Relation Age of Onset Heart Father Hypertension Father Prostate Cancer Father There is no family medical history of breast or ovarian cancer. Her mother is 90 years old. Her father at age 84. He had Alzheimer's dementia. Also had a history of prostate cancer. PAST MEDICAL HISTORY Diagnosis Date HTN (hypertension) Mitral valve regurgitation PVC (premature ventricular contraction) Osteopenia Scoliosis PAST SURGICAL HISTORY Procedure Laterality Date PAST SURGICAL HISTORY OF 1971 spinal fusion PAST SURGICAL HISTORY OF as child t&a Spinal fusion at age 15 [place] teeth Tonsillectomy Colonoscopy Social History Tobacco Use Smoking status: Never Smokeless tobacco: Never Substance Use Topics Alcohol use: Yes Comment: social Drug use: No Mrs. Mcfarlane is . She lives in [place], [place], [place]. She has 2 children. She just recently retired. 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 She drinks approximately 2 alcoholic drinks per month. She is able do all her activities of daily living. She can manage stairs. She drives. She works outregularly. She walks daily. ECOG Performance Status: 0 - Fully active, able to carry on all pre-disease performance without restriction Allergies: ALLERGIES No Known Allergies Medications: Current Outpatient Medications Medication Sig [id number] ORAL Take 500 mg by mouth. CALCIUM CARBONATE/VITAMIN D3 (CALCIUM 600 + D ORAL) Take 1 tablet by mouth once daily. [place]ii-3 Fatty Acids-Vitamin E (FISH OIL) 1,000 mg cap Take 1 capsule by mouth once daily. LUTEIN EXTRACT/ZEAXANTHIN EXT (LUTEIN-ZEAXANTHIN ORAL) Take 1 tablet by mouth once daily. MULTIVITAMIN TAB Take one(1) tablet daily. No current facility-administered medications for this visit. PHYSICAL EXAM: VS: BP 156/79 Pulse 65 Temp 36.7 C (98 F) (Oral) Wt 52.4 kg (115 lb 8.3 oz) SpO2 100% BMI21.13 kg/m General: No acute distress. Eyes: Pupils equal, round, and reactive to light. Extraocular movements intact. No scleral icterus or conjunctival pallor. Mouth: Moist mucous membranes. No erythema or exudate. Neck: Supple. No cervical or supraclavicular lymphadenopathy. Heart: Regular rate and rhythm. Normal S1, S2. Lungs: Clear to auscultation bilaterally. No wheezes, rhonchi, or crackles. Back: Positive scoliosis. Breast exam: Right breast: No palpable masses, nipple drainage, or axillar lymphadenopathy. Left breast: Status post biopsy. Positive palpable mass at the 2 o'clock position. No nipple drainage or axillar lymphadenopathy. Abdomen: Positive bowel sounds. Soft, nontender, nondistended. No palpable masses or hepatosplenomegaly. Extremities: Warm and dry. No edema. Neurologic: Alert and oriented x 3. No focal deficits. LABORATORY: None IMAGING: Right diagnostic mammogram and bilateral breast ultrasound performed on November 23, 2024. IMPRESSION: There is no mammographic or sonographic evidence of malignancy in the RIGHT breast. Continued surgical/oncologic management is recommended for known malignancy in the opposite breast. BI-RADS Category 2: Benign IMPRESSION: There is no mammographic or sonographic evidence of malignancy in the RIGHT breast. Continued surgical/oncologic management is recommended for known malignancy in the opposite breast. BI-RADS Category 2: Benign IMPRESSION: Known malignancy in the left breast at 2:00 4 cm from the nipple. Continued surgical/oncologic management is recommended. BI-RADS Category 6: Known Biopsy-Proven Malignancy ULTRASOUND FINDINGS: Targeted ultrasound of the left breast was performed. The known malignancy at 2:00 4 cm from the nipple does not appear changed compared to 10/07/2024, and measures 1.1 x 0.8 x 0.9 cm. Benign-appearing lymph nodes are demonstrated in the left axilla. SURGICAL PATHOLOGY: Performed on November 01, 2024. OUTSIDE SURG PATH SLIDE REVIEW: [id number] Order: [id number] Collected 11/22/2024 11:26 AM Status: Final result Dx: Person encountering health services t... Test Result Released: No (scheduled for 11/29/2024 3:41 PM) 0 Result Notes Component FINAL DIAGNOSIS , [place], [place], [id number], Left breast mass, 2:00, 4 cmfn, needle core biopsy: -Invasive ductal carcinoma, provisional histologic grade 2. - Estrogen receptor is positive, 80%, outside slide reviewed. - Progesterone receptor is negative, outside slide reviewed. - HER2 is negative 1+ per outside report. JR 11/24/2024 at 1541 [facility] Performing Lab Diagnostic interpretation performed at: [facility], [address] [place] [address], [place] [address] CLIA# [id number] Carpet Cutter: Jordi Sloan MD Assessment: Mrs. Mcfarlane is a 69 year old postmenopausal female diagnosed with clinical stage I (cT1, cN0) grade 2 invasive ductal carcinoma of the left breast diagnosed via biopsy on November 01, 2024.Her left breast cancer is estrogen receptor positive (80%), progesterone receptor negative (0 to 1%), and HER2/fausto negative (score 1+). On left breast ultrasound, her left breast cancer measured 1.1 x 0.8 x 0.9 cm. I had a discussion with the patient regarding her diagnosis, natural history, prognosis, and treatment options. I will see her back after surgery to finalize her treatment plan. I will order an Oncotype recurrence score if appropriate. -Since she is estrogen receptor positive, she is a candidate for future extended adjuvant endocrinetherapy with anastrozole 1 mg p.o. daily x 5 years. The risk, benefits, adverse effects, and alternatives were discussed with the patient. This would begin after completing adjuvant radiation therapyif applicable. She has osteopenia and takes calcium and vitamin D. Plan: 1. Left breast cancer. Patient tells me that her surgery is tentatively scheduled for December 07, 2024. -Follow-up with me approximately 3 weeks after surgery to finalize treatment plan. 2. Estrogen receptor positive breast cancer. Postmenopausal. Osteopenia. -Future anastrozole therapy. Mrs. Mcfarlane understands to call the office sooner if needed. Ave Ford MD CC: MD Dr. Carmella Foy Dr., Dr. documented in this encounterWilson Health04-01-2025 History of Present illness Narrative* Callie Cui RDMS - 11/23/2024 10:00 AM EDT Radiology Service Progress Note PATIENT NAME: Melissa Mcfarlane DATE OF SERVICE: November 23, 2024 TIME: 12:04 PM PATIENT IDENTITY VERIFICATION COMPLETED USING TWO (2) IDENTIFIERS: Name and Date of confirmedby patient verbally. FALL SCREENING: Has the patient had 2 falls in the last year or 1 fall with injury or currently using an Ambulatory Assistive Device (Walker, Cane, Wheelchair, Crutches, etc.)? No PATIENT GENDER DATA: Assigned female at . status: : No status:NO. PATIENT RELEVANT IMPLANT DATA REVIEWED: Not Applicable PATIENT PRESENTS WITH AN IMPLANTABLE OR ATTACHED OYSTER OPENER: No RADIOLOGY DEPARTMENT: Ultrasound PERIPHERAL IV DATA: Not applicable SIGNED BY: Callie Cui RDMS November 23, 2024 12:04 PM documented in this encounterWilson Health04-01-2025 NoteHNO ID: [id number] Author: CALLIE CUI RDMS Service: ? Author Type: Technologist Type: Progress Notes Filed: 11/23/2024 12:04 Note Text: Radiology Service Progress Note PATIENT NAME: Melissa Mcfarlane DATE OF SERVICE: November 23, 2024 TIME: 12:04 PM PATIENT IDENTITY VERIFICATION COMPLETED USING TWO (2) IDENTIFIERS: Name and Date of confirmed by patient verbally. FALL SCREENING: Has the patient had 2 falls in the last year or 1 fall with injury or currently using an Ambulatory Assistive Device (Walker, Cane, Wheelchair, Crutches, etc.)? No PATIENT GENDER DATA: Assigned female at . status: : No status: NO. PATIENT RELEVANT IMPLANT DATA REVIEWED: Not Applicable PATIENT PRESENTS WITH AN IMPLANTABLE OR ATTACHED OYSTER OPENER: No RADIOLOGY DEPARTMENT: Ultrasound PERIPHERAL IV DATA: Not applicable SIGNED BY: Callie Cui RDMS November 23, 2024 12:04 [facility]03-26-2025 Telephone encounter Note* Telephone Encounter - Tatiana Keating LPN - 11/17/2024 9:44 AM EDT Called and spoke to pt regarding her upcoming appointment with on 11/26. Informed pt of additional appointments she may or may not need. She verbalized understanding. Pt stated she is leaning towards lumpectomy. Imaging received and what (MMG/US/MRI - radiology reviewed yet? In [facility] Pathology slides sent / reviewed? Have been requested. Consults: Breast psych not a this time. Med onc yes requested for 11/26 Rad onc yes requested for / Plastics yes for 11/26 Pt thanked me for calling. She has my contact number if any other questions should arise before herappointment. Tatiana Keating LPN [facility] Work Phone: [phone] Miscellaneous Notes* Telephone Encounter - Tatiana Keating LPN - 11/17/2024 9:44 AM EDT Called and spoke to pt regarding her upcoming appointment with on 11/26. Informed pt of additional appointments she may or may not need. She verbalized understanding. Pt stated she is leaning towards lumpectomy. Imaging received and what (MMG/US/MRI - radiology reviewed yet? In [facility] Pathology slides sent / reviewed? Have been requested. Consults: Breast psych not a this time. Med onc yes requested for 4/4 Rad onc yes requested for 4/4 Plastics yes for 11/26 Pt thanked me for calling. She has my contact number if any other questions should arise before herappointment. Tatiana Keating LPN documented in this encounterWilson Health03-10-2025 Evaluation note* Diagnosis Onset Date Resolution Status Admit Date Abnormal mammogram of left breast acute November 01, 2024 12:46pm Invasive ductal carcinoma of left breast in female acute October 8:54am Mitral regurgitation acute Travis h 2024 8:54am Scoliosis acute November 05 8:54am Patient requests second opinion noneactive January 26, 2025 8 :30am [facility] Work Phone: 1(951) 308-880312-23-2024 Evaluation note* Diagnosis Onset Date Resolution Status Admit Date Low back pain acute August 162023 2:26pm Scoliosis acute August 16, 2024 2:26pm Abnormal mammogram of left breast acute November 01, 2024 12:46pm [facility] Work Phone: 1(408) 174-737012-23-2024 Evaluation note* Diagnosis Onset Date Resolution Status Admit Date Low back pain acute August 162023 2:26pm Scoliosis acute August 16, 2024 2:26pm Abnormal mammogram of left breast acute November 01, 2024 12:46pm Invasive ductal carcinoma of left breast in female acute October 8:54am [facility] Work Phone: 1(941) 911-178912-23-2024 Evaluation note* Diagnosis Onset Date Resolution Status Admit Date Low back pain acute August 162023 2:26pm Scoliosis acute August 16, 2024 2:26pm Abnormal mammogram of left breast acute November 01, 2024 12:46pm Invasive ductal carcinoma of left breast in female acute October 8:54am Mitral regurgitation acute Travis h 2024 8:54am Scoliosis acute November 05 8:54am [facility] Work Phone: 1(942) 425-963812-02-2023 Evaluation note* Encounter Date Diagnosis Assessment Notes Treatment Notes Treatment Clinical Notes Jul, Colon cancer screening (ICD-10 - Z12.11) [facility] Other 08-04-2023 Evaluation note* Encounter Date Diagnosis Assessment Notes Treatment Notes Treatment Clinical Notes Mar, Nonischemic cardiomyopathy (ICD-10 - I42.8) Instructed on low salt diet, exercise and daily weights. Instructed to notify office for any unexpected weight gain > 3lbs and/or increased dyspnea, difficulty breathing during sleep, worsening lower extremity swelling, chest pain or lightheadedness. Reviewed GDMT w/ beta blockers, MYLES/ARB/ARNI, MRA [...] are also encouraged to continue exercise to achieve/maintain a normal BMI. Patient is instructed on home BP measurements: - rest for 5 minutes w/o talking- positioned w/ feet on floor and arm supported- average best 2/3 readings w/ goal < 135-85 Mar, KILEY (generalized anxiety disorder) (ICD-10 - F41.1) Much improved after longterm. Exercise, healthy diet Mar, Osteopenia of spine [...] reviewed and amended by provider signed below. [facility] Other Chief complaint Narrative - Reported* CANDIDO MCFARLANE is being seen for a cardiovascular evaluation of an abnormal ECG, chest pain and heart failure. * Patient is a 66-year-old female seen in cardiology consultation for second opinion regarding cardiovascular follow-up and abnormal echocardiogram. She is previously followed by [facility] pharmac[facility] associate Dr. Kaplan since 2011 with a diagnosis of moderate LV dysfunction and mitral regurgitation. * She has copies of her echo reports dating back to 2011 through 2021. I reviewed all these echo reports (not the actual images). She also has a history of atypical chest discomfort with and without exertion and remote stress perfusion imaging 10 years ago that was completely normal with no evidence for ischemia or infarction and normal ejection fraction at that time. * Today's ECG demonstrates sinus rhythm and is otherwise completely normal. * There is no prior history of myocardial infarction, revascularization, stroke, thromboembolic or bleeding disorder or true congestive heart failure. She does admit to episodic hypertension, the atypical chest discomfort with and without exertion. * In March 2012 she was noted to have moderate mitral regurgitation with an eccentric jet with ejection fraction of 40 to 45% and a left ventricular end- diastolic diameter 4.9 cm. She was initiated onmedical therapy in 4 months later in July [...] a left ventricular end-diastolic diameter 4.6 cm. * September 2021 she is described as having mild mitral and tricuspid regurgitation with moderate leftand right atrial enlargement, a reduced ejection fraction of 40 to 45% with a left ventricular end-diastolic diameter measuring 4.9 cm. There were no PISA measurements described. * She is currently looking towards getting back into shape, or getting back to running 5K's that she had previously done in the past. She does have some mild exertional dyspnea only which is new for her she has no edema or ascites, denies any congenital heart disease. * Incidentally she is noted to have scoliosis with previous Owens amna surgery very remotely. Notably her brother has had previous valve repair details of which are unknown * Her primary pharmacology associate (who is now moved territory) referred her for stress echo and wanted to initiate metoprolol and Entresto after the stress echo. * Recommendations: As we have no stress echo available locally, will proceed with Cardiolite stress perfusion imaging which will help us gain better idea of her true ejection fraction and any evidence of ischemia, if any of these are abnormal will proceed with transesophageal echo and/or possible cardiac MRI. We will otherwise follow-up after imaging with appropriate recommendations [facility] [employer] DO Work Phone: Chief complaint Narrative - Reported* CANDIDO MCFARLANE is being seen for a cardiovascular evaluation . TEST RESULTS. * Patient is a 66-year-old female who returns following recent stress perfusion imaging. Details of the stress perfusion exam are reviewed revealing completely normal perfusion scan, normal ejection fraction of 63%. * Patient also has several echocardiograms dating back several years with mildly reduced ejection fraction and mitral regurgitation. Most recent echocardiogram from September is also reviewed revealing ejection fraction of 45% with trivial mitral regurgitation. * Patient is otherwise asymptomatic, she has variable hypertension likely due to environmental stresswith holding down 2 jobs. She states her blood pressure during the weekend is completely normal. * She exercises on a regular basis in the form of cardio 3 times weekly and weights/cardio 2-3 times weekly. * She has no evidence of heart failure, edema, angina. * Recommendations: We will continue monitoring blood pressure, follow-up with another echo in our echo lab in 8 months. We have discussed and reviewed all of her reports. She has no true evidence of mitral valve pathology. The echocardiogram and the stress perfusion exam in regards to ejection fraction are discordant, and I am tending to believe the stress perfusion exam. * We will follow-up in 8 months [facility] [employer] DO Work Phone: Evaluation noteNo [facility] [employer] 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) Other Evaluation note* Diagnosis Onset Date Resolution Status Asthma acute KILEY (generalized anxiety disorder) acute Hypertension acute Mitral regurgitation acute Scoliosis acute Screening mammogram for breast cancer acute Medicare annual wellness visit, initial noneactive [facility] Work Phone: Evaluation note* Diagnosis Malignant neoplasm of female breast, unspecified estrogen receptor status, unspecified laterality, unspecified site of breast (HCC)- Primary [facility] Diagnosis Malignant neoplasm of right female breast, unspecified estrogen receptor status, unspecified site of breast (HCC)- Primary Malignant neoplasm of upper-outer quadrant of right female breast, unspecified estrogen receptor status (HCC) [facility]* Diagnosis Malignant neoplasm of right female breast, unspecified estrogen receptor status, unspecified site of breast (HCC) Malignant neoplasm of upper-outer quadrant of right female breast, unspecified estrogen receptor status (HCC) [facility]* Diagnosis Malignant neoplasm of left breast in female, estrogen receptor positive, unspecified site of breast (HCC)- Primary Er+ CO- carcinoma of breast, left (HCC) 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) Postmenopausal Asymptomatic postmenopausal status (age-related) (natural) Osteopenia, unspecified location Use of anastrozole Use of aromatase inhibitors Invasive ductal carcinoma of breast, female, left (HCC) documented in this encounter [facility] note* Diagnosis Invasive ductal carcinoma of breast, female, left (HCC)- Primary Invasive ductal carcinoma of breast, female, left (HCC) [facility]* Diagnosis Malignant neoplasm of upper-outer quadrant of left breast in female, estrogen receptor positive (HCC)- Primary Invasive ductal carcinoma of breast, female, left (HCC) documented in this encounter [facility] note* Diagnosis Invasive ductal carcinoma of breast, female, left (HCC)- Primary Invasive ductal carcinoma of breast, female, left (HCC) documented in this encounter [facility] note* Diagnosis Malignant neoplasm of upper-outer quadrant of left breast in female, estrogen receptor positive (HCC)- Primary Invasive ductal carcinoma of breast, female, left (HCC) [facility]* Diagnosis Malignant neoplasm of upper-outer quadrant of left breast in female, estrogen receptor positive (HCC)- Primary Invasive ductal carcinoma of breast, female, left (HCC) [facility]* Diagnosis Preoperative examination- Primary Preoperative examination, unspecified Primary hypertension Unspecified essential hypertension Chronic systolic CHF (congestive heart failure) (HCC) Chronic systolic heart failure Valvular heart disease Endocarditis, valve unspecified, unspecified cause Nonischemic cardiomyopathy (HCC) Other primary cardiomyopathies Invasive ductal carcinoma of breast, female, left (HCC) * Assessment & Plan Note - Barbie Francis PA-C - 12/07/2024 11:48 AM EDT Associated Problem(s): Nonischemic cardiomyopathy (HCC) Assessment: Promotional Demonstrator: Fernando. Last seen in 2022 * Assessment & Plan Note - Barbie Francis PA-C - 12/07/2024 11:42 AM EDT Associated Problem(s): Chronic systolic CHF (congestive heart failure) (HCC) Assessment: 08/29/22 Echo: CONCLUSIONS: 1. Left ventricular systolic function is mildly to moderately decreased with a 40-45% estimated ejection fraction. 2. Severe inferolateral wall hypokinesis. 3. When compared to a study from 10/04/2021, there has been no significant interval changes. * Assessment & Plan Note - Barbie Francis PA-C - 12/07/2024 11:41 AM EDT Associated Problem(s): Primary hypertension Assessment: not currently on medication. BP in office today 158/90 Last 14 BP Last 14 Encounter BP Readings: Date: BP: 12/07/2024 158/90 11/26/2024 156/79 11/02/2013 123/75 * Assessment & Plan Note - Barbie Francis PA-C - 12/07/2024 11:37 AM EDT Associated Problem(s): Valvular heart disease Assessment: mild MR and TR documented [facility]* Diagnosis Preoperative examination- Primary Preoperative examination, unspecified Primary hypertension Unspecified essential hypertension Chronic systolic CHF (congestive heart failure) (HCC) Chronic systolic heart failure Valvular heart disease Endocarditis, valve unspecified, unspecified cause Nonischemic cardiomyopathy (HCC) Other primary cardiomyopathies Invasive ductal carcinoma of breast, female, left (HCC) Invasive ductal carcinoma of breast, female, left (HCC) documented in this encounter [facility] note* Diagnosis Malignant neoplasm of female breast, unspecified estrogen receptor status, unspecified laterality, unspecified site of breast Encounter for pre-operative cardiovascular clearance BMI 20.0-20.9, adult Never smoked tobacco documented in this encounter [facility] Work Phone: Evaluation note* Diagnosis Preoperative examination- Primary Preoperative examination, unspecified Primary hypertension Unspecified essential hypertension Chronic systolic CHF (congestive heart failure) (HCC) Chronic systolic heart failure Valvular heart disease Endocarditis, valve unspecified, unspecified cause Nonischemic cardiomyopathy (HCC) Other primary cardiomyopathies Invasive ductal carcinoma of breast, female, left (HCC) documented in this encounter [facility] note* Diagnosis Preoperative examination- Primary Preoperative examination, unspecified Primary hypertension Unspecified essential hypertension Chronic systolic CHF (congestive heart failure) (HCC) Chronic systolic heart failure Valvular heart disease Endocarditis, valve unspecified, unspecified cause Nonischemic cardiomyopathy (HCC) Other primary cardiomyopathies Invasive ductal carcinoma of breast, female, left (HCC)- Primary documented in this encounter [facility] note* Diagnosis Preoperative examination- Primary Preoperative examination, unspecified Primary hypertension Unspecified essential hypertension Chronic systolic CHF (congestive heart failure) (HCC) Chronic systolic heart failure Valvular heart disease Endocarditis, valve unspecified, unspecified cause Nonischemic cardiomyopathy (HCC) Other primary cardiomyopathies Status post left breast lumpectomy- Primary Other postprocedural status Malignant neoplasm of left breast in female, estrogen receptor positive, unspecified site of breast (HCC) Er+ CO- carcinoma of breast, left (HCC) 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) Postmenopausal Asymptomatic postmenopausal status (age-related) (natural) Osteopenia, unspecified location Use of anastrozole Use of aromatase inhibitors documented in this encounter [facility] note* Diagnosis Preoperative examination- Primary Preoperative examination, unspecified Primary hypertension Unspecified essential hypertension Chronic systolic CHF (congestive heart failure) (HCC) Chronic systolic heart failure Valvular heart disease Endocarditis, valve unspecified, unspecified cause Nonischemic cardiomyopathy (HCC) Other primary cardiomyopathies Malignant neoplasm of left breast in female, estrogen receptor positive, unspecified site of breast (HCC)- Primary Er+ CO- carcinoma of breast, left (HCC) 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) documented in this encounter [facility] note* Diagnosis Preoperative examination- Primary Preoperative examination, unspecified Primary hypertension Unspecified essential hypertension Chronic systolic CHF (congestive heart failure) (HCC) Chronic systolic heart failure Valvular heart disease Endocarditis, valve unspecified, unspecified cause Nonischemic cardiomyopathy (HCC) Other primary cardiomyopathies Malignant neoplasm of upper-outer quadrant of left breast in female, estrogen receptor positive (HCC)- Primary [facility] Diagnosis SNHL (sensory-neural hearing loss), asymmetrical- Primary Sensorineural hearing loss, asymmetrical [facility] - Reported* Type Description Date Medical History Generalized anxiety disorder Medical History Other specified hypothyroidism Medical History Nonrheumatic mitral (valve) insu fficiency Medical History Mild intermittent asthma, uncomp licated Medical History Scoliosis, unspecified Medical History Other specified diso rders of bone density and structure, other site Medical History Elevated blood press ure reading without diagnosis of hypertension Surgical History SPINAL FUSION 1970 Surgical History LASER ABLATION FOR HEAVY PERIOD S Surgical History TONCILLECTOMY AGE 9 Hospitalization History SEE ABOVE Posse Other History of Present illness Narrative* The patient presents for follow-up of essential hypertension. The patient states she has been doingwell with her blood pressure control since the last visit. She has no comorbid illnesses. * Symptoms: denies impaired vision, denies dyspnea, denies chest pain, denies intermittent leg claudication and denies lower extremity edema. Associated symptoms include no headache. * Home monitoring: The patient checks her blood pressure regularly. Blood pressure control has been good. * Medications: the patient is adherent with her medication regimen. She denies medication side effects. [employer] Work Phone: History of Present illness Narrative* The patient presents for follow-up of essential hypertension. The patient states she has been doingwell with her blood pressure control since the last visit. She has no comorbid illnesses. * Symptoms: denies impaired vision, denies dyspnea, denies chest pain, denies intermittent leg claudication and denies lower extremity edema. Associated symptoms include no headache. * Home monitoring: The patient checks her blood pressure regularly. Blood pressure control has been good. * Medications: the patient is adherent with her medication regimen. She denies medication side effects. [employer] Work Phone: Hospital Discharge instructionsAmbulatory Orders* Referral to General Surgery Location: None Selected [facility] Work Phone: reason for referral (narrative)No reason for referral information available[facility] Work Phone: reason for visit Narrative* Diagnostic Procedure Only (Routine) - Closed Specialty Diagnoses / Procedures Referred By Contac t Referred To Contact [facility] Diagnoses Malignant neoplasm of right female breast, unspecified estrogen receptor status, unspecified site of breast (HCC) Malignant neoplasm of upper-outer quadrant of right female breast, unspecified estrogen receptor status (HCC) Procedures MIRI DIAGNOSTIC RIGHT DIAGNOSTIC MAMMOGRAPHY COMPUTER[place] [address] [place] [address] Phone: tel: fax: [facility] [address] [place] [phone] Referral ID Status Reason Start Date Expiration Date V isits Requested Visits Authorized [id number] Closed Auto-Generate d Referral 11/17/2024 12/17/2025 1 [facility]* Diagnostic Procedure Only (Routine) - Closed Specialty Diagnoses / Procedures Referred By Contac t Referred To Contact [facility] Diagnoses Invasive ductal carcinoma of breast, female, left (HCC) Procedures MIRI NDL LOC W MIRI GD LEFT PERQ DEVICE PLACEMENT BREAST LOC 1ST LES W/GDSurendra Fajardo PA-C [address] [place] [address] Phone: tel: fax: [facility] [address] [place] [phone] Referral ID Status Reason Start Date Expiration Date V isits Requested Visits Authorized [id number] Closed Auto-Generate d Referral 11/26/2024 12/26/2025 1 1 [facility] Family History Unknown Family Member Name Dates Details Family [...] Unknown grandparent Unknown grandparent Malignant neoplasm Unknown Chief Complaint * I am ok * CANDIDO MCFARLANE is being seen for a 6 week follow-up of hypertension. * Patient was last evaluated in clinic Dr. King November 2021. * Changes to medical regimen at that time - no changes, her for BP check. * BP at home: better on weekends, sometimes elevated when gets home from work * Type of machine: arm * Time of BP assessment: t/o the day * Has machine been previously calibrated by medical staff? no * I am ok * CANDIDO MCFARLANE is being seen for a 6 week follow-up of hypertension. * Patient was last evaluated in clinic Dr. King November 2021. * Changes to medical regimen at that time - no changes, her for BP check. * BP at home: better on weekends, sometimes elevated when gets home from work * Type of machine: arm * Time of BP assessment: t/o the day * Has machine been previously calibrated by medical staff? no * CANDIDO MCFARLANE is being seen for a 8 month [...] a different institution read by a different pharmacology associate, her left ventricular end- systolic diameter was [...] visit and readdress pharmacologic intervention if necessary. Summary Purpose Advance Directives Advance Directive Response Recorded Date/ Time Advance Directives No April 1:51pm Chief Complaint and Reason for Visit Chief Complaint Wellness Reason for Visit Asthma KILEY (generalized anxiety disorder) Hypertension Mitral regurgitation Scoliosis Screening mammogram for breast cancer Medicare annual wellness visit, initial Chief Complaint Admit Date CC Adult Risk Stratification August 132023 2:20pm hip pain August 16, 2024 2:26pm [email or web address].November 01, 2024 12: 46pm Reason for Visit Admit Date Low back pain August 16, 2024 2:26pm Scoliosis August 16, 2024 2:26pm Abnormal mammogram of left breast November 01, 2024 12:46pm Chief Complaint Admit Date CC Adult Risk Stratification August 132023 2:20pm hip pain August 16, 2024 2:26pm [email or web address].November 01, 2024 12: 46pm Check Up November 05, 2024 8:5 4am Reason for Visit Admit Date Low back pain August 16, 2024 2:26pm Scoliosis August 16, 2024 2:26pm Abnormal mammogram of left breast November 01, 2024 12:46pm Invasive ductal carcinoma of left breast in female November 05, 2024 8:54am Reason for Visit Admit Date Low back pain August 16, 2024 2:26pm Scoliosis August 16, 2024 2:26pm Abnormal mammogram of left breast November 01, 2024 12:46pm Invasive ductal carcinoma of left breast in female November 05, 2024 8:54am Mitral regurgitation November 05, 2024 8: 54am Scoliosis November 05, 2024 8:5 4am Chief Complaint Admit Date [email or web address] 01, 2024 12: 46pm Check Up November 05, 2024 8:5 4am NEW - 2nd Opinion Mal Antwan of left Breast January 26, 2025 8:30am Left Breast Cancer January 26, 2025 8:31a m Reason for Visit Admit Date Abnormal mammogram of left breast November 01, 2024 12:46pm Invasive ductal carcinoma of left breast in female November 05, 2024 8:54am Mitral regurgitation November 05, 2024 8: 54am Scoliosis November 05, 2024 8:5 4am Patient requests second opinion January 8:30am Chief Complaint Admit Date NEW - 2nd Opinion Mal Antwan of left Breast January 26, 2025 8:30am Follow Up 1 Month February 23, 2025 9:01a m Left Breast Cancer February 23, 2025 9:02a m Reason for Visit Admit Date Carcinoma of upper-outer nik drant of left breast in female, estrogen recept January 26, 2025 8:30am Encounter for monitoring aromatase inhib itor therapy January 26, 2025 8:30am Osteopenia January 26, 2025 8:30a m Scoliosis January 26, 2025 8:30a m Patient requests second opinion January 8:30am Carcinoma of upper-outer nik drant of left breast in female, estrogen recept February 23, 2025 9:01am Encounter for monitoring aromatase inhib itor therapy February 23, 2025 9:01am Osteopenia February 23, 2025 9:01a m Scoliosis February 23, 2025 9:01a m Patient requests second opinion February 9:01am Chief Complaint Admit Date NEW - 2nd Opinion Mal Antwan of left Breast January 26, 2025 8:30am Follow Up 1 Month February 23, 2025 9:01a m Left Breast Cancer February 23, 2025 9:02a m URI, Covid neg April 26, 2025 1:30pm Reason for Visit Admit Date Carcinoma of upper-outer nik drant of left breast in female, estrogen recept January 26, 2025 8:30am Encounter for monitoring aromatase inhib itor therapy January 26, 2025 8:30am Osteopenia January 26, 2025 8:30a m Scoliosis January 26, 2025 8:30a m Patient requests second opinion January 8:30am Carcinoma of upper-outer nik drant of left breast in female, estrogen recept February 23, 2025 9:01am Encounter for monitoring aromatase inhib itor therapy February 23, 2025 9:01am Osteopenia February 23, 2025 9:01a m Scoliosis February 23, 2025 9:01a m Additional Source Comments INFORMATION SOURCE (unrecogn ized section and content) DATE CREATED AUTHOR 07/27/2022 [facility] DATE CREATED AUTHOR AUTHOR'S ORGANIZ ATION 10/19/2022 [employer] DATE CREATED AUTHOR AUTHOR'S ORGANIZ ATION 10/21/2022 [facility] DATE CREATED AUTHOR AUTHOR'S ORGANIZ ATION 03/31/2023 [facility] DATE CREATED AUTHOR AUTHOR'S ORGANIZ ATION 07/15/2024 [facility] DATE CREATED AUTHOR AUTHOR'S ORGANIZ ATION 07/16/2024 [facility] DATE CREATED AUTHOR AUTHOR'S ORGANIZ ATION 12/11/2024 [facility] DATE CREATED AUTHOR AUTHOR'S ORGANIZ ATION 01/04/2025 [facility] DATE CREATED AUTHOR AUTHOR'S ORGANIZ ATION 01/28/2025 [facility] DATE CREATED AUTHOR AUTHOR'S ORGANIZ ATION 02/24/2025 [facility] REASON FOR VISIT (unrecogniz ed section and content) Reason Comments [employer] Team Member - Other Reason Comments Consult Reason Comments Patient Education LEFT breast zachary sco ut localized lumpectomy, LEFT sentinel lymph node biopsy Reason Comments Breast localization request Reason Comments New Patient Left breast cancer Reason Comments Anesthesia Consult Reason Comments Pre-op Clearance Patient here for pre operative clearance for left mastectomy; scheduled with Dr. Carmella Munoz with [facility] on 12.13.24. Patient denies cardiac c/o at this time. Specialty Diagnoses / Procedures Referred By Albaro espinoza Referred To Contact Diagnoses Encounter for pre-operative cardiovascular clearance Procedures ECG 12 Lead Baldo King DO [address] [address] Phone: tel: fax: Referral ID Status Reason Start Date Expiration Date V isits Requested Visits Authorized [id number] Authorized 12/09/2024 12/09/2025 1 1 Reason Comments Medical Clearance Reason Comments Breast Problem Reason Comments Radiology [place] Specialty Diagnoses / Procedures Referred By Albaro espinoza Referred To Contact [facility] Diagnoses Invasive ductal carcinoma of breast, female, left (HCC) Invasive ductal carcinoma of breast, female, left (HCC) [C50.912] Procedures MASTECTOMY, PARTIAL PERQ DEVICE PLACEMENT BREAST LOC 1ST LES W/GDNCE INTRAOP SENTINEL LYMPH NODE ID W/DYE INJECTION BX/EXC LYMPH NODE OPEN DEEP AXILLARY NODE INJ RADIOACTIVE TRACER FOR ID OF SENTINEL NODE RADIOLOGICAL EXAMINATION SURGICAL SPECIMEN MASTECTOMY PARTIAL PLACEMENT OF BREAST LOCALIZATION DEVICE(S) PERCUTANEOUS; FIRST LESION, MAMMOGRAPHIC GUIDANCE INTRAOPERATIVE ID OF SENTINEL LYMPH NODE(S) INCL'D INJECTION OF NON-RAD DYE WHEN PERFORMED BIOPSY NODE SENTINEL AXILLARY INJECTION PROCEDURE RADIOACTIVE TRACER FOR IDENTIFICATION OF SENTINEL NODE RADIOLOGICAL EXAMINATION SURGICAL SPECIMEN Ambulatory Surgery [address] [place] [address] Phone: tel: Referral ID Status Reason Start Date Expiration Date Visits Re quested Visits Authorized [id number] 1 1 Reason Comments Post Op Reason Comments Established Patient Reason Comments Patient Question Care Teams (unrecognized sec tion and content) Team Status: Active Member Role Status Dates Josue Chatterjee DO Primary Care Provider Active Team Status: Inactive Member Role Status Dates Josue Chatterjee DO Primary Care Provider Active Start: January 26, 2025 End: January 26, 2025 Irma Mittal MD Attending Provider Active Start: January 26, 2025 End: January 26, 2025 Ave Ford MD Referring Provider Active Star t: January 26, 2025 End: January 26, 2025 Team Status: Inactive Member Role Status Dates Josue Chatterjee DO Primary Care Provider Active Start: February 23, 2025 End: February 23, 2025 Irma Mittal MD Attending Provider Active Start: February 23, 2025 End: February 23, 2025 Team Status: Active Member Role Status Dates Josue Chatterjee DO Primary Care Provider Active Start: February 23, 2025 Irma Mittal MD Attending Provider Active Start: February 23, 2025 [address] Ford MD Referring Provider Active Star t: February 23, 2025 Team Status: Inactive Member Role Status Dates Josue Chatterjee DO Primary Care Provider Active Start: April 26, 2025 End: April 26, 2025 Josue Chatterjee DO Attending Provider Active Sta rt: April 26, 2025 End: April 26, 2025 Team Status: Active Member Role Status Dates Kelton Thompson MD Attending Provider Active S tart: December 07, 2024 Josue Chatterjee DO Primary Care Provider Active Start: December 07, 2024 Team Status: Inactive Member Role Status Dates Josue Chatterjee DO Primary Care Provide r, Attending Provider Active Start: November 01, 2024 End: November 01, 2024 Team Status: Inactive Member Role Status Dates Josue Chatterjee DO Primary Care Provide r, Attending Provider Active Start: November 05, 2024 End: November 05, 2024 Team Status: Active Member Role Status Dates Josue Chatterjee DO Primary Care Provider Active Start: January 26, 2025 Irma Mittal MD Attending Provider Active Start: January 26, 2025 [address] Frod MD Referring Provider Active Star t: January 26, 2025 Team Status: Active Member Role Status Dates Kelton Thompson MD Primary Care Provider Active Team Status: Inactive Member Role Status Dates Kelton Thompson MD Primary Care Provider Active Start: May 13, 2024 End: May 13, 2024 Josue Chatterjee DO Attending Provider Active Sta rt: May 13, 2024 End: May 13, 2024 Team Status: Active Member Role Status Dates Kelton Thompson MD Primary Care Provider Active Start: August 13, 2024 Josue Chatterjee DO Attending Provider Active Sta rt: August 13, 2024 Team Status: Inactive Member Role Status Dates Kelton Thompson MD Primary Care Provider Active Start: August 16, 2024 End: August 16, 2024 Josue Chatterjee DO Attending Provider Active Sta rt: August 16, 2024 End: August 16, 2024 Corporate Travel Consultant Relationship Specialty Start Date End Date Kelton Thompson [address] [place] [phone] PCP - General 05/08/05 Arcadio Acevedo 1927 [place] [phone] Referring Dentistry 09/11/20 Corporate Travel Consultant Relationship Specialty Start Date End Date Kelton Thompson [address] [place] [phone] PCP - General 05/08/05 Arcadio Acevedo [address] [phone] Referring Dentistry 09/11/20 Corporate Travel Consultant Relationship Specialty Start Date End Date Kelton Thompson [address] [place] [phone] PCP - General 05/08/05 Arcadio Acevedo [address] [place] [phone] Referring Dentistry 09/11/20 Corporate Travel Consultant Relationship Specialty Start Date End Date Kelton Thompson [address]9 [place] [address] PCP - General 05/08/05 Arcadio Acevedo [address] [place] [phone] Referring Dentistry 09/11/20 Corporate Travel Consultant Relationship Specialty Start Date End Date Kelton Thompson [address] [place] [address] [place] [address] PCP - General 05/08/05 Arcadio Acevedo [address] [place] [phone] Referring Dentistry 09/11/20 Corporate Travel Consultant Relationship Specialty Start Date End Date Kelton Thompson [address] [facility] [place] [address] PCP - General 05/08/05 Arcadio Acevedo [address] [place] [phone] Referring Dentistry 09/11/20 Corporate Travel Consultant Relationship Specialty Start Date End Date Kelton Thompson [address] [facility] [place] [address] PCP - General 05/08/05 Arcadio Acevedo [address] [place] [phone] Referring Dentistry 09/11/20 Corporate Travel Consultant Relationship Specialty Start Date End Date Kelton Thompson [facility] [place] [address] PCP - General 05/08/05 Arcadio Acevdeo [address] [facility] [address] [facility] [place] [phone] Referring Dentistry 09/11/20 Corporate Travel Consultant Relationship Specialty Start Date End Date Kelton Thompson [facility] [place] [address] PCP - General 05/08/05 Arcadio Acevedo [address] [facility] [address] [facility] [place] [phone] Referring Dentistry 09/11/20 Corporate Travel Consultant Relationship Specialty Start Date End Date Kelton Thompson [facility] [place] [address] PCP - General 05/08/05 Arcadio Acevedo [address] [facility] [address] [facility] [place] [phone] Referring Dentistry 09/11/20 Corporate Travel Consultant Relationship Specialty Start Date End Date Kelton Thompson [facility] [place] [phone] PCP - General 05/08/05 Arcadio Acevedo [address] [facility] [place] [phone] Referring Dentistry 09/11/20 Corporate Travel Consultant Relationship Specialty Start Date End Date Kelton Thompson [address] [place] [address] PCP - General 05/08/05 Arcadio Acevedo [address] [facility] [address] [facility] [place] [phone] Referring Dentistry 09/11/20 Corporate Travel Consultant Relationship Specialty Start Date End Date Kelton Thompson [facility] [place] [address] PCP - General 05/08/05 Arcadio Acevedo 1929 [facility] [address] [place] [phone] Referring Dentistry 09/11/20 Corporate Travel Consultant Relationship Specialty Start Date End Date Josue Chatterjee DO PCP - General 08/25/99 Corporate Travel Consultant Relationship Specialty Start Date End Date Kelton Thompson [facility] [place] [phone] PCP - General 05/08/05 Arcadio Acevedo 1929 [facility] [address] [facility] [place] [phone] Referring Dentistry 09/11/20 Corporate Travel Consultant Relationship Specialty Start Date End Date Kelton Thompson [facility] [place] [address] PCP - General 05/08/05 Arcadio Acevedo 1929 [facility] [address] [facility] [place] [phone] Referring Dentistry 09/11/20 Corporate Travel Consultant Relationship Specialty Start Date End Date Kelton Thompson [address] [place] [address] PCP - General 05/08/05 Arcadio Acevedo [address] [place] [phone] Referring Dentistry 09/11/20 Corporate Travel Consultant Relationship Specialty Start Date End Date Kelton Thompson [address] [place] [address] PCP - General 05/08/05 Arcadio Acevedo [address] [facility] [place] [phone] Referring Dentistry 09/11/20 Corporate Travel Consultant Relationship Specialty Start Date End Date Kelton Thompson [address] [place] [address] PCP - General 05/08/05 Arcadio Acevedo [address] [facility] [place] [phone] Referring Dentistry 09/11/20 Corporate Travel Consultant Relationship Specialty Start Date End Date Kelton Thompson [address] [place] [address] PCP - General 05/08/05 Arcadio Acevedo [address] [facility] [place] [phone] Referring Dentistry 09/11/20 Corporate Travel Consultant Relationship Specialty Start Date End Date Kelton Thompson [address] [place] [phone] PCP - General 05/08/05 Arcadio Acevedo [address] [phone] Referring Dentistry 09/11/20 Corporate Travel Consultant Relationship Specialty Start Date End Date Josue Chatterjee DO [address] [place] [address] [address] [place] [id number] PCP - General Internal Medicine 01/27/25 Arcadio Acevedo [address] [phone] Referring Dentistry 09/11/20 Corporate Travel Consultant Relationship Specialty Start Date End Date Kelton Thompson [address] [place] [phone] PCP - General 05/08/05 Arcadio Acevedo [address] [place] [phone] Referring Dentistry 09/11/20 Corporate Travel Consultant Relationship Specialty Start Date End Date Maciel Rivers DO [address] [facility] [place] [address] PCP - General Family Medicine 12/31/22 Corporate Travel Consultant Relationship Specialty Start Date End Date Maciel Rivers DO [address] [facility] [place] [address] PCP - General Family Medicine 12/31/22 Goals (unrecognized section and content) Goals may be documented in a n alternate section Source Comments (unrecognize d section and content) In the event this informatio n is protected by the Federal Confidentiality of Alcohol and Drug Abuse Patient Records regulations: The Federal rules restrict any use of the information to criminally investigate or prosecute any alcohol or drug abuse patient.[facility] HealthIn the event this information is protected by the Federal Confidentiality of Alcohol and Drug Abuse Patient Records regulations: The Federal rules restrict any use of the information to criminally investigate or prosecute any alcohol or drug abuse patient.[facility] HealthIn the event this information is protected by the Federal Confidentiality of Alcohol and Drug Abuse Patient Records regulations: The Federal rules restrict any use of the information to criminally investigate or prosecute any alcohol or drug abuse patient.[facility] HealthIn the event this information is protected by the Federal Confidentiality of Alcohol and Drug Abuse Patient Records regulations: The Federal rules restrict any use of the information to criminally investigate or prosecute any alcohol or drug abuse patient.[facility] HealthIn the event this information is protected by the Federal Confidentiality of Alcohol and Drug Abuse Patient Records regulations: The Federal rules restrict any use of the information to criminally investigate or prosecute any alcohol or drug abuse patient.[facility] HealthIn the event this information is protected by the Federal Confidentiality of Alcohol and Drug Abuse Patient Records regulations: The Federal rules restrict any use of the information to criminally investigate or prosecute any alcohol or drug abuse patient.[facility] HealthIn the event this information is protected by the Federal Confidentiality of Alcohol and Drug Abuse Patient Records regulations: The Federal rules restrict any use of the information to criminally investigate or prosecute any alcohol or drug abuse patient.[facility] HealthIn the event this information is protected by the Federal Confidentiality of Alcohol and Drug Abuse Patient Records regulations: The Federal rules restrict any use of the information to criminally investigate or prosecute any alcohol or drug abuse patient.[facility] HealthIn the event this information is protected by the Federal Confidentiality of Alcohol and Drug Abuse Patient Records regulations: The Federal rules restrict any use of the information to criminally investigate or prosecute any alcohol or drug abuse patient.[facility] HealthIn the event this information is protected by the Federal Confidentiality of Alcohol and Drug Abuse Patient Records regulations: The Federal rules restrict any use of the information to criminally investigate or prosecute any alcohol or drug abuse patient.[facility] HealthIn the event this information is protected by the Federal Confidentiality of Alcohol and Drug Abuse Patient Records regulations: The Federal rules restrict any use of the information to criminally investigate or prosecute any alcohol or drug abuse patient.[facility] HealthIn the event this information is protected by the Federal Confidentiality of Alcohol and Drug Abuse Patient Records regulations: The Federal rules restrict any use of the information to criminally investigate or prosecute any alcohol or drug abuse patient.[facility] HealthIn the event this information is protected by the Federal Confidentiality of Alcohol and Drug Abuse Patient Records regulations: The Federal rules restrict any use of the information to criminally investigate or prosecute any alcohol or drug abuse patient.[facility] HealthIn the event this information is protected by the Federal Confidentiality of Alcohol and Drug Abuse Patient Records regulations: The Federal rules restrict any use of the information to criminally investigate or prosecute any alcohol or drug abuse patient.[facility] HealthIn the event this information is protected by the Federal Confidentiality of Alcohol and Drug Abuse Patient Records regulations: The Federal rules restrict any use of the information to criminally investigate or prosecute any alcohol or drug abuse patient.[facility] HealthIn the event this information is protected by the Federal Confidentiality of Alcohol and Drug Abuse Patient Records regulations: The Federal rules restrict any use of the information to criminally investigate or prosecute any alcohol or drug abuse patient.[facility] HealthIn the event this information is protected by the Federal Confidentiality of Alcohol and Drug Abuse Patient Records regulations: The Federal rules restrict any use of the information to criminally investigate or prosecute any alcohol or drug abuse patient.[facility] HealthIn the event this information is protected by the Federal Confidentiality of Alcohol and Drug Abuse Patient Records regulations: The Federal rules restrict any use of the information to criminally investigate or prosecute any alcohol or drug abuse patient.[facility] HealthIn the event this information is protected by the Federal Confidentiality of Alcohol and Drug Abuse Patient Records regulations: The Federal rules restrict any use of the information to criminally investigate or prosecute any alcohol or drug abuse patient.[facility] HealthIn the event this information is protected by the Federal Confidentiality of Alcohol and Drug Abuse Patient Records regulations: The Federal rules restrict any use of the information to criminally investigate or prosecute any alcohol or drug abuse patient.[facility] HealthIn the event this information is protected by the Federal Confidentiality of Alcohol and Drug Abuse Patient Records regulations: The Federal rules restrict any use of the information to criminally investigate or prosecute any alcohol or drug abuse patient.[facility] HealthIn the event this information is protected by the Federal Confidentiality of Alcohol and Drug Abuse Patient Records regulations: The Federal rules restrict any use of the information to criminally investigate or prosecute any alcohol or drug abuse patient.[facility] HealthIn the event this information is protected by the Federal Confidentiality of Alcohol and Drug Abuse Patient Records regulations: The Federal rules restrict any use of the information to criminally investigate or prosecute any alcohol or drug abuse patient.[facility] HealthIn the event this information is protected by the Federal Confidentiality of Alcohol and Drug Abuse Patient Records regulations: The Federal rules restrict any use of the information to criminally investigate or prosecute any alcohol or drug abuse patient.[facility] FOR RECORDS PERTAINING TO PATIENTS WHO ARE [...] BE BASED ON THE PRIMARY CLINICAL RECORDS. [facility]. provides no warranty or guarantee of the accuracy or completeness of information in this document.
== END 2025-05-11 14:57 | disposition home or self-care (01) ==
LOC: RAD 15:01
PROVIDERS: PCP Internal Medicine; Visit Provider Internal Medicine
DX: R05.9 Cough, unspecified (principal)
CPT/HCPCS: 71046